=== PATIENT | male | born 1940 | race Caucasian/White ===

== ENCOUNTER 2023-01-23 08:15 | Outpatient (RCR) | payer MEDICARE, OTHER, SELFPAY | END 2023-02-26 10:13 | disposition home or self-care (01) | PROVIDERS: Visit Provider Physician Assistant Surgical | DX: Z96.611 Presence of right artificial shoulder joint (principal); R53.1 Weakness; R52 Pain, unspecified; Z74.09 Other reduced mobility; Z51.89 Encounter for other specified aftercare | CPT/HCPCS: 97110; 97161 ==

== ENCOUNTER 2024-05-05 09:43 | Outpatient (CLI) | payer MEDICARE, OTHER, SELFPAY ==
--- OUTSIDE RECORDS SUMMARY | 2024-05-21 00:29 | XMS_ITS | Continuity of Care Document ---
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 It does not include entries that were removed or entered in error. Problem Status Onset Date Problem Type Date of Resolution Comments Source Benign essential hypertension Active Condition [facility] Elevation, blood pressure (ICD-9-CM 796.2) Active Condition Apr 15, 2014 Entered By: KIRSTEN MEEK Comment: no recent elevated bp readings at non [facility] pcp or here 2013 [facility] Hyperlipidemia (SNOMED CT [id number]) Active Condition [facility] Other Specified Counseling Active Condition Apr 15, 2014 Entered By: KIRSTEN MEEK Comment: nl cscope 5 years ago at non ms provider, managed by non [facility] Personal History of Malignant Neoplasm of Prostate (ICD-9-CM V10.46) Active Condition [facility] Pigmented skin lesion Active Condition Apr 15, 2014 Entered By: KIRSTEN MEEK Comment: 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 [facility] Diagnosis: ICD-10-CM M25.512 Pain in left shoulder Active Diagnosis [facility] Diagnosis: ICD-10-CM Z47.1 Aftercare following joint replacement surgery Active Diagnosis [facility] Diagnosis: ICD-10-CM Z46.1 Encounter for fitting and adjustment of hearing aid Active Diagnosis [facility] Diagnosis: ICD-10-CM Z47.89 Encounter for other orthopedic aftercare Active Diagnosis [facility] Diagnosis: ICD-10-CM M25.519 Pain in unspecified shoulder Active Diagnosis [facility] Diagnosis: ICD-10-CM M62.81 Muscle weakness (generalized) Active Diagnosis [facility] Diagnosis: ICD-10-CM Z73.6 Limitation of activities due to disability Active Diagnosis [facility] Admit Reason: S/P TSA Active Diagnosis [facility] Diagnosis: ICD-10-CM E78.5 Hyperlipidemia, unspecified Active Diagnosis [facility] Diagnosis: ICD-10-CM Z01.818 Encounter for other preprocedural examination Active Diagnosis [facility] Diagnosis: ICD-10-CM J20.9 Acute bronchitis, unspecified Active Diagnosis [facility] Diagnosis: ICD-10-CM Z71.9 Counseling, unspecified Active Diagnosis [facility] Diagnosis: ICD-10-CM Z13.6 Encounter for screening for cardiovascular disorders Active Diagnosis [facility] Diagnosis: ICD-10-CM M19.012 Primary osteoarthritis, left shoulder Active Diagnosis [facility] Diagnosis: ICD-10-CM H93.13 Tinnitus, bilateral Active Diagnosis [facility] Medications Combined list of outpatient medications from [...] Sep 06, 2023 100 Oct 06, 2023 [id number] Sep 06, 2023 DIRK [facility]HO [facility] ORAL 10/06/2023 [id number] Skyla NASH 2022 100 [facility] AMOXICILLIN TRIHYDRATE 875MG/CLAVU LANATE K 125MG TAB AMOXICIL STEVIE TRIHYDRA TE 875MG/CL AVULANAT E K 125MG TAB TAKE 1 TABLET BY MOUTH TWICE A DAY BRONCHIT IS BRONCHIT IS Aug 14, 2023 10 Sep 13, 2023 [id number] Aug 14, 2023 CELINE MEADE [place] [facility] ORAL 09/13/2023 [id number] SHEA MEADE [place] [address] [facility] ASPIRIN 81MG TAB,EC ASPIRIN 81MG TAB,EC Active: Susp TAKE ONE TABLET BY MOUTH EVERY DAY FOR HEART DISEASE DO NOT CHEW FOR HEART DISEASE Mar 18, 2024 120 Mar 19, 2025 [id number] Jun 07, 2024 Ynes BRISENO [facility] ORAL SUSPEND ED 03/19/2025 [id number] AMANDEEP BRISENO Y [address] [facility] ASPIRIN 81MG TAB,EC ASPIRIN 81MG TAB,EC Disconti nued TAKE TWO TABLETS BY MOUTH EVERY DAY FOR 6 WEEKS TO PREVENT BLOOD CLOTS. TO PREVENT BLOOD CLOTS Sep 06, 2023 84 Oct 18, 2023 [id number] Sep 06, 2023 DIRK NASH [facility] ORAL DISCONT INUED BY PROVIDE R 10/18/2023 [id number] Skyla NASH [address] [facility] ATORVASTATI N CA 80MG TAB ATORVAST ATIN CA 80MG TAB Active TAKE ONE TABLET BY MOUTH EVERY DAY FOR CHOLESTE ROL FOR CHOLESTE ROL Mar 18, 2024 90 Mar 19, 2025 [id number] A Apr 17, 2024 [facility] 03/19/2025 [id number] AMANDEEP BRISENO Y [address] [facility] ATORVASTATI N CA 80MG TAB ATORVAST ATIN CA 80MG TAB Disconti nued TAKE ONE TABLET BY MOUTH EVERY DAY FOR CHOLESTE ROL FOR CHOLESTE ROL Mar 19, 2023 90 Mar 19, 2024 [id number] January 28, 2024 [facility] 03/19/2024 [id number] AMANDEEP BRISENO Y 2022 90 [facility] ATORVASTATI N CA 80MG TAB ATORVAST ATIN CA 80MG TAB Disconti nued TAKE ONE-HALF TABLET BY MOUTH EVERY DAY FOR CHOLESTE ROL May 08, 2022 45 May 09, 2023 [id number] B Mar 05, 2023 Ynes BRISENO [facility] ORAL DISCONT INUED 05/09/2023 [id number] AMANDEEP BRISENO NDE Y 2021 [address] [facility] BENZOYL PEROXIDE 10% (WATER BASED) GEL,TOP BENZOYL [...] Jul 05, 2023 60 Aug 07, 2023 [id number] Jul 09, 2023 JEFF ROCHE [facility] TOPICA L 08/07/2023 [id number] Claire ROCHE [address] [facility] CALCIUM CARBONATE 650MG TAB CALCIUM CARBONAT E 650MG TAB Active TAKE ONE TABLET BY MOUTH EVERY DAY FOR CALCIUM SUPPLEME NT FOR CALCIUM SUPPLEME NT Apr 02, 2024 90 Apr 03, 2025 [id number] Apr 03, 2024 Ynes BRISENO [facility] ORAL ACTIVE 04/03/2025 [id number] AMANDEEP BRISENO Y [address] [facility] CARBOXYMETH YLCELLULOSE NA 0.25% SOLN,OPH CARBOXYM ETHYLCEL LULOSE NA 0.25% SOLN,OPH Active INSTILL 1 DROP IN BOTH EYES FOUR TIMES A DAY FOR DRY EYES FOR DRY EYES Nov 20, 2023 45 Nov 20, 2024 [id number] Nov 20, 2023 [facility] ACTIVE 11/20/2024 [id number] Kaern PATEL 2023 45 [facility] CETIRIZINE HCL 10MG TAB CETIRIZI NE HCL 10MG TAB TAKE ONE TABLET BY MOUTH EVERY DAY FOR ALLERGIE S Aug 14, 2023 10 Sep 13, 2023 [id number] Aug 14, 2023 CELINE MEADE [place] [facility] ORAL 09/13/2023 [id number] MEADECELINE ALVAREZSkyla [place] 2022 10 [facility] CHOLECALCIF DARLENE 25MCG (1,000UNIT) TAB CHOLECAL CIFEROL 25MCG (1,000UN IT) TAB Active TAKE ONE TABLET BY MOUTH EVERY DAY FOR VITAMIN D FOR VITAMIN D Mar 18, 2024 100 Mar 19, 2025 [id number] A Apr 09, 2024 Ynes BRISENO Y [facility] ORAL ACTIVE 03/19/2025 [id number] AMANDEEP BRISENO Y 2023 100 [facility] CHOLECALCIF DARLENE 25MCG (1,000UNIT) TAB CHOLECAL CIFEROL 25MCG (1,000UN IT) TAB Disconti nued TAKE ONE TABLET BY MOUTH EVERY DAY FOR VITAMIN D FOR VITAMIN D Jun 29, 2023 100 Jun 27, 2024 [id number] January 20, 2024 PRIMO WALTERS [facility] ORAL DISCONT INUED 06/27/2024 [id number] PRIMO WALTERS 2022 100 [facility] CHOLECALCIF DARLENE 25MCG (1,000UNIT) TAB CHOLECAL CIFEROL 25MCG (1,000UN IT) TAB Disconti nued TAKE 1000UNIT BY MOUTH EVERY DAY FOR VITAMIN D FOR VITAMIN D Jun 27, 2023 90 Jun 27, 2024 [id number] Jun 29, 2023 PRIMO WALTERS [facility] ORAL DISCONT INUED (EDIT) 06/27/2024 [id number] PRIMO WALTERS 2022 90 [facility] CHOLECALCIF DARLENE 25MCG (1,000UNIT) TAB CHOLECAL CIFEROL 25MCG (1,000UN IT) TAB Non-VA TAKE ONE TABLET BY MOUTH EVERY DAY Mar 06, 2017 Non-VA Document ed by: Ynes BRISENO Document ed at: [facility] ORAL ACTIVE AMANDEEP BRISENO Y [address] [facility] CODEINE 10MG/GUAIFE NESIN 100MG/5ML (SF & AF) LIQUID CODEINE 10MG/GUA IFENESIN 100MG/5M L (SF and AF) LIQUID Disconti nued TAKE 10 ML BY MOUTH EVERY 6 HOURS NEEDED FOR COUGH FOR COUGH Aug 14, 2023 236 Sep 13, 2023 [id number] Aug 14, 2023 CELINE MEADE [facility] ORAL DISCONT INUED 09/13/2023 [id number] SHE[place] ME[place] [address] [facility] DOCUSATE NA 50MG/SENNOS IDES 8.6MG TAB DOCUSATE NA 50MG/SEN NOSIDES 8.6MG TAB TAKE 2 TABLETS BY MOUTH TWICE A DAY FOR CONSTIPA TION *HOLD FOR LOOSE STOOLS* FOR CONSTIPA TION Sep 06, 2023 100 Oct 06, 2023 [id number] Sep 06, 2023 DIRK NASH [facility] ORAL 10/06/2023 [id number] Skyla NASH [address] [facility] HYDROCHLORO THIAZIDE 12.5MG TAB HYDROCHL OROTHIAZ JONATHAN 12.5MG TAB Active TAKE ONE TABLET BY MOUTH EVERY DAY FOR BLOOD PRESSURE FOR BLOOD PRESSURE Mar 18, 2024 90 Mar 19, 2025 [id number] Mar 19, 2024 Ynes BRISENO Y [facility] ORAL ACTIVE 03/19/2025 [id number] AMANDEEP BRISENO Y [address] [facility] HYDROCHLORO THIAZIDE 25MG TAB HYDROCHL OROTHIAZ JONATHAN 25MG TAB Disconti nued TAKE ONE-HALF TABLET BY MOUTH EVERY DAY FOR BLOOD PRESSURE Mar 19, 2023 45 Mar 19, 2024 [id number] E Feb 18, 2024 Ynes BRISENO Y [facility] ORAL DISCONT INUED (EDIT) 03/19/2024 [id number] AMANDEEP BRISENO NDE Y [address] [facility] HYDROCHLORO THIAZIDE 25MG TAB HYDROCHL OROTHIAZ JONATHAN 25MG TAB Disconti nued TAKE ONE-HALF TABLET BY MOUTH EVERY DAY FOR BLOOD PRESSURE May 08, 2022 45 May 09, 2023 [id number] D Feb 22, 2023 Ynes BRISENO Y [facility] ORAL DISCONT INUED 05/09/2023 [id number] AMANDEEP BRISENO NDE Y [address] [facility] IBUPROFEN 200MG TAB IBUPROFE N 200MG TAB Non-VA TAKE ONE TABLET BY MOUTH EVERY DAY NEEDED Sep 01, 2022 Non-VA Document ed by: ALE MICHAELS Document ed at: [facility] ORAL ACTIVE LUPE MICHAELS [address] [facility] LIDOCAINE 5% PATCH LIDOCAIN E 5% PATCH APPLY 1 PATCH TOPICALL Y EVERY DAY DIRECTED TO BOTH SIDES ON INCISION . MAY CUT IN HALF. DO NOT APPLY DIRECTLY OVER INCISION . WEAR PATCH FOR 12 HOURS, THEN REMOVE FOR 12 HOURS BEFORE NEW PATCH IS APPLIED. DO NOT START WEARING PATCH UNTIL 09/09/23 FOR PAIN Sep 06, 2023 15 Oct 06, 2023 [id number] Sep 06, 2023 DIRK NASH [facility] TOPICA L 10/06/2023 [id number] Skyla NASH [address] [facility] METHOCARBAM OL 500MG TAB METHOCAR BAMOL 500MG TAB TAKE ONE TO TWO TABLETS BY MOUTH EVERY 6 HOURS NEEDED FOR PAIN RELATED TO MUSCLE SPASM AND/OR TIGHTNES S. TAKE LOWEST EFFECTIV E DOSE. FOR PAIN Sep 06, 2023 80 Oct 06, 2023 [id number] Sep 06, 2023 DIRK NASH [facility] ORAL 10/06/2023 [id number] Sykla NASH [address] [facility] MULTIVITAMI NS CAP/TAB MULTIVIT AMINS CAP/TAB Non-VA TAKE ONE TABLET BY MOUTH EVERY DAY February 01, 2011 Non-VA Document ed by: ANGELITA ZAMORA TTI Document ed at: [facility] ORAL ACTIVE ROSE ZAMORA [address] [facility] MUPIROCIN 2% OINT,TOP MUPIROCI N 2% OINT,TOP APPLY PEA SIZED AMOUNT INSIDE EACH NOSTRIL TOPICALL Y TWICE A DAY TO PREVENT INFECTIO N FOR FIVE DAYS PRIOR TO SURGERY -PROCEDU RE DATE: 09/05/20 23 FOR FIVE DAYS PRIOR TO SURGERY -PROCEDU RE DATE: 09/05/20 23 TO PREVENT INFECTIO N Jul 05, 2023Aug 07, 2023 [id number] Jul 09, 2023 JEFF ROCHE [facility] TOPICA L 08/07/2023 [id number] Claire ROCHE [address] [facility] NALOXONE HCL 4MG/SPRAY SOLN,SPRAY, NASAL NALOXONE HCL 4MG/SPRA Y SOLN,SPR AY,NASAL SPRAY 1 DOSE IN ONE NOSTRIL DIRECTED ONCE FOR UNRESPON SIVENESS THEN CALL 911 - IF NO CHANGE IN 2-3 MINUTES, GIVE SECOND DOSE IN OPPOSITE NOSTRIL. FOR UNRESPON SIVENESS THEN CALL 911 Sep 06, 2023 2 Oct 06, 2023 [id number] Sep 06, 2023 DIRK NASH [facility] NASAL 10/06/2023 [id number] Skyla NASH [address] [facility] OXYCODONE HCL 5MG TAB OXYCODON E HCL 5MG TAB TAKE 1/2 TABLET TO ONE TABLET BY MOUTH EVERY 4 HOURS NEEDED FOR PAIN NOT CONTROLL ED WITH NON-OPIO ID REGIMEN. ATTEMPT TO USE LOWEST EFFECTIV E DOSE. FOR PAIN NOT CONTROLL ED WITH NON-OPIO ID REGIMEN. ATTEMPT TO USE LOWEST EFFECTIV E DOSE. FOR PAIN Sep 06, 2023 20 Oct 06, 2023 [id number] Sep 06, 2023 DIRK NASH [facility] ORAL 10/06/2023 [id number] Skyla NASH [address] [facility] POLYETHYLEN E GLYCOL 3350 PWDR,ORAL POLYETHY GEMMA GLYCOL 3350 PWDR,ORA L TAKE 17 GRAMS BY MOUTH EVERY DAY FOR CONSTIPA TION. MIX WITH 8OZ OF JUICE OR WATER *HOLD FOR LOOSE STOOLS FOR CONSTIPA TION Sep 06, 2023 238 Oct 06, 2023 [id number] Sep 06, 2023 DIRK NASH [facility] ORAL 10/06/2023 [id number] Skyla NASH [address] [facility] Allergies, Adverse Reactions, Alerts Combined list of allergies from Department of Defense and Veterans Affairs facilities. It does not include entries that were removed or entered in error. Substance Category Reaction Severity Reaction type Status Date Reported Comments Source LISINOPRIL Propensity to adverse reactions to drug (finding) Cough active 8 [facility] Immunizations Combined list of available immunizations from the Department of Defense and Veterans Affairs facilities. Immunization Series Date Given Administered By Site Reaction Lot Number CVX Code Drug Director Of Alumni Relations Status Comments Source COVID-19 (Opsmatic), MRNA, LNP-S, PF, CLARI-SUCROSE, 30 MCG/0.3 ML (AGES 12+ YEARS) 2023 ANDRIY LE LEFT DELTO ID [id number] [address] [facility] TDAP 2023 ANDRIY LE RIGHT DELTO ID [id number] [address] [facility] INFLUENZA, HIGH-DOSE, QUADRIVALENT [address] [facility] PNEUMOCOCCAL CONJUGATE PCV20, POLYSACCHARID E [id number] CONJUGATE, ADJUVANT, PF [address] [facility] INFLUENZA VACCINE, QUADRIVALENT, ADJUVANTED [address] [facility] COVID-19 (Opsmatic), MRNA, LNP-S, PF, 30 MCG/0.3 ML DOSE, CLARI-SUCROSE (AGES 12+ YEARS) 4 2021 217 complet ed PFR; [id number]; 2 [facility] COVID-19 (PFIZER), MRNA, LNP-S, PF, 30 MCG/0.3 ML DOSE [address] [facility] INFLUENZA, HIGH-DOSE, QUADRIVALENT [address] [facility] INFLUENZA, UNSPECIFIED FORMULATION 2020 88 complet ed [place] ACQUISI TION INNOVAT ION COVID-19 (PFIZER), MRNA, LNP-S, PF, 30 MCG/0.3 ML DOSE 2 2020 208 complet ed PFR; [id number]; 1 [facility] COVID-19 (PFIZER), MRNA, LNP-S, PF, 30 MCG/0.3 ML DOSE 1 2020 208 complet ed PFR; [id number]; 1 [facility] ZOSTER RECOMBINANT [address] [facility] INFLUENZA, INJECTABLE, QUADRIVALENT, PRESERVATIVE FREE [address] [facility] ZOSTER RECOMBINANT 1 [address] [facility] INFLUENZA, INJECTABLE, MDCK, PRESERVATIVE FREE, QUADRIVALENT 2018 171 complet ed [facility] Administe red by: [facility] Clinician (NPI=Not Provided) . Partner 8 Lot#: [id number] Mfr: SEQIRUS [facility] INFLUENZA, SEASONAL, INJECTABLE, PRESERVATIVE FREE [address] [facility] INFLUENZA, HIGH DOSE SEASONAL [address] [facility] INFLUENZA, HIGH DOSE SEASONAL [address] [facility] PNEUMOCOCCAL CONJUGATE PCV 13 [address] [facility] PNEUMOCOCCAL CONJUGATE PCV 13 [address] [facility] INFLUENZA, UNSPECIFIED FORMULATION [address] [facility] PNEUMOCOCCAL POLYSACCHARID E PPV23 [address] [facility] PNEUMOCOCCAL, UNSPECIFIED FORMULATION [address] [facility] TDAP [address] [facility] INFLUENZA, UNSPECIFIED FORMULATION [address] [facility] INFLUENZA, UNSPECIFIED FORMULATION 2011 [address] [facility] ZOSTER LIVE 2011 121 complet ed [id number] [facility] INFLUENZA, UNSPECIFIED FORMULATION [address] [facility] TD(ADULT) UNSPECIFIED FORMULATION 2010 [address] per pt [facility] INFLUENZA, UNSPECIFIED FORMULATION [address] [facility] Results Combined list of recent chemistry, hematology [...] Mar 19, 2023 11:19 AM Reporting Lab: [facility] [phone] Performing Lab: [facility] [phone] [facility] A1C HEMOGLOBIN A1C/HEMOGLO BIN.TOTAL IN BLOOD 5.7 4.0 - 6.0 03/18 Specimen Type: BLOOD Comment: Values obtained from A1C measurement s can vary. For typical A1C assays, a reported value of 7.0 could actually be between 6.7 and 7.3 if measured by a reference method. A reported value of 9.0 could actually be between 8.7 and 9.3. Ref: http://www. ngsp.org/[place] Pdata.asp Ordering Provider: RICHA BRISENO Report Released Date/Time: Mar 19, 2023 11:19 AM Reporting Lab: [facility] [phone] Performing Lab: [facility] [phone] [facility] ALT/SGPT ALANINE AMINOTRANSF ERASE [ENZYMATIC ACTIVITY/VO LUME] IN SERUM OR PLASMA 18 U/L <55 - 55 03/18 Specimen Type: PLASMA No comment entered. Ordering Provider: RICHA BRISENO Report Released Date/Time: Mar 19, 2023 11:19 AM Reporting Lab: [facility] [phone] Performing Lab: [facility] [address] [facility] LIPID PANEL,NON -FASTING CHOLESTEROL [MASS/VOLUM E] IN SERUM OR PLASMA 180 mg/dL <199 - 199 03/18 Specimen Type: PLASMA No comment entered. Ordering Provider: RICHA BRISENO Report Released Date/Time: Mar 19, 2023 11:19 AM Reporting Lab: [facility] [address] Performing Lab: [facility] [address] [facility] LIPID PANEL,NON -FASTING CHOLESTEROL IN HDL [MASS/VOLUM E] IN SERUM OR PLASMA 49 mg/dL 40 03/18 Specimen Type: PLASMA No comment entered. Ordering Provider: RICHA BRISENO Report Released Date/Time: Mar 19, 2023 11:19 AM Reporting Lab: [facility] [phone] Performing Lab: [facility] [address] [facility] LIPID PANEL,NON -FASTING CHOLESTEROL IN LDL [MASS/VOLUM E] IN SERUM OR PLASMA BY CALCULATION 112 mg/dL <99 - 99 03/18 H Specimen Type: PLASMA No comment entered. Ordering Provider: RICHA BRISENO Report Released Date/Time: Mar 19, 2023 11:19 AM Reporting Lab: [facility] [address] Performing Lab: [facility] [address] [facility] LIPID PANEL,NON -FASTING CHOLESTEROL IN VLDL [MASS/VOLUM E] IN SERUM OR PLASMA BY CALCULATION 19 mg/dL <29 - 29 03/18 Specimen Type: PLASMA No comment entered. Ordering Provider: RICHA BRISENO Report Released Date/Time: Mar 19, 2023 11:19 AM Reporting Lab: [facility] [address] Performing Lab: [facility] [address] [facility] LIPID PANEL,NON -FASTING CHOLESTEROL NON HDL [MASS/VOLUM E] IN SERUM OR PLASMA 131 mg/dL <129 - 129 03/18 H Specimen Type: PLASMA No comment entered. Ordering Provider: RICHA BRISENO Report Released Date/Time: Mar 19, 2023 11:19 AM Reporting Lab: [facility] [address] Performing Lab: [facility] [address] [facility] LIPID PANEL,NON -FASTING TRIGLYCERID E [MASS/VOLUM E] IN SERUM OR PLASMA 97 mg/dL <149 - 149 03/18 Specimen Type: PLASMA No comment entered. Ordering Provider: RICHA BRISENO Report Released Date/Time: Mar 19, 2023 11:19 AM Reporting Lab: [facility] [address] Performing Lab: [facility] [address] [facility] BASIC METABOLIC PANEL+MG CREATININE [MASS/VOLUM E] IN SERUM OR PLASMA 0.9 mg/dL 0.7 - 1.2 03/18 Specimen Type: PLASMA No comment entered. Ordering Provider: RICHA BRISENO Report Released Date/Time: Mar 19, 2023 11:19 AM Reporting Lab: [facility] [address] Performing Lab: [facility] [address] [facility] BASIC METABOLIC PANEL+MG UREA NITROGEN [MASS/VOLUM E] IN SERUM OR PLASMA 23 mg/dL 8 - 26 03/18 Specimen Type: PLASMA No comment entered. Ordering Provider: RICHA BRIESNO Report Released Date/Time: Mar 19, 2023 11:19 AM Reporting Lab: [facility] [address] Performing Lab: [facility] [address] [facility] BASIC METABOLIC PANEL+MG GLUCOSE [MASS/VOLUM E] IN SERUM OR PLASMA 101 mg/dL 70 - 100 03/18 H Specimen Type: PLASMA No comment entered. Ordering Provider: RICHA BRISENO Report Released Date/Time: Mar 19, 2023 11:19 AM Reporting Lab: [facility] [address] Performing Lab: [facility] [address] [facility] BASIC METABOLIC PANEL+MG SODIUM [MOLES/VOLU ME] IN SERUM OR PLASMA 141 mmol/L 136 - 145 03/18 Specimen Type: PLASMA No comment entered. Ordering Provider: RICHA BRISENO Report Released Date/Time: Mar 19, 2023 11:19 AM Reporting Lab: [facility] [address] Performing Lab: [facility] [phone] [facility] BASIC METABOLIC PANEL+MG POTASSIUM [MOLES/VOLU ME] IN SERUM OR PLASMA 4.5 mmol/L 3.5 - 5.1 03/18 Specimen Type: PLASMA No comment entered. Ordering Provider: RICHA BRISENO Report Released Date/Time: Mar 19, 2023 11:19 AM Reporting Lab: [facility] [address] Performing Lab: [facility] [address] [facility] BASIC METABOLIC PANEL+MG CHLORIDE [MOLES/VOLU ME] IN SERUM OR PLASMA 107 mmol/L 98 - 107 03/18 Specimen Type: PLASMA No comment entered. Ordering Provider: RICHA BRISENO Report Released Date/Time: Mar 19, 2023 11:19 AM Reporting Lab: [facility] [address] Performing Lab: [facility] [address] [facility] BASIC METABOLIC PANEL+MG CARBON DIOXIDE, TOTAL [MOLES/VOLU ME] IN SERUM OR PLASMA 26 mmol/L 22 - 29 03/18 Specimen Type: PLASMA No comment entered. Ordering Provider: RICHA BRISENO Report Released Date/Time: Mar 19, 2023 11:19 AM Reporting Lab: [facility] [address] Performing Lab: [facility] [address] [facility] BASIC METABOLIC PANEL+MG CALCIUM [MASS/VOLUM E] IN SERUM OR PLASMA 9.9 mg/dL 8.4 - 10.2 03/18 Specimen Type: PLASMA No comment entered. Ordering Provider: RICHA BRISENO Report Released Date/Time: Mar 19, 2023 11:19 AM Reporting Lab: [facility] [address] Performing Lab: [facility] [address] [facility] BASIC METABOLIC PANEL+MG MAGNESIUM [MASS/VOLUM E] IN SERUM OR PLASMA 2.1 mg/dL 1.6 - 2.6 03/18 Specimen Type: PLASMA No comment entered. Ordering Provider: RICHA BRISENO Report Released Date/Time: Mar 19, 2023 11:19 AM Reporting Lab: [facility] [id number] Performing Lab: [facility] [id number] [place] [facility]ABOLIC PAN[facility]+MG ANION GAP IN SERUM OR PLASMA 8 mmol/L 5 - 15 03/18 Specimen Type: PLASMA No comment entered. Ordering Provider: RICHA BRISENO Report Released Date/Time: Mar 19, 2023 11:19 AM Reporting Lab: [facility] [phone] Performing Lab: [facility] [phone] [place] [facility] METABOLIC PAN[facility]+MG GLOMERULAR FILTRATION RATE/1.73 SQ M.PREDICTED [VOLUME RATE/AREA] IN SERUM, PLASMA OR BLOOD BY CREATININE- BASED FORMULA (CKD-EPI 2020) 86 60 03/18 Specimen Type: PLASMA No comment entered. Ordering Provider: RICHA BRISENO Report Released Date/Time: Mar 19, 2023 11:19 AM Reporting Lab: [facility] [phone] Performing Lab: [facility] [address] [facility] CBC LEUKOCYTES [#/VOLUME] IN BLOOD BY AUTOMATED COUNT 6.23 10*3/u L 4.0 - 11.0 03/18 Specimen Type: BLOOD No comment entered. Ordering Provider: RICHA BRISENO Report Released Date/Time: Mar 19, 2023 11:19 AM Reporting Lab: [facility] [address] Performing Lab: [facility] [address] [facility] CBC ERYTHROCYTE S [#/VOLUME] IN BLOOD BY AUTOMATED COUNT 3.95 10*6/u L 4.6 - 6.2 03/18 L Specimen Type: BLOOD No comment entered. Ordering Provider: RICHA BRISENO Report Released Date/Time: Mar 19, 2023 11:19 AM Reporting Lab: [facility] [address] Performing Lab: [facility] [address] [facility] CBC HEMOGLOBIN [MASS/VOLUM E] IN BLOOD 12.2 g/dL 13.5 - 17.9 03/18 L Specimen Type: BLOOD No comment entered. Ordering Provider: RICHA BRISENO Report Released Date/Time: Mar 19, 2023 11:19 AM Reporting Lab: [facility] [address] Performing Lab: [facility] [address] [facility] CBC HEMATOCRIT [VOLUME FRACTION] OF BLOOD BY AUTOMATED COUNT 35.6 41 - 54 03/18 L Specimen Type: BLOOD No comment entered. Ordering Provider: RICHA BRISENO Report Released Date/Time: Mar 19, 2023 11:19 AM Reporting Lab: [facility] [address] Performing Lab: [facility] [address] [facility] CBC MCV [ENTITIC VOLUME] BY AUTOMATED COUNT 90.1 fL 80 - 100 03/18 Specimen Type: BLOOD No comment entered. Ordering Provider: RICHA BRISENO Report Released Date/Time: Mar 19, 2023 11:19 AM Reporting Lab: [facility] [address] Performing Lab: [facility] [address] [facility] CBC MCH [ENTITIC MASS] BY AUTOMATED COUNT 30.9 pg 27 - 33 03/18 Specimen Type: BLOOD No comment entered. Ordering Provider: RICHA BRISENO Report Released Date/Time: Mar 19, 2023 11:19 AM Reporting Lab: [facility] [address] Performing Lab: [facility] [address] [facility] CBC MCHC [MASS/VOLUM E] BY AUTOMATED COUNT 34.3 g/dL 32.0 - 37.5 03/18 Specimen Type: BLOOD No comment entered. Ordering Provider: RICHA BRISENO Report Released Date/Time: Mar 19, 2023 11:19 AM Reporting Lab: [facility] [address] Performing Lab: [facility] [address] [facility] CBC PLATELETS [#/VOLUME] IN BLOOD BY AUTOMATED COUNT 245 10*3/u L 150 - 400 03/18 Specimen Type: BLOOD No comment entered. Ordering Provider: RICHA BRISENO Report Released Date/Time: Mar 19, 2023 11:19 AM Reporting Lab: [facility] [address] Performing Lab: [facility] [address] [facility] CBC PLATELET MEAN VOLUME [ENTITIC VOLUME] IN BLOOD BY AUTOMATED COUNT 9.8 fL 7.4 - 10.4 03/18 Specimen Type: BLOOD No comment entered. Ordering Provider: RICHA BRISENO Report Released Date/Time: Mar 19, 2023 11:19 AM Reporting Lab: [facility] [address] Performing Lab: [facility] [address] [facility] CBC ERYTHROCYTE DISTRIBUTIO N WIDTH [RATIO] BY AUTOMATED COUNT 14.6 11.5 - 14.5 03/18 H Specimen Type: BLOOD No comment entered. Ordering Provider: RICHA BRISENO Report Released Date/Time: Mar 19, 2023 11:19 AM Reporting Lab: [facility] [address] Performing Lab: [facility] [address] [facility] PSA PROSTATE SPECIFIC AG [MASS/VOLUM E] IN SERUM OR PLASMA 0.04 ng/mL <4.00 - 4.00 03/18 Specimen Type: SERUM Comment: Specimen received is PLASMA. Ordering Provider: RICHA BRISENO Report Released Date/Time: Mar 18, 2024 09:54 AM Reporting Lab: [facility] [address] Performing Lab: [facility] [address] [facility] IRON GROUP IRON [MASS/VOLUM E] IN SERUM OR PLASMA 71 ug/dL 65 - 175 03/18 Specimen Type: SERUM Comment: Specimen received is PLASMA. Ordering Provider: RICHA BRISENO Report Released Date/Time: Mar 18, 2024 09:53 AM Reporting Lab: [facility] [address] Performing Lab: [facility] [address] [facility] IRON GROUP IRON BINDING CAPACITY [MASS/VOLUM E] IN SERUM OR PLASMA 264 ug/dL 250 - 425 03/18 Specimen Type: SERUM Comment: Specimen received is PLASMA. Ordering Provider: RICHA BRISENO Report Released Date/Time: Mar 18, 2024 09:53 AM Reporting Lab: [facility] [address] Performing Lab: [facility] [address] [facility] IRON GROUP FERRITIN [MASS/VOLUM E] IN SERUM OR PLASMA 249.1 ng/mL 21.8 - 274.7 03/18 Specimen Type: SERUM Comment: Specimen received is PLASMA. Ordering Provider: RICHA BRISENO Report Released Date/Time: Mar 18, 2024 09:53 AM Reporting Lab: [facility] [address] Performing Lab: [facility] [address] [facility] IRON GROUP IRON SATURATION 27 20 - 50 03/18 Specimen Type: SERUM Comment: Specimen received is PLASMA. Ordering Provider: RICHA BRISENO Report Released Date/Time: Mar 18, 2024 09:53 AM Reporting Lab: [facility] [address] Performing Lab: [facility] [address] [facility] IRON GROUP TRANSFERRIN [MASS/VOLUM E] IN SERUM OR PLASMA 211 mg/dL 163 - 382 03/18 Specimen Type: SERUM Comment: Specimen received is PLASMA. Ordering Provider: RICHA BRISENO Report Released Date/Time: Mar 18, 2024 09:53 AM Reporting Lab: [facility] [address] Performing Lab: [facility] [address] [facility] CBC LEUKOCYTES [#/VOLUME] IN BLOOD BY AUTOMATED COUNT 8.69 10*3/u L 4.0 - 11.0 09/06 Specimen Type: BLOOD Comment: Specimen received in Lab at: 0910 Ordering Provider: RAHEEL DELGADILLO Report Released Date/Time: Sep 05, 2023 07:28 PM Reporting Lab: [facility] [address] Performing Lab: [facility] [address] [facility] CBC ERYTHROCYTE S [#/VOLUME] IN BLOOD BY AUTOMATED COUNT 3.76 10*6/u L 4.6 - 6.2 09/06 L Specimen Type: BLOOD Comment: Specimen received in Lab at: 0910 Ordering Provider: RAHEEL DELGADILLO Report Released Date/Time: Sep 05, 2023 07:28 PM Reporting Lab: [facility] [address] Performing Lab: [facility] [address] [facility] CBC HEMOGLOBIN [MASS/VOLUM E] IN BLOOD 11.5 g/dL 13.5 - 17.9 09/06 L Specimen Type: BLOOD Comment: Specimen received in Lab at: 0910 Ordering Provider: RAHEEL DELGADILLO Report Released Date/Time: Sep 05, 2023 07:28 PM Reporting Lab: [facility] [address] Performing Lab: [facility] [address] [facility] CBC HEMATOCRIT [VOLUME FRACTION] OF BLOOD BY AUTOMATED COUNT 34.7 41 - 54 09/06 L Specimen Type: BLOOD Comment: Specimen received in Lab at: 0910 Ordering Provider: RAHEEL DELGADILLO Report Released Date/Time: Sep 05, 2023 07:28 PM Reporting Lab: [facility] [address] Performing Lab: [facility] [address] [facility] CBC MCV [ENTITIC VOLUME] BY AUTOMATED COUNT 92.3 fL 80 - 100 09/06 Specimen Type: BLOOD Comment: Specimen received in Lab at: 0910 Ordering Provider: RAHEEL DELGADILLO Report Released Date/Time: Sep 05, 2023 07:28 PM Reporting Lab: [facility] [address] Performing Lab: [facility] [address] [facility] CBC MCH [ENTITIC MASS] BY AUTOMATED COUNT 30.6 pg 27 - 33 09/06 Specimen Type: BLOOD Comment: Specimen received in Lab at: 0910 Ordering Provider: RAHEEL DELGADILLO Report Released Date/Time: Sep 05, 2023 07:28 PM Reporting Lab: [facility] [address] Performing Lab: [facility] [address] [facility] CBC MCHC [MASS/VOLUM E] BY AUTOMATED COUNT 33.1 g/dL 32.0 - 37.5 09/06 Specimen Type: BLOOD Comment: Specimen received in Lab at: 0910 Ordering Provider: RAHEEL DELGADILLO Report Released Date/Time: Sep 05, 2023 07:28 PM Reporting Lab: [facility] [address] Performing Lab: [facility] [address] [facility] CBC PLATELETS [#/VOLUME] IN BLOOD BY AUTOMATED COUNT 261 10*3/u L 150 - 400 09/06 Specimen Type: BLOOD Comment: Specimen received in Lab at: 0910 Ordering Provider: RAHEEL DELGADILLO Report Released Date/Time: Sep 05, 2023 07:28 PM Reporting Lab: [facility] [address] Performing Lab: [facility] [address] [facility] CBC PLATELET MEAN VOLUME [ENTITIC VOLUME] IN BLOOD BY AUTOMATED COUNT 11.0 fL 7.4 - 10.4 09/06 H Specimen Type: BLOOD Comment: Specimen received in Lab at: 0910 Ordering Provider: RAHEEL DELGADILLO Report Released Date/Time: Sep 05, 2023 07:28 PM Reporting Lab: [facility] [address] Performing Lab: [facility] [address] [facility] CBC ERYTHROCYTE DISTRIBUTIO N WIDTH [RATIO] BY AUTOMATED COUNT 13.3 11.5 - 14.5 09/06 Specimen Type: BLOOD Comment: Specimen received in Lab at: 0910 Ordering Provider: RAHEEL DELGADILLO Report Released Date/Time: Sep 05, 2023 07:28 PM Reporting Lab: [facility] [address] Performing Lab: [facility] [address] [facility] BASIC METABOLIC PANEL+MG CREATININE [MASS/VOLUM E] IN SERUM OR PLASMA 0.9 mg/dL 0.7 - 1.2 09/06 Specimen Type: PLASMA Comment: Specimen received in Lab at: 0910 Ordering Provider: RAHEEL DELGADILLO Report Released Date/Time: Sep 05, 2023 07:28 PM Reporting Lab: [facility] [address] Performing Lab: [facility] [address] [facility] BASIC METABOLIC PANEL+MG UREA NITROGEN [MASS/VOLUM E] IN SERUM OR PLASMA 15 mg/dL 8 - 26 09/06 Specimen Type: PLASMA Comment: Specimen received in Lab at: 0910 Ordering Provider: RAHEEL DELGADILLO Report Released Date/Time: Sep 05, 2023 07:28 PM Reporting Lab: [facility] [address] Performing Lab: [facility] [address] [facility] BASIC METABOLIC PANEL+MG GLUCOSE [MASS/VOLUM E] IN SERUM OR PLASMA 141 mg/dL 70 - 100 09/06 H Specimen Type: PLASMA Comment: Specimen received in Lab at: 0910 Ordering Provider: RAHEEL DELGADILLO Report Released Date/Time: Sep 05, 2023 07:28 PM Reporting Lab: [facility] [address] Performing Lab: [facility] [address] [facility] BASIC METABOLIC PANEL+MG SODIUM [MOLES/VOLU ME] IN SERUM OR PLASMA 134 mmol/L 136 - 145 09/06 L Specimen Type: PLASMA Comment: Specimen received in Lab at: 0910 Ordering Provider: RAHEEL DELGADILLO Report Released Date/Time: Sep 05, 2023 07:28 PM Reporting Lab: [facility] [address] Performing Lab: [facility] [address] [facility] BASIC METABOLIC PANEL+MG POTASSIUM [MOLES/VOLU ME] IN SERUM OR PLASMA 4.1 mmol/L 3.5 - 5.1 09/06 Specimen Type: PLASMA Comment: Specimen received in Lab at: 0910 Ordering Provider: RAHEEL DELGADILLO Report Released Date/Time: Sep 05, 2023 07:28 PM Reporting Lab: [facility] [address] Performing Lab: [facility] [address] [facility] BASIC METABOLIC PANEL+MG CHLORIDE [MOLES/VOLU ME] IN SERUM OR PLASMA 101 mmol/L 98 - 107 09/06 Specimen Type: PLASMA Comment: Specimen received in Lab at: 0910 Ordering Provider: RAHEEL DELGADILLO Report Released Date/Time: Sep 05, 2023 07:28 PM Reporting Lab: [facility] [address] Performing Lab: [facility] [address] [facility] BASIC METABOLIC PANEL+MG CARBON DIOXIDE, TOTAL [MOLES/VOLU ME] IN SERUM OR PLASMA 24 mmol/L 22 - 29 09/06 Specimen Type: PLASMA Comment: Specimen received in Lab at: 0910 Ordering Provider: RAHEEL DELGADILLO Report Released Date/Time: Sep 05, 2023 07:28 PM Reporting Lab: [facility] [address] Performing Lab: [facility] [address] [facility] BASIC METABOLIC PANEL+MG CALCIUM [MASS/VOLUM E] IN SERUM OR PLASMA 8.6 mg/dL 8.4 - 10.2 09/06 Specimen Type: PLASMA Comment: Specimen received in Lab at: 0910 Ordering Provider: RAHEEL DELGADILLO Report Released Date/Time: Sep 05, 2023 07:28 PM Reporting Lab: [facility] [address] Performing Lab: [facility] [address] [facility] BASIC METABOLIC PANEL+MG MAGNESIUM [MASS/VOLUM E] IN SERUM OR PLASMA 1.7 mg/dL 1.6 - 2.6 09/06 Specimen Type: PLASMA Comment: Specimen received in Lab at: 0910 Ordering Provider: RAHEEL DELGADILLO Report Released Date/Time: Sep 05, 2023 07:28 PM Reporting Lab: [facility] [address] Performing Lab: [facility] [address] [facility] BASIC METABOLIC PANEL+MG ANION GAP IN SERUM OR PLASMA 9 mmol/L 5 - 15 09/06 Specimen Type: PLASMA Comment: Specimen received in Lab at: 0910 Ordering Provider: RAHEEL DELGADILLO Report Released Date/Time: Sep 05, 2023 07:28 PM Reporting Lab: [facility] [address] Performing Lab: [facility] [address] [facility] BASIC METABOLIC PANEL+MG GLOMERULAR FILTRATION RATE/1.73 SQ M.PREDICTED [VOLUME RATE/AREA] IN SERUM, PLASMA OR BLOOD BY CREATININE- BASED FORMULA (CKD-EPI 2020) 86 60 09/06 Specimen Type: PLASMA Comment: Specimen received in Lab at: 0910 Ordering Provider: RAHEEL DELGADILLO Report Released Date/Time: Sep 05, 2023 07:28 PM Reporting Lab: [facility] [address] Performing Lab: [facility] [address] [facility] Vital Signs Combined list of inpatient [...] ADM Date DC Date Status [facility] En[facility] [id number] 11/21 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
SUSAN SANCHEZ 12/02 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
LUDY ZEPEDA H 12/11 [facility] En[facility] [id number] 01/18 [facility] Encounter [id number] 03/15 [facility] OFF[facility] O/P EST MOD 30-39 MIN [id number] Diagnos is: ICD-10- CM E78.5 Hyperli pidemia , unspeci fied
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
MARCUS LOMAX 06/27 [facility] ELECTROCAR DIOGRAM COMPLETE [id number] Diagnos is: ICD-10- CM Z13.6 Encount er for screeni ng for cardiov ascular disorde rs
LUISBRADL EY A 07/03 [facility] OFF[facility] O/P EST MOD 30-39 MIN [id number] Diagnos is: ICD-10- CM Z01.818 Encount er for other preproc edural examina tion
ANGELITA TORRE 07/03 [facility] HC PRO PHONE CALL 11-20 MIN [id number] Diagnos is: ICD-10- CM Z71.9 Grinder ing, unspeci fied
JHON NAVARRO 07/05 [facility] EMERGENCY DEPT VISIT LOW MDM [id number] Diagnos is: ICD-10- CM J20.9 Acute bronchi tis, unspeci fied
MEADE,CELINEMARGARET Z 08/14 [facility] En[facility] [id number] 08/14 [facility] SELF CARE MNGMENT TRAINING [id number] Diagnos is: ICD-10- CM M25.512 Pain in left shoulde r
FRANCOIS GALLEGOS TLIN A 08/20 [facility] OFF[facility] O/P EST MOD 30-39 MIN [id number] Diagnos is: ICD-10- CM Z01.818 Encount er for other preproc edural examina tion
MARK HUBBARD M 08/20 [facility] En[facility] [id number] 08/31 [facility] Encounter [id number] SYSTEM,CIS -ARK 09[facility]05 [facility] Encounter [id number] 09/05 [facility] Encounter [id number] SYSTEM,CIS -ARK 09/05 [facility] Encounter [id number] 09/05 [facility] Out[facility] Encounter [id number] 09/05 [facility] Encounter [id number] MARCUS LOMAX F 09/05 [facility] Encounter [id number] 09/05 [facility] En[facility] [id number] CRISTOPHER COLEMAN NSTANCE L 09/05 [facility] QNHP OL DIG ASSMT&MGMT 5-10 [id number] Diagnos is: ICD-10- CM M25.519 Pain in unspeci fied shoulde r
IRISH CARROLL 09/05 [facility] En[facility] [id number] MARCUS LOMAX 09/05 [facility] RECONSTRUC T SHOULDER JOINT [id number] JEREMIAH LE 09/05 [facility] OFF[facility] O/P EST MOD 30-39 MIN [id number] Diagnos is: ICD-10- CM E78.5 Hyperli pidemia , unspeci fied
ERETIMMAYNOR H 09/05 [facility] O/P EST SF 10-19 MIN [id number] Diagnos is: ICD-10- CM M25.512 Pain in left shoulde r
CRISTOPHER COLEMAN NSTANCE L 09/05 [facility] En[facility] [id number] 09/05 [facility] In[facility] Encounter [id number] Admit Reason: S/P TSA<br/ > CARMENCITA- ELOY,CHR ISTOPHER J 09/05 Discharge from inpatient treatment to the [facility] (OPT-PR) rolls. [facility] Inpatient Encounter [id number] LIZETH FAUST A 09/05 [facility] Encounter [id number] LIZETH FAUST A 09/05 [facility] En[facility] [id number] SYSTEM,CIS -ARK 09/06 [facility] Inpatient Encounter [id number] CARLY HURLEY 09/06 [facility] OT EVAL LOW COMPLEX 30 MIN [id number] Diagnos is: ICD-10- CM Z73.6 Limitat ion of activit ies due to disabil ity<br/ > Keanu HALL 09/06 [facility] SELF CARE MNGMENT TRAINING [id number] Diagnos is: ICD-10- CM M62.81 Muscle weaknes s (genera lized)< br/> MAHIN DENT 09/06 [facility] Inpatient Encounter [id number] DORIS ASTORGA 09/06 [facility] Outpatient Encounter [id number] 09/06 [facility] OFF/OP EST MAY X REQ PHY/QHP [id number] Diagnos is: ICD-10- CM M25.519 Pain in unspeci fied shoulde r
Ynes MURPHY 09/06 [facility] In[facility] Encounter [id number] 09/06 [facility] Encounter [id number] 09/06 [facility] OFF/OP EST JANUARY X REQ PHY/QHP [id number] Diagnos is: ICD-10- CM Z47.89 Encount er for other orthope dic afterca re
DAIANA JIMÉNEZ R 09/18 [facility] SELF CARE MNGMENT TRAINING [id number] Diagnos is: ICD-10- CM M25.512 Pain in left shoulde r
RONAK CONRAD GARDUNO K 09/18 [facility] HEARING AID FITTING/CH ECKING [id number] Diagnos is: ICD-10- CM Z46.1 Encount er for fitting and adjustm ent of hearing aid<br/ > GLENN ZHENG RTHA R 09/27 [facility] SELF CARE MNGMENT TRAINING [id number] Diagnos is: ICD-10- CM M25.512 Pain in left shoulde r
SA SEAN RA B 10/16 [facility] SELF CARE MNGMENT TRAINING [id number] Diagnos is: ICD-10- CM M25.512 Pain in left shoulde r
RONAK CONRAD GARDUNO K 10/23 [facility] THERAPEUTI C EXERCISES [id number] Diagnos is: ICD-10- CM M25.512 Pain in left shoulde r
RONAK CONRAD [facility] K 10/30 [facility] POSTOP FOLLOW-UP VISIT [id number] Diagnos is: ICD-10- CM Z47.1 Afterca re followi ng joint replace ment surgery
MARCUS LOMAX 10/31 [facility] THERAPEUTI C EXERCISES [id number] Diagnos is: ICD-10- CM M25.512 Pain in left shoulde r
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
DEEPIKA GOODRICH M 12/16 [facility]PAIR/MOD IFYING [id number] Diagnos is: ICD-10- CM H90.3 Sensori neural hearing loss, bilater al
NAVEED EU[place]E [facility] EST MOD 30 MIN [id number] [phone] Diagnos is: ICD-10- CM I10 Essenti al (primar y) hyperte nsion<b r/> IKRA BRISENO Y 03/18 [facility] En[facility] [phone] HOOD RINCON E 03[facility] FITTING/CH ECKING [phone] Diagnos is: ICD-10- CM Z01.118 Encntr for exam of ears and hearing w oth abnorma l finding s
NAVEED EUGENE Keanu 04/25 [facility] Outpatient Encounter [phone] Justina DOSS Francisca 05/06 [facility] Procedures Combined list of: 1) Procedures from [facility] facilities going back up to thelast 18 months, not all [place] non-surgical procedures are included; 2) All procedures from the Department of [facility] facilities. Procedure Procedure Type Code Date Perfomer Comments Wilfredo an Left reverse TSA RECONSTRUCT SHOULDER JOINT [id number] 3 MARCUS LOMAX Other Procedure CPT Code(s): GR-SERVICE BY [place] RESIDENT, LT-LEFT SIDE [facility] Social History Combined list of available smoking, tobacco, and other social history from [facility] of Defense and Veterans [facility] facilities. Social History Type Response Date Comment Wilfredo an Tobacco smoking status [facility] FOR[facility] USER 03/18/2024 [facility] of [facility]/18/2024 [facility] History of tobacco use [place] NEVER USED 03/19/2023 [facility] History of tobacco use [place] NEVER USED 03/22/2022 [facility] Y[facility] OR MORE 05/12/2021 [facility] History of tobacco use [place]-TO[place]ACCO NEVER USED 02/24/2019 [facility] History of tobacco use FORMER TOBACCO US ER 7Y OR GREATER 02/18/2018 [facility] History of tobacco use FORMER TOBACCO US ER 7Y OR GREATER 03/06/2017 [facility] History of tobacco use FORMER TOBACCO US ER 7Y OR GREATER 03/06/2016 [facility] History of tobacco use INPT NO TOBACCO U SE IN LAST 30 DAYS 01/25/2016 [facility] 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 Additional future care activities may be listed in the Assessment and Plan section. Date/Time Care Activity Care Activity Detail Facili ty 05/26/2024 AMBULATORY - SURGERY AMBULATORY - SURGERY [facility] Advance Directives List of completed, amended, or rescinded Advance Directives on record at [facility] facilities. An actual copy of the Directive is not included. Date Advance Directive Provider Source 10/13/2017 [facility] 10/13/2017 ADVANCE DIRECTIVE DISCUSSION MARAL DORANTES [facility]
--- OUTSIDE RECORDS SUMMARY | 2024-05-21 00:31 | XMS_ITS | Encounter Summary ---
Author Organization [place] Address [address] [place] [address] Care Team Providers Care Blade Filer Name Role Phone [facility] Primary Care Prov ider Encounter Details Date [...] on filedocumented in this encounter Care Teams Blade Filer Relationship Specialty Start Date End Date [facility] [address], [place] [address] PCP - General 09/01/22 documented as of this encounter
--- OUTSIDE RECORDS SUMMARY | 2024-05-21 00:31 | XMS_ITS | Clinical Summary ---
Author Organization [place] Address [address] [place] [address] Care Team Providers Care Training And Development Head Name Role Phone [facility] Primary Care Prov ider Allergies Active [...] Comments Blood Pressure 135/79 09/27/2022 7:49 AM ADULT PROTECTIVE CASEWORKER Pulse 73 09/27/2022 7:49 AM ADULT PROTECTIVE CASEWORKER Temperature 36.6 ??C (97.8 ??F) 09/27/2022 7:49 AM CS T Respiratory Rate 18 09/27/2022 7:49 AM ADULT PROTECTIVE CASEWORKER Oxygen Saturation 94% 09/27/2022 7:49 AM ADULT PROTECTIVE CASEWORKER Inhaled Oxygen Concentration - - Weight 82.5 kg (181 lb 14.4 oz) 023 12:00 PM ADULT PROTECTIVE CASEWORKER Height 179.1 cm (5' 10.5) 09/26/2022 1 2:00 PM ADULT PROTECTIVE CASEWORKER Body Mass Index 25.73 09/26/2022 12:00 PM ADULT PROTECTIVE CASEWORKER Plan of Treatment Health Maintenance Due Date Last Done Comments ADVANCE CARE PLANNING 1942 ANNUAL REVIEW OF HM ORDERS 1942 LIPID 1942 RSV VACCINE (1 - 1-dose 60+ series) 2002 FALL RISK ASSESSMENT 2007 MEDICARE ANNUAL WELLNESS VISIT 2007 COVID-19 Vaccine ( - season) 2023 04/05/2022, 08/03/2021, 11/15/2020, Additional history [...] Laura Freire Medical Devices Implanted Type Area Application Development Intern Device Identifier Shelf Expiration Date Model / Serial / Lot Imp Scr Fixation 4.5x26mm Aqls [id number] - [id number] Implanted:Qt y: 1 on 09/26/2022 by Arley Jj MD at [facility] Metallic Hardware/An chor Right: Shoulder [employer] [id number] / / 4104 Imp Scr Fixation 4.5x18mm Aqls [id number] - [id number] Implanted:Qt y: 1 on 09/26/2022 by Arley Jj MD at [facility] Metallic Hardware/An chor Right: Shoulder [employer] [id number] / / 4104 Imp Scr Locking 4.5x35mm Aqls [id number] - [id number] Implanted:Qt y: 1 on 09/26/2022 by Arley Jj MD at [facility] Metallic Hardware/An chor Right: Shoulder [employer] [id number] / / 4104 Imp Scr Locking 4.5x32mm Aqls Dtv538 - [id number] Implanted:Qt y: 1 on 09/26/2022 by Arley Jj MD at [facility] Metallic Hardware/An chor Right: Shoulder [employer] [id number] / / 4104 Imp Baseplate Shldr 15mm Aqls [id number] - [id number] Implanted:Qt y: 1 on 09/26/2022 by Arley Jj MD at [facility] Total Joint Component/I nsert Right: Shoulder [employer] [id number] 07/06/2027 [id number] / [id number] / Glenoid Sphere For Baseplate 29mm - [id number] Implanted:Qt y: 1 on 09/26/2022 by Arley Jj MD at [facility] Total Joint Component/I nsert Right: Shoulder [employer] [id number] 02/21/2027 [id number] / [id number] / Stem Humeral Anatomic Std Ptc 7b - [id number] Implanted:Qt y: 1 on 09/26/2022 by Arley Jj MD at [facility] Total Joint Component/I nsert Right: Shoulder [employer] [id number] 06/26/2024 [id number] / [id number] / Insert Hum Revision Reverse +6 42mm 12.5d [id number] - [id number] Implanted:Qt y: 1 on 09/26/2022 by Arley Jj MD at [facility] Total Joint Component/I nsert Right: Shoulder MARIE [employer] [id number] 11/10/2026 [id number] / [id number] / Tray Reverse Centered +0 - [id number] Implanted:Qt y: 1 on 09/26/2022 by Arley Jj MD at [facility] Total Joint Component/I nsert Right: Shoulder [employer] [id number] 06/08/2027 AUX317 / [id number] / Additional Health Concerns Active Problems Noted Date Diagnosed Date 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
--- OUTSIDE RECORDS SUMMARY | 2024-05-21 00:31 | XMS_ITS | Encounter Summary ---
Author Name [facility] [place] Organization [facility] [place] Address [address] [place] [address] Care Team Providers Care Lath Tier Name Role Phone JAN BRISENO Primary Care [...] French's Name Patient's Relationship to Policy French [facility]) MEDICARE ADVANTAGE MEDIC ARE OTILIA RAMESH Claire Sep 17, 2018 [id number] [phone] BENJAMÍN ROSA PATIENT MEDICARE (WNR) MEDICARE (M) PART B Mar 17, 2007 PART B [id number] BENJAMÍN ROSA PATIENT MEDICARE (WNR) MEDICARE (M) PART A Mar 17, 2007 PART A [id number] BENJAMÍN ROSA PATIENT Selected Encounter This section includes the information on record at [place] for the Encounter. Date/Time Encounter Type Encounter Description Reason Provider Source May 06, 2024 05:56 PM Outpatient Encounter ADMIN PAT ACTIVTIES (MASNONCT) ANGELIQUE DOSS Urmila Encounter Template Text not used by [place] Plan of Treatment: Future Appointments (+ 6 months) and Future Tests (+/- 45 days) The Plan of Treatment section includes future care activities for the patient from all [place] [facility]. This section includes future appointments and future orders which are active, pending or scheduled. Future Appointments This section includes appointments that were scheduled to occur 6 months from the date of the Encounter, up to a maximum of 20 appointments. The data comes from all [place] treatment facilities. Appointment Date/Time Appointment Type Appointme nt Facility Name May 26, 2024 07:45 AM AMBULATORY - SURGERY [facility] Social History: Smoking Status (Most current) and Tobacco Use (All prior to encounter date) This section includes the most current, and the historical, smoking and tobacco- related health factors from the [place] facility where the Encounter took place. Current Smoking Status This section includes the most current smoking, or tobacco-related health factor, from the [place] facility where the Encounter took place. Date/Time Current Smoking Status Comment Facil ity Mar 18, 2024 09:00 AM VA-TOBACCO FORMER USER [facility] Tobacco Use History This section includes a history of the smoking, or tobacco-related health factors, that were collected on or before the date of the Encounter. The data comes from the [place] facility where the Encounter took place. Date/Time Smoking Status/Tobacco Use Comment F acility Mar 18, 2024 09:00 AM VA-TOBACCO QUIT [address] [facility] Mar 19, 2023 10:30 AM VA-TOBACCO NEVER USED [facility] Mar 22, 2022 08:45 AM VA-TOBACCO NEVER USED [facility] May 12, 2021 10:00 AM VA-TOBACCO FORMER USER [facility] May 12, 2021 10:00 AM VA-TOBACCO QUIT [address] [facility] Feb 24, 2019 09:35 AM VA-TOBACCO NEVER USED [facility] Feb 18, 2018 01:56 PM FORMER TOBACCO USER [address]Y [address] [facility] Mar 06, 2017 09:31 AM FORMER TOBACCO USER [address]Y [address] [facility] Mar 06, 2016 09:54 AM FORMER TOBACCO USER [address]Y [address] [facility] January 25, 2016 06:31 AM INPT NO TOBACCO USE IN LAST [address] [facility] January 22, 2015 10:06 AM LIFETIME NON-TOBACCO USER [facility] Apr 15, 2014 10:09 AM FORMER TOBACCO USER [address]Y [address] GRE[address] R [facility] February 01, 2011 08:51 AM FORMER TOBACCO USER 7Y OR GRE[address]Urmila R [facility] Advance Directives: All historical and current Section Date Range: From patient's date of to the date document was created. This section includes ALL of a patient's completed or amended [place] Advance and Rescinded Directives. The entries below indicate that a directive exists for the patient, but an actual copy is not included with this document. The data comes from all [place] facilities. Date Advance Directives Provider Source Oct 13, 2017 [facility] Oct 13, 2017 ADVANCE DIRECTIVE DISCUSSION MARAL DORANTES [facility] Encounter Notes: All associated encounter notes This section contains the clinical notes associated to the Encounter. Date/Time Encounter Note(s) Provider Source May 07, 2024 03:16 PM ADDENDUM: LOCAL TITLE: Addendum STANDARD TITLE: ADDENDUM DATE OF NOTE: MAY 07, 2024@15:16:31 ENTRY DATE: MAY 07, 2024@15:16:32 AUTHOR: DUANE HUITRON EXP COSIGNER: URGENCY: STATUS: COMPLETED [place] was seen in an outside ED on: 05/05/24 [place] Diagnosis: Laceration of arm Medical records uploaded to [facility] Please review for any additional follow up or consults needed, thank you. /laura/ Duane Huitron RN BRUNO MSN management trainee Solar Photovoltaic Systems Engineer Signed: 05/07/2024 15:17 Receipt Acknowledged By: 05/07/2024 15:23 /laura/ SHEMAR BARBER, RN REGISTERED NURSE 05/12/2024 13:02 /laura/ JAN BRISENO NURSE PRACTITIONER --- Original Document --- 05/05/24 [facility] PRESENTING CARE COORD PLAN NOTE: Emergency Notification Intake Date Presenting to the Facility: Apr Method of Contact: Notified from ECR worklist Notification ID: [id number] [facility] Name[facility]: [facility] Address: City: [place] State: [place] Zip Code: Phone : Community Facility Point of Contact: Name: Hollie Casillas RN Chief complaint: Laceration/Wound (D30.983V) Left forearm. Primary Diagnosis: Disposition Unknown at time of intake note entry /es/ TONY SIMS WHISKEY REGAUGER Signed: 05/06/2024 17:57 Receipt Acknowledged By: 05/07/2024 07:53 /es/ Daniel Montiel MA, PHN, RN-BC management trainee Solar Photovoltaic Systems Engineer for ANGELIQUE DOSS 05/07/2024 ADDENDUM STATUS: COMPLETED Forwarding per social split to the surrogate CCUM RN for continuity of care. /laura/ Daniel Montiel MA, PHN, RN-BC management trainee Solar Photovoltaic Systems Engineer Signed: 05/07/2024 07:52 Receipt Acknowledged By: 05/07/2024 07:59 /laura/ Duane Huitron RN BRUNO MSN management trainee Solar Photovoltaic Systems Engineer 05/07/2024 ADDENDUM STATUS: COMPLETED Records requested for this episode of care, will upload to [facility] when received. /laura/ Duane Huitron RN BRUNO MSN management trainee Solar Photovoltaic Systems Engineer Signed: 05/07/2024 08:01 05/05/2024 ADDENDUM STATUS: COMPLETED [facility] Scanned Document - Addendum. [facility] 05/05/24 SCANNED DOCUMENT SIGNATURE NOT REQUIRED Electronically Filed: 05/07/2024 by: Duane Huitron RN BRUNO MSN management trainee Solar Photovoltaic Systems Engineer 05/07/2024 ADDENDUM STATUS: COMPLETED Pt was seen for laceration of arm. He had sutures placed which are ordered to be removed in 10 days. Infant Babysitter spoke with pt and she stated her niece is a RN and will remove for him. Infant Babysitter encouraged them to contact [place] if this changes or if they need anything else. She v/u and agreed with plan. /laura/ SHEMAR BARBER, RN REGISTERED NURSE Signed: 05/07/2024 15:26 DUANE HUITRON [facility] May 07, 2024 07:52 AM ADDENDUM: LOCAL TITLE: Addendum STANDARD TITLE: ADDENDUM DATE OF NOTE: MAY 07, 2024@07:52:43 ENTRY DATE: MAY 07, 2024@07:52:44 AUTHOR: DANIEL MONTIEL EXP COSIGNER: URGENCY: STATUS: COMPLETED Forwarding per social split to the surrogate CCUM RN for continuity of care. /laura/ Daniel Montiel MA, PHN, RN-BC management trainee Solar Photovoltaic Systems Engineer Signed: 05/07/2024 07:52 Receipt Acknowledged By: 05/07/2024 07:59 /laura/ Duane Huitron RN BRUNO MSN management trainee Solar Photovoltaic Systems Engineer --- Original Document --- 05/05/24 [facility] PRESENTING CARE COORD PLAN NOTE: Emergency Notification Intake Date Presenting to the Facility: Apr Method of Contact: Notified from M[employer] worklist Notification ID: [id number] [facility] Referral #: [facility] Name: Hospital: [facility] Address: City: [place] State: [place] Zip Code: Phone : [facility] Facility Point of Contact: Name: Hollie Casillas RN Chief complaint: Laceration/Wound (H13.253W) Left forearm. Primary Diagnosis: Disposition Unknown at time of intake note entry /laura/ TONY SIMS WHISKEY REGAUGER Signed: 05/06/2024 17:57 Receipt Acknowledged By: 05/07/2024 07:53 /laura/ Daniel Montiel MA, PHN, RN-BC management trainee Solar Photovoltaic Systems Engineer for ANGELIQUE M DANIEL THACKER [facility] May 05, 2024 05:56 PM NONVA NOTE: LOCAL TITLE: [facility] SELF PRESENTING CARE COORD PLAN STANDARD TITLE: NONVA NOTE DATE OF NOTE: MAY 05, 2024@17:56 ENTRY DATE: MAY 06, 2024@17:56:51 AUTHOR: TONY SIMS COSIGNER: URGENCY: STATUS: COMPLETED [facility] S[facility]F PRESENTING CARE COORD PLAN NOTE Has ADDENDA Emergency Notification Intake Date Presenting to the Facility: Apr Method of Contact: Notified from ECR worklist Notification ID: [id number] [facility] Referral #: [facility] Hospital Name: Hospital: [facility] Address: City: [place] State: [place] Zip Code: Phone : Community Facility Point of Contact: Name: Hollie Casillas RN Chief complaint: Laceration/Wound (L02.783H) Left forearm. Primary Diagnosis: Disposition Unknown at time of intake note entry /laura/ TONY SIMS WHISKEY REGAUGER Signed: 05/06/2024 17:57 Receipt Acknowledged By: 05/07/2024 07:53 /laura/ Daniel Montiel MA, PHN, RN-BC management trainee Solar Photovoltaic Systems Engineer for ANGELIQUE DOSS 05/07/2024 ADDENDUM STATUS: COMPLETED Forwarding per social split to the surrogate CCUM RN for continuity of care. /laura/ Daniel Montiel MA PHN, RN-BC management trainee Solar Photovoltaic Systems Engineer Signed: 05/07/2024 07:52 Receipt Acknowledged By: 05/07/2024 07:59 /laura/ Duane Huitron RN BRUNO MSN management trainee Solar Photovoltaic Systems Engineer 05/07/2024 ADDENDUM STATUS: COMPLETED Records requested for this episode of care, will upload to [facility] when received. /[place] MSN management trainee Solar Photovoltaic Systems Engineer Signed: 05/07/2024 08:01 05/07/2024 ADDENDUM STATUS: COMPLETED [place] was seen in an outside ED on: 05/05/24 [place] Diagnosis: Laceration of arm Medical records uploaded to [facility] Please review for any additional follow up or consults needed, thank you. /laura/ Duane Huitron RN BRUNO MSN management trainee Solar Photovoltaic Systems Engineer Signed: 05/07/2024 15:17 Receipt Acknowledged By: 05/07/2024 15:23 /laura/ SOO BARBERN, RN REGISTERED NURSE * AWAITING SIGNATURE * CUBAUrmilaKIRAPEGUERO 05/05/2024 ADDENDUM STATUS: COMPLETED [facility] Scanned Document - Addendum. [place] ED 05/05/24 SCANNED DOCUMENT SIGNATURE NOT REQUIRED Electronically Filed: 05/07/2024 by: Duane Huitron RN BRUNO MSN management trainee Solar Photovoltaic Systems Engineer 05/07/2024 ADDENDUM STATUS: COMPLETED Pt was seen for laceration of arm. He had sutures placed which are ordered to be removed in 10 days. Infant Babysitter spoke with pt and she stated her niece is a RN and will remove for him. Infant Babysitter encouraged them to contact [place] if this changes or if they need anything else. She v/u and agreed with plan. /laura/ SOO BARBERN, RN REGISTERED NURSE Signed: 05/07/2024 15:26 TONY SIMS [facility]
--- OUTSIDE RECORDS SUMMARY | 2024-05-21 00:31 | XMS_ITS | Referral Summary ---
Author Organization [place] Address [address] [place] [address] Care Team Providers Care Telemarketing Fundraiser Name Role Phone [facility] Primary Care Prov ider Allergies Active Allergy [...] Comments Blood Pressure 135/79 09/27/2022 7:49 AM TOBACCO PREVENTION HEALTH EDUCATOR Pulse 73 09/27/2022 7:49 AM TOBACCO PREVENTION HEALTH EDUCATOR Temperature 36.6 ??C (97.8 ??F) 09/27/2022 7:49 AM CS T Respiratory Rate 18 09/27/2022 7:49 AM TOBACCO PREVENTION HEALTH EDUCATOR Oxygen Saturation 94% 09/27/2022 7:49 AM TOBACCO PREVENTION HEALTH EDUCATOR Inhaled Oxygen Concentration - - Weight 82.5 kg (181 lb 14.4 oz) 023 12:00 PM TOBACCO PREVENTION HEALTH EDUCATOR Height 179.1 cm (5' 10.5) 09/26/2022 1 2:00 PM TOBACCO PREVENTION HEALTH EDUCATOR Body Mass Index 25.73 09/26/2022 12:00 PM TOBACCO PREVENTION HEALTH EDUCATOR Plan of Treatment Not on file Goals Goal Patient Goal Type Associated Problems Recent Progress Patient-Stated? Author Total Joint Replacement Shoulder Pathway Care Plan Total Joint Replacement Shoulder Pathway Laura Harris Medical Devices Implanted Type Area Digital Analyst Device Identifier Shelf Expiration Date Model / Serial / Lot Imp Scr Fixation 4.5x26mm Aqls [id number] - [id number] Implanted:Qt y: 1 on 09/26/2022 by Arley Jj MD at [facility] Metallic Hardware/An chor Right: Shoulder [employer] [id number] / / 4104 Imp Scr Fixation 4.5x18mm Aqls [id number] - [id number] Implanted:Qt y: 1 on 09/26/2022 by Arley Jj MD at [facility] Metallic Hardware/An chor Right: Shoulder [employer] DHV339 / / 4104 Imp Scr Locking 4.5x35mm Aqls Ilx635 - [id number] Implanted:Qt y: 1 on 09/26/2022 by Arley Jj MD at [facility] Metallic Hardware/An chor Right: Shoulder [employer] [id number] / / 4104 Imp Scr Locking 4.5x32mm Aqls Kyb408 - [id number] Implanted:Qt y: 1 on 09/26/2022 by Arley Jj MD at [facility] Metallic Hardware/An chor Right: Shoulder [employer] YCT530 / / 4104 Imp Baseplate Shldr 15mm Aqls Jbf961 - [id number] Implanted:Qt y: 1 on 09/26/2022 by Arley Jj MD at [facility] Total Joint Component/I nsert Right: Shoulder [employer] [id number] 07/06/2027 [id number] / [id number] / Glenoid Sphere For Baseplate 29mm - [id number] Implanted:Qt y: 1 on 09/26/2022 by Arley Jj MD at [facility] Total Joint Component/I nsert Right: Shoulder [employer] [id number] 02/21/2027 KYH600 / [id number] / Stem Humeral Anatomic Std Ptc 7b - [id number] Implanted:Qt y: 1 on 09/26/2022 by Arley Jj MD at [facility] Total Joint Component/I nsert Right: Shoulder [employer] [id number] 06/26/2024 [id number] / [id number] / Insert Hum Revision Reverse +6 42mm 12.5d [id number] - [id number] Implanted:Qt y: 1 on 09/26/2022 by Arley Jj MD at [facility] Total Joint Component/I nsert Right: Shoulder MARIE [employer] TECHN [id number] 11/10/2026 [id number] / [id number] / Tray Reverse Centered +0 - [id number] Implanted:Qt y: 1 on 09/26/2022 by Arley Jj MD at [facility] Total Joint Component/I nsert Right: Shoulder [employer] [id number] 06/08/2027 RMD541 / [id number] / Additional Health Concerns Active Problems Noted Date Diagnosed Date Total Joint Replacement Shoulder Pathway 023 Advance Directives For more information, please contact: [phone] Documents on File Type Date Recorded Patient Stock Worker Expl anation Advance Directives and Living Will [...] or legal decision maker available Care Teams Telemarketing Fundraiser Relationship Specialty Start Date End Date [place], [place] [id number] PCP - General 09/01/22
--- OUTSIDE RECORDS SUMMARY | 2024-05-21 00:31 | XMS_ITS | Clinical Summary ---
Author Organization [facility] Address [place], [place] [address] Care Team Providers Care Clay Processing Labourer Name Role Phone Yoni Rogers MD Primary Care Provider [phone] Allergies No known active allergies Medications Medication [...] 0 03/01/2021 COVID-19 vaccine series (2022- season) 4 Influenza for age 65+ 05/18/2024 07/23/2019 Care Teams Clay Processing Labourer Relationship Specialty Start Date End Date Yoni Rogers MD PCP - General 11/17/09
== END 2024-05-05 09:44 | disposition home or self-care (01) ==
LOC: AMB 05-21 00:26
PROVIDERS: Visit Provider Student in an Organized Health Care Education/Training Program
DX: S51.812A Laceration without foreign body of left forearm, initial encounter (principal); W31.9XXA Contact with unspecified machinery, initial encounter; Y92.79 Other farm location as the place of occurrence of the external cause
CPT/HCPCS: A0425; A0427

== ENCOUNTER 2024-05-05 10:10 | Emergency (ER) | payer OTHER, SELFPAY ==
[2024-05-05 10:11] VITALS: BP 145/82; PULSE 78; RESP 18; TEMP 35.8; O2SAT 94; BMI 25.7
--- OUTSIDE RECORDS SUMMARY | 2024-05-05 10:57 | XMS_ITS | Encounter Summary ---
Author Name [facility] [facility] [place] Address [address] [place] [address] Care Team Providers Care Obstetrics Nurse Practitioner Name Role Phone JAN BRISENO Primary Care Provider Unavailabl e Insurance Providers: All historical and current Section Date Range: From patient's date of to the date document was created. This section includes the names of all active insurance providers for the patient. Insurance Provider Type of Coverage Plan Name Start of Policy Coverage End of Policy Coverage Group Number Member ID Insurance Provider's Telephone Number Policy French's Name Patient's Relationship to Policy French [facility] ([facility]) MEDICARE ADVANTAGE MEDIC ARE OTILIA RAMESH Claire Sep 17, 2018 [id number] [phone] BENJAMÍN ROSA PATIENT MEDICARE (WNR) MEDICARE (M) PART A Mar 17, 2007 PART A [id number] [phone] BENJAMÍN ROSA PATIENT MEDICARE (WNR) MEDICARE (M) PART B Mar 17, 2007 PART B [id number] [phone] BENJAMÍN ROSA PATIENT Selected Encounter This section includes the information on record at CT for the Encounter. Date/Time Encounter Type Encounter Description Reason Provider Source Sep 18, 2023 10:30 AM SELF CARE MNGMENT TRAINING PHYSICAL THERAPY ICD-10-CM M25.512 Pain in left shoulder DAYANA CONRAD Encounter Template Text not used by [facility] Assessments - Encounter Diagnoses This section includes the primary and secondary diagnoses documented for the Encounter. Date/Time Primary/Secondary Diagnosis Diagnosis Name Provider Source Sep 18, 2023 10:54 AM PRIMARY Pain in left shoulder DAYANA CONRDA [facility] Plan of Treatment: Future Appointments (+ 6 months) and Future Tests (+/- 45 days) The Plan of Treatment section includes future care activities for the [facility] This section includes future appointments and future orders which are active, pending or scheduled. Future Appointments This section includes appointments that were scheduled to occur 6 months from the date of the Encounter, up to a maximum of 20 appointments. The data comes from all [facility]. Appointment Date/Time Appointment Type Appointme nt Facility Name Sep 27, 2023 03:30 PM AMBULATORY - SURGERY [facility] Oct 16, 2023 08:30 AM [facility] Oct 16, 2023 10:00 AM AMBULATORY - NONE [facility] Oct 23, 2023 09:00 AM [facility]AB [facility] Oct 30, 2023 09:30 AM [facility]ORY - [facility]AB [facility] Oct 31, 2023 10:30 AM AMBULATORY - SURGERY [facility] Oct 31, 2023 05:10 PM AMBULATORY - REHAB [facility] Nov 13, 2023 09:00 AM [facility] Nov 20, 2023 10:00 AM AMBULATORY - SURGERY [facility] Nov 20, 2023 11:00 AM AMBULATORY - MEDICINE [facility] Dec 17, 2023 08:40 AM AMBULATORY - SURGERY [facility] January 24, 2024 09:45 AM AMBULATORY - SURGERY [facility] Mar 18, 2024 08:00 AM AMBULATORY - NONE [facility] Mar 18, 2024 09:00 AM [facility] Active, Pending, and Scheduled Orders This section includes a listing of several types of active, pending, and scheduled orders, including clinic medications orders, diagnostic test orders, procedure orders and consult orders; where the start date of the order is 45 days before the date of the Encounter or 45 days after the date of theEncounter. The data comes from all [facility]. Test Date/Time Test Type Test Details Facility Name Sep 05, 2023 07:28 PM Laboratory - Blood Bank Order TYPE & SCREEN - LAB BLOOD WC [facility] Lab Results: +/- 30 days of the encounter This section includes the Chemistry and Hematology Lab Results on record with CT for the patient. Radiology Reports and Pathology Reports are provided separately, in subsequent sections. Lab Results This section contains the Chemistry/Hematology Results that were resulted 30 days before or 30 daysafter the date of the Encounter. Date/Time Source Result Type Result - Unit Interpretation Reference Range Comment Sep 06, 2023 09:11 AM [facility] CBC Specimen Type: BLOOD Comment: Specimen received in Lab at: 0910 Ordering Provider: RAHEEL DELGADILLO Report Released Date/Time: Sep 05, 2023 07:28 PM Reporting Lab: [facility] [id number] Performing Lab: [facility] [phone] WBC 8.69 10*3/uL 4.0-11.0 RBC 3.76 10*6/uL L 4.6-6.2 HGB 11.5 g/dL L 13.5-17.9 HCT 34.7 L 41-54 MCV 92.3 fL 80-100 MCH 30.6 pg 27-33 MCHC 33.1 g/dL 32.0-37.5 PLT 261 10*3/uL 150-400 MPV 11.0 fL H 7.4-10.4 RDW 13.3 11.5-14.5 Sep 06, 2023 09:11 AM [facility] BASIC METABOLIC PANEL+MG Specimen Type: PLASMA Comment: Specimen received in Lab at: 0910 Ordering Provider: RAHEEL DELGADILLO Report Released Date/Time: Sep 05, 2023 07:28 PM Reporting Lab: [facility] [phone] Performing Lab: [facility] [phone] CREATININE 0.9 mg/dL 0.7-1.2 UREA NITROGEN 15 mg/dL 8-26 GLUCOSE 141 mg/dL H 70-100 SODIUM 134 mmol/L L 136-145 POTASSIUM 4.1 mmol/L 3.5-5.1 CHLORIDE 101 mmol/L 98-107 CO2 24 mmol/L 22-29 CALCIUM 8.6 mg/dL 8.4-10.2 MAGNESIUM 1.7 mg/dL 1.6-2.6 ANION GAP 9 mmol/L 5-15 .CREAT EGFR(CKD-EPI) 86 >60 Sep 06, 2023 05:44 AM [facility] FINGERSTICK GLUCOSE Specimen Type: BLOOD Comment: Save Result Ordering Provider: FALLON MUNGUIA Report Released Date/Time: Sep 06, 2023 06:02 AM Reporting Lab: [facility] [phone] Performing Lab: [facility] [phone] FINGERSTICK GLUCOSE 140 mg/dL 70-100 Sep 05, 2023 08:25 PM [facility] PROTHROMBIN TIME/INR Specimen Type: PLASMA No comment entered. Ordering Provider: EMILY REVELES Report Released Date/Time: Sep 05, 2023 07:28 PM Reporting Lab: [facility] [phone] Performing Lab: [facility] Sep 05, 2023 08:25 PM [facility] ACT PART THROMBO TIME Specimen Type: PLASMA Comment: ~Draw on admission. Call IV team to draw on admission. Ordering Provider: EMILY REVELES Report Released Date/Time: Sep 05, 2023 07:28 PM Reporting Lab: [facility] [phone] Performing Lab: [facility] [phone] APTT 30.8 s 25.1-36.5 Sep 05, 2023 08:25 PM [facility] CBC Specimen Type: BLOOD No comment entered. Ordering Provider: EMILY REVELES Report Released Date/Time: Sep 05, 2023 07:28 PM Reporting Lab: [facility] [phone] Performing Lab: [facility] [phone] WBC 8.60 10*3/uL 4.0-11.0 RBC 3.66 10*6/uL L 4.6-6.2 HGB 11.3 g/dL L 13.5-17.9 HCT 34.3 L 41-54 MCV 93.7 fL 80-100 MCH 30.9 pg 27-33 MCHC 32.9 g/dL 32.0-37.5 PLT 225 10*3/uL 150-400 MPV 10.9 fL H 7.4-10.4 RDW 13.4 11.5-14.5 Sep 05, 2023 08:25 PM [facility] BASIC METABOLIC PANEL+MG Specimen Type: PLASMA No comment entered. Ordering Provider: EMILY REVELES Report Released Date/Time: Sep 05, 2023 07:28 PM Reporting Lab: [facility] [phone] Performing Lab: [facility] [phone] CREATININE 0.9 mg/dL 0.7-1.2 UREA NITROGEN 17 mg/dL 8-26 GLUCOSE 148 mg/dL H 70-100 SODIUM 140 mmol/L 136-145 POTASSIUM 3.8 mmol/L 3.5-5.1 CHLORIDE 107 mmol/L 98-107 CO2 26 mmol/L 22-29 CALCIUM 8.7 mg/dL 8.4-10.2 MAGNESIUM 1.9 mg/dL 1.6-2.6 ANION GAP 7 mmol/L 5-15 .CREAT EGFR(CKD-EPI) 86 >60 Social History: Smoking Status (Most current) and Tobacco Use (All prior to encounter date) This section includes the most current, and the historical, smoking and tobacco- related health factors from the CT facility where the Encounter took place. Current Smoking Status This section includes the most current smoking, or tobacco-related health factor, from the CT facility where the Encounter took place. Date/Time Current Smoking Status Comment Santiago itsundar Mar 19, 2023 10:30 AM VA-TOBACCO NEVER USED [facility] Tobacco Use History This section includes a history of the smoking, or tobacco-related health factors, that were collected on or before the date of the Encounter. The data comes from the CT facility where the Encounter took place. Date/Time Smoking Status/Tobacco Use Comment F acility Mar 22, 2022 08:45 AM VA-TOBACCO NEVER USED [facility] May 12, 2021 10:00 AM VA-TOBACCO FORMER USER [facility] May 12, 2021 10:00 AM VA-TOBACCO QUIT 15 YRS OR MORE [facility] Feb 24, 2019 09:35 AM VA-TOBACCO NEVER USED [facility] Feb 18, 2018 01:56 PM FORMER TOBACCO USER 7Y OR GREATE R [facility] Mar 06, 2017 09:31 AM FORMER TOBACCO USER 7Y OR GREATE R [facility] Mar 06, 2016 09:54 AM FORMER TOBACCO USER 7Y OR GREATE R [facility] January 25, 2016 06:31 AM INPT NO TOBACCO USE IN LAST 30 D AYS [facility] January 22, 2015 10:06 AM LIFETIME NON-TOBACCO USER [facility] Apr 15, 2014 10:09 AM FORMER TOBACCO USER 7Y OR LACI [place] [facility] February 01, 2011 08:51 AM FORMER TOBACCO USER 7Y OR LACI R [facility] Advance Directives: All historical and current Section Date Range: From patient's date of to the date document was created. This section includes ALL of a patient's completed or amended CT Advance and Rescinded Directives. The entries below indicate that a directive exists for the patient, but an actual copy is not included with this document. The data comes from all CT facilities. Date Advance Directives Provider Source Oct 13, 2017 ADVANCE DIRECTIVE MARAL DORANTES [facility] Oct 13, 2017 ADVANCE DIRECTIVE DISCUSSION JOSE EMARAL [facility] Radiology Reports: +/- 30 days of the encounter Radiology Reports For cases when an order for radiology services may have been completed prior to the date of the Encounter, the report list includes the Radiology Reports that were completed up to 30 days before dateof the Encounter. For cases when an order for radiology services may have been completed after the date of the Encounter, the report list also includes the Radiology Reports that were completed up to30 days after date of the Encounter. The data comes from all CT treatment facilities. Date/Time Radiology Report Provider Source Oct 16, 2023 09:24 AM SHOULDER LEFT 4V(AP,Y VIEW, GRASHEY & AXILLARY): BENJAMÍN ROSA [id number] -1940 Ex Date: OCT 16, 2023@09:24 Req Phys: MARCUS LOMAX Pat Loc: [facility] ORTHO COORD PHONE (Req'g L Img Loc: MAIN X-RAY Service: Unknown (Case [id number] COMPLETE) SHOULDER LEFT 4V(AP,Y VIEW, GRASH(RAD Detailed) CPT:45051 Proc Modifiers : LEFT Reason for Study: post op Clinical History: IS NOT under investigation for COVID-19 or is COVID-19 negative post op Responsible provider name and phone number to notify for critical findings if other than user placing the order and pager listed below: User placing orders pager: LAST CREATININE 0.8 (07/03/23) Report Status: Verified Date Reported: OCT 17, 2023 Date Verified: OCT 17, 2023 Power Technician E-Sig: Report: SHOULDER LEFT 4V(AP,Y VIEW, GRASHEY & AXILLARY) HISTORY: post op COMPARISON: 09/05/2023 TECHNIQUE: 4 view(s) of the left shoulder, submitted to the CT National Teleradiology Program (NTP) for interpretation. FINDINGS: No displaced fracture. The patient is status post left reverse total shoulder arthroplasty placement. There is no perihardware lucency or stress fracture. Alignment across the arthroplasty is normal. Normal acromioclavicular alignment. Mild degenerative changes are seen at the acromioclavicular joint. Visualized portions of the lungs are clear. Atherosclerotic plaque is seen at the aortic arch. Impression: Status post left reverse total shoulder arthroplasty placement without evidence of hardware complication. READING PHYSICIAN: Navneet Hinson -[phone] 10/17/2023 5:19 [facility] National Teleradiology Program [phone] (For Medical Practitioner Use Only) Attention Patients / Veterans: If you have questions or concerns about these test results, please contact your ordering provider or primary care team. Primary Interpreting Staff: RADIOLOGY,OUTSIDE SERVICE, Staff Physician / RADIOLOGY,OUTSIDE SERVICE [facility] Sep 05, 2023 07:58 AM SHOULDER LEFT 2-3 VIEWS: BENJAMÍN ROSA LINSEY [id number] -1940 M Exm Date: SEP 05, 2023@07:58 Req Phys: MARCUS LMOAX Loc: [facility] ADMISSIONS SURGERY (Req'g Img Loc: MAIN X-RAY Service: Unknown (Case [id number] COMPLETE) SHOULDER LEFT 2-3 VIEWS (RAD Detailed) CPT:17112 Proc Modifiers : PORTABLE EXAM, OPERATING ROOM EXAM, LEFT Reason for Study: Left reverse TSA Clinical History: OR 6 Shoulder OA Responsible provider name and phone number to notify for critical findings if other than user placing the order and pager listed below: User placing orders pager: Rukhsana Lomax [phone] LAST CREATININE 0.8 (07/03/23) Report Status: Verified Date Reported: SEP 05, 2023 Date Verified: SEP 05, 2023 Power Technician E-Sig:/ES/LIDYA GUDINO MD Report: SHOULDER LEFT 2-3 VIEWS 09/05/2023 7:58 AM HISTORY: Left shoulder osteoarthritis; status post left reverse total shoulder arthroplasty. TECHNIQUE: Portable left shoulder radiographs, two views (AP and axillary). COMPARISON: 08/20/2023. Impression: FINDINGS/IMPRESSION: The patient is status post interval left reverse glenohumeral arthroplasty. The inferior screw of the left glenoid prosthetic component appears to be located near the inferior cortical margin of the glenoid on the AP view. The intramedullary humeral prosthetic component terminates in satisfactory position in the proximal humeral diaphysis. There is no dislocation or subluxation. New soft tissue gas in the left shoulder region is compatible with recent surgery. No acute fracture is identified. Mild to moderate left acromioclavicular osteoarthritis is again present. New ill-defined opacity overlying the partially imaged left lower hemithorax likely represents left basilar atelectasis, although a coexistent small component of left basilar pleural fluid is also possible. Primary Interpreting Staff: LIDYA GUDINO MD, RADIOLOGIST (Power Technician) /[facility] LIDYA GUDINO [facility] Aug 20, 2023 10:16 AM SHOULDER LEFT 4V(AP,Y VIEW, GRASHEY & AXILLARY): BENJAMÍN ROSA [id number] -1940 M Ex Date: AUG 20, 2023@10:16 Req Phys: MARCUS LOMAX Loc: [facility] ORTHO COORD PHONE (Req'g L Img Loc: MAIN X-RAY Service: Unknown (Case [id number] COMPLETE) SHOULDER LEFT 4V(AP,Y VIEW, GRASH(RAD Detailed) CPT:95485 Proc Modifiers : LEFT Reason for Study: pre-op Clinical History: [place] IS NOT under investigation for COVID-19 or is COVID-19 negative pre-op Responsible provider name and phone number to notify for critical findings if other than user placing the order and pager listed below: User placing orders pager: LAST CREATININE 0.8 (07/03/23) Report Status: Verified Date Reported: AUG 20, 2023 Date Verified: AUG 20, 2023 Power Technician E-Sig:/ES/PASHA MARIA DO Report: EXAMINATION: SHOULDER LEFT 4V(AP,Y VIEW, GRASHEY & AXILLARY) 08/20/2023 10:16 AM INDICATION: pre-op COMPARISON: 11/23/2022 Impression: No acute fracture, dislocation or AC separation. The humeral head is high riding with narrowing of the subacromial space, consistent with rotator cuff tear. 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 Stable well-corticated ossific density at the cephalad aspect of the AC joint line. There is inferior spurring of the distal clavicle. Prominent osteophyte formation at the inferomedial humeral head. Mild narrowing of the glenohumeral joint space. Atherosclerotic calcification of the aortic knob. Primary Interpreting Staff: PASHA MARIA DO, RADIOLOGIST (Power Technician) /[facility]DS PASHA MARIA [facility] Encounter Notes: All associated encounter notes This section contains the clinical notes associated to the Encounter. Date/Time Encounter Note(s) Provider Source Sep 18, 2023 08:18 AM PHYSICAL THERAPY C ONSULT: LOCAL TITLE: PHYSICAL THERAPY CONSULT STANDARD TITLE: PHYSICAL THERAPY CONSULT DATE OF NOTE: SEP 18, 2023@08:18 ENTRY DATE: SEP 18, 2023@08:18:54 AUTHOR: DAYANA CONRAD COSIGNER: URGENCY: STATUS: COMPLETED PT tx: PT eval 10', self care 10' PT dx: left shoulder pain # of VISITS: 1 # of CX/NS: 0 SUBJECTIVE: (See problem list for complete PMH) Relevant PMH: Active problems - Computerized Problem List is the source for the following: Personal History of Malignant Neoplasm of Prostate Benign essential hypertension Surgical Date: 09/05/23 SURGEON: RAHEEL DELGADILLO ATTENDING: MARCUS LOMAX Chief Concern: Pt is a 83yo MALE referred to PT 2 weeks s/p left rTSA. Daily activities/health habits: h/o R rTSA (completed in the community by Dr. Lomax; PT out in the community) Prior Level of Function: ambulatory without assistive device Pain: no report of pain Precautions: Pt to wear sling with abductor pad for 6 weeks. May eat, type, write, brush teeth with sling in place. May shower but not soak arm for 6 weeks. No AROM for 4 weeks. *No AROM into IR, ER, or abduction >45 deg for 6 weeks. Combined IR, horiz adduction, extension limited until at least 12 weeks post- op. Pt to avoid impact activities including free weights, contact sports, and hammering with surgical arm. Red Flags: (+) personal history of cancer. Denies any UE or LE progressive weakness, unexplained weight loss, loss of bowel/bladder control, pain with rest, fevers, chills, infections OBJECTIVE: OBSERVATION: Posture: wearing abduction arm sling; arm sliding forward in sling INTEGUMENT: Incision: unable to view; seen by nursing prior to PT Signs of infection: (-) SHOULDER PROM: (will assess at 6 week follow up) Flexion(100-138): 80 with pendulum hang Abduction(129): (-) Ext Rotation(30-38): (-) Int Rotation(L2):deferred to 12 weeks SHOULDER STRENGTH/MMT: defer 12 weeks d/t post-op precautions. PT INTERVENTIONS: The patient was instructed on the following HEP: - Codman's exercise in flexion/extension - Active finger flexion/extension - Active wrist flexion/extension - Active forearm supination/pronation - Passive elbow flexion *pt to perform each for 1-2 minutes, up to 5x/day may shower but do not soak surgical arm may eat, type, write, brush teeth with sling in place slinge with abductor pad for full 6 weeks no ER for 6 weeks no abduction > 45 degrees Pt instructed to ice the shoulder for 10-15 minutes following ther ex and throughout the day for pain management and to control swelling. Response to treatment: no adverse reactions Patient participation/motivation this date during treatment: motivated for PT GOALS: Patient's Goal: 1. Pt will sleep undisturbed by shoulder pain in 8-10 weeks to improve restorative sleep pattern. 2. Pt will demonstrate at least 138 deg flex AAROM in 8-10 weeks to improve functional mobility for overhead ADLs (reaching into high cupboard). 3. Pt will demonstrate at least 38 deg ER AAROM in 8-10 weeks to improve functional mobility for ADLs (reaching behind head/washing hair). 4. Pt will demonstrate IR AAROM to at least L5 by 12-14 weeks post-op to improve functional mobility for ADLs (reaching into back pocket, tucking in shirt). 5. Pt will be I in HEP for self-management of shoulder pain in 14-16 weeks. 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 REHAB POTENTIAL: good for above goals CLINICAL PRESENTATION: Evolving PLAN: Pt will follow the post-op HEP and return in 4 weeks for advancement to phase II of the rTSA protocol. patient will then be seen 1x/week x4-6 visits; tapering as ROM improves for an additional 4-6 visits to focus on active strengthening. Progress per rTSA protocol: The patient agrees with the plan. Reverse TSA PROMIS b Phase II: 6-8 weeks - d/c sling at 4-6 weeks per ortho recommendations *ER ROM limited to 0 degrees until week 4, 20 degrees until week 5-6, 45 degrees for weeks 7-8 and then 60 degrees until week 12 Ther ex: - Cane AAROM: Supine shoulder flexion and ER, and standing abduction, holding each 10-15 seconds, 10 reps each direction, 3+ x/day. caution to avoid extension past neutral into hyperextension - Scap sets, to be performed frequently throughout the day. - Submax isometrics: flex/ext/abd/ER, hold each 3 seconds, 2 sets of 15 reps, 1- 2x/day. special care with posterior deltoid to avoid shoulder hyperextension caution with extension to not go past neutral into hyperextension and pain free Phase III 8-12 weeks PROMIS b ther ex: progress to AROM, SL ER, closed chain (wall press, quadruped) - standing shoulder flexion at wall - standing shoulder ER in doorway - standing shoulder abduction with wand hold each 30 seconds, 5-6 reps, 2x/day Phase IV: 10 weeks to discharge maximize functional AROM, strength, power and endurance PREs to tolerance - dinner knife > soup can > 1-3# weights all planes * Cane exercises: shoulder extension and IR, holding each 10-15 seconds, 10 reps each direction, 3+ x/day. educate that max improvement can take up to year 1 after surgery Patient Education on Treatment Plan: PT role, POC, rehab expectations. Patient indicated readiness to learn, verbalizes understanding, agreement and satisfaction with the treatment plan. Denies further questions. /laura/ DAYANA CONRAD DPT [facility] PHYSICAL THERAPIST Signed: 09/18/2023 11:49 DAYANA CONRAD [facility]
--- OUTSIDE RECORDS SUMMARY | 2024-05-05 10:57 | XMS_ITS | Encounter Summary ---
Author Name [facility] [place] [facility] [place] [facility] [facility] [place] Address [address] [place] [address] Care Team Providers Care Press Department Manager Name Role Phone JAN BRISENO Primary Care [...] French's Name Patient's Relationship to Policy French [facility]) MEDICARE ADVANTAGE MEDIC ARE OTILIA RAMESH Claire Sep 17, 2018 [id number] [phone] BENJAMÍN ROSA PATIENT MEDICARE (WNR) MEDICARE (M) PART A Mar 17, 2007 PART A [id number] [phone] BENJAMÍN ROSA PATIENT MEDICARE (WNR) MEDICARE (M) PART B Mar 17, 2007 PART B [id number] [phone] BENJAMÍN ROSA PATIENT Selected Encounter This section includes the information on record at [place] for the Encounter. Date/Time Encounter Type Encounter Description Reason Provider Source Sep 06, 2023 10:30 AM SELF CARE MNGMENT TRAINING PHYSICAL THERAPY ICD-10-CM M62.81 Muscle weakness (generalized) ABBIE DENT [place] Encounter Template Text not used by [facility] Assessments - Encounter Diagnoses This section includes the primary and secondary diagnoses documented for the Encounter. Date/Time Primary/Secondary Diagnosis Diagnosis Name Provider Source Sep 06, 2023 12:47 PM PRIMARY Muscle weakness (generalized) ABBIE DENT [facility] Sep 06, 2023 12:47 PM SECONDARY Other reduced mobility [facility] Plan of Treatment: Future Appointments (+ 6 months) and Future Tests (+/- 45 days) The Plan of Treatment section includes future care activities for the [facility] [place] [facility] This section includes future appointments and future orders which are active, pending or scheduled. Future Appointments This section includes appointments that were scheduled to occur 6 months from the date of the Encounter, up to a maximum of 20 appointments. The data comes from all [facility]. Appointment Date/Time Appointment Type Appointme nt Facility Name Sep 18, 2023 09:30 AM AMBULATORY - SURGERY [facility] Sep 18, 2023 10:30 AM AMBULATORY - RE[facility]AB [facility] Sep 27, 2023 03:30 PM AMBULATORY - SURGERY [facility] Oct 16, 2023 08:30 AM AMBULATORY - [facility]AB [facility] Oct 16, 2023 10:00 AM AMBULATORY - NONE [facility] Oct 23, 2023 09:00 AM AMBULATORY - REHAB MEDICIN [facility] Oct 30, 2023 09:30 AM AMBULATORY - REHAB MEDICIN [facility] Oct 31, 2023 10:30 AM AMBULATORY - SURGERY [facility] Oct 31, 2023 05:10 PM AMBULATORY - REHAB MEDICIN [facility] Nov 13, 2023 09:00 AM AMBULATORY - RE[facility]AB MEDICIN [facility] Nov 20, 2023 10:00 AM AMBULATORY - SURGERY [facility] Nov 20, 2023 11:00 AM AMBULATORY - MEDICINE [facility] Dec 17, 2023 08:40 AM AMBULATORY - SURGERY [facility] January 24, 2024 09:45 AM AMBULATORY - SURGERY [facility] Active, Pending, and Scheduled Orders This section includes a listing of several types of active, pending, and scheduled orders, including clinic medications orders, diagnostic test orders, procedure orders and consult orders; where the start date of the order is 45 days before the date of the Encounter or 45 days after the date of theEncounter. The data comes from all [place] treatment facilities. Test Date/Time Test Type Test Details Facility Name Sep 05, 2023 07:28 PM Laboratory - Blood Bank Order TYPE & SCREEN - LAB BLOOD WC [facility] Lab Results: +/- 30 days of the encounter This section includes the Chemistry and Hematology Lab Results on record with [place] for the patient. Radiology Reports and Pathology Reports are provided separately, in subsequent sections. Lab Results This section contains the Chemistry/Hematology Results that were resulted 30 days before or 30 daysafter the date of the Encounter. Date/Time Source Result Type Result - Unit Interpretation Reference Range Comment Sep 06, 2023 09:11 AM [facility] CBC Specimen Type: BLOOD Comment: Specimen received in Lab at: 0910 Ordering Provider: FARRUKH MANUEL Report Released Date/Time: Sep 05, 2023 07:28 PM Reporting Lab: [facility] [id number] Performing Lab: [facility] [phone] WBC 8.69 10*3/uL 4.0-11.0 RBC 3.76 10*6/uL L 4.6-6.2 HGB 11.5 g/dL L 13.5-17.9 HCT 34.7 L 41-54 MCV 92.3 fL 80-100 MCH 30.6 pg 27-33 MCHC 33.1 g/dL 32.0-37.5 PLT 261 10*3/uL 150-400 MPV 11.0 fL H 7.4-10.4 RDW 13.3 11.5-14.5 Sep 06, 2023 09:11 AM [facility] BASIC METABOLIC PANEL+MG Specimen Type: PLASMA Comment: Specimen received in Lab at: 0910 Ordering Provider: FARRUKH MANUEL Report Released Date/Time: Sep 05, 2023 07:28 PM Reporting Lab: [facility] [phone] Performing Lab: [facility] [address] CREATININE 0.9 mg/dL 0.7-1.2 UREA NITROGEN 15 mg/dL 8-26 GLUCOSE 141 mg/dL H 70-100 SODIUM 134 mmol/L L 136-145 POTASSIUM 4.1 mmol/L 3.5-5.1 CHLORIDE 101 mmol/L 98-107 CO2 24 mmol/L 22-29 CALCIUM 8.6 mg/dL 8.4-10.2 MAGNESIUM 1.7 mg/dL 1.6-2.6 ANION GAP 9 mmol/L 5-15 .CREAT EGFR(CKD-EPI) 86 >60 Sep 06, 2023 05:44 AM [facility] FINGERSTICK GLUCOSE Specimen Type: BLOOD Comment: Save Result Ordering Provider: FALLON MUNGUIA Report Released Date/Time: Sep 06, 2023 06:02 AM Reporting Lab: [facility] [phone] Performing Lab: [facility] [phone] FINGERSTICK GLUCOSE 140 mg/dL 70-100 Sep 05, 2023 08:25 PM [facility] PROTHROMBIN TIME/INR Specimen Type: PLASMA No comment entered. Ordering Provider: EMILY REVELES Report Released Date/Time: Sep 05, 2023 07:28 PM Reporting Lab: [facility] [phone] Performing Lab: [facility] Sep 05, 2023 08:25 PM [facility] CBC Specimen Type: BLOOD No comment entered. Ordering Provider: EMILY REVELES Report Released Date/Time: Sep 05, 2023 07:28 PM Reporting Lab: [facility] [phone] Performing Lab: [facility] [address] WBC 8.60 10*3/uL 4.0-11.0 RBC 3.66 10*6/uL L 4.6-6.2 HGB 11.3 g/dL L 13.5-17.9 HCT 34.3 L 41-54 MCV 93.7 fL 80-100 MCH 30.9 pg 27-33 MCHC 32.9 g/dL 32.0-37.5 PLT 225 10*3/uL 150-400 MPV 10.9 fL H 7.4-10.4 RDW 13.4 11.5-14.5 Sep 05, 2023 08:25 PM [facility] BASIC METABOLIC PANEL+MG Specimen Type: PLASMA No comment entered. Ordering Provider: EMILY REVELES Report Released Date/Time: Sep 05, 2023 07:28 PM Reporting Lab: [facility] [phone] Performing Lab: [facility] [phone] CREATININE 0.9 mg/dL 0.7-1.2 UREA NITROGEN 17 mg/dL 8-26 GLUCOSE 148 mg/dL H 70-100 SODIUM 140 mmol/L 136-145 POTASSIUM 3.8 mmol/L 3.5-5.1 CHLORIDE 107 mmol/L 98-107 CO2 26 mmol/L 22-29 CALCIUM 8.7 mg/dL 8.4-10.2 MAGNESIUM 1.9 mg/dL 1.6-2.6 ANION GAP 7 mmol/L 5-15 .CREAT EGFR(CKD-EPI) 86 >60 Sep 05, 2023 08:25 PM [facility] ACT PART THROMBO TIME Specimen Type: PLASMA Comment: ~Draw on admission. Call IV team to draw on admission. Ordering Provider: EMILY REVELES Report Released Date/Time: Sep 05, 2023 07:28 PM Reporting Lab: [facility] [phone] Performing Lab: [facility] [phone] APTT 30.8 s 25.1-36.5 Vital Signs: All taken on the encounter date This section contains inpatient and outpatient Vital Signs collected on the date of the Encounter. Date/Time Temperature Pulse Blood Pressure Respiratory Rate SP02 Pain Height Weight Body Mass Index Source Sep 06, 2023 03:35 AM 4 [facility] Sep 06, 2023 01:04 AM 6 [facility] Sep 06, 2023 01:04 AM 5 [facility] Social History: Smoking Status (Most current) and Tobacco Use (All prior to encounter date) This section includes the most current, and the historical, smoking and tobacco- related health factors from the [place] facility where the Encounter took place. Current Smoking Status This section includes the most current smoking, or tobacco-related health factor, from the [place] facility where the Encounter took place. Date/Time Current Smoking Status Comment Santiago kwong Mar 19, 2023 10:30 AM VA-TOBACCO NEVER USED [facility] Tobacco Use History This section includes a history of the smoking, or tobacco-related health factors, that were collected on or before the date of the Encounter. The data comes from the [place] facility where the Encounter took place. Date/Time Smoking Status/Tobacco Use Comment F acility Mar 22, 2022 08:45 AM VA-TOBACCO NEVER USED [facility] May 12, 2021 10:00 AM VA-TOBACCO FORMER USER [facility] May 12, 2021 10:00 AM [place]-TOBACCO QUIT 15 YRS OR MORE [facility] Feb 24, 2019 09:35 AM VA-TOBACCO NEVER USED [facility] Feb 18, 2018 01:56 PM FORMER TOBACCO USER 7Y OR GREATE R [facility] Mar 06, 2017 09:31 AM FORMER TOBACCO USER 7Y OR GREATE R [facility] Mar 06, 2016 09:54 AM FORMER TOBACCO USER 7Y OR GREATE R [facility] January 25, 2016 06:31 AM INPT NO TOBACCO USE IN LAST 30 D AYS [facility] January 22, 2015 10:06 AM LIFETIME NON-TOBACCO USER [facility] Apr 15, 2014 10:09 AM FORMER TOBACCO USER 7Y OR GREATE R [facility] February 01, 2011 08:51 AM FORMER TOBACCO USER 7Y OR GREATE R [facility] Advance Directives: All historical and current Section Date Range: From patient's date of to the date document was created. This section includes ALL of a patient's completed or amended [place] Advance and Rescinded Directives. The entries below indicate that a directive exists for the patient, but an actual copy is not included with this document. The data comes from all [facility]. Date Advance Directives Provider Source Oct 13, 2017 ADVANCE DIRECTIVE MARAL DORANTES [facility] Oct 13, 2017 ADVANCE DIRECTIVE DISCUSSION ABNERTenaBALWINDERN [facility] Radiology Reports: +/- 30 days of the [...] the Encounter. The data comes from all [place] treatment facilities. Date/Time Radiology Report Provider Source Sep 05, 2023 07:58 AM SHOULDER LEFT 2-3 VIEWS: MOEBENJAMÍNENCE [id number] M Exm Date: SEP 05, 2023@07:58 Req Phys: MARCUS LOMAX Pat Loc: [facility] ADMISSIONS SURGERY (Req'g Img Loc: MAIN X-RAY Service: Unknown (Case [id number] COMPLETE) SHOULDER LEFT 2-3 VIEWS (RAD Detailed) CPT:49414 Proc Modifiers : PORTABLE EXAM, OPERATING ROOM EXAM, LEFT Reason for Study: Left reverse TSA Clinical History: OR 6 Shoulder OA Responsible provider name and phone number to notify for critical findings if other than user placing the order and pager listed below: User placing orders pager: Rukhsana Lomax [phone] LAST CREATININE 0.8 (07/03/23) Report Status: Verified Date Reported: SEP 05, 2023 Date Verified: SEP 05, 2023 Horse Farm Manager E-Sig:/ES/LIDYA GUDINO MD Report: SHOULDER LEFT 2-3 [...] Primary Interpreting Staff: LIDYA GUDINO MD, RADIOLOGIST (Horse Farm Manager) /[facility] LIDYA GUDINO [facility] Aug 20, 2023 10:16 AM SHOULDER LEFT 4V(A P,Y VIEW, GRASHEY & AXILLARY): BENJAMÍN ROSA [id number] -[id number] M Ex Date: AUG 20, 2023@10:16 Req Phys: MARCUS LOMAX Pat Loc: [facility] ORTHO COORD PHONE (Req'g L Img Loc: MAIN X-RAY Service: Unknown (Case [id number] COMPLETE) SHOULDER LEFT 4V(AP,Y VIEW, GRASH(RAD Detailed) CPT:33913 Proc Modifiers : LEFT Reason for Study: pre-op Clinical History: IS NOT under investigation for COVID-19 or is COVID-19 negative pre-op Responsible provider name and phone number to notify for critical findings if other than user placing the order and pager listed below: User placing orders pager: LAST CREATININE 0.8 (07/03/23) Report Status: Verified Date Reported: AUG 20, 2023 Date Verified: AUG 20, 2023 Horse Farm Manager E-Sig:/ES/PASHA MARIA DO Report: EXAMINATION: SHOULDER LEFT [...] Primary Interpreting Staff: PASHA MARIA DO, RADIOLOGIST (Horse Farm Manager) /[facility] PASHA MARIA [facility] Encounter Notes: All associated encounter notes This section contains the clinical notes associated to the Encounter. 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 Lomax & Quirino - Sling with abductor pad for full 6 weeks. ---- Home environment: Style: ranch style home c/ his Stairs: 2 IZABEL to enter c/ no HR. 12 IZABEL to basement with ALEXANDRE HR PLOF: Prior to surgery pt was Indep c/ BADLs, shares IADLs and ambulated up to 1/2 mi daily c/ no AD & no falls hx AD: not sure where or if he has a cane at home Falls Hx: No: Has not fallen in past 6 months Pertinent PMH: HTN, HLD, prostate CA s/p radiation seed implant ~'15; hx R rTSA in the community 10/09 S: Pt brought to PT clinic in via hospital escort. He is agreeable to PT session & is seen for >45min to complete his inpt PT instruction. He mentions frustration regarding the RR last night, not getting up c/ nsg staff to walk, and not getting a breakfast tray this morning. Active listening provided. As for his shoulder surgery & immobilizer, he is confident. He does state that he is still a bit unsteady and agrees to use of a cane. O: Observation: NAD c/ L UE supported fairly well in shoulder immobilizer(SI) - pt verbalizes good awareness of proper fit & function. Orientation: A&O and able to follow simple conversation & 2 commands. Agrees to PT evaluation & interventions this date. PAIN: maybe a 2 - pt prefers to only use Tylenol for now & ice See Ortho inpt Prog Note - they are aware Vitals: WNL's on room air MMT: mild weakness L grasp as anticipated Sensation: mentions mild numbness/tingling mainly in L thumb LT intact on L thumb & UE, ant chest wall & L scap area Integumentary: Incision/wound: not observed as shirt in place Edema: mild in L hand/fingers FUNCTIONAL MOBILITY: Bed mobility: Supine to sit: nt - though mentions he will sleep in his recliner again as needed Sit to supine: Mod I c/ assist to prop L UE appropriately c/ pillows to elevate hand and decr pressure/pull from shoulder strap of the SI Transfers: Sit to stand/Stand to sit: SBA initially - takes 1-2 attempts from low chair to stand - approp caution taken when turning & sitting on bed or chair SELF-CARE/Education: * reviewed & provided post-op hand out that displays & explains proper fit & function of his shoulder immobilizer. Reviewed c/ pt how to don/doff it managing the 2 pepito & 3 straps. Min A needed c/ very little instruction. * educated to ice shoulder for only 20-30 min maximum. Let arm warm up for 1- hour duration, then repeat ice as needed for pain control & edema management. * pt declined instruction in how to don/doff the polar pack including the 3 straps. States he is familiar from prior R shoulder surg in 10/09. * reviewed or re-educated that polar pack is not to be placed directly on skin. * reviewed post-op precautions as above, including avoidance of additional shoulder movements or weight bearing thru his elbow when seated. * instructed to perform hand/wrist/elbow ROM as instructed, 3x/day [id number] each as instructed & noted on his HEP. Ther Ex: Instruct/demo in the following ther ex in sitting: * A-AAROM L hand & wrist c/ mild decr in wrist extn vs R side * AAROM into supination c/ R UE assist after initial assist fr therapist & pt instruction. * PROM L elbow F/E using contralateral extremity * scapular squeezes per routine protocol c/ min tactile cues to enhance activation LOCOMOTION: Gait: Pt ambulates >340ft c/ SEC; initial SBA->supervision only. Initial slower pace c/ short, but even step length and mild path deviation. Improved confidence & speed after 100ft or so. Gait Speed: nt, but estimated ~ .42 m/s Stairs: ascends/descends 5 IZABEL using 1 HR on the R using alternating step pattern c/ supervision. Pt then ascended 2, 6 steps c/ SEC only & alternating pattern up & 3 down c/ CG-SBA. Pt using appropriate caution and verbalizes that he can always use a step to pattern if needed for safety to enter his home 5 IZABEL c/ 1 HR R/L using crossover hand parachute manufacturing supervisor & step to pattern c/ SBA. Falls Risk: - Increased risk in post-op pt Injury Risk: 2/4 per ABCS + recent surgery + anti coagulation - Vet resting comfortably in bed c/ all immediate needs met, including call light & water. Warm hand off ortho DNP at BS. A: 83yo vet is s/p L rTSA on 09/05/2023. He is referred to PT for instruction in post-op HEP per rTSA protocol and any post-op mobility impairments. At baseline, pt is INDEP in BADL's, shares IADL's, & ambulates community distances (1/2 every day outside) without any AD. Today, he presents to PT c/ good overall awareness of his post-op restrictions & familiarity c/ the shoulder immobilizer from his R shoulder surgery in September c/ Dr. Lomax in the community. Pt demonstrates good initial pain mgmt c/ mild impairments in strength, sensation, balance, & post-op restrictions, including immobilization of his L UE. He has very minimal instability & demonstrates appropriate use of a cane for limited community distances. Pt's therapy session included ther ex instruction, fit & review of proper fit and how to don/doff his shoulder immobilizer. He did not require any reminders for adherence to his post-op restrictions as listed above & reviewed by magnetic tape typewriter operator this date. Pt has met his inpt goals & is cleared by PT staff to discharge home c/ his when medically ready. Pt has OP PT appt scheduled & has no further inpt PT needs. Pt will benefit skilled OP PT services for f/u instruction in post-op R/L UE ROM exercises & progress per rTSA protocol. DC acute PT. Personal/medical factors that may impact his PT include, but are not limited to the following: hx cancer(prostate CA s/p radiation seed implant ~) & hx R rTSA in the community 10/09 Pt tolerance to PT session: pt engaged in session & responded positively to all interventions c/ no adverse events. Evaluation complexity: Low Clinical presentation: Evolving as far as pain & nerve block Barriers to DC home: none noted Discharge recommendations: Home c/ & Outpatient PT per rTSA protocol. Vet's goals: be able to reach & use this arm. Sleep without waking because I rolled over onto this shoulder PT goals: all MET 1. Vet will demonstrate understanding of HEP as instructed above per TSA protocol to protect involved extremity & promote healing. 2. Vet will demonstrate functional transfers c/ supervision-mod(I) to return home as prior to surgery. 3. Vet will ambulate up to 300ft using SEC c/ supervision for HH & limited community distances. 4. Vet will go up/down 2 IZABEL c/ 1 UE support & CGA to access his home. 5. Vet will demonstrate understanding of how to don/doff shoulder immobilizer for compliance with surgical precautions and to maximize post-op outcomes. P: DC acute PT. Equipment/DME: - issued HEP per rTSA post-op protocol - issued SEC c/ ice tip attachment Patient Education of Treatment Plan: Patient indicates readiness to learn, verbalizes understanding, agreement and satisfaction with the treatment plan. Denies further questions. /laura/ ABBIE DENT PHYSICAL THERAPIST Signed: 09/06/2023 12:47 ABBIE DENT [facility]
--- OUTSIDE RECORDS SUMMARY | 2024-05-05 10:57 | XMS_ITS | Encounter Summary ---
Author Name [facility] [facility] [place] Address [address] [place] [address] Care Team Providers Care Jig Borer Name Role Phone JAN BRISENO Primary Care [...] French's Name Patient's Relationship to Policy French [facility] (WNR) MEDICARE ADVANTAGE MEDIC ARE OTILIA RAMESH Claire Sep 17, 2018 [id number] [phone] BENJAMÍN ROSA PATIENT MEDICARE (WNR) MEDICARE (M) PART B Mar 17, 2007 PART B [id number] [phone] BENJAMÍN ROSA PATIENT MEDICARE (WNR) MEDICARE (M) PART A Mar 17, 2007 PART A [id number] [phone] BENJAMÍN ROSA PATIENT Selected Encounter This section includes the information on record at [place] for the Encounter. Date/Time Encounter Type Encounter Description Reason Provider Source Sep 18, 2023 09:30 AM OFF/OP EST JANUARY X REQ PHY/QHP ORTHO/JOINT SURG ICD-10-CM Z47.89 Encounter for other orthopedic aftercare JONATHON JIMÉNEZ [facility] Encounter Template Text not used by [place] Assessments - Encounter Diagnoses This section includes the primary and secondary diagnoses documented for the Encounter. Date/Time Primary/Secondary Diagnosis Diagnosis Name Provider Source Sep 18, 2023 12:13 PM PRIMARY Encounter for other orthopedic aftercare JONATHON JIMÉNEZ [facility] Plan of Treatment: Future Appointments (+ 6 months) and Future Tests (+/- 45 days) The Plan of Treatment section includes future care activities for the patient from all [place] treatmentfacilities. This section includes future appointments and future orders which are active, pending or scheduled. Future Appointments This section includes appointments that were scheduled to occur 6 months from the date of the Encounter, up to a maximum of 20 appointments. The data comes from all [place] treatment facilities. Appointment Date/Time Appointment Type Appointme nt Facility Name Sep 27, 2023 03:30 PM AMBULATORY - SURGERY [facility] Oct 16, 2023 08:30 AM AMBULATORY - REHAB MEDICIN [facility] Oct 16, 2023 10:00 AM AMBULATORY - NONE [facility] Oct 23, 2023 09:00 AM AMBULATORY - REHAB MEDICIN [facility] Oct 30, 2023 09:30 AM AMBULATORY - REHAB MEDICIN [facility] Oct 31, 2023 10:30 AM AMBULATORY - SURGERY [facility] Oct 31, 2023 05:10 PM AMBULATORY - REHAB MEDICIN [facility] Nov 13, 2023 09:00 AM AMBULATORY - REHAB MEDICIN [facility] Nov 20, 2023 10:00 AM AMBULATORY - SURGERY [facility] Nov 20, 2023 11:00 AM AM[facility]ORY - MEDIC[facility] Dec 17, 2023 08:40 AM AMBULATORY - SURGERY [facility] January 24, 2024 09:45 AM AMBULATORY - SURGERY [facility] Mar 18, 2024 08:00 AM AMBULATORY - NONE [facility] Mar 18, 2024 09:00 [facility] Active, Pending, and Scheduled Orders This section includes a listing of several types of active, pending, and scheduled orders, including clinic medications orders, diagnostic test orders, procedure orders and consult orders; where the start date of the order is 45 days before the date of the Encounter or 45 days after the date of theEncounter. The data comes from all [place] treatment facilities. Test Date/Time Test Type Test Details Facility Name Sep 05, 2023 07:28 PM Laboratory - Blood Bank Order TYPE & SCREEN - LAB BLOOD WC [facility] Lab Results: +/- 30 days of the encounter This section includes the Chemistry and Hematology Lab Results on record with [place] for the patient. Radiology Reports and Pathology Reports are provided separately, in subsequent sections. Lab Results This section contains the Chemistry/Hematology Results that were resulted 30 days before or 30 daysafter the date of the Encounter. Date/Time Source Result Type Result - Unit Interpretation Reference Range Comment Sep 06, 2023 09:11 AM [facility] CBC Specimen Type: BLOOD Comment: Specimen received in Lab at: 0910 Ordering Provider: RAHEEL DELGADILLO Report Released Date/Time: Sep 05, 2023 07:28 PM Reporting Lab: [facility] [id number] Performing Lab: [facility] [address] WBC 8.69 10*3/uL 4.0-11.0 RBC 3.76 10*6/uL L 4.6-6.2 HGB 11.5 g/dL L 13.5-17.9 HCT 34.7 L 41-54 MCV 92.3 fL 80-100 MCH 30.6 pg 27-33 MCHC 33.1 g/dL 32.0-37.5 PLT 261 10*3/uL 150-400 MPV 11.0 fL H 7.4-10.4 RDW 13.3 11.5-14.5 Sep 06, 2023 09:11 AM [facility] BASIC METABOLIC PANEL+MG Specimen Type: PLASMA Comment: Specimen received in Lab at: 0910 Ordering Provider: RAHEEL DELGADILLO Report Released Date/Time: Sep 05, 2023 07:28 PM Reporting Lab: [facility] [id number] Performing Lab: [facility] [address] CREATININE 0.9 mg/dL 0.7-1.2 UREA NITROGEN 15 mg/dL 8-26 GLUCOSE 141 mg/dL H 70-100 SODIUM 134 mmol/L L 136-145 POTASSIUM 4.1 mmol/L 3.5-5.1 CHLORIDE 101 mmol/L 98-107 CO2 24 mmol/L 22-29 CALCIUM 8.6 mg/dL 8.4-10.2 MAGNESIUM 1.7 mg/dL 1.6-2.6 ANION GAP 9 mmol/L 5-15 .CREAT EGFR(CKD-EPI) 86 >60 Sep 06, 2023 05:44 AM [facility] FINGERSTICK GLUCOSE Specimen Type: BLOOD Comment: Save Result Ordering Provider: FALLON MUNGUIA Report Released Date/Time: Sep 06, 2023 06:02 AM Reporting Lab: [facility] [address] Performing Lab: [facility] [address] FINGERSTICK GLUCOSE 140 mg/dL 70-100 Sep 05, 2023 08:25 PM [facility] PROTHROMBIN TIME/INR Specimen Type: PLASMA No comment entered. Ordering Provider: EMILY REVELES Report Released Date/Time: Sep 05, 2023 07:28 PM Reporting Lab: [facility] [address] Performing Lab: [facility] Sep 05, 2023 08:25 PM [facility] ACT PART THROMBO TIME Specimen Type: PLASMA Comment: ~Draw on admission. Call IV team to draw on admission. Ordering Provider: EMILY REVELES Report Released Date/Time: Sep 05, 2023 07:28 PM Reporting Lab: [facility] [address] Performing Lab: [facility] [address] APTT 30.8 s 25.1-36.5 Sep 05, 2023 08:25 PM [facility] CBC Specimen Type: BLOOD No comment entered. Ordering Provider: EMILY REVELES Report Released Date/Time: Sep 05, 2023 07:28 PM Reporting Lab: [facility] [address] Performing Lab: [facility] [address] WBC 8.60 10*3/uL 4.0-11.0 RBC 3.66 10*6/uL L 4.6-6.2 HGB 11.3 g/dL L 13.5-17.9 HCT 34.3 L 41-54 MCV 93.7 fL 80-100 MCH 30.9 pg 27-33 MCHC 32.9 g/dL 32.0-37.5 PLT 225 10*3/uL 150-400 MPV 10.9 fL H 7.4-10.4 RDW 13.4 11.5-14.5 Sep 05, 2023 08:25 PM [facility] BASIC METABOLIC PANEL+MG Specimen Type: PLASMA No comment entered. Ordering Provider: EMILY REVELES Report Released Date/Time: Sep 05, 2023 07:28 PM Reporting Lab: [facility] [address] Performing Lab: [facility] [address] CREATININE 0.9 mg/dL 0.7-1.2 UREA NITROGEN 17 [...] and tobacco- related health factors from the [place] facility where the Encounter took place. Current Smoking Status This section includes the most current smoking, or tobacco-related health factor, from the [place] facility where the Encounter took place. Date/Time Current Smoking Status Comment Santiago itsundar Mar 19, 2023 10:30 AM VA-TOBACCO NEVER USED [facility] Tobacco Use History This section includes a history of the smoking, or tobacco-related health factors, that were collected on or before the date of the Encounter. The data comes from the [place] facility where the Encounter took place. Date/Time Smoking Status/Tobacco Use Comment F acility Mar 22, 2022 08:45 AM VA-TOBACCO NEVER USED [facility] May 12, 2021 10:00 AM VA-TOBACCO FORMER USER [facility] May 12, 2021 10:00 AM VA-TOBACCO QUIT 15 YRS OR MORE [facility] Feb 24, 2019 09:35 AM VA-TOBACCO NEVER USED [facility] Feb 18, 2018 01:56 PM FORMER TOBACCO USER 7Y OR GREATE R [facility] Mar 06, 2017 09:31 AM FORMER TOBACCO USER 7Y OR GREATE R [facility] Mar 06, 2016 09:54 AM FORMER TOBACCO USER 7Y OR YOLANDAE R [facility] January 25, 2016 06:31 AM INPT NO TOBACCO USE IN LAST 30 D AYS [facility] January 22, 2015 10:06 AM LIFETIME NON-TOBACCO USER [facility] Apr 15, 2014 10:09 AM FORMER TOBACCO USER 7Y OR YOLANDAE R [facility] February 01, 2011 08:51 AM FORMER TOBACCO USER 7Y OR YOLANDAE R [facility] Advance Directives: All historical and current Section Date Range: From patient's date of to the date document was created. This section includes ALL of a patient's completed or amended [place] Advance and Rescinded Directives. The entries below indicate that a directive exists for the patient, but an actual copy is not included with this document. The data comes from all [place] facilities. Date Advance Directives Provider Source Oct 13, 2017 ADVANCE DIRECTIVE MARAL DORANTES [facility] Oct 13, 2017 ADVANCE DIRECTIVE DISCUSSION JOSE EMARAL [facility] Radiology Reports: +/- 30 days of the [...] the Encounter. The data comes from all [place] treatment facilities. Date/Time Radiology Report Provider Source Oct 16, 2023 09:24 AM SHOULDER LEFT 4V(AP,Y VIEW, GRASHEY & AXILLARY): BENJAMÍN ROSA [id number] -1940 Ex Date: OCT 16, 2023@09:24 Req Phys: MARCUS LOMAX Pat Loc: [facility] ORTHO COORD PHONE (Req'g L Img Loc: MAIN X-RAY Service: Unknown (Case [id number] COMPLETE) SHOULDER LEFT 4V(AP,Y VIEW, GRASH(RAD Detailed) CPT:95169 Proc Modifiers : LEFT Reason for Study: [...] 17, 2023 Date Verified: OCT 17, 2023 Senior Engineering Manager E-Sig: Report: SHOULDER LEFT 4V(AP,Y VIEW, GRASHEY & AXILLARY) HISTORY: post op COMPARISON: 09/05/2023 TECHNIQUE: 4 view(s) of the left shoulder, submitted to the [place] National Teleradiology Program (NTP) for interpretation. FINDINGS: [...] of hardware complication. READING PHYSICIAN: Navneet Hinson -[id number] 10/17/2023 5:19 [facility] National Teleradiology Program [phone] (For Medical Practitioner Use Only) Attention Patients / Veterans: If you have questions or concerns about these test results, please contact your ordering provider or primary care team. 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 Responsible provider name and phone number to notify for critical findings if other than user placing the order and pager listed below: User placing orders pager: Rukhsana Lomax [phone] LAST CREATININE 0.8 (07/03/23) Report Status: Verified Date Reported: SEP 05, 2023 Date Verified: SEP 05, 2023 Senior Engineering Manager E-Sig:/ES/LIDYA D TERESE, MD Report: SHOULDER LEFT 2-3 VIEWS 09/05/2023 [...] Primary Interpreting Staff: LIDYA GUDINO MD, RADIOLOGIST (Senior Engineering Manager) /[facility] LIDYA GUDINO [facility] Aug 20, 2023 10:16 AM SHOULDER LEFT 4V(AP,Y VIEW, GRASHEY & AXILLARY): BENJAMÍN ROSA [id number] -1940 M Ex Date: AUG 20, 2023@10:16 Req Phys: MARCUS LOMAX Loc: [facility] ORTHO COORD PHONE (Req'g L Img Loc: MAIN X-RAY Service: Unknown (Case [id number] COMPLETE) SHOULDER LEFT 4V(AP,Y VIEW, GRASH(RAD Detailed) CPT:43142 Proc Modifiers : LEFT Reason for Study: [...] 20, 2023 Date Verified: AUG 20, 2023 Senior Engineering Manager E-Sig:/ES/PASHA MARIA DO Report: EXAMINATION: SHOULDER [...] Primary Interpreting Staff: PASHA MARIA DO, RADIOLOGIST (Senior Engineering Manager) /DDS PASHA MARIA [facility] Encounter Notes: All associated encounter notes This section contains the clinical notes associated to the Encounter. 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 Lomax on 09/05/23. Vet presents to clinic for wound check. Patient denies any CP, SOB and f/c/n/v/d/c. Vet reports normal BM and bladder movements after surgery. 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 Vet reports to clinic with LUE in sling. Patient to report to PT today. Vet reports taking 162 mg ASA daily. Patient has no abnormal swelling, redness, tenderness or warmth to LUE. Tile Sprayer educated patient on red flag symptoms of DVT/PE. No concerns of DVT/PE at this time. Tile Sprayer assessed patient properly remove sling with proper form. Patient presents with Left shoulder incision with no dressing in place. Left shoulder incision is clean, dry and intact per dermabond prineo. Left shoulder incision has no abnormal redness, tenderness, swelling, drainage or warmth. Tile Sprayer educated patient that prineo dressing will fall off on its own over time; he is aware that he may clip the edges back as this occurs. He was instructed on proper care and assessment. Patient placed LUE in sling. All questions answered. Patient reports being compliant with NWB LUE, no shoulder ROM and sling in place all times (okay for hygiene). Patient Satisfaction: Neutral Pain Scale: 4 Recent pain medication use: Oral narcotics: Yes, Patient reports taking Oxycodone the first day and nothing since then. Over the counter medications: Yes, Patient reports taking Tylenol prn and 162 mg ASA daily x 6 weeks post-op. Wound: Clean/healing Neurological Exam: Upper Extremity Normal sensation/motion Function: Walking: Unlimited. Support: NWB LUE with abductor sling in place all times (okay for hygiene) Significant findings not otherwise noted. Diagnosis: 2 weeks S/P above procedure with normal progression. Plan: Return to clinic as scheduled. 09/18/2023 10:30 [facility] PT DAYANA VASQUEZ 09/27/2023 15:30 [facility] AUD TECH 2S 10/16/2023 08:30 [facility] PT DAYANA 10/31/2023 10:00 [facility] XRAY GENERAL AM 10/31/2023 10:30 [facility] ORTHO LOMAX - Do not soak incision in bath, hot tub, mendez water or swimming pool. - Do not drive - Non-weightbearing right upper extremity. Abduction sling to right shoulder. - Continue 162 mg ASA daily for 6 weeks post-op - Seek emergent care if signs/symptoms of DVT/PE arise. - Call ortho clinic if any signs and symptoms of infection arise such as progressive swelling, drainage, redness, warmth or tenderness. - Call ortho clinic if any questions arise. Patient acknowledges and agrees to plan. Patient left in good condition. /laura/ JONATHON JIMÉNEZ RN REGISTERED NURSE Signed: 09/18/2023 12:13 JONATHON JIMÉNEZ [facility]
--- OUTSIDE RECORDS SUMMARY | 2024-05-05 10:57 | XMS_ITS | Continuity of Care Document ---
Author Name [facility] Organization [facility] Care Team Providers Care Air Deodorizer Servicer Name Role Phone [facility] Unavailable Unavailable Problems Combined list of problems from Department of Defense and Veterans Affairs facilities. It does not include entries that were removed or entered in error. Problem Status Onset Date Problem Type Date of Resolution Comments Source Benign essential hypertension Active Condition [facility] Elevation, blood pressure (ICD-9-CM 796.2) Active Condition Apr 15, 2014 Entered By: KIRSTEN MEEK Comment: no recent elevated bp [place] or here 2013 [facility] Hyperlipidemia (SNOMED CT [id number]) Active Condition [facility] Other Specified Counseling Active Condition Apr 15, 2014 Entered By: KIRSTEN MEEK Comment: nl cscope 5 years ago at non [place] provider, managed by non [facility] Personal History of Malignant Neoplasm of Prostate (ICD-9-CM V10.46) Active Condition [facility] Pigmented skin lesion Active Condition Apr 15, 2014 Entered By: KIRSTEN MEEK Comment: 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 [facility] Diagnosis: ICD-10-CM M25.512 Pain in left shoulder Active Diagnosis [facility] Diagnosis: ICD-10-CM Z47.1 Aftercare following joint replacement surgery Active Diagnosis [facility] Diagnosis: ICD-10-CM Z46.1 Encounter for fitting and adjustment of hearing aid Active Diagnosis [facility] Diagnosis: ICD-10-CM Z47.89 Encounter for other orthopedic aftercare Active Diagnosis [facility] Diagnosis: ICD-10-CM M25.519 Pain in unspecified shoulder Active Diagnosis [facility] Diagnosis: ICD-10-CM M62.81 Muscle weakness (generalized) Active Diagnosis [facility] Diagnosis: ICD-10-CM Z73.6 Limitation of activities due to disability Active Diagnosis [facility] Admit Reason: S/P TSA Active Diagnosis [facility] Diagnosis: ICD-10-CM E78.5 Hyperlipidemia, unspecified Active Diagnosis [facility] Diagnosis: ICD-10-CM Z01.818 Encounter for other preprocedural examination Active Diagnosis [facility] Diagnosis: ICD-10-CM J20.9 Acute bronchitis, unspecified Active Diagnosis [facility] Diagnosis: ICD-10-CM Z71.9 Counseling, unspecified Active Diagnosis [facility] Diagnosis: ICD-10-CM Z13.6 Encounter for screening for cardiovascular disorders Active Diagnosis [facility] Diagnosis: ICD-10-CM M19.012 Primary osteoarthritis, left shoulder Active Diagnosis [facility] Diagnosis: ICD-10-CM H93.13 Tinnitus, bilateral Active Diagnosis [facility] Diagnosis: ICD-10-CM M19.011 Primary osteoarthritis, right shoulder Active Diagnosis [facility] Medications Combined list of outpatient medications from Department of Defense and Veterans Affairs facilities.Medications provided include 1) outpatient medications from the last 15 months, and 2) patient-reported medications. Medication Details Route Status Patient Instructions Prescription Expires Prescription Number Last Dispense Date Ordering Provider Order Date Order Qty Source ACETAMINOPH EN 500MG TAB ACETAMIN OPHEN 500MG TAB TAKE TWO TABLETS BY MOUTH THREE TIMES A DAY FOR PAIN. NO MORE THAN 3000MG PER DAY. FOR PAIN Sep 06, 2023 100 Oct 06, 2023 [id number] Sep 06, 2023 DIRK NASH [facility] ORAL 10/06/2023 [id number] 3 Skyla NASH 2022 [address] [place] [facility] AMOXICILLIN TRIHYDRATE 875MG/CLAVU LANATE K 125MG TAB AMOXICIL STEVIE TRIHYDRA TE 875MG/CL AVULANAT E K 125MG TAB TAKE 1 TABLET BY MOUTH TWICE A DAY BRONCHIT IS BRONCHIT IS Aug 14, 2023 10 Sep 13, 2023 [id number] Aug 14, 2023 CELINE MEADE [facility] ORAL 09/13/2023 [id number] SHEA MEADE [place] [address] [facility] ASPIRIN 81MG TAB,EC ASPIRIN 81MG TAB,EC Active: Susp TAKE ONE TABLET BY MOUTH EVERY DAY FOR HEART DISEASE DO NOT CHEW FOR HEART DISEASE Mar 18, 2024 120 Mar 19, 2025 [id number] Jun 07, 2024 [facility] 03/19/2025 [id number] AMANDEEP BRISENO Y [address] [facility] ASPIRIN 81MG TAB,EC ASPIRIN 81MG TAB,EC Disconti nued TAKE TWO TABLETS BY MOUTH EVERY DAY FOR 6 WEEKS TO PREVENT BLOOD CLOTS. TO PREVENT BLOOD CLOTS Sep 06, 2023 84 Oct 18, 2023 [id number] Sep 06, 2023 DIRK NASH [facility] ORAL DISCONT INUED BY PROVIDE R 10/18/2023 [id number] 3 Skyla NASH [address] [facility] ATORVASTATI N CA 80MG TAB ATORVAST ATIN CA 80MG TAB Active TAKE ONE TABLET BY MOUTH EVERY DAY FOR CHOLESTE ROL FOR CHOLESTE ROL Mar 18, 2024 90 Mar 19, 2025 [id number] A Apr 17, 2024 [facility] 03/19/2025 [id number] AMANDEEP BRISENO Y [address] [facility] ATORVASTATI N CA 80MG TAB ATORVAST ATIN CA 80MG TAB Disconti nued TAKE ONE TABLET BY MOUTH EVERY DAY FOR CHOLESTE ROL FOR CHOLESTE ROL Mar 19, 2023 90 Mar 19, 2024 [id number] January 28, 2024 Ynes BRISENO [facility] ORAL DISCONT INUED 03/19/2024 [id number] AMANDEEP BRISENO Y [address] [facility] ATORVASTATI N CA 80MG TAB ATORVAST ATIN CA 80MG TAB Disconti nued TAKE ONE-HALF TABLET BY MOUTH EVERY DAY FOR CHOLESTE ROL May 08, 2022 45 May 09, 2023 [id number] B Mar 05, 2023 Ynes BRISENO Y [facility] ORAL DISCONT INUED 05/09/2023 [id number] AMANDEEP BRISENO NDE Y [address] [facility] BENZOYL PEROXIDE 10% (WATER BASED) GEL,TOP BENZOYL PEROXIDE 10% (WATER BASED) GEL,TOP APPLY THIN LAYER TOPICALL Y TWICE A DAY PREVENTI ON OF INFECTIO N APPLY TO SURGICAL SHOULDER STARTING TWO DAYS PRIOR TO SURGERY AND MORNING OF SURGERY. PROCEDUR E DATE: 09/05/20 APPLY TO SURGICAL SHOULDER STARTING TWO DAYS PRIOR TO SURGERY AND MORNING OF SURGERY. PROCEDUR E DATE: 09/05/20 PREVENTI ON OF INFECTIO N Jul 05, 2023 60 Aug 07, 2023 [id number] Jul 09, 2023 JEFF ROCHE [facility] TOPICA L 08/07/2023 [id number] Claire ROCHE [address] [facility] CALCIUM CARBONATE 650MG TAB CALCIUM CARBONAT E 650MG TAB Active TAKE ONE TABLET BY MOUTH EVERY DAY FOR CALCIUM SUPPLEME NT FOR CALCIUM SUPPLEME NT Apr 02, 2024 90 Apr 03, 2025 [id number] Apr 03, 2024 Ynes BRISENO [facility] ORAL ACTIVE 04/03/2025 [id number] AMANDEEP BRISENO Y [address] [facility] CARBOXYMETH YLCELLULOSE NA 0.25% SOLN,OPH CARBOXYM ETHYLCEL LULOSE NA 0.25% SOLN,OPH Active INSTILL 1 DROP IN BOTH EYES FOUR TIMES A DAY FOR DRY EYES FOR DRY EYES Nov 20, 2023 45 Nov 20, 2024 [id number] Nov 20, 2023 [facility] ACTIVE 11/20/2024 [id number] PATEL,P ATRICIA M 2023 45 [facility] CETIRIZINE HCL 10MG TAB CETIRIZI NE HCL 10MG TAB TAKE ONE TABLET BY MOUTH EVERY DAY FOR ALLERGIE S Aug 14, 2023 10 Sep 13, 2023 [id number] Aug 14, 2023 CELINE MEADE [facility] ORAL 09/13/2023 [id number] [place] ME[place] 2022 10 [facility] CHOLECALCIF DARLENE 25MCG (1,000UNIT) TAB CHOLECAL CIFEROL 25MCG (1,000UN IT) TAB Active TAKE ONE TABLET BY MOUTH EVERY DAY FOR VITAMIN D FOR VITAMIN D Mar 18, 2024 100 Mar 19, 2025 [id number] A Apr 09, 2024 Ynes BRISENO Y [facility] ORAL ACTIVE 03/19/2025 [id number] AMANDEEP BRISENO NDE Y 2023 100 [facility] CHOLECALCIF DARLENE 25MCG (1,000UNIT) TAB CHOLECAL CIFEROL 25MCG (1,000UN IT) TAB Disconti nued TAKE ONE TABLET BY MOUTH EVERY DAY FOR VITAMIN D FOR VITAMIN D Jun 29, 2023 100 Jun 27, 2024 [id number] January 20, 2024 PRIMO WALTERS [facility] ORAL DISCONT INUED 06/27/2024 [id number] PRIMO WALTERS 2022 100 [facility] CHOLECALCIF DARLENE 25MCG (1,000UNIT) TAB CHOLECAL CIFEROL 25MCG (1,000UN IT) TAB Disconti nued TAKE 1000UNIT BY MOUTH EVERY DAY FOR VITAMIN D FOR VITAMIN D Jun 27, 2023 90 Jun 27, 2024 [id number] Jun 29, 2023 PRIMO WALTERS [facility] ORAL DISCONT INUED (EDIT) 06/27/2024 [id number] PRIMO WALTERS 2022 90 [facility] CHOLECALCIF DARLENE 25MCG (1,000UNIT) TAB CHOLECAL CIFEROL 25MCG (1,000UN IT) TAB Non-VA TAKE ONE TABLET BY MOUTH EVERY DAY Mar 06, 2017 Non-VA Document ed by: Ynes BRISENO Document ed at: [facility] ORAL ACTIVE AMANDEEP BRISENO NDE Y 2016 [facility] CODEINE 10MG/GUAIFE NESIN 100MG/5ML (SF & AF) LIQUID CODEINE 10MG/GUA IFENESIN 100MG/5M L (SF and AF) LIQUID Disconti nued TAKE 10 ML BY MOUTH EVERY 6 HOURS NEEDED FOR COUGH FOR COUGH Aug 14, 2023 236 Sep 13, 2023 [id number] Aug 14, 2023 CELINE MEADE [facility] ORAL DISCONT INUED 09/13/2023 [id number] [place] [address] [facility] DOCUSATE NA 50MG/SENNOS IDES 8.6MG TAB DOCUSATE NA 50MG/SEN NOSIDES 8.6MG TAB TAKE 2 TABLETS BY MOUTH TWICE A DAY FOR CONSTIPA TION *HOLD FOR LOOSE STOOLS* FOR CONSTIPA TION Sep 06, 2023 100 Oct 06, 2023 [id number] Sep 06, 2023 DIRK NASH [facility] ORAL 10/06/2023 [id number] Skyla NASH [address] [facility] HYDROCHLORO THIAZIDE 12.5MG TAB HYDROCHL OROTHIAZ JONATHAN 12.5MG TAB Active TAKE ONE TABLET BY MOUTH EVERY DAY FOR BLOOD PRESSURE FOR BLOOD PRESSURE Mar 18, 2024 90 Mar 19, 2025 [id number] Mar 19, 2024 Ynes BRISENO [facility] ORAL ACTIVE 03/19/2025 [id number] AMANDEEP BRISENO Y [address] [facility] HYDROCHLORO THIAZIDE 25MG TAB HYDROCHL OROTHIAZ JONATHAN 25MG TAB Disconti nued TAKE ONE-HALF TABLET BY MOUTH EVERY DAY FOR BLOOD PRESSURE Mar 19, 2023 45 Mar 19, 2024 [id number] E Feb 18, 2024 Ynes BRISENO Y [facility] ORAL DISCONT INUED (EDIT) 03/19/2024 [id number] AMANDEEP BRISENO NDE Y [address] [facility] HYDROCHLORO THIAZIDE 25MG TAB HYDROCHL OROTHIAZ JONATHAN 25MG TAB Disconti nued TAKE ONE-HALF TABLET BY MOUTH EVERY DAY FOR BLOOD PRESSURE May 08, 2022 45 May 09, 2023 [id number] D Feb 22, 2023 Ynes BRISENO Y [facility] ORAL DISCONT INUED 05/09/2023 [id number] AMANDEEP BRISENO NDE Y [address] [facility] IBUPROFEN 200MG TAB IBUPROFE N 200MG TAB Non-VA TAKE ONE TABLET BY MOUTH EVERY DAY NEEDED Sep 01, 2022 Non-VA Document ed by: ALE MICHAELS Document ed at: [facility] ORAL ACTIVE LUPE MICHAELS [address] [facility] LIDOCAINE 5% PATCH LIDOCAIN E 5% PATCH APPLY 1 PATCH TOPICALL Y EVERY DAY DIRECTED TO BOTH SIDES ON INCISION . MAY CUT IN HALF. DO NOT APPLY DIRECTLY OVER INCISION . WEAR PATCH FOR 12 HOURS, THEN REMOVE FOR 12 HOURS BEFORE NEW PATCH IS APPLIED. DO NOT START WEARING PATCH UNTIL 09/09/23 FOR PAIN Sep 06, 2023 15 Oct 06, 2023 [id number] Sep 06, 2023 DIRK NASH [facility] L 10/06/2023 [id number] Skyla NASH [address] [facility] METHOCARBAM OL 500MG TAB METHOCAR BAMOL 500MG TAB TAKE ONE TO TWO TABLETS BY MOUTH EVERY 6 HOURS NEEDED FOR PAIN RELATED TO MUSCLE SPASM AND/OR TIGHTNES S. TAKE LOWEST EFFECTIV E DOSE. FOR PAIN Sep 06, 2023 80 Oct 06, 2023 [id number] Sep 06, 2023 DIRK NASH [facility] ORAL 10/06/2023 [id number] Skyla NASH [address] [facility] MULTIVITAMI NS CAP/TAB MULTIVIT AMINS CAP/TAB Non-VA TAKE ONE TABLET BY MOUTH EVERY DAY February 01, 2011 Non-VA Document ed by: ANGELITA ZAMORA TTI Document ed at: [facility] ORAL ACTIVE ROSE ZAMORA [address] [facility] MUPIROCIN 2% OINT,TOP MUPIROCI N 2% OINT,TOP APPLY PEA SIZED AMOUNT INSIDE EACH NOSTRIL TOPICALL Y TWICE A DAY TO PREVENT INFECTIO N FOR FIVE DAYS PRIOR TO SURGERY -PROCEDU RE DATE: 09/05/20 23 FOR FIVE DAYS PRIOR TO SURGERY -PROCEDU RE DATE: 09/05/20 23 TO PREVENT INFECTIO N Jul 05, 2023Aug 07, 2023 [id number] Jul 09, 2023 JEFF ROCHE [facility] 08/07/2023 [id number] Claire ROCHE [address] [facility] NALOXONE HCL 4MG/SPRAY SOLN,SPRAY, NASAL NALOXONE HCL 4MG/SPRA Y SOLN,SPR AY,NASAL SPRAY 1 DOSE IN ONE NOSTRIL DIRECTED ONCE FOR UNRESPON SIVENESS THEN CALL 911 - IF NO CHANGE IN 2-3 MINUTES, GIVE SECOND DOSE IN OPPOSITE NOSTRIL. FOR UNRESPON SIVENESS THEN CALL 911 Sep 06, 2023 2 Oct 06, 2023 [id number] Sep 06, 2023 DIRK NASH [facility] NASAL 10/06/2023 [id number] Skyla NASH [address] [facility] OXYCODONE HCL 5MG TAB OXYCODON E HCL 5MG TAB TAKE 1/2 TABLET TO ONE TABLET BY MOUTH EVERY 4 HOURS NEEDED FOR PAIN NOT CONTROLL ED WITH NON-OPIO ID REGIMEN. ATTEMPT TO USE LOWEST EFFECTIV E DOSE. FOR PAIN NOT CONTROLL ED WITH NON-OPIO ID REGIMEN. ATTEMPT TO USE LOWEST EFFECTIV E DOSE. FOR PAIN Sep 06, 2023 20 Oct 06, 2023 [id number] Sep 06, [facility] 10/06/2023 [id number] Skyla NASH [address] [facility] POLYETHYLEN E GLYCOL 3350 PWDR,ORAL POLYETHY GEMMA GLYCOL 3350 PWDR,ORA L TAKE 17 GRAMS BY MOUTH EVERY DAY FOR CONSTIPA TION. MIX WITH 8OZ OF JUICE OR WATER *HOLD FOR LOOSE STOOLS FOR CONSTIPA TION Sep 06, 2023 238 Oct 06, 2023 [id number] Sep 06, 2023 CHARITY DIRK A[place]INA [facility] ORAL 10/06/2023 [id number] 3 Skyla NASH [address] [facility] Allergies, Adverse Reactions, Alerts Combined list of allergies from Department of Defense and Veterans Affairs facilities. It does not include entries that were removed or entered in error. Substance Category Reaction Severity Reaction type Status Date Reported Comments Source LISINOPRIL Propensity to adverse reactions to drug (finding) Cough active 8 [facility] Immunizations Combined list of available immunizations from the Department of Defense and Veterans Affairs facilities. Immunization Series Date Given Administered By Site Reaction Lot Number CVX Code Drug Cullet Trucker Status Comments Source COVID-19 (Vakast), MRNA, LNP-S, PF, CLARI-SUCROSE, 30 MCG/0.3 ML (AGES 12+ YEARS) 2023 ANDRIY LE LEFT DELTO ID [id number] [address] [facility] TDAP 2023 ANDRIY LE RIGHT DELTO ID [id number] [address] [facility] INFLUENZA, HIGH-DOSE, QUADRIVALENT [address] [facility] PNEUMOCOCCAL CONJUGATE PCV20, POLYSACCHARID E [id number] CONJUGATE, ADJUVANT, PF [address] [facility] INFLUENZA VACCINE, QUADRIVALENT, ADJUVANTED [address] [facility] COVID-19 (Vakast), MRNA, LNP-S, PF, 30 MCG/0.3 ML DOSE, CLARI-SUCROSE (AGES 12+ YEARS) 4 2021 217 complet ed PFR; [id number]; 2 [facility] COVID-19 (PFIZER), MRNA, LNP-S, PF, 30 MCG/0.3 ML DOSE [address] [facility] INFLUENZA, HIGH-DOSE, QUADRIVALENT [address] [facility] INFLUENZA, UNSPECIFIED FORMULATION 2020 88 complet ed [facility] INNOVAT [facility]ON COVID-19 (PFIZER), MRNA, LNP-S, PF, 30 MCG/0.3 ML DOSE 2 2020 208 complet ed PFR; [id number]; 1 [facility] COVID-19 (PFIZER), MRNA, LNP-S, PF, 30 MCG/0.3 ML DOSE 1 2020 208 complet ed PFR; [id number]; 1 [facility] ZOSTER RECOMBINANT [address] [facility] INFLUENZA, INJECTABLE, QUADRIVALENT, PRESERVATIVE FREE [address] [facility] ZOSTER RECOMBINANT 1 [address] [facility] INFLUENZA, INJECTABLE, MDCK, PRESERVATIVE FREE, QUADRIVALENT 2018 171 complet ed Partner: [facility]. Administe red by: [facility] Clinician (NPI=Not Provided) . Partner 8 Lot#: [id number] Mfr: SEQIRUS [facility] INFLUENZA, SEASONAL, INJECTABLE, PRESERVATIVE FREE [address] [facility] INFLUENZA, HIGH DOSE SEASONAL [address] [facility] INFLUENZA, HIGH DOSE SEASONAL [address] [facility] PNEUMOCOCCAL CONJUGATE PCV 13 [address] [facility] PNEUMOCOCCAL CONJUGATE PCV 13 [address] [facility] INFLUENZA, UNSPECIFIED FORMULATION [address] [facility] PNEUMOCOCCAL POLYSACCHARID E PPV23 [address] [facility] PNEUMOCOCCAL, UNSPECIFIED FORMULATION [address] [facility] TDAP [address] [facility] INFLUENZA, UNSPECIFIED FORMULATION [address] [facility] INFLUENZA, UNSPECIFIED FORMULATION 2011 [address] [facility] ZOSTER LIVE 2011 121 complet ed [id number] [facility] INFLUENZA, UNSPECIFIED FORMULATION [address] [facility] TD(ADULT) UNSPECIFIED FORMULATION 2010 139 complet ed per pt [facility] INFLUENZA, UNSPECIFIED FORMULATION [address] [facility] Results Combined list of recent chemistry, hematology and other laboratory results from Department of Defense and Veterans Affairs, ranging from 15 months to all on record, depending upon the facility. Order Name Results Value Reference Range Date Interpretation Specimen Comments Source AST/SGOT ASPARTATE AMINOTRANSF ERASE [ENZYMATIC ACTIVITY/VO LUME] IN SERUM OR PLASMA 14 U/L <34 - 34 03/18 Specimen Type: PLASMA No comment entered. Ordering Provider: RICHA BRISENO Report Released Date/Time: Mar 19, 2023 11:19 AM Reporting Lab: [facility] [phone] Performing Lab: [facility] [phone] [facility] ALT/SGPT ALANINE AMINOTRANSF ERASE [ENZYMATIC ACTIVITY/VO LUME] IN SERUM OR PLASMA 18 U/L <55 - 55 03/18 Specimen Type: PLASMA No comment entered. Ordering Provider: RICHA BRISENO Report Released Date/Time: Mar 19, 2023 11:19 AM Reporting Lab: [facility] [phone] Performing Lab: [facility] [address] [facility] HEMOGLOBI N A1C HEMOGLOBIN A1C/HEMOGLO BIN.TOTAL IN BLOOD 5.7 4.0 - 6.0 03/18 Specimen Type: BLOOD Comment: Values obtained from A1C measurement s can vary. For typical A1C assays, a reported value of 7.0 could actually be between 6.7 and 7.3 if measured by a reference method. A reported value of 9.0 could actually be between 8.7 and 9.3. Ref: [email or web address] Ordering Provider: RICHA BRISENO Report Released Date/Time: Mar 19, 2023 11:19 AM Reporting Lab: [facility] [phone] Performing Lab: [facility] [phone] [place] [facility] LIPID PANEL,NON -FASTING CHOLESTEROL [MASS/VOLUM E] IN SERUM OR PLASMA 180 mg/dL <199 - 199 03/18 Specimen Type: PLASMA No comment entered. Ordering Provider: RICHA BRISENO Report Released Date/Time: Mar 19, 2023 11:19 AM Reporting Lab: [facility] [phone] Performing Lab: [facility] [address] [place] [facility] LIPID PANEL,NON -FASTING CHOLESTEROL IN HDL [MASS/VOLUM E] IN SERUM OR PLASMA 49 mg/dL 40 03/18 Specimen Type: PLASMA No comment entered. Ordering Provider: RICHA BRISENO Report Released Date/Time: Mar 19, 2023 11:19 AM Reporting Lab: [facility] [phone] Performing Lab: [facility] [address] [place] [facility] LIPID PANEL,NON -FASTING CHOLESTEROL IN LDL [MASS/VOLUM E] IN SERUM OR PLASMA BY CALCULATION 112 mg/dL <99 - 99 03/18 H Specimen Type: PLASMA No comment entered. Ordering Provider: RICHA BRISENO Report Released Date/Time: Mar 19, 2023 11:19 AM Reporting Lab: [facility] [address] Performing Lab: [facility] [address] [place] [facility] LIPID PANEL,NON -FASTING CHOLESTEROL IN VLDL [MASS/VOLUM E] IN SERUM OR PLASMA BY CALCULATION 19 mg/dL <29 - 29 03/18 Specimen Type: PLASMA No comment entered. Ordering Provider: RICHA BRISENO Report Released Date/Time: Mar 19, 2023 11:19 AM Reporting Lab: [facility] [phone] Performing Lab: [facility] [address] [place] [facility] LIPID PANEL,NON -FASTING CHOLESTEROL NON HDL [MASS/VOLUM E] IN SERUM OR PLASMA 131 mg/dL <129 - 129 03/18 H Specimen Type: PLASMA No comment entered. Ordering Provider: RICHA BRISENO Report Released Date/Time: Mar 19, 2023 11:19 AM Reporting Lab: [facility] [phone] Performing Lab: [facility] [address] [place] [facility] LIPID PANEL,NON -FASTING TRIGLYCERID E [MASS/VOLUM E] IN SERUM OR PLASMA 97 mg/dL <149 - 149 03/18 Specimen Type: PLASMA No comment entered. Ordering Provider: RICHA BRISENO Report Released Date/Time: Mar 19, 2023 11:19 AM Reporting Lab: [facility] [phone] Performing Lab: [facility] [address] [place] [facility] BASIC METABOLIC PANEL+MG CREATININE [MASS/VOLUM E] IN SERUM OR PLASMA 0.9 mg/dL 0.7 - 1.2 03/18 Specimen Type: PLASMA No comment entered. Ordering Provider: RICHA BRISENO Report Released Date/Time: Mar 19, 2023 11:19 AM Reporting Lab: [facility] [phone] Performing Lab: [facility] [address] [place] [facility] BASIC METABOLIC PANEL+MG UREA NITROGEN [MASS/VOLUM E] IN SERUM OR PLASMA 23 mg/dL 8 - 26 03/18 Specimen Type: PLASMA No comment entered. Ordering Provider: RICHA BRISENO Report Released Date/Time: Mar 19, 2023 11:19 AM Reporting Lab: [facility] [phone] Performing Lab: [facility] [phone] [place] [facility] BASIC METABOLIC PANEL+MG GLUCOSE [MASS/VOLUM E] IN SERUM OR PLASMA 101 mg/dL 70 - 100 03/18 H Specimen Type: PLASMA No comment entered. Ordering Provider: RICHA BRISENO Report Released Date/Time: Mar 19, 2023 11:19 AM Reporting Lab: [facility] [phone] Performing Lab: [facility] [address] [place] [facility] BASIC METABOLIC PANEL+MG SODIUM [MOLES/VOLU ME] IN SERUM OR PLASMA 141 mmol/L 136 - 145 03/18 Specimen Type: PLASMA No comment entered. Ordering Provider: RICHA BRISENO Report Released Date/Time: Mar 19, 2023 11:19 AM Reporting Lab: [facility] [phone] Performing Lab: [facility] [address] [place] [facility] BASIC METABOLIC PANEL+MG POTASSIUM [MOLES/VOLU ME] IN SERUM OR PLASMA 4.5 mmol/L 3.5 - 5.1 03/18 Specimen Type: PLASMA No comment entered. Ordering Provider: RICHA BRISENO Report Released Date/Time: Mar 19, 2023 11:19 AM Reporting Lab: [facility] [address] Performing Lab: [facility] [phone] [place] [facility] BASIC METABOLIC PANEL+MG CHLORIDE [MOLES/VOLU ME] IN SERUM OR PLASMA 107 mmol/L 98 - 107 03/18 Specimen Type: PLASMA No comment entered. Ordering Provider: RICHA BRISENO Report Released Date/Time: Mar 19, 2023 11:19 AM Reporting Lab: [facility] [phone] Performing Lab: [facility] [phone] [place] [facility] BASIC METABOLIC PANEL+MG CARBON DIOXIDE, TOTAL [MOLES/VOLU ME] IN SERUM OR PLASMA 26 mmol/L 22 - 29 03/18 Specimen Type: PLASMA No comment entered. Ordering Provider: RICHA BRISENO Report Released Date/Time: Mar 19, 2023 11:19 AM Reporting Lab: [facility] [phone] Performing Lab: [facility] [phone] [place] [facility] BASIC METABOLIC PANEL+MG CALCIUM [MASS/VOLUM E] IN SERUM OR PLASMA 9.9 mg/dL 8.4 - 10.2 03/18 Specimen Type: PLASMA No comment entered. Ordering Provider: RICHA BRISENO Report Released Date/Time: Mar 19, 2023 11:19 AM Reporting Lab: [facility] [phone] Performing Lab: [facility] [phone] [place] [facility] METABOLIC PANEL+MG MAGNESIUM [MASS/VOLUM E] IN SERUM OR PLASMA 2.1 mg/dL 1.6 - 2.6 03/18 Specimen Type: PLASMA No comment entered. Ordering Provider: RICHA BRISENO Report Released Date/Time: Mar 19, 2023 11:19 AM Reporting Lab: [facility] [address] Performing Lab: [facility] [address] [place] [facility] BASIC METABOLIC PANEL+MG ANION GAP IN SERUM OR PLASMA 8 mmol/L 5 - 15 03/18 Specimen Type: PLASMA No comment entered. Ordering Provider: RICHA BRISENO Report Released Date/Time: Mar 19, 2023 11:19 AM Reporting Lab: [facility] [address] Performing Lab: [facility] [address] [place] [facility] BASIC METABOLIC PANEL+MG GLOMERULAR FILTRATION RATE/1.73 SQ M.PREDICTED [VOLUME RATE/AREA] IN SERUM, PLASMA OR BLOOD BY CREATININE- BASED FORMULA (CKD-EPI 2020) 86 60 03/18 Specimen Type: PLASMA No comment entered. Ordering Provider: RICHA BRISENO Report Released Date/Time: Mar 19, 2023 11:19 AM Reporting Lab: [facility] [address] Performing Lab: [facility] [address] [place] [facility] CBC LEUKOCYTES [#/VOLUME] IN BLOOD BY AUTOMATED COUNT 6.23 10*3/u L 4.0 - 11.0 03/18 Specimen Type: BLOOD No comment entered. Ordering Provider: RICHA BRISENO Report Released Date/Time: Mar 19, 2023 11:19 AM Reporting Lab: [facility] [address] Performing Lab: [facility] [address] [place] [facility] CBC ERYTHROCYTE S [#/VOLUME] IN BLOOD BY AUTOMATED COUNT 3.95 10*6/u L 4.6 - 6.2 03/18 L Specimen Type: BLOOD No comment entered. Ordering Provider: RICHA BRISENO Report Released Date/Time: Mar 19, 2023 11:19 AM Reporting Lab: [facility] [address] Performing Lab: [facility] [address] [place] [facility] CBC HEMOGLOBIN [MASS/VOLUM E] IN BLOOD 12.2 g/dL 13.5 - 17.9 03/18 L Specimen Type: BLOOD No comment entered. Ordering Provider: RICHA BRISENO Report Released Date/Time: Mar 19, 2023 11:19 AM Reporting Lab: [facility] [address] Performing Lab: [facility] [address] [place] [facility] CBC HEMATOCRIT [VOLUME FRACTION] OF BLOOD BY AUTOMATED COUNT 35.6 41 - 54 03/18 L Specimen Type: BLOOD No comment entered. Ordering Provider: RICHA BRISENO Report Released Date/Time: Mar 19, 2023 11:19 AM Reporting Lab: [facility] [address] Performing Lab: [facility] [address] [place] [facility] CBC MCV [ENTITIC VOLUME] BY AUTOMATED COUNT 90.1 fL 80 - 100 03/18 Specimen Type: BLOOD No comment entered. Ordering Provider: RICHA BRISENO Report Released Date/Time: Mar 19, 2023 11:19 AM Reporting Lab: [facility] [address] Performing Lab: [facility] [address] [place] [facility] CBC MCH [ENTITIC MASS] BY AUTOMATED COUNT 30.9 pg 27 - 33 03/18 Specimen Type: BLOOD No comment entered. Ordering Provider: RICHA BRISENO Report Released Date/Time: Mar 19, 2023 11:19 AM Reporting Lab: [facility] [address] Performing Lab: [facility] [address] [place] [facility] CBC MCHC [MASS/VOLUM E] BY AUTOMATED COUNT 34.3 g/dL 32.0 - 37.5 03/18 Specimen Type: BLOOD No comment entered. Ordering Provider: RICHA BRISENO Report Released Date/Time: Mar 19, 2023 11:19 AM Reporting Lab: [facility] [address] Performing Lab: [facility] [address] [place] [facility] CBC PLATELETS [#/VOLUME] IN BLOOD BY AUTOMATED COUNT 245 10*3/u L 150 - 400 03/18 Specimen Type: BLOOD No comment entered. Ordering Provider: RICHA BRISENO Report Released Date/Time: Mar 19, 2023 11:19 AM Reporting Lab: [facility] [address] Performing Lab: [facility] [address] [place] [facility] CBC PLATELET MEAN VOLUME [ENTITIC VOLUME] IN BLOOD BY AUTOMATED COUNT 9.8 fL 7.4 - 10.4 03/18 Specimen Type: BLOOD No comment entered. Ordering Provider: RICHA BRISENO Report Released Date/Time: Mar 19, 2023 11:19 AM Reporting Lab: [facility] [address] Performing Lab: [facility] [address] [place] [facility] CBC ERYTHROCYTE DISTRIBUTIO N WIDTH [RATIO] BY AUTOMATED COUNT 14.6 11.5 - 14.5 03/18 H Specimen Type: BLOOD No comment entered. Ordering Provider: RICHA BRISENO Report Released Date/Time: Mar 19, 2023 11:19 AM Reporting Lab: [facility] [address] Performing Lab: [facility] [address] [place] [facility] PSA PROSTATE SPECIFIC AG [MASS/VOLUM E] IN SERUM OR PLASMA 0.04 ng/mL <4.00 - 4.00 03/18 Specimen Type: SERUM Comment: Specimen received is PLASMA. Ordering Provider: RICHA BRISENO Report Released Date/Time: Mar 18, 2024 09:54 AM Reporting Lab: [facility] [address] Performing Lab: [facility] [address] [place] [facility] IRON GROUP IRON [MASS/VOLUM E] IN SERUM OR PLASMA 71 ug/dL 65 - 175 03/18 Specimen Type: SERUM Comment: Specimen received is PLASMA. Ordering Provider: RICHA BRISENO Report Released Date/Time: Mar 18, 2024 09:53 AM Reporting Lab: [facility] [address] Performing Lab: [facility] [address] [place] [facility] IRON GROUP IRON BINDING CAPACITY [MASS/VOLUM E] IN SERUM OR PLASMA 264 ug/dL 250 - 425 03/18 Specimen Type: SERUM Comment: Specimen received is PLASMA. Ordering Provider: RICHA BRISENO Report Released Date/Time: Mar 18, 2024 09:53 AM Reporting Lab: [facility] [address] Performing Lab: [facility] [address] [place] [facility] IRON GROUP FERRITIN [MASS/VOLUM E] IN SERUM OR PLASMA 249.1 ng/mL 21.8 - 274.7 03/18 Specimen Type: SERUM Comment: Specimen received is PLASMA. Ordering Provider: RICHA BRISENO Report Released Date/Time: Mar 18, 2024 09:53 AM Reporting Lab: [facility] [address] Performing Lab: [facility] [address] [place] [facility] IRON GROUP IRON SATURATION 27 20 - 50 03/18 Specimen Type: SERUM Comment: Specimen received is PLASMA. Ordering Provider: RICHA BRISENO Report Released Date/Time: Mar 18, 2024 09:53 AM Reporting Lab: [facility] [address] Performing Lab: [facility] [address] [place] [facility] IRON GROUP TRANSFERRIN [MASS/VOLUM E] IN SERUM OR PLASMA 211 mg/dL 163 - 382 03/18 Specimen Type: SERUM Comment: Specimen received is PLASMA. Ordering Provider: RICHA BRISENO Report Released Date/Time: Mar 18, 2024 09:53 AM Reporting Lab: [facility] [address] Performing Lab: [facility] [address] [place] [facility] CBC LEUKOCYTES [#/VOLUME] IN BLOOD BY AUTOMATED COUNT 8.69 10*3/u L 4.0 - 11.0 09/06 Specimen Type: BLOOD Comment: Specimen received in Lab at: 0910 Ordering Provider: RAHEEL DELGADILLO Report Released Date/Time: Sep 05, 2023 07:28 PM Reporting Lab: [facility] [address] Performing Lab: [facility] [address] [place] [facility] CBC ERYTHROCYTE S [#/VOLUME] IN BLOOD BY AUTOMATED COUNT 3.76 10*6/u L 4.6 - 6.2 09/06 L Specimen Type: BLOOD Comment: Specimen received in Lab at: 0910 Ordering Provider: RAHEEL DELGADILLO Report Released Date/Time: Sep 05, 2023 07:28 PM Reporting Lab: [facility] [address] Performing Lab: [facility] [address] [place] [facility] CBC HEMOGLOBIN [MASS/VOLUM E] IN BLOOD 11.5 g/dL 13.5 - 17.9 09/06 L Specimen Type: BLOOD Comment: Specimen received in Lab at: 0910 Ordering Provider: RAHEEL DELGADILLO Report Released Date/Time: Sep 05, 2023 07:28 PM Reporting Lab: [facility] [address] Performing Lab: [facility] [address] [place] [facility] CBC HEMATOCRIT [VOLUME FRACTION] OF BLOOD BY AUTOMATED COUNT 34.7 41 - 54 09/06 L Specimen Type: BLOOD Comment: Specimen received in Lab at: 0910 Ordering Provider: RAHEEL DELGADILLO Report Released Date/Time: Sep 05, 2023 07:28 PM Reporting Lab: [facility] [address] Performing Lab: [facility] [address] [place] [facility] CBC MCV [ENTITIC VOLUME] BY AUTOMATED COUNT 92.3 fL 80 - 100 09/06 Specimen Type: BLOOD Comment: Specimen received in Lab at: 0910 Ordering Provider: RAHEEL DELGADILLO Report Released Date/Time: Sep 05, 2023 07:28 PM Reporting Lab: [facility] [address] Performing Lab: [facility] [address] [place] [facility] CBC MCH [ENTITIC MASS] BY AUTOMATED COUNT 30.6 pg 27 - 33 09/06 Specimen Type: BLOOD Comment: Specimen received in Lab at: 0910 Ordering Provider: RAHEEL DELGADILLO Report Released Date/Time: Sep 05, 2023 07:28 PM Reporting Lab: [facility] [address] Performing Lab: [facility] [address] [place] [facility] CBC MCHC [MASS/VOLUM E] BY AUTOMATED COUNT 33.1 g/dL 32.0 - 37.5 09/06 Specimen Type: BLOOD Comment: Specimen received in Lab at: 0910 Ordering Provider: RAHEEL DELGADILLO Report Released Date/Time: Sep 05, 2023 07:28 PM Reporting Lab: [facility] [address] Performing Lab: [facility] [address] [place] [facility] CBC PLATELETS [#/VOLUME] IN BLOOD BY AUTOMATED COUNT 261 10*3/u L 150 - 400 09/06 Specimen Type: BLOOD Comment: Specimen received in Lab at: 0910 Ordering Provider: RAHEEL DELGADILLO Report Released Date/Time: Sep 05, 2023 07:28 PM Reporting Lab: [facility] [address] Performing Lab: [facility] [address] [place] [facility] CBC PLATELET MEAN VOLUME [ENTITIC VOLUME] IN BLOOD BY AUTOMATED COUNT 11.0 fL 7.4 - 10.4 09/06 H Specimen Type: BLOOD Comment: Specimen received in Lab at: 0910 Ordering Provider: RAHEEL DELGADILLO Report Released Date/Time: Sep 05, 2023 07:28 PM Reporting Lab: [facility] [address] Performing Lab: [facility] [address] [place] [facility] CBC ERYTHROCYTE DISTRIBUTIO N WIDTH [RATIO] BY AUTOMATED COUNT 13.3 11.5 - 14.5 12/21 /2023 Specimen Type: BLOOD Comment: Specimen received in Lab at: 0910 Ordering Provider: RAHEEL DELGADILLO Report Released Date/Time: Sep 05, 2023 07:28 PM Reporting Lab: [facility] [address] Performing Lab: [facility] [address] [place] [facility] BASIC METABOLIC PANEL+MG CREATININE [MASS/VOLUM E] IN SERUM OR PLASMA 0.9 mg/dL 0.7 - 1.2 09/06 Specimen Type: PLASMA Comment: Specimen received in Lab at: 0910 Ordering Provider: RAHEEL DELGADILLO Report Released Date/Time: Sep 05, 2023 07:28 PM Reporting Lab: [facility] [address] Performing Lab: [facility] [address] [place] [facility] BASIC METABOLIC PANEL+MG UREA NITROGEN [MASS/VOLUM E] IN SERUM OR PLASMA 15 mg/dL 8 - 26 09/06 Specimen Type: PLASMA Comment: Specimen received in Lab at: 0910 Ordering Provider: RAHEEL DELGADILLO Report Released Date/Time: Sep 05, 2023 07:28 PM Reporting Lab: [facility] [address] Performing Lab: [facility] [address] [place] [facility] BASIC METABOLIC PANEL+MG GLUCOSE [MASS/VOLUM E] IN SERUM OR PLASMA 141 mg/dL 70 - 100 09/06 H Specimen Type: PLASMA Comment: Specimen received in Lab at: 0910 Ordering Provider: RAHEEL DELGADILLO Report Released Date/Time: Sep 05, 2023 07:28 PM Reporting Lab: [facility] [address] Performing Lab: [facility] [address] [place] [facility] BASIC METABOLIC PANEL+MG SODIUM [MOLES/VOLU ME] IN SERUM OR PLASMA 134 mmol/L 136 - 145 09/06 L Specimen Type: PLASMA Comment: Specimen received in Lab at: 0910 Ordering Provider: RAHEEL DELGADILLO Report Released Date/Time: Sep 05, 2023 07:28 PM Reporting Lab: [facility] [address] Performing Lab: [facility] [address] [place] [facility] BASIC METABOLIC PANEL+MG POTASSIUM [MOLES/VOLU ME] IN SERUM OR PLASMA 4.1 mmol/L 3.5 - 5.1 09/06 Specimen Type: PLASMA Comment: Specimen received in Lab at: 0910 Ordering Provider: RAHEEL DELGADILLO Report Released Date/Time: Sep 05, 2023 07:28 PM Reporting Lab: [facility] [address] Performing Lab: [facility] [address] [place] [facility] BASIC METABOLIC PANEL+MG CHLORIDE [MOLES/VOLU ME] IN SERUM OR PLASMA 101 mmol/L 98 - 107 09/06 Specimen Type: PLASMA Comment: Specimen received in Lab at: 0910 Ordering Provider: RAHEEL DELGADILLO Report Released Date/Time: Sep 05, 2023 07:28 PM Reporting Lab: [facility] [address] Performing Lab: [facility] [address] [place] [facility] BASIC METABOLIC PANEL+MG CARBON DIOXIDE, TOTAL [MOLES/VOLU ME] IN SERUM OR PLASMA 24 mmol/L 22 - 29 09/06 Specimen Type: PLASMA Comment: Specimen received in Lab at: 0910 Ordering Provider: RAHEEL DELGADILLO Report Released Date/Time: Sep 05, 2023 07:28 PM Reporting Lab: [facility] [address] Performing Lab: [facility] [address] [place] [facility] BASIC METABOLIC PANEL+MG CALCIUM [MASS/VOLUM E] IN SERUM OR PLASMA 8.6 mg/dL 8.4 - 10.2 09/06 Specimen Type: PLASMA Comment: Specimen received in Lab at: 0910 Ordering Provider: RAHEEL DELGADILLO Report Released Date/Time: Sep 05, 2023 07:28 PM Reporting Lab: [facility] [address] Performing Lab: [facility] [address] [place] [facility] BASIC METABOLIC PANEL+MG MAGNESIUM [MASS/VOLUM E] IN SERUM OR PLASMA 1.7 mg/dL 1.6 - 2.6 09/06 Specimen Type: PLASMA Comment: Specimen received in Lab at: 0910 Ordering Provider: RAHEEL DELGADILLO Report Released Date/Time: Sep 05, 2023 07:28 PM Reporting Lab: [facility] [address] Performing Lab: [facility] [address] [place] [facility] BASIC METABOLIC PANEL+MG ANION GAP IN SERUM OR PLASMA 9 mmol/L 5 - 15 09/06 Specimen Type: PLASMA Comment: Specimen received in Lab at: 0910 Ordering Provider: RAHEEL DELGADILLO Report Released Date/Time: Sep 05, 2023 07:28 PM Reporting Lab: [facility] [address] Performing Lab: [facility] [address] [place] [facility] BASIC METABOLIC PANEL+MG GLOMERULAR FILTRATION RATE/1.73 SQ M.PREDICTED [VOLUME RATE/AREA] IN SERUM, PLASMA OR BLOOD BY CREATININE- BASED FORMULA (CKD-EPI 2020) 86 60 09/06 Specimen Type: PLASMA Comment: Specimen received in Lab at: 0910 Ordering Provider: RAHEEL DELGADILLO Report Released Date/Time: Sep 05, 2023 07:28 PM Reporting Lab: [facility] [address] Performing Lab: [facility] [address] [place] [facility] Vital Signs Combined list of inpatient and outpatient Vital Signs from Department of Defense and Veterans Affairs, ranging from 12 months to all on record, depending upon the facility. Vital Sign Value Date Comments Source Encounters Combined list of: 1) Encounters from Department of Veterans Affairs facilities going back up to thelast 18 months. 2) Encounters from the Department of Defense facilities going back up to 280 months. 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
SEAN,SA RA B 11/17 [facility] [place] [facility] Outpatient Encounter [id number] 11[facility] [place] [facility] Outpatient Encounter [id number] 11/24 [facility] HEARING AID FITTING/CH ECKING [id number] Diagnos is: ICD-10- CM H93.13 Tinnitu s, bilater al
LAURASUSAN N D 12/02 [facility] OFF/OP CNSLTJ NEW/EST LOW 30 [id number] Diagnos is: ICD-10- CM M19.012 Primary osteoar thritis , left shoulde r
LUDY ZEPEDA H 12/11 [facility] [place] [facility] Outpatient Encounter [id number] 01/18 [facility] [place] [facility] Outpatient Encounter [id number] 03/15 [facility] OFFICE O/P EST MOD 30-39 MIN [id number] Diagnos is: ICD-10- CM E78.5 Hyperli pidemia , unspeci fied
KIRA BRISENO 03/19 [facility] [place] [facility] Outpatient Encounter [id number] 03/21 [facility] [place] [facility] Outpatient Encounter [id number] 05/18 [facility] [place] [facility] Outpatient Encounter [id number] 06/12 [facility] [place] [facility] OFFICE O/P EST LOW 20-29 MIN [id number] Diagnos is: ICD-10- CM M19.012 Primary osteoar thritis , left shoulde r
MARCUS LOMAX F 06/27 [facility] ELECTROCAR DIOGRAM COMPLETE [id number] Diagnos is: ICD-10- CM Z13.6 Encount er for screeni ng for cardiov ascular disorde rs
LUIS,BRADL EY A 07/03 [facility] OFFICE O/P EST MOD 30-39 MIN [id number] Diagnos is: ICD-10- CM Z01.818 Encount er for other preproc edural examina tion
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
JHON NAVARRO 07/05 [facility] EMERGENCY DEPT VISIT LOW MDM [id number] Diagnos is: ICD-10- CM J20.9 Acute bronchi tis, unspeci fied
ALBERT MEADE Z 08/14 [facility] Outpatient Encounter [id number] 08/14 [facility] SELF CARE MNGMENT TRAINING [id number] Diagnos is: ICD-10- CM M25.512 Pain in left shoulde r
BENGRY,FRANCOIS TLIN A 08/20 [facility] OFFICE O/P EST MOD 30-39 MIN [id number] Diagnos is: ICD-10- CM Z01.818 Encount er for other preproc edural examina tion
MARK HUBBARD M 08/20 [facility] Outpatient Encounter [id number] 08/31 [facility] [place] En[facility] [id number] [facility] 09/05 [facility] Encounter [id number] 09/05 [facility] Encounter [id number] [facility] 09/05 [facility] Encounter [id number] 09/05 [facility] En[facility] [id number] 09/05 [facility] [place] In[facility] Encounter [id number] MARCUS LOMAX 09/05 [facility] Encounter [id number] 09/05 [facility] En[facility] [id number] CRISTOPHER COLEMAN 09/05 [place] [facility] [place] [facility] QNHP OL DIG ASSMT&MGMT 5-10 [id number] Diagnos is: ICD-10- CM M25.519 Pain in unspeci fied shoulde r
IRISH CARROLL 09/05 [place] [facility] [place] [facility] Outpatient Encounter [id number] MARCUS LOMAX 09/05 [place] [facility] [place] [facility] RECONSTRUC T SHOULDER JOINT [id number] JEREMIAH LE 09/05 [place] [facility] [facility] [place] [facility] OFFICE O/P EST MOD 30-39 MIN [id number] Diagnos is: ICD-10- CM E78.5 Hyperli pidemia , unspeci fied
MAYNOR LINDSEY 09/05 [facility] OFFICE O/P EST SF 10-19 MIN [id number] Diagnos is: ICD-10- CM M25.512 Pain in left shoulde r
[place],CO NSTANCE L 09/05 [facility] Outpatient Encounter [id number] 09/05 [facility] Inpatient Encounter [id number] Admit Reason: S/P TSA<br/ > CHERTWAANDA- ELOY,MICHEAL ISTOPHER J 09/05 Discharge from inpatient treatment to the [facility] [employer] (OPT-ND) rolls. [facility] Inpatient Encounter [id number] LIZETH FAUST A 09/05 [facility] Inpatient Encounter [id number] LIZETH FAUST A 09/05 [facility] Inpatient Encounter [id number] SYSTEM,CIS -ARK 09/06 [facility] Inpatient Encounter [id number] CARLY HURLEY 09/06 [facility] OT EVAL LOW COMPLEX 30 MIN [id number] Diagnos is: ICD-10- CM Z73.6 Limitat ion of activit ies due to disabil ity<br/ > Keanu HALL 09/06 [facility] SELF CARE MNGMENT TRAINING [id number] Diagnos is: ICD-10- CM M62.81 Muscle weaknes s (genera lized)< br/> MAHIN DENT NEL ELVIRA 09/06 [facility] Inpatient Encounter [id number] DORSI ASTORGA 09/06 [facility] Outpatient Encounter [id number] 09/06 [facility] OFF/OP EST MAY X REQ PHY/QHP [id number] Diagnos is: ICD-10- CM M25.519 Pain in unspeci fied shoulde r
Ynes MURPHY 09/06 [facility] Inpatient Encounter [id number] 09/06 [facility] Outpatient Encounter [id number] 09/06 [facility] OFF/OP EST MAY X REQ PHY/QHP [id number] Diagnos is: ICD-10- CM Z47.89 Encount er for other orthope dic afterca re
DAIANA JIMÉNEZ R 09/18 [facility] SELF CARE MNGMENT TRAINING [id number] Diagnos is: ICD-10- CM M25.512 Pain in left shoulde r
RONAK CONRAD 09/18 [facility] HEARING AID FITTING/CH ECKING [id number] Diagnos is: ICD-10- CM Z46.1 Encount er for fitting and adjustm ent of hearing aid<br/ > GLENN ZHENG RTHA R 09/27 [facility] SELF CARE MNGMENT TRAINING [id number] Diagnos is: ICD-10- CM M25.512 Pain in left shoulde r
SA NOVA ESTRADA B 10/16 [facility] SELF CARE MNGMENT TRAINING [id number] Diagnos is: ICD-10- CM M25.512 Pain in left shoulde r
[place] K 10/23 [facility] THERAPEUTI C EXERCISES 08100-3.61 [id number] Diagnos is: ICD-10- CM M25.512 Pain in left shoulde r
[place] K 10/30 [facility] POSTOP FOLLOW-UP VISIT [id number] Diagnos is: ICD-10- CM Z47.1 Afterca re followi ng joint replace ment surgery
MARCUS LOMAX F 10/31 [facility] THERAPEUTI C EXERCISES 92935-9.61 [id number] Diagnos is: ICD-10- CM M25.512 Pain in left shoulde r
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
DEEPIKA GOODRICH AIRE M 12/16 [facility] HEARING AID REPAIR/MOD IFYING 68800-5.61 [phone] Diagnos is: ICD-10- CM H90.3 Sensori neural hearing loss, bilater al
NAVEED EUGENE 01/23 [facility] OFFICE O/P EST MOD 30 MIN 22531-4.61 [id number] Diagnos is: ICD-10- CM I10 Essenti al (primar y) hyperte nsion<b r/> KIRA BRISENO Y 03/18 [facility] Outpatient Encounter 97364-5.61 [id number] KAYLAHOOD ALFARO ICA E 03/27 [facility] HEARING AID FITTING/CH ECKING 14569-9.61 [id number] Diagnos is: ICD-10- CM Z01.118 Encntr for exam of ears and hearing w oth abnorma l finding s
NAVEED EUGENE 04/25 [facility] Procedures Combined list of: 1) Procedures from [facility] Affairs facilities going back up to thelast 18 months, not all [place] non-surgical procedures are included; 2) All procedures from the Department of Defense facilities. Procedure Procedure Type Code Date Perfomer Comments Wilfredo an Left reverse TSA RECONSTRUCT SHOULDER JOINT 34136 3 MARCUS LOMAX Other Procedure CPT Code(s): GR-SERVICE BY [place] RESIDENT, LT-LEFT SIDE [facility] Social History Combined list of available smoking, tobacco, and other social history from Department of Defense and Veterans Affairs facilities. Social History Type Response Date Comment Wilfredo an Tobacco smoking status [facility] VA-TOBACCO QUIT 15 YRS OR MORE 03/18/2024 [facility] History of tobacco use [place]-TO[place]ACCO FORMER USER 03/18/2024 [facility] History of tobacco use [place]-TOBACCO NEVER USED 03/19/2023 [facility] History of tobacco use [place]-TOBACCO NEVER USED 03/22/2022 [facility] History of tobacco use VA-TOBACCO FORMER USER 05/12/2021 [facility] History of tobacco use VA-TOBACCO NEVER USED 02/24/2019 [facility] History of tobacco use FORMER TOBACCO US ER 7Y OR GREATER 02/18/2018 [facility] History of tobacco use FORMER TOBACCO US ER 7Y OR GREATER 03/06/2017 [facility] History of tobacco use FORMER TOBACCO US ER 7Y OR GREATER 03/06/2016 [facility] History of tobacco use INPT NO TOBACCO U SE IN LAST 30 DAYS 01/25/2016 [facility] History 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 Additional future care activities may be listed in the Assessment and Plan section. Date/Time Care Activity Care Activity Detail Facili ty 05/26/2024 AMBULATORY - SURGERY AMBULATORY - SURGERY [facility] Advance Directives List of completed, amended, or rescinded Advance Directives on record at [facility] facilities. An actual copy of the Directive is not included. Date Advance Directive Provider Source 10/13/2017 ADVANCE DIRECTIVE MARAL DORANTES [facility] 10/13/2017 ADVANCE DIRECTIVE DISCUSSION MARAL DORANTES [facility]
--- OUTSIDE RECORDS SUMMARY | 2024-05-05 10:57 | XMS_ITS | Encounter Summary ---
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 Date/Time Encounter Type Encounter Description Reason Provider Source Sep 06, 2023 09:40 AM OT EVAL LOW COMPLEX 30 MIN OCCUPATIONAL THERAPY ICD-10-CM Z73.6 Limitation of activities due to disability RAFAEL,JEROD Quick Urmila Encounter Template Text not used by VA Assessments - Encounter Diagnoses This section includes the primary and secondary diagnoses documented for the Encounter. Date/Time Primary/Secondary Diagnosis Diagnosis Name Provider Source Sep 06, 2023 07:33 PM PRIMARY Limitation of activities due to disability JEROD HALL [facility] Plan of Treatment: Future Appointments (+ 6 months) and Future Tests (+/- 45 days) The Plan of Treatment section includes future care activities for the patient from all [place] [facility] This section includes future appointments and future orders which are active, pending or scheduled. Future Appointments This section includes appointments that were scheduled to occur 6 months from the date of the Encounter, up to a maximum of 20 appointments. The data comes from all [facility]. Appointment Date/Time Appointment Type Appointme nt Facility Name Sep 18, 2023 09:30 AM AMBULATORY - SURGERY [facility] Sep 18, 2023 10:30 AM AMBULATORY - [facility] Sep 27, 2023 03:30 PM AMBULATORY - SURGERY [facility] Oct 16, 2023 08:30 AM AMBULATORY - [facility] Oct 16, 2023 10:00 AM AMBULATORY - NONE [facility] Oct 23, 2023 09:00 AM AMBULATORY - [facility] Oct 30, 2023 09:30 AM AMBULATORY - [facility] Oct 31, 2023 10:30 AM AMBULATORY - SURGERY [facility] Oct 31, 2023 05:10 PM AMBULATORY - [facility] Nov 13, 2023 09:00 AM AMBULATORY - [facility] Nov 20, 2023 10:00 AM AMBULATORY - SURGERY [facility] Nov 20, 2023 11:00 AM AMBULATORY - [facility]ICINE [facility] Dec 17, 2023 08:40 AM AMBULATORY - SURGERY [facility] January 24, 2024 09:45 AM AMBULATORY - SURGERY [facility] Active, Pending, and Scheduled Orders This section includes a listing of several types of active, pending, and scheduled orders, including clinic medications orders, diagnostic test orders, procedure orders and consult orders; where the start date of the order is 45 days before the date of the Encounter or 45 days after the date of theEncounter. The data comes from all [facility] treatment facilities. Test Date/Time Test Type Test Details Facility Name Sep 05, 2023 07:28 PM Laboratory - Blood Bank Order TYPE & SCREEN - LAB BLOOD WC [facility] Lab Results: +/- 30 days of the encounter This section includes the Chemistry and Hematology Lab Results on record with [place] for the patient. Radiology Reports and Pathology Reports are provided separately, in subsequent sections. Lab Results This section contains the Chemistry/Hematology Results that were resulted 30 days before or 30 daysafter the date of the Encounter. Date/Time Source Result Type Result - Unit Interpretation Reference Range Comment Sep 06, 2023 09:11 AM [facility] CBC Specimen Type: BLOOD Comment: Specimen received in Lab at: 0910 Ordering Provider: RAHEEL DELGADILLO Report Released Date/Time: Sep 05, 2023 07:28 PM Reporting Lab: [facility] [id number] Performing Lab: [facility] [id number] WBC 8.69 10*3/uL 4.0-11.0 RBC 3.76 10*6/uL L 4.6-6.2 HGB 11.5 g/dL L 13.5-17.9 HCT 34.7 L 41-54 MCV 92.3 fL 80-100 MCH 30.6 pg 27-33 MCHC 33.1 g/dL 32.0-37.5 PLT 261 10*3/uL 150-400 MPV 11.0 fL H 7.4-10.4 RDW 13.3 11.5-14.5 Sep 06, 2023 09:11 AM [facility] BASIC METABOLIC PANEL+MG Specimen Type: PLASMA Comment: Specimen received in Lab at: 0910 Ordering Provider: RAHEEL DELGADILLO Report Released Date/Time: Sep 05, 2023 07:28 PM Reporting Lab: [facility] [id number] Performing Lab: [facility] [phone] CREATININE 0.9 mg/dL 0.7-1.2 UREA NITROGEN 15 mg/dL 8-26 GLUCOSE 141 mg/dL H 70-100 SODIUM 134 mmol/L L 136-145 POTASSIUM 4.1 mmol/L 3.5-5.1 CHLORIDE 101 mmol/L 98-107 CO2 24 mmol/L 22-29 CALCIUM 8.6 mg/dL 8.4-10.2 MAGNESIUM 1.7 mg/dL 1.6-2.6 ANION GAP 9 mmol/L 5-15 .CREAT EGFR(CKD-EPI) 86 >60 Sep 06, 2023 05:44 AM [facility] FINGERSTICK GLUCOSE Specimen Type: BLOOD Comment: Save Result Ordering Provider: FALLON MUNGUIA Report Released Date/Time: Sep 06, 2023 06:02 AM Reporting Lab: [facility] [phone] Performing Lab: [facility] [address] FINGERSTICK GLUCOSE 140 mg/dL 70-100 Sep 05, 2023 08:25 PM [facility] PROTHROMBIN TIME/INR Specimen Type: PLASMA No comment entered. Ordering Provider: EMILY REVELES Report Released Date/Time: Sep 05, 2023 07:28 PM Reporting Lab: [facility] [phone] Performing Lab: [facility] Sep 05, 2023 08:25 PM [facility] ACT PART THROMBO TIME Specimen Type: PLASMA Comment: ~Draw on admission. Call IV team to draw on admission. Ordering Provider: EMILY REVELES Report Released Date/Time: Sep 05, 2023 07:28 PM Reporting Lab: [facility] [phone] Performing Lab: [facility] [address] APTT 30.8 s 25.1-36.5 Sep 05, 2023 08:25 PM [facility] CBC Specimen Type: BLOOD No comment entered. Ordering Provider: EMILY REVELES Report Released Date/Time: Sep 05, 2023 07:28 PM Reporting Lab: [facility] [phone] Performing Lab: [facility] [phone] WBC 8.60 10*3/uL 4.0-11.0 RBC 3.66 10*6/uL L 4.6-6.2 HGB 11.3 g/dL L 13.5-17.9 HCT 34.3 L 41-54 MCV 93.7 fL 80-100 MCH 30.9 pg 27-33 MCHC 32.9 g/dL 32.0-37.5 PLT 225 10*3/uL 150-400 MPV 10.9 fL H 7.4-10.4 RDW 13.4 11.5-14.5 Sep 05, 2023 08:25 PM [facility] BASIC METABOLIC PANEL+MG Specimen Type: PLASMA No comment entered. Ordering Provider: EMILY REVELES Report Released Date/Time: Sep 05, 2023 07:28 PM Reporting Lab: [facility] [address] Performing Lab: [facility] [phone] CREATININE 0.9 mg/dL 0.7-1.2 UREA NITROGEN 17 mg/dL 8-26 GLUCOSE 148 mg/dL H 70-100 SODIUM 140 mmol/L 136-145 POTASSIUM 3.8 mmol/L 3.5-5.1 CHLORIDE 107 mmol/L 98-107 CO2 26 mmol/L 22-29 CALCIUM 8.7 mg/dL 8.4-10.2 MAGNESIUM 1.9 mg/dL 1.6-2.6 ANION GAP 7 mmol/L 5-15 .CREAT EGFR(CKD-EPI) 86 >60 Vital Signs: All taken on the encounter date This section contains inpatient and outpatient Vital Signs collected on the date of the Encounter. Date/Time Temperature Pulse Blood Pressure Respiratory Rate SP02 Pain Height Weight Body Mass Index Source Sep 06, 2023 03:35 AM 4 [facility] Sep 06, 2023 01:04 AM 6 [facility] Sep 06, 2023 01:04 AM 5 [facility] Social History: Smoking Status (Most current) and Tobacco Use (All prior to encounter date) This section includes the most current, and the historical, smoking and tobacco- related health factors from the [place] facility where the Encounter took place. Current Smoking Status This section includes the most current smoking, or tobacco-related health factor, from the [place] facility where the Encounter took place. Date/Time Current Smoking Status Comment Santiago kwong Mar 19, 2023 10:30 AM [place]-TOBACCO NEVER USED [facility] Tobacco Use History This section includes a history of the smoking, or tobacco-related health factors, that were collected on or before the date of the Encounter. The data comes from the [place] facility where the Encounter took place. Date/Time Smoking Status/Tobacco Use Comment F acfrank Mar 22, 2022 08:45 AM VA-TOBACCO NEVER USED [facility] May 12, 2021 10:00 AM VA-TOBACCO FORMER USER [facility] May 12, 2021 10:00 AM VA-TOBACCO QUIT 15 YRS OR MORE [facility] Feb 24, 2019 09:35 AM VA-TOBACCO NEVER USED [facility] Feb 18, 2018 01:56 PM FORMER TOBACCO USER 7Y OR GREATE R [facility] Mar 06, 2017 09:31 AM FORMER TOBACCO USER 7Y OR GREATE R [facility] Mar 06, 2016 09:54 AM FORMER TOBACCO USER 7Y OR GREATE R [facility] January 25, 2016 06:31 AM INPT NO TOBACCO USE IN LAST 30 D AYS [facility] January 22, 2015 10:06 AM LIFETIME NON-TOBACCO USER [facility] Apr 15, 2014 10:09 AM FORMER TOBACCO USER 7Y OR GREATE R [facility] February 01, 2011 08:51 AM FORMER TOBACCO USER 7Y OR GREATE R [facility] Advance Directives: All historical and current Section Date Range: From patient's date of to the date document was created. This section includes ALL of a patient's completed or amended [place] Advance and Rescinded Directives. The entries below indicate that a directive exists for the patient, but an actual copy is not included with this document. The data comes from all [facility]. Date Advance Directives Provider Source Oct 13, 2017 ADVANCE DIRECTIVE [facility]I [facility] Oct 13, 2017 ADVANCE DIRECTIVE DISCUSSION ABNERTenaBALWINDERN [facility] Radiology Reports: +/- 30 days of the [...] the Encounter. The data comes from all [place] treatment facilities. 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 Responsible provider name and phone number to notify for critical findings if other than user placing the order and pager listed below: User placing orders pager: Rukhsana Lomax [phone] LAST CREATININE 0.8 (07/03/23) Report Status: Verified Date Reported: SEP 05, 2023 Date Verified: SEP 05, 2023 Parking Lot Manager E-Sig:/ES/LIDYA GUDINO MD Report: SHOULDER LEFT [...] Primary Interpreting Staff: LIDYA GUDINO MD, RADIOLOGIST (Parking Lot Manager) /[facility] LIDYA GUDINO [facility] Aug 20, 2023 10:16 AM SHOULDER LEFT 4V(A P,Y VIEW, GRASHEY & AXILLARY): BENJAMÍN ROSA [id number] -[id number] M Ex Date: AUG 20, 2023@10:16 Req Phys: MARCUS LOMAX Loc: [facility] ORTHO COORD PHONE (Req'g L Img Loc: MAIN X-RAY Service: Unknown (Case [id number] COMPLETE) SHOULDER LEFT 4V(AP,Y VIEW, GRASH(RAD Detailed) CPT:44889 Proc Modifiers : LEFT Reason for Study: pre-op Clinical History: [place] IS NOT under investigation for COVID-19 or is COVID-19 negative pre-op Responsible provider name and phone number to notify for critical findings if other than user placing the order and pager listed below: User placing orders pager: LAST CREATININE 0.8 (07/03/23) Report Status: Verified Date Reported: AUG 20, 2023 Date Verified: AUG 20, 2023 Parking Lot Manager E-Sig:/ES/PASHA MARIA DO Report: EXAMINATION: SHOULDER [...] Primary Interpreting Staff: PASHA MARIA DO, RADIOLOGIST (Parking Lot Manager) /[facility] PASHA MARIA [facility] Encounter Notes: All associated encounter notes This section contains the clinical notes associated to the Encounter. Date/Time Encounter Note(s) Provider Source Sep 06, 2023 07:21 PM OCCUPATIONAL THERA PY CONSULT: LOCAL TITLE: OCCUPATIONAL THERAPY CONSULT STANDARD TITLE: OCCUPATIONAL THERAPY CONSULT DATE OF NOTE: SEP 06, 2023@19:21 ENTRY DATE: SEP 06, 2023@19:21:58 AUTHOR: MARIANELA HALL COSIGNER: URGENCY: STATUS: COMPLETED OCCUPATIONAL THERAPY EVALUATION NOTE Referring provider: RAHEEL DELGADILLO Diagnosis for which patient is referred to OT: s/p left total shoulder arthroplasty Consult request: Assess and treat Precautions: NWB LUE; no shoulder ROM LUE Dates of service: 09/06/23 (eval) Patient seen for 25 minutes OT Evaluation 25 minutes Low Complexity ASSESSMENT: Nya is an 83 year old male being seen at the [place] s/p [facility] on 09/05/23. Per chart, ed has a PMH of HTN and HLD. OT consulted for evaluation and treatment. At baseline, ed reports living with his in a house where he is independent with ADLs and shares IADLs with his . Following evaluation, is functioning near baseline given new post-op precautions. He required min to mod A for UB dressing including sling management; able to assist as needed. Able to perform lower body dressing, transfers, and functional mobility with modified independence to independently. No further AE/DME needs identified. At this time, is functioning near baseline and no further inpatient OT services are required; is discharged from inpatient OT. Anticipate will be safe to discharge home once medically stable with assistance from as needed for ADLs and IADLs. PLAN: Goal to evaluate for occupational performance was met. No further OT needs are identified at this time, nya is discharged from inpt OT services. DISCHARGE: Patient appears appropriate to return to previous living environment with assistance from as needed for ADLs and IADLs. PATIENT EDUCATION ON TREATMENT PLAN: Patient indicates readiness to learn, verbalizes understanding, agreement and satisfaction with the treatment plan. Denies further questions. 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 Mild dizziness reported upon standing. Upset that he did not receive breakfast. [place] identified goal(s): Return home The following information was taken from OT evaluation note dated 08/20/23 and verified with on this date: CONTEXT SOCIAL HISTORY/HOME ENVIRONMENT: Lives: Spouse Primary Support System: None Lives in: Single story home Home accessibility comments: - 0 steps to enter - bedroom/bathroom on main level - Walk-in shower - Bathtub shower with shower doors/shower curtain - Currently has handheld shower head, no grab bars - Tall Planned supports in place after procedure: Return to prior living environment with assist as needed from spouse Plans for driving/transportation: Nery or Son PRE-SURGERY LEVEL OF INDEPENDENCE: ADLs: Independent ADL transfers: Independent Functional mobility: Ind Falls in the last 6 months: No falls IADLs: Cooking: Cleaning: Laundry: I Driving: I Medication management: sets up pillbox change management consultant: I Updates/Modifications to the above information: - Walk-in shower; now has hand held shower head. Still needs to get specialty shower chair from prosthetics OBJECTIVE: FUNCTION IN AREAS OF OCCUPATION: Activities of Daily Living (ADLs) -Hygiene and grooming: Not tested -Feeding: Not tested -Toileting: Toilet transfer independently without use of grab bars for UE support. -UE Dressing: Donned shirt and doffed/donned sling with mod A to min A. Educated on proper sequencing of UB dressing. Educated to prop LUE on pillow when completing task to support arm and to lean to R instead of shrugging L shoulder. is able to assist as needed at home. -Lower Extremity Dressing: Doffed/donned sock with modified independence while sitting in chair and using one handed dressing technique. Required increased time to don sock. -Functional mobility (Transfers): Sit <> stand transfers independently without use of AD for UE support. -Bed mobility: Not tested -Falls/Mobility: Ambulated to and from bathroom with supervision to independently without use of AD for UE support. Required assistance for management of IV pole. Education: - Educated on post-op precautions. - Provided with envelope to be used for showering only; verbalized understanding. Vitals, on RA: Prior to activity: BP: 110s systolic: End of session: BP: 100s systolic sitting in wheelchair, call light in reach at end of session. IDENTIFIED ADAPTIVE EQUIPMENT NEEDS: none COGNITION: - Orientation: Oriented x4. - Attention span: Alert and attentive throughout session. - Commands: Able to follow multi-step commands; hard of hearing. - Communication: Able to make needs known. - Safety Awareness: Intact. EMOTIONAL/BEHAVIORAL: Appropriate affect, Eye contact, Acknowledges others, Initiates/engages conversation, Calm/pleasant, Cooperative NEUROMUSCULAR FUNCTION RUE ROM and strength WFL based on performance during functional tasks. Unable to assess LUE due to post-op restrictions. Hand dominance: Right OCCUPATIONAL THERAPY EVALUATION COMPLEXITY Identifying and reporting the complexity level of an evaluation focuses on the first three of these factors--profile and history, assessment and determination of deficits, and clinical decision making. These three factors must be scored and defensible documentation written to support the choice of a level. (Information taken from: https://www.aota.org) PROFILE AND HISTORY (including chart view) Brief history of medical and/or therapy records relating to the presenting problem (low complexity) ASSESSMENT & PERFORMANCE DEFICITS (select all that apply): Physical & Cognition 1-3 performance deficits (Low complexity) LEVEL OF CLINICAL DECISION MAKING Problem-focused assessment(s), consideration of a limited number of treatment options, presents with no comorbidities and modification of tasks or assistance is not necessary.(Low complexity) LOW COMPLEXITY Brief history of medical/or therapy records relating to the presenting problem. An assessment(s) that identifies 1-3 performance deficits that result in activity limitation and/or participating restrictions. Includes analysis of the occupational profile, analysis of date from problem- focused assessment(s), and consideration of a limited number of treatment options. Patient presents with no comorbidities that affect occupational performance. Modification of tasks or assistance with assessment(s) is not necessary to enable completion of evaluation component. /laura/ MARIANELA HALL OTR/L OCCUPATIONAL THERAPIST Signed: 09/06/2023 19:34 MARIANELA HALL [facility]
--- OUTSIDE RECORDS SUMMARY | 2024-05-05 10:57 | XMS_ITS | Encounter Summary ---
Author Name [facility] [place] [facility] [place] Address [address] [place] [address] Care Team Providers Care Claims Clerk Name Role Phone JAN BRISENO Primary Care [...] French's Name Patient's Relationship to Policy [facility]) [facility]IC[facility] ADVANTAGE MEDIC ARE OTILIA RAMESH Claire Sep 17, 2018 [id number] [phone] BENJAMÍN ROSA PATIENT MEDICARE (WNR) MEDICARE (M) PART A Mar 17, 2007 PART A [id number] [phone] BENJAMÍN ROSA PATIENT MEDICARE (WNR) MEDICARE (M) PART B Mar 17, 2007 PART B [id number] [phone] BENJAMÍN ROSA PATIENT Selected Encounter This section includes the information on record at [place] for the Encounter. Date/Time Encounter Type Encounter Description Reason Pro vider Source Sep 06, 2023 01:47 PM Outpatient Encounter CLINICAL PHARMACY IHE Encounter Template Text not used by [place] Plan of Treatment: Future Appointments (+ 6 months) and Future Tests (+/- 45 days) The Plan of Treatment section includes future care activities for the patient [facility] [place] [facility] This section includes future appointments and future orders which are active, pending or scheduled. Future Appointments This section includes appointments that were scheduled to occur 6 months from the date of the Encounter, up to a maximum of 20 appointments. The data comes from all [facility]. Appointment Date/Time Appointment Type Appointme nt Facility Name Sep 18, 2023 09:30 AM AMBULATORY - SURGERY [facility] Sep 18, 2023 10:30 AM AMBULATORY - REHAB MEDICIN [facility] Sep 27, 2023 03:30 PM AMBULATORY - SURGERY [facility] Oct 16, 2023 08:30 AM AMBULATORY - REHAB MEDICIN [facility] Oct 16, 2023 10:00 AM AMBULATORY - NONE [facility] Oct 23, 2023 09:00 AM AMBULATORY - REHAB MEDICIN [facility] Oct 30, 2023 09:30 AM AMBULATORY - REHAB MEDICIN [facility] Oct 31, 2023 10:30 AM AMBULATORY - SURGERY [facility] Oct 31, 2023 05:10 PM AMBULATORY - REHAB MEDICIN [facility] Nov 13, 2023 09:00 AM AMBULATORY - REHAB MEDICIN [facility] Nov 20, 2023 10:00 AM AMBULATORY - SURGERY [facility] Nov 20, 2023 11:00 AM AMBULATORY - MEDICINE [facility] Dec 17, 2023 08:40 AM AMBULATORY - SURGERY [facility] January 24, 2024 09:45 AM AMBULATORY - SURGERY [facility] Active, Pending, and Scheduled Orders This section includes a listing of several types of active, pending, and scheduled orders, including clinic medications orders, diagnostic test orders, procedure orders and consult orders; where the start date of the order is 45 days before the date of the Encounter or 45 days after the date of theEncounter. The data comes from all [facility]. Test Date/Time Test Type Test Details Facility Name Sep 05, 2023 07:28 PM Laboratory - Blood Bank Order TYPE & SCREEN - LAB BLOOD WC [facility] Lab Results: +/- 30 days of the encounter This section includes the Chemistry and Hematology Lab Results on record with [place] for the patient. Radiology Reports and Pathology Reports are provided separately, in subsequent sections. Lab Results This section contains the Chemistry/Hematology Results that were resulted 30 days before or 30 daysafter the date of the Encounter. Date/Time Source Result Type Result - Unit Interpretation Reference Range Comment Sep 06, 2023 09:11 AM [facility] CBC Specimen Type: BLOOD Comment: Specimen received in Lab at: 0910 Ordering Provider: RAHEEL DELGADILLO Report Released Date/Time: Sep 05, 2023 07:28 PM Reporting Lab: [facility] [phone] Performing Lab: [facility] [phone] WBC 8.69 10*3/uL 4.0-11.0 RBC 3.76 10*6/uL L 4.6-6.2 HGB 11.5 g/dL L 13.5-17.9 HCT 34.7 L 41-54 MCV 92.3 fL 80-100 MCH 30.6 pg 27-33 MCHC 33.1 g/dL 32.0-37.5 PLT 261 10*3/uL 150-400 MPV 11.0 fL H 7.4-10.4 RDW 13.3 11.5-14.5 Sep 06, 2023 09:11 AM [facility] BASIC METABOLIC PANEL+MG Specimen Type: PLASMA Comment: Specimen received in Lab at: 0910 Ordering Provider: RAHEEL DELGADILLO Report Released Date/Time: Sep 05, 2023 07:28 PM Reporting Lab: [facility] [phone] Performing Lab: [facility] [phone] CREATININE 0.9 mg/dL 0.7-1.2 UREA NITROGEN 15 mg/dL 8-26 GLUCOSE 141 mg/dL H 70-100 SODIUM 134 mmol/L L 136-145 POTASSIUM 4.1 mmol/L 3.5-5.1 CHLORIDE 101 mmol/L 98-107 CO2 24 mmol/L 22-29 CALCIUM 8.6 mg/dL 8.4-10.2 MAGNESIUM 1.7 mg/dL 1.6-2.6 ANION GAP 9 mmol/L 5-15 .CREAT EGFR(CKD-EPI) 86 >60 Sep 06, 2023 05:44 AM [facility] FINGERSTICK GLUCOSE Specimen Type: BLOOD Comment: Save Result Ordering Provider: FALLON MUNGUIA Report Released Date/Time: Sep 06, 2023 06:02 AM Reporting Lab: [facility] [phone] Performing Lab: [facility] [phone] FINGERSTICK GLUCOSE 140 mg/dL 70-100 Sep 05, 2023 08:25 PM [facility] CBC Specimen Type: BLOOD No comment entered. Ordering Provider: EMILY REVELES Report Released Date/Time: Sep 05, 2023 07:28 PM Reporting Lab: [facility] [phone] Performing Lab: [facility] [phone] WBC 8.60 10*3/uL 4.0-11.0 RBC 3.66 10*6/uL L 4.6-6.2 HGB 11.3 g/dL L 13.5-17.9 HCT 34.3 L 41-54 MCV 93.7 fL 80-100 MCH 30.9 pg 27-33 MCHC 32.9 g/dL 32.0-37.5 PLT 225 10*3/uL 150-400 MPV 10.9 fL H 7.4-10.4 RDW 13.4 11.5-14.5 Sep 05, 2023 08:25 PM [facility] BASIC METABOLIC PANEL+MG Specimen Type: PLASMA No comment entered. Ordering Provider: EMILY REVELES Report Released Date/Time: Sep 05, 2023 07:28 PM Reporting Lab: [facility] [phone] Performing Lab: [facility] [phone] CREATININE 0.9 mg/dL 0.7-1.2 UREA NITROGEN 17 mg/dL 8-26 GLUCOSE 148 mg/dL H 70-100 SODIUM 140 mmol/L 136-145 POTASSIUM 3.8 mmol/L 3.5-5.1 CHLORIDE 107 mmol/L 98-107 CO2 26 mmol/L 22-29 CALCIUM 8.7 mg/dL 8.4-10.2 MAGNESIUM 1.9 mg/dL 1.6-2.6 ANION GAP 7 mmol/L 5-15 .CREAT EGFR(CKD-EPI) 86 >60 Sep 05, 2023 08:25 PM [facility] PROTHROMBIN TIME/INR Specimen Type: PLASMA No comment entered. Ordering Provider: EMILY REVELES Report Released Date/Time: Sep 05, 2023 07:28 PM Reporting Lab: [facility] [id number] Performing Lab: [facility] Sep 05, 2023 08:25 PM [facility] ACT PART THROMBO TIME Specimen Type: PLASMA Comment: ~Draw on admission. Call IV team to draw on admission. Ordering Provider: EMILY REVELES Report Released Date/Time: Sep 05, 2023 07:28 PM Reporting Lab: [facility] [phone] Performing Lab: [facility] [phone] APTT 30.8 s 25.1-36.5 Vital Signs: All taken on the encounter date This section contains inpatient and outpatient Vital Signs collected on the date of the Encounter. Date/Time Temperature Pulse Blood Pressure Respiratory Rate SP02 Pain Height Weight Body Mass Index Source Sep 06, 2023 03:35 AM 4 [facility] Sep 06, 2023 01:04 AM 6 [facility] Sep 06, 2023 01:04 AM 5 [facility] Social History: Smoking Status (Most current) and Tobacco Use (All prior to encounter date) This section includes the most current, and the historical, smoking and tobacco- related health factors from the [place] facility where the Encounter took place. Current Smoking Status This section includes the most current smoking, or tobacco-related health factor, from the [place] facility where the Encounter took place. Date/Time Current Smoking Status Comment Santiago ity Mar 19, 2023 10:30 AM VA-TOBACCO NEVER USED [facility] Tobacco Use History This section includes a history of the smoking, or tobacco-related health factors, that were collected on or before the date of the Encounter. The data comes from the [place] facility where the Encounter took place. Date/Time Smoking Status/Tobacco Use Comment F acility Mar 22, 2022 08:45 AM VA-TOBACCO NEVER USED [facility] May 12, 2021 10:00 AM VA-TOBACCO FORMER USER [facility] May 12, 2021 10:00 AM VA-TOBACCO QUIT 15 YRS OR MORE [facility] Feb 24, 2019 09:35 AM VA-TOBACCO NEVER USED [facility] Feb 18, 2018 01:56 PM FORMER TOBACCO USER 7Y OR GREATE R [facility] Mar 06, 2017 09:31 AM FORMER TOBACCO USER 7Y OR GREATE R [facility] Mar 06, 2016 09:54 AM FORMER TOBACCO USER 7Y OR GREATE R [facility] January 25, 2016 06:31 AM INPT NO TOBACCO USE IN LAST 30 D AYS [facility] January 22, 2015 10:06 AM LIFETIME NON-TOBACCO USER [facility] Apr 15, 2014 10:09 AM FORMER TOBACCO USER 7Y OR GREATE R [facility] February 01, 2011 08:51 AM FORMER TOBACCO USER 7Y OR YOLANDAE R [facility] Advance Directives: All historical and current Section Date Range: From patient's date of to the date document was created. This section includes ALL of a patient's completed or amended [place] Advance and Rescinded Directives. The entries below indicate that a directive exists for the patient, but an actual copy is not included with this document. The data comes from all [place] facilities. Date Advance Directives Provider Source Oct 13, 2017 ADVANCE DIRECTIVE MARAL DORANTES [facility] Oct 13, 2017 ADVANCE DIRECTIVE DISCUSSION ABNERTenaMARAL [facility] Radiology Reports: +/- 30 days of the [...] the Encounter. The data comes from all [place] treatment facilities. 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 LIDYA GUDINO [facility] Aug 20, 2023 10:16 AM SHOULDER LEFT 4V(A P,Y VIEW, GRASHEY & AXILLARY): BENJAMÍN ROSA [id number] -[id number] M Exm Date: AUG 20, 2023@10:16 Req Phys: MARCUS LOMAX Pat Loc: [facility] ORTHO COORD PHONE (Req'g L Img Loc: MAIN X-RAY Service: Unknown (Case [id number] COMPLETE) SHOULDER LEFT 4V(AP,Y VIEW, GRASH(RAD Detailed) CPT:84038 Proc Modifiers : LEFT Reason for Study: [...] 20, 2023 Date Verified: AUG 20, 2023 Cost And Sales Record Supervisor E-Sig:/ES/PASHA MARIA DO Report: EXAMINATION: SHOULDER LEFT [...] Primary Interpreting Staff: PASHA MARIA DO, RADIOLOGIST (Cost And Sales Record Supervisor) /DDS PASHA MARIA [facility] Encounter Notes: All associated encounter notes This section contains the clinical notes associated to the Encounter. Date/Time Encounter Note(s) Provider Source Sep 06, 2023 01:47 PM PHARMACY EDUCATION NOTE: LOCAL TITLE: EDUCATION PHARMACY MED INSTRUCTION/RECONCILIATION STANDARD TITLE: PHARMACY EDUCATION NOTE DATE OF NOTE: SEP 06, 2023@13:47 ENTRY DATE: SEP 06, 2023@13:47:38 AUTHOR: FRANKLIN VEGAS: URGENCY: STATUS: COMPLETED EDUCATION PHARMACY MED INSTRUCTION/RECONCILIATION Has ADDENDA MEDICATION DISCHARGE EDUCATION LEARNING NEEDS/OBJECTIVES Participant(s) indicates readiness to learn and has been instructed on indications, side effects, directions for use and given a list of medications. Participant(s) will receive medication information sheets for medications filled. Education included discussion of the following: New medication(s): Acetaminophen (wants to take from home OTC supply), docusate/sennosides (wants to take from home OTC supply), methocarbamol, naloxone, miralax, lidocaine patch, oxycodone. Mingo agrees to not use lidocaine patch until 09/09/23 since he received liposomal bupivacaine on 09/05/23. Changes in medication(s): Pharmacy refill process. Tobacco Cessation Discharge Plan Not Applicable Active Outpatient Medications (including Supplies): Outpatient Medications Status 1) ACETAMINOPHEN 500MG TAB TAKE TWO TABLETS BY MOUTH HOLD THREE TIMES A DAY FOR PAIN. NO MORE THAN 3000MG PER DAY. 2) AMOXICILLIN 875/CLAV K 125MG TAB TAKE 1 TABLET BY ACTIVE MOUTH TWICE A DAY BRONCHITIS Completed 3) ASPIRIN 81MG EC TAB TAKE TWO TABLETS BY MOUTH EVERY ACTIVE DAY FOR 6 WEEKS TO PREVENT BLOOD CLOTS. 4) ATORVASTATIN CALCIUM 80MG TAB TAKE ONE TABLET BY ACTIVE MOUTH EVERY DAY FOR CHOLESTEROL 5) CETIRIZINE HCL 10MG TAB TAKE ONE TABLET BY MOUTH ACTIVE EVERY DAY 6) CHOLECALCIF 25MCG (D3-1,000UNIT) TAB TAKE ONE TABLET ACTIVE BY MOUTH EVERY DAY FOR VITAMIN D 7) DOCUSATE NA 50MG/SENNOSIDES 8.6MG TAB TAKE 2 TABLETS HOLD BY MOUTH TWICE A DAY FOR CONSTIPATION *HOLD FOR LOOSE STOOLS* 8) HYDROCHLOROTHIAZIDE 25MG TAB TAKE ONE-HALF TABLET BY ACTIVE MOUTH EVERY DAY FOR BLOOD PRESSURE 9) LIDOCAINE 5% PATCH APPLY 1 PATCH TOPICALLY EVERY DAY ACTIVE DIRECTED TO BOTH SIDES ON INCISION. MAY CUT IN HALF. DO NOT APPLY DIRECTLY OVER INCISION. WEAR PATCH FOR 12 HOURS, THEN REMOVE FOR 12 HOURS BEFORE NEW PATCH IS APPLIED. DO NOT START WEARING PATCH UNTIL 09/09/23 10) METHOCARBAMOL 500MG TAB TAKE ONE TO TWO TABLETS BY ACTIVE MOUTH EVERY 6 HOURS NEEDED FOR PAIN RELATED TO MUSCLE SPASM AND/OR TIGHTNESS. TAKE LOWEST EFFECTIVE DOSE. 11) NALOXONE HCL 4MG/SPRAY SOLN NASAL SPRAY SPRAY 1 DOSE ACTIVE IN ONE NOSTRIL DIRECTED ONCE FOR UNRESPONSIVENESS THEN CALL 911 - IF NO CHANGE IN 2-3 MINUTES, GIVE SECOND DOSE IN OPPOSITE NOSTRIL. 12) OXYCODONE 5MG TAB TAKE 1/2 TABLET TO ONE TABLET BY ACTIVE MOUTH EVERY 4 HOURS NEEDED FOR PAIN NOT CONTROLLED WITH NON-OPIOID REGIMEN. ATTEMPT TO USE LOWEST EFFECTIVE DOSE. 13) POLYETHYLENE GLYCOL 3350 ORAL PWDR TAKE 17 GRAMS BY ACTIVE MOUTH EVERY DAY FOR CONSTIPATION. MIX WITH 8OZ OF JUICE OR WATER *HOLD FOR LOOSE STOOLS Non-VA Medications Status 1) Non-VA ASPIRIN 81MG EC TAB 81 MG MOUTH 1 X DAY ACTIVE 2) Non-VA CALCIUM CARBONATE 650MG (CA 260MG) TAB 650MG ACTIVE MOUTH EVERY DAY 3) Non-VA CHOLECALCIF 25MCG (D3-1,000UNIT) TAB 1000UNIT ACTIVE MOUTH EVERY DAY 4) Non-VA IBUPROFEN 200MG TAB 200MG MOUTH EVERY DAY ACTIVE NEEDED 5) Non-VA MULTIVITAMIN CAP/TAB 1 TABLET MOUTH EVERY DAY ACTIVE 18 Total Medications PARTICIPANTS: Patient TEACHING STRATEGY: Face to Face, Medication information sheets and list of medications READINESS TO LEARN No barriers identified PATIENT/FAMILY RESPONSE (OUTCOME): Verbalizes critical information about the topic FOLLOW-UP RECOMMENDED: None needed /laura/ FRANKLIN VEGAS Pharmacist Signed: 09/06/2023 13:50 Receipt Acknowledged By: 09/13/2023 13:15 /es/ Kenrick Huitron DNP, JIGGER ARTISAN, ACNP-BC DNP, Ortho 09/06/2023 ADDENDUM STATUS: COMPLETED Changes to medications: Aspirin - to prevent blood clots * Increased dose for 6 weeks, then resume old regimen. /laura/ FRANKLIN VEGAS Pharmacist Signed: 09/06/2023 13:51 FRANKLIN VEGAS [facility]
--- OUTSIDE RECORDS SUMMARY | 2024-05-05 10:57 | XMS_ITS | Encounter Summary ---
Author Name [facility] [facility] [place] [facility] [place] [facility] [place] Address [address] [place] [address] Care Team Providers Care Bass Fisher Name Role Phone JAN BRISENO Primary Care [...] Name Patient's Relationship to Policy French [facility] (WNR) MEDICARE ADVANTAGE MEDIC ARE OTILIA RAMESH Claire Sep 17, 2018 [id number] [phone] BENJAMÍN ROSA PATIENT MEDICARE (WNR) MEDICARE (M) PART B Mar 17, 2007 PART B [id number] [phone] BENJAMÍN ROSA PATIENT MEDICARE (WNR) MEDICARE (M) PART A Mar 17, 2007 PART A [id number] [phone] BENJAMÍN ROSA PATIENT Selected Encounter This section includes the information on record at [place] for the Encounter. Date/Time Encounter Type Encounter Description Reason Provider Source Sep 27, 2023 03:30 PM HEARING AID FITTING/CHECKIN G AUDIOLOGY ICD-10-CM Z46.1 Encounter for fitting and adjustment of hearing aid MANE ZHENG Encounter Template Text not used by [facility] Assessments - Encounter Diagnoses This section includes the primary and secondary diagnoses documented for the Encounter. Date/Time Primary/Secondary Diagnosis Diagnosis Name Provider Source Sep 27, 2023 05:41 PM PRIMARY Encounter for fitting and adjustment of hearing aid DANETTE MERRITT [facility] Sep 27, 2023 05:41 PM SECONDARY Sensorineural hearing loss, bilateral DANETTE MERRITT [facility] Sep 27, 2023 05:41 PM SECONDARY Tinnitus, bilateral DANETTE MERRITT [facility] Plan of Treatment: Future Appointments (+ 6 months) and Future Tests (+/- 45 days) The Plan of Treatment section includes future care activities for the [facility] [place] [facility] This section includes future appointments and future orders which are active, pending or scheduled. Future Appointments This section includes appointments that were scheduled to occur 6 months from the date of the Encounter, up to a maximum of 20 appointments. The data comes from all [facility]. Appointment Date/Time Appointment Type Appointme nt Facility Name Oct 16, 2023 08:30 AM AMBULATORY - [facility]AB [facility] Oct 16, 2023 10:00 AM [facility] Oct 23, 2023 09:00 AM AMBULATORY - [facility] Oct 30, 2023 09:30 AM AMBULATORY - REHAB [facility] Oct 31, 2023 10:30 AM AMBULATORY - SURGERY [facility] Oct 31, 2023 05:10 PM AMBULATORY - REHAB [facility]IC[facility] Nov 13, 2023 09:00 AM AMBULATORY - [facility]AB [facility] Nov 20, 2023 10:00 AM AMBULATORY - SURGERY [facility] Nov 20, 2023 11:00 AM AMBULATORY - MEDICINE [facility] Dec 17, 2023 08:40 AM AMBULATORY - SURGERY [place] [facility] January 24, 2024 09:45 AM AMBULATORY - SURGERY [place] [facility] Mar 18, 2024 08:00 AM [facility] Mar 18, 2024 09:00 AM AMBULATORY - MEDICINE [facility] Active, Pending, and Scheduled Orders This section includes a listing of several types of active, pending, and scheduled orders, including clinic medications orders, diagnostic test orders, procedure orders and consult orders; where the start date of the order is 45 days before the date of the Encounter or 45 days after the date of theEncounter. The data comes from all [place] treatment facilities. Test Date/Time Test Type Test Details Facility Name Sep 05, 2023 07:28 PM Laboratory - Blood Bank Order TYPE & SCREEN - LAB BLOOD WC [facility] Lab Results: +/- 30 days of the encounter This section includes the Chemistry and Hematology Lab Results on record with [place] for the patient. Radiology Reports and Pathology Reports are provided separately, in subsequent sections. Lab Results This section contains the Chemistry/Hematology Results that were resulted 30 days before or 30 daysafter the date of the Encounter. Date/Time Source Result Type Result - Unit Interpretation Reference Range Comment Sep 06, 2023 09:11 AM [facility] CBC Specimen Type: BLOOD Comment: Specimen received in Lab at: 0910 Ordering Provider: RAHEEL DELGADILLO Report Released Date/Time: Sep 05, 2023 07:28 PM Reporting Lab: [facility] [id number] Performing Lab: [facility] [phone] WBC 8.69 10*3/uL 4.0-11.0 RBC 3.76 10*6/uL L 4.6-6.2 HGB 11.5 g/dL L 13.5-17.9 HCT 34.7 L 41-54 MCV 92.3 fL 80-100 MCH 30.6 pg 27-33 MCHC 33.1 g/dL 32.0-37.5 PLT 261 10*3/uL 150-400 MPV 11.0 fL H 7.4-10.4 RDW 13.3 11.5-14.5 Sep 06, 2023 09:11 AM [facility] BASIC METABOLIC PANEL+MG Specimen Type: PLASMA Comment: Specimen received in Lab at: 0910 Ordering Provider: RAHEEL DELGADILLO Report Released Date/Time: Sep 05, 2023 07:28 PM Reporting Lab: [facility] [id number] Performing Lab: [facility] [address] CREATININE 0.9 mg/dL 0.7-1.2 UREA NITROGEN 15 mg/dL 8-26 GLUCOSE 141 mg/dL H 70-100 SODIUM 134 mmol/L L 136-145 POTASSIUM 4.1 mmol/L 3.5-5.1 CHLORIDE 101 mmol/L 98-107 CO2 24 mmol/L 22-29 CALCIUM 8.6 mg/dL 8.4-10.2 MAGNESIUM 1.7 mg/dL 1.6-2.6 ANION GAP 9 mmol/L 5-15 .CREAT EGFR(CKD-EPI) 86 >60 Sep 06, 2023 05:44 AM [facility] FINGERSTICK GLUCOSE Specimen Type: BLOOD Comment: Save Result Ordering Provider: FALLON MUNGUIA Report Released Date/Time: Sep 06, 2023 06:02 AM Reporting Lab: [facility] [id number] Performing Lab: [facility] [address] FINGERSTICK GLUCOSE 140 mg/dL 70-100 Sep 05, 2023 08:25 PM [facility] PROTHROMBIN TIME/INR Specimen Type: PLASMA No comment entered. Ordering Provider: EMILY REVELES Report Released Date/Time: Sep 05, 2023 07:28 PM Reporting Lab: [facility] [address] Performing Lab: [facility] Sep 05, 2023 08:25 PM [facility] ACT PART THROMBO TIME Specimen Type: PLASMA Comment: ~Draw on admission. Call IV team to draw on admission. Ordering Provider: EMILY REVELES Report Released Date/Time: Sep 05, 2023 07:28 PM Reporting Lab: [facility] [address] Performing Lab: [facility] [address] APTT 30.8 s 25.1-36.5 Sep 05, 2023 08:25 PM [facility] CBC Specimen Type: BLOOD No comment entered. Ordering Provider: EMILY REVELES Report Released Date/Time: Sep 05, 2023 07:28 PM Reporting Lab: [facility] [address] Performing Lab: [facility] [address] WBC 8.60 10*3/uL 4.0-11.0 RBC 3.66 10*6/uL L 4.6-6.2 HGB 11.3 g/dL L 13.5-17.9 HCT 34.3 L 41-54 MCV 93.7 fL 80-100 MCH 30.9 pg 27-33 MCHC 32.9 g/dL 32.0-37.5 PLT 225 10*3/uL 150-400 MPV 10.9 fL H 7.4-10.4 RDW 13.4 11.5-14.5 Sep 05, 2023 08:25 PM [facility] BASIC METABOLIC PANEL+MG Specimen Type: PLASMA No comment entered. Ordering Provider: EMILY REVELES Report Released Date/Time: Sep 05, 2023 07:28 PM Reporting Lab: [facility] [address] Performing Lab: [facility] [address] CREATININE 0.9 mg/dL 0.7-1.2 UREA NITROGEN 17 [...] and tobacco- related health factors from the [place] facility where the Encounter took place. Current Smoking Status This section includes the most current smoking, or tobacco-related health factor, from the [place] facility where the Encounter took place. Date/Time Current Smoking Status Comment Santiago kwong Mar 19, 2023 10:30 AM VA-TOBACCO NEVER USED [facility] Tobacco Use History This section includes a history of the smoking, or tobacco-related health factors, that were collected on or before the date of the Encounter. The data comes from the [place] facility where the Encounter took place. Date/Time Smoking Status/Tobacco Use Comment F acility Mar 22, 2022 08:45 AM VA-TOBACCO NEVER USED [facility] May 12, 2021 10:00 AM VA-TOBACCO FORMER USER [facility] May 12, 2021 10:00 AM [place]-TO[place]ACCO QUIT 15 YRS OR MORE [facility] Feb 24, 2019 09:35 AM VA-TOBACCO NEVER USED [facility] Feb 18, 2018 01:56 PM FORMER TOBACCO USER 7Y OR GREATE R [facility] Mar 06, 2017 09:31 AM FORMER TOBACCO USER 7Y OR GREATE R [facility] Mar 06, 2016 09:54 AM FORMER TOBACCO USER 7Y OR GREATE R [facility] January 25, 2016 06:31 AM INPT NO TOBACCO USE IN LAST 30 D AYS [facility] January 22, 2015 10:06 AM LIFETIME NON-TOBACCO USER [facility] Apr 15, 2014 10:09 AM FORMER TOBACCO USER 7Y OR YOLANDAE R [facility] February 01, 2011 08:51 AM FORMER TOBACCO USER 7Y OR YOLANDAE R [facility] Advance Directives: All historical and current Section Date Range: From patient's date of to the date document was created. This section includes ALL of a patient's completed or amended [place] Advance and Rescinded Directives. The entries below indicate that a directive exists for the patient, but an actual copy is not included with this document. The data comes from all [facility]. Date Advance Directives Provider Source Oct 13, 2017 ADVANCE DIRECTIVE MARAL DORANTES [facility] Oct 13, 2017 ADVANCE DIRECTIVE DISCUSSION ABNERMARAL Madsen [facility] Radiology Reports: +/- 30 days [...] the Encounter. The data comes from all [place] treatment facilities. Date/Time Radiology Report Provider Source Oct 16, 2023 09:24 AM SHOULDER LEFT 4V(AP,Y VIEW, GRASHEY & AXILLARY): BENJAMÍN ROSA LINSEY [id number] -[id number] M Exm Date: OCT 16, 2023@09:24 Req Phys: MARCUS LOMAX Loc: [facility] ORTHO COORD PHONE (Req'g L Img Loc: MAIN X-RAY Service: Unknown (Case [id number] COMPLETE) SHOULDER LEFT 4V(AP,Y VIEW, GRASH(RAD Detailed) CPT:75332 Proc Modifiers : LEFT Reason for Study: post op Clinical History: [place] IS NOT under investigation for COVID-19 or is COVID-19 negative post op Responsible provider name and phone number to notify for critical findings if other than user placing the order and pager listed below: User placing orders pager: LAST CREATININE 0.8 (07/03/23) Report Status: Verified Date Reported: OCT 17, 2023 Date Verified: OCT 17, 2023 Supplier Development Manager E-Sig: Report: SHOULDER LEFT 4V(AP,Y VIEW, GRASHEY & AXILLARY) HISTORY: post op COMPARISON: 09/05/2023 TECHNIQUE: 4 view(s) of the left shoulder, submitted to the [place] National Teleradiology Program (NTP) for interpretation. FINDINGS: [...] of hardware complication. READING PHYSICIAN: Navneet Hinson -[id number] 10/17/2023 5:19 [facility] National Teleradiology Program [phone] (For Medical Practitioner Use Only) Attention Patients / Veterans: If you have questions or concerns about these test results, please contact your ordering provider or primary care team. Primary Interpreting Staff: RADIOLOGY,OUTSIDE SERVICE, Staff Physician / RADIOLOGY,OUTSIDE SERVICE [facility] Sep 05, 2023 07:58 AM SHOULDER LEFT 2-3 VIEWS: BENJAMÍN ROSA [id number] -[id number] M Ex Date: SEP 05, 2023@07:58 Req Phys: MARCUS LOMAX Loc: [facility] ADMISSIONS SURGERY (Req'g Img Loc: MAIN X-RAY Service: Unknown (Case [id number] COMPLETE) SHOULDER LEFT 2-3 VIEWS (RAD Detailed) CPT:05602 Proc Modifiers : PORTABLE EXAM, OPERATING ROOM EXAM, LEFT Reason for Study: Left reverse TSA Clinical History: OR 6 Shoulder OA Responsible provider name and phone number to notify for critical findings if other than user placing the order and pager listed below: User placing orders pager: Rukhsana Lomax [phone] LAST CREATININE 0.8 (07/03/23) Report Status: Verified Date Reported: SEP 05, 2023 Date Verified: SEP 05, 2023 Supplier Development Manager E-Sig:/ES/LIDYA GUDINO MD Report: SHOULDER LEFT [...] Primary Interpreting Staff: LIDYA GUDINO MD, RADIOLOGIST (Supplier Development Manager) /[facility] LIDYA GUDINO [facility] Encounter Notes: All associated encounter notes This section contains the clinical notes associated to the Encounter. Date/Time Encounter Note(s) Provider Source Sep 27, 2023 05:35 PM AUDIOLOGY NOTE: LOCAL TITLE: AUDIOLOGY CLINIC NOTE STANDARD TITLE: AUDIOLOGY NOTE DATE OF NOTE: SEP 27, 2023@17:35 ENTRY DATE: SEP 27, 2023@17:35:58 AUTHOR: MIRANDA MERRITT COSIGNER: URGENCY: STATUS: COMPLETED AUDIOLOGY CLINIC NOTE Has ADDENDA DIAGNOSIS: Sensorineural Hearing Loss, Tinnitus Reason for visit: Encounter for fitting adjustment Otoscopy: Free of excessive cerumen, normal anatomy bilaterally. History: Patient seen for a hearing aid service/hearing aid check. Hearing Aids (right/left): SONOVA PHONAK AUDEO M90-R ALFA R [id number] SONOVA PHONAK AUDEO M90-R ALFA L [id number] The following hearing aid problem/s were presented: RIGHT HEARING AID - clean & check LEFT HEARING AID - clean & check Action: Hearing aids were cleaned and checked. Listening check revealed good sound quality post clean & check The following parts were replaced: wax guards The patient was seen today for a clean & check of his hearing aids. I cleaned both aids; changed the wax guards, cleared the vent canals, and brushed the nini ports. Both aids functioning properly Ordered #13 batteries and wax filters for the patient. Supplies will mail to the address on file [place] was counseled on the cleaning, care and use of hearing aids. Plan: Patient will schedule an appointment to return to the clinic as needed Patient is in agreement with this plan. /laura/ MIRANDA MERRITT HEALTH CLERICAL ADJUSTER Signed: 09/27/2023 17:41 09/27/2023 ADDENDUM STATUS: COMPLETED As the supervising medical record retrieval specialist, I have reviewed this audiology note and concur with the findings, procedures, and recommendations for the . The Audiology Health Transcription Coordinator provided services to the during the appointment. Provider was indirectly supervised for this encounter. /laura/ Marisel Vergara, CCC-A Scrap Piler Signed: 09/27/2023 18:17 MIRANDA MERRITT [facility]
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
--- OUTSIDE RECORDS SUMMARY | 2024-05-05 10:58 | XMS_ITS | Encounter Summary ---
Author Name [facility] [place] Address [address] [place] [address] Care Team Providers Care Informatica Developer Name Role Phone JAN BRISENO Primary Care [...] French's Name Patient's Relationship to Policy [facility] ([facility]) MEDICARE ADVANTAGE MEDIC ARE OTILIA RAMESH Claire Sep 17, 2018 [id number] [phone] BENJAMÍN ROSA PATIENT MEDICARE (WNR) MEDICARE (M) PART A Mar 17, 2007 PART A [id number] [phone] BENJAMÍN ROSA PATIENT MEDICARE (WNR) MEDICARE (M) PART B Mar 17, 2007 PART B [id number] [phone] BENJAMÍN ROSA PATIENT Selected Encounter This section includes the information on record at [place] for the Encounter. Date/Time Encounter Type Encounter Description Reason Provider Source Oct 16, 2023 08:30 AM SELF CARE MNGMENT TRAINING PHYSICAL THERAPY ICD-10-CM M25.512 Pain in left shoulder IRAM ESTRADA Encounter Template Text not used by VA Assessments - Encounter Diagnoses This section includes the primary and secondary diagnoses documented for the Encounter. Date/Time Primary/Secondary Diagnosis Diagnosis Name Provider Source Oct 16, 2023 12:39 PM PRIMARY Pain in left shoulder IRAM ESTRADA [facility] Plan of Treatment: Future Appointments (+ 6 months) and Future Tests (+/- 45 days) The Plan of Treatment section includes future care activities for the patient from all [place] [facility]. This section includes future appointments and future orders which are active, pending or scheduled. Future Appointments This section includes appointments that were scheduled to occur 6 months from the date of the Encounter, up to a maximum of 20 appointments. The data comes from all [facility]. Appointment Date/Time Appointment Type Appointme nt Facility Name Oct 23, 2023 09:00 AM AMBULATORY - REHAB MEDICIN E [facility] Oct 30, 2023 09:30 AM AMBULATORY - REHAB [facility] Oct 31, 2023 10:30 AM AMBULATORY - SURGERY [facility] Oct 31, 2023 05:10 PM AMBULATORY - REHAB [facility] Nov 13, 2023 09:00 AM AMBULATORY - REHAB [facility] Nov 20, 2023 10:00 AM AMBULATORY - SURGERY [facility] Nov 20, 2023 11:00 AM AMBULATORY - MEDICINE [facility] Dec 17, 2023 08:40 AM AMBULATORY - SURGERY [facility] January 24, 2024 09:45 AM AMBULATORY - SURGERY [place] [facility] Mar 18, 2024 08:00 AM [facility] Mar 18, 2024 09:00 AM [facility] Active, Pending, and Scheduled Orders This section includes a listing of several types of active, pending, and scheduled orders, including clinic medications orders, diagnostic test orders, procedure orders and consult orders; where the start date of the order is 45 days before the date of the Encounter or 45 days after the date of theEncounter. The data comes from all [facility]. Test Date/Time Test Type Test Details Facility Name Sep 05, 2023 07:28 PM Laboratory - Blood Bank Order TYPE & SCREEN - LAB BLOOD WC [facility] Social History: Smoking Status (Most current) and Tobacco Use (All prior to encounter date) This section includes the most current, and the historical, smoking and tobacco- related health factors from the [place] facility where the Encounter took place. Current Smoking Status This section includes the most current smoking, or tobacco-related health factor, from the [place] facility where the Encounter took place. Date/Time Current Smoking Status Comment Facil ity Mar 19, 2023 10:30 AM VA-TOBACCO NEVER USED [facility] Tobacco Use History This section includes a history of the smoking, or tobacco-related health factors, that were collected on or before the date of the Encounter. The data comes from the [place] facility where the Encounter took place. Date/Time Smoking Status/Tobacco Use Comment F acility Mar 22, 2022 08:45 AM VA-TOBACCO NEVER USED [facility] May 12, 2021 10:00 AM VA-TOBACCO FORMER USER [facility] May 12, 2021 10:00 AM [place]-TOBACCO QUIT 15 YRS OR MORE [facility] Feb 24, 2019 09:35 AM VA-TOBACCO NEVER USED [facility] Feb 18, 2018 01:56 PM FORMER TOBACCO USER 7Y OR GREATE R [facility] Mar 06, 2017 09:31 AM FORMER TOBACCO USER 7Y OR GREATE R [facility] Mar 06, 2016 09:54 AM FORMER TOBACCO USER 7Y OR GREATE R [facility] January 25, 2016 06:31 AM INPT NO TOBACCO USE IN LAST 30 D AYS [facility] January 22, 2015 10:06 AM LIFETIME NON-TOBACCO USER [facility] Apr 15, 2014 10:09 AM FORMER TOBACCO USER 7Y OR GREATE R [facility] February 01, 2011 08:51 AM FORMER TOBACCO USER 7Y OR GREATE R [facility] Advance Directives: All historical and current Section Date Range: From patient's date of to the date document was created. This section includes ALL of a patient's completed or amended [place] Advance and Rescinded Directives. The entries below indicate that a directive exists for the patient, but an actual copy is not included with this document. The data comes from all [facility]. Date Advance Directives Provider Source Oct 13, 2017 ADVANCE DIRECTIVE MARAL DORANTES [facility] Oct 13, 2017 ADVANCE DIRECTIVE DISCUSSION MARAL DORANTES [facility] Radiology Reports: +/- 30 days of [...] the Encounter. The data comes from all [place] treatment facilities. Date/Time Radiology Report Provider Source Oct 16, 2023 09:24 AM SHOULDER LEFT 4V(AP,Y VIEW, GRASHEY & AXILLARY): BENJAMÍN ROSA [id number] -[id number] M Exm Date: OCT 16, 2023@09:24 Req Phys: MARCUS LOMAX Loc: [facility] ORTHO COORD PHONE (Req'g L Img Loc: MAIN X-RAY Service: Unknown (Case [id number] COMPLETE) SHOULDER LEFT 4V(AP,Y VIEW, GRASH(RAD Detailed) CPT:22788 Proc Modifiers : LEFT Reason for Study: [...] 2023 Date Verified: OCT 17, 2023 Senior Inspector E-Sig: Report: SHOULDER LEFT 4V(AP,Y VIEW, GRASHEY & AXILLARY) HISTORY: post op COMPARISON: 09/05/2023 TECHNIQUE: 4 view(s) of the left shoulder, submitted to the [place] National Teleradiology Program (NTP) for interpretation. FINDINGS: [...] of hardware complication. READING PHYSICIAN: Navneet Hinson -[id number] 10/17/2023 5:19 [facility] [place] National Teleradiology Program [phone] (For Medical Practitioner Use Only) Attention Patients / Veterans: If you have questions or concerns about these test results, please contact your ordering provider or primary care team. Primary Interpreting Staff: RADIOLOGY,OUTSIDE SERVICE, Staff Physician / RADIOLOGY,OUTSIDE SERVICE [facility] Encounter Notes: All associated encounter notes This section contains the clinical notes associated to the Encounter. Date/Time Encounter Note(s) Provider Source Oct 17, 2023 10:37 AM REPORT OF CONTACT: LOCAL TITLE: APPOINTMENT SCHEDULING NOTE STANDARD TITLE: REPORT OF CONTACT DATE OF NOTE: OCT 17, 2023@10:37 ENTRY DATE: OCT 17, 2023@10:37:22 AUTHOR: BLANCA CORDERO EXP COSIGNER: URGENCY: STATUS: COMPLETED Attempted to schedule Return to clinic (RTC) Contact attempt made to 1st attempt Telephone 2nd attempt Text message 3rd attempt Letter - Sent letter by regular [place] mail to address on file: [place]ENJAM[place] ROSA [id number] [place], [place] [id number] Other: Spoke with spouse she will call back to [facility] If calls back, schedule appt for: Activity: 10/16/2023 08:39 New Order entered by IRAM ESTRADA (PHYSICAL THERAP) Order Text: Return to [facility] PT [place] on or around ( Oct 22, 2023 ) for a total of 1 appointment(s) 30 min Activity: 10/16/2023 08:39 New Order entered by IRAM ESTRADA (PHYSICAL THERAP) Order Text: Return to [facility] PT [place] on or around ( Oct 29, 2023 ) for a total of 1 appointment(s) Activity: 10/16/2023 08:40 New Order entered by IRAM ESTRADA (PHYSICAL THERAP) Order Text: Return to [facility] PT [place] on or around ( Nov 13, 2023 ) for a total of 1 appointment(s) 30 min 30 min /laura/ BLANCA CORDERO Sba Business Development Officer Signed: 10/17/2023 10:39 BLANCA CORDERO [facility] Oct 16, 2023 07:42 AM PHYSICAL THERAPY N OTE: LOCAL TITLE: PT-PROGRESS NOTE STANDARD TITLE: PHYSICAL THERAPY NOTE DATE OF NOTE: OCT 16, 2023@07:42 ENTRY DATE: OCT 16, 2023@07:42:12 AUTHOR: IRAM ESTRADA EXP COSIGNER: URGENCY: STATUS: COMPLETED PT tx: SCM x10 min, MT x10 min, TA x8 min PT dx: left shoulder pain # of VISITS: 2 # of CX/NS: 0 SUBJECTIVE: (See problem list for complete PMH) Relevant PMH: Active problems - Computerized Problem List is the source for the following: Personal History of Malignant Neoplasm of Prostate Benign essential hypertension Surgical Date: 09/05/23 SURGEON: RAHEEL DELGADILLO ATTENDING: MARCUS LOMAX Chief Concern: Pt is a 83yo MALE referred to PT 5 wks, 6 days s/p left rTSA. 10/16: I haven't done my PT exercises but I have no pain. Pt notes non compliance with his HEP because he hasn't had any pain. He also notes he has been actively using his arm to some extent, specifically with ER. Daily activities/health habits: h/o R rTSA (completed in the community by Dr. Lomax; PT out in the community) Pain: no report of pain Precautions: Pt [...] Red Flags: (+) personal history of cancer. OBJECTIVE: OBSERVATION: Posture: wearing abduction arm sling; arm sliding forward in sling. 10/16: Pt wearing sling. SHOULDER PROM: (assessed at 6 week follow up) Flexion(100-138): 154 Abduction(129): 96 Ext Rotation(30-38): 20 Int Rotation(L2):deferred to 12 weeks SHOULDER STRENGTH/MMT: defer 12 weeks d/t post-op precautions. PT INTERVENTIONS: Ther act: HEP - Shoulder Flexion Overhead with Dowel - 1 x daily - 10 reps - 10 sec hold - Standing Shoulder Abduction AAROM with Dowel - 1 x daily - 10 reps - 10 sec hold - Supine Shoulder Flexion Extension AAROM with Dowel - 1 x daily - 10 reps - 10 sec hold - Seated Scapular Retraction - 1 x daily - 15 reps Man ther: - PROM in flexion, ABD, and ER to 20 degrees to pt comfort. 10 reps, 10 sec hold. SCM: - Reviewed the post-op protocol and the importance of compliance to the protocol, specifially limiting his ER ROM. Response to treatment: pt verbalized understanding of the protocol and the importance of following it. Patient participation/motivation this date during treatment: motivated for PT Access Code: [email or web address] URL: [email or web address] Date: 10/16/2023 GOALS: All are ONGOING unless marked otherwise. Patient's Goal: 1. Pt will sleep undisturbed [...] shoulder pain in 14-16 weeks. ASSESSMENT: Pt returns for f/u. REHAB POTENTIAL: good for above goals CLINICAL PRESENTATION: Evolving PLAN: Patient will be seen 1x/week x4-6 visits; tapering as ROM improves for an additional 4-6 visits to focus on active strengthening. Progress per rTSA protocol: The patient agrees with the plan. Next visit: review protocol and ensure compliance. Begin submax isometrics. Phase II: 6-8 weeks - d/c sling [...] 3 seconds, 2 sets of 15 reps, 1-2x/day. special care with posterior deltoid to avoid [...] the treatment plan. Denies further questions. /laura/ IRAM ESTRADA DPT PHYSICAL THERAPIST Signed: 10/16/2023 12:39 IRAM ESTRADA [facility]
--- OUTSIDE RECORDS SUMMARY | 2024-05-05 10:58 | XMS_ITS | Encounter Summary ---
Author Name [facility] [place] Organization [facility] [place] Address [address] [place] [address] Care Team Providers Care Dining Car Conductor Name Role Phone JAN BRISENO Primary Care [...] French's Name Patient's Relationship to Policy French [facility] (WNR) MEDICARE ADVANTAGE MEDIC ARE OTILIA RAMESH Claire Sep 17, 2018 [id number] [phone] BENJAMÍN ROSA PATIENT MEDICARE (WNR) MEDICARE (M) PART A Mar 17, 2007 PART A [id number] [phone] BENJAMÍN ROSA PATIENT MEDICARE (WNR) MEDICARE (M) PART B Mar 17, 2007 PART B [id number] [phone] BENJAMÍN ROSA PATIENT Selected Encounter This section includes the information on record at [place] for the Encounter. Date/Time Encounter Type Encounter Description Reason Provider Source Oct 30, 2023 09:30 AM THERAPEUTIC EXERCISES PHYSICAL THERAPY ICD-10-CM M25.512 Pain in left shoulder DAYANA CONRAD Encounter Template Text not used by [place] Assessments - Encounter Diagnoses This section includes the primary and secondary diagnoses documented for the Encounter. Date/Time Primary/Secondary Diagnosis Diagnosis Name Provider Source Oct 30, 2023 09:54 AM PRIMARY Pain in left shoulder CONRAD,DAYANA Keanu [facility] Plan of Treatment: Future Appointments (+ 6 months) and Future Tests (+/- 45 days) The Plan of Treatment section includes future care activities for the patient from all [facility]. This section includes future appointments and future orders which are active, pending or scheduled. Future Appointments This section includes appointments that were scheduled to occur 6 months from the date of the Encounter, up to a maximum of 20 appointments. The data comes from all [place] treatment [facility]. Appointment Date/Time Appointment Type Appointme nt Facility Name Oct 31, 2023 10:30 AM AMBULATORY - SURGERY [facility] Oct 31, 2023 05:10 PM AMBULATORY - RE[facility]AB [facility] Nov 13, 2023 09:00 AM AMBULATORY - [facility]AB [facility] Nov 20, 2023 10:00 AM AMBUL[facility]ORY - SURG[facility] Nov 20, 2023 11:00 AM AMBULATORY - MEDICINE [facility] Dec 17, 2023 08:40 AM AMBULATORY - SURGERY [facility] January 24, 2024 09:45 AM AMBULATORY - SURGERY [facility] Mar 18, 2024 08:00 AM AMBULATORY - NONE [facility] S[facility] Mar 18, 2024 09:00 AM AMBULATORY - MEDICINE [facility] Apr 25, 2024 10:45 AM AMBULATORY - SURGERY [facility] Social History: Smoking Status (Most current) and Tobacco Use (All prior to encounter date) This section includes the most current, and the historical, smoking and tobacco- related health factors from the [place] facility where the Encounter took place. Current Smoking Status This section includes the most current smoking, or tobacco-related health factor, from the [place] facility where the Encounter took place. Date/Time Current Smoking Status Comment Santiago ity Mar 19, 2023 10:30 AM VA-TOBACCO NEVER USED [facility] Tobacco Use History This section includes a history of the smoking, or tobacco-related health factors, that were collected on or before the date of the Encounter. The data comes from the [place] facility where the Encounter took place. Date/Time Smoking Status/Tobacco Use Comment F acfrank Mar 22, 2022 08:45 AM VA-TOBACCO NEVER USED [facility] May 12, 2021 10:00 AM VA-TOBACCO FORMER USER [facility] May 12, 2021 10:00 AM VA-TOBACCO QUIT 15 YRS OR MORE [facility] Feb 24, 2019 09:35 AM VA-TOBACCO NEVER USED [facility] Feb 18, 2018 01:56 PM FORMER TOBACCO USER 7Y OR GREATE R [facility] Mar 06, 2017 09:31 AM FORMER TOBACCO USER 7Y OR GREATE R [facility] Mar 06, 2016 09:54 AM FORMER TOBACCO USER 7Y OR GREATE R [facility] January 25, 2016 06:31 AM INPT NO TOBACCO USE IN LAST 30 D AYS [facility] January 22, 2015 10:06 AM LIFETIME NON-TOBACCO USER [facility] Apr 15, 2014 10:09 AM FORMER TOBACCO USER 7Y OR GREATE R [facility] February 01, 2011 08:51 AM FORMER TOBACCO USER 7Y OR GREATE R [facility] Advance Directives: All historical and current Section Date Range: From patient's date of to the date document was created. This section includes ALL of a patient's completed or amended [place] Advance and Rescinded Directives. The entries below indicate that a directive exists for the patient, but an actual copy is not included with this document. The data comes from all [facility]. Date Advance Directives Provider Source Oct 13, 2017 ADVANCE DIRECTIVE MARAL DORANTES [facility] Oct 13, 2017 ADVANCE DIRECTIVE DISCUSSION ABNERTenaBALWINDERN [facility] Radiology Reports: +/- 30 days [...] the Encounter. The data comes from all [place] treatment facilities. Date/Time Radiology Report Provider Source Oct 16, 2023 09:24 AM SHOULDER LEFT 4V(AP,Y VIEW, GRASHEY & AXILLARY): BENJAMÍN ROSA [id number] -1940 M Exm Date: OCT 16, 2023@09:24 Req Phys: MARCUS LOMAX Pat Loc: [facility] ORTHO COORD PHONE (Req'g L Img Loc: MAIN X-RAY Service: Unknown (Case [id number] COMPLETE) SHOULDER LEFT 4V(AP,Y VIEW, GRASH(RAD Detailed) CPT:86254 Proc Modifiers : LEFT Reason for Study: post op Clinical History: [place] IS NOT under investigation for COVID-19 or is COVID-19 negative post op Responsible provider name and phone number to notify for critical findings if other than user placing the order and pager listed below: User placing orders pager: LAST CREATININE [phone] (07/03/23) Report Status: Verified Date Reported: OCT 17, 2023 Date Verified: OCT 17, 2023 Slip Mixer E-Sig: Report: SHOULDER LEFT 4V(AP,Y VIEW, GRASHEY & AXILLARY) HISTORY: post op COMPARISON: 09/05/2023 TECHNIQUE: 4 view(s) of the left shoulder, submitted to the [place] National Teleradiology Program (NTP) for interpretation. FINDINGS: [...] of hardware complication. READING PHYSICIAN: Navneet Hinson -[id number] 10/17/2023 5:19 [facility] National Teleradiology Program [phone] (For Medical Practitioner Use Only) Attention Patients / Veterans: If you have questions or concerns about these test results, please contact your ordering provider or primary care team. Primary Interpreting Staff: RADIOLOGY,OUTSIDE SERVICE, Staff Physician / RADIOLOGY,OUTSIDE SERVICE [facility] Encounter Notes: All associated encounter notes This section contains the clinical notes associated to the Encounter. Date/Time Encounter Note(s) Provider Source Oct 30, 2023 08:18 AM PHYSICAL THERAPY N OTE: LOCAL TITLE: PT-PROGRESS NOTE STANDARD TITLE: PHYSICAL THERAPY NOTE DATE OF NOTE: OCT 30, 2023@08:18 ENTRY DATE: OCT 30, 2023@08:18:43 AUTHOR: DAYANA CONRAD COSIGNER: URGENCY: STATUS: COMPLETED PT tx: ther ex 23' PT dx: left shoulder pain # of VISITS: 4 # of CX/NS: 0 SUBJECTIVE: (See problem list for complete PMH) Relevant PMH: Surgical Date: 09/05/23 SURGEON: RAHEEL DELGADILLO ATTENDING: MARCUS LOMAX Patient is 7 weeks 6 days s/p L rTSA. Feeling great overall having soreness at times when tries to reach behind his back (patient was re-educated this motion is not yet allowed; will initiate at 10 weeks post op) *No AROM into IR, ER, or abduction >45 deg for 6 weeks. Combined IR, horiz adduction, extension limited until at least 12 weeks post- op. Pt to avoid impact activities including free weights, contact sports, and hammering with surgical arm. Red Flags: (+) personal history of cancer. OBJECTIVE: OBSERVATION: [place] Posture: relaxed mannerisms with natural arm swing SHOULDER PROM: Flexion(100-138): 150 Abduction(129): 110 Ext Rotation(30-38): 30 Int Rotation(L2):deferred to 12 weeks SHOULDER STRENGTH/MMT: defer 12 weeks d/t post-op precautions. PT INTERVENTIONS: ther ex: - Shoulder Flexion Wall Slide with Towel (Mirrored) - 2 x daily - 10 reps - 5 second hold - Standing Shoulder Abduction AAROM with Dowel - 2 x daily - 10 reps - 5 second hold - Standing Shoulder External Rotation Stretch in Doorway - 2 x daily - 5 reps - 10 second hold - Wall Push Up with Plus - 2 x daily - 10 reps - Sidelying Shoulder External Rotation AROM - 1 x daily - 20 reps - Supine Shoulder Flexion Extension Full Range AROM (Mirrored) - 2 x daily - 10 reps Response to treatment: pt verbalized understanding of the protocol and the importance of following it; advanced his HEP Patient participation/motivation this date during treatment: motivated for PT GOALS: All are ONGOING unless marked otherwise. Patient's Goal: 1. Pt will sleep undisturbed by shoulder pain in 8-10 weeks to improve restorative sleep pattern. Goal Met 2. Pt will demonstrate at least 138 deg flex AAROM in 8-10 weeks to improve functional mobility for overhead ADLs (reaching into high cupboard). Goal Met 3. Pt will demonstrate at least 38 [...] of shoulder pain in 14-16 weeks. ASSESSMENT: Patient returned to PT this date with minimal pain. Soreness at times reported. Patient re-educated to avoid reaching behind his back as this is a motion that has not been cleared to start at this time. Patient demonstrated excellent AAROM and supine AROM. Cues needed to avoid over doing activities. No longer needing to follow up next week. Will have return to PT in 2 weeks to initiate AAROM shoulder extension and IR. REHAB POTENTIAL: good for above goals CLINICAL PRESENTATION: Evolving PLAN: Patient to return to PT in 2 weeks Next visit: review protocol and ensure compliance. [...] Denies further questions. /laura/ DAYANA CONRAD DPT [facility] PHYSICAL THERAPIST Signed: 10/30/2023 09:54 DAYANA CONRAD [facility]
--- OUTSIDE RECORDS SUMMARY | 2024-05-05 10:58 | XMS_ITS | Encounter Summary ---
Author Name [facility] [place] Organization [place] Address [address] [place] [address] Care Team Providers Care Visual Display Associate Name Role Phone JAN BRISENO Primary Care [...] French's Name Patient's Relationship to Policy [facility] (WNR) MEDICARE ADVANTAGE MEDIC ARE OTILIA RAMESH Claire Sep 17, 2018 [id number] [phone] BENJAMÍN ROSA PATIENT MEDICARE (WNR) MEDICARE (M) PART B Mar 17, 2007 PART B [id number] [phone] BENJAMÍN ROSA PATIENT MEDICARE (WNR) MEDICARE (M) PART A Mar 17, 2007 PART A [id number] [phone] BENJAMÍN ROSA PATIENT Selected Encounter This section includes the information on record at [place] for the Encounter. Date/Time Encounter Type Encounter Description Reason Provider Source Nov 13, 2023 09:00 AM THERAPEUTIC EXERCISES PHYSICAL THERAPY ICD-10-CM M25.512 Pain in left shoulder DAYANA CONRAD Encounter Template Text not used by [place] Assessments - Encounter Diagnoses This section includes the primary and secondary diagnoses documented for the Encounter. Date/Time Primary/Secondary Diagnosis Diagnosis Name Provider Source Nov 13, 2023 12:41 PM PRIMARY Pain in left shoulder DAYANA CONRAD [facility] Plan of Treatment: Future Appointments (+ 6 months) and Future Tests (+/- 45 days) The Plan of Treatment section includes future care activities for the patient from all [place] [facility]. This section includes future appointments and future orders which are active, pending or scheduled. Future Appointments This section includes appointments that were scheduled to occur 6 months from the date of the Encounter, up to a maximum of 20 appointments. The data comes from all [place] treatment facilities. Appointment Date/Time Appointment Type Appointme nt Facility Name Nov 20, 2023 10:00 AM AMBULATORY - SURGERY GUI[facility]ERMO VACA [facility] Nov 20, 2023 11:00 AM AMBULATORY - MEDICINE [facility] MENDOZA [facility] Dec 17, 2023 08:40 AM AMBUL[place]ORY [place] [facility] January 24, 2024 09:45 AM AMBULATORY - SURGERY [place] [facility] Mar 18, 2024 08:00 AM AMBULATORY - NONE [place] [facility] Mar 18, 2024 09:00 AM [place] [facility] Apr 25, 2024 10:45 AM AMBULATORY - SURGERY [facility] Social History: Smoking Status (Most current) and Tobacco Use (All prior to encounter date) This section includes the most current, and the historical, smoking and tobacco- related health factors from the [place] facility where the Encounter took place. Current Smoking Status This section includes the most current smoking, or tobacco-related health factor, from the [place] facility where the Encounter took place. Date/Time Current Smoking Status Comment Santiago kwong Mar 19, 2023 10:30 AM VA-TOBACCO NEVER USED [facility] Tobacco Use History This section includes a history of the smoking, or tobacco-related health factors, that were collected on or before the date of the Encounter. The data comes from the [place] facility where the Encounter took place. Date/Time Smoking Status/Tobacco Use Comment Elvis [email or web address] Mar 22, 2022 08:45 AM VA-TOBACCO NEVER USED [facility] May 12, 2021 10:00 AM VA-TOBACCO FORMER USER [facility] May 12, 2021 10:00 AM VA-TOBACCO QUIT 15 YRS OR MORE [facility] Feb 24, 2019 09:35 AM VA-TOBACCO NEVER USED [facility] Feb 18, 2018 01:56 PM FORMER TOBACCO USER 7Y OR GREATE R [facility] Mar 06, 2017 09:31 AM FORMER TOBACCO USER 7Y OR GREATE R [facility] Mar 06, 2016 09:54 AM FORMER TOBACCO USER 7Y OR GREATE R [facility] January 25, 2016 06:31 AM INPT NO TOBACCO USE IN LAST 30 D AYS [facility] January 22, 2015 10:06 AM LIFETIME NON-TOBACCO USER [facility] Apr 15, 2014 10:09 AM FORMER TOBACCO USER 7Y OR GREATE R [facility] February 01, 2011 08:51 AM FORMER TOBACCO USER 7Y OR GREATE R [facility] Advance Directives: All historical and current Section Date Range: From patient's date of to the date document was created. This section includes ALL of a patient's completed or amended [place] Advance and Rescinded Directives. The entries below indicate that a directive exists for the patient, but an actual copy is not included with this document. The data comes from all [place] facilities. Date Advance Directives Provider Source Oct 13, 2017 ADVANCE DIRECTIVE MARAL DORANTES [facility] Oct 13, 2017 ADVANCE DIRECTIVE DISCUSSION MARAL DORANTES [facility] Radiology Reports: +/- 30 days of [...] the Encounter. The data comes from all [place] treatment facilities. 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 FINDINGS: [...] of hardware complication. READING PHYSICIAN: Navneet Hinson -[id number] 10/17/2023 5:19 [facility] National Teleradiology Program [phone] (For Medical Practitioner Use Only) Attention Patients / Veterans: If you have questions or concerns about these test results, please contact your ordering provider or primary care team. Primary Interpreting Staff: RADIOLOGY,OUTSIDE SERVICE, Staff Physician / RADIOLOGY,OUTSIDE SERVICE [facility] Encounter Notes: All associated encounter notes This section contains the clinical notes associated to the Encounter. Date/Time Encounter Note(s) Provider Source Nov 13, 2023 08:20 AM PHYSICAL THERAPY N OTE: LOCAL TITLE: PT-PROGRESS NOTE STANDARD TITLE: PHYSICAL THERAPY NOTE DATE OF NOTE: NOV 13, 2023@08:20 ENTRY DATE: NOV 13, 2023@08:20:32 AUTHOR: DAYANA CONRAD EXP COSIGNER: URGENCY: STATUS: COMPLETED PT tx: ther ex 30' PT dx: left shoulder pain # of VISITS: 5 # of CX/NS: 0 SUBJECTIVE: (See problem list for complete PMH) Relevant PMH: Surgical Date: 09/05/23 SURGEON: ARHEEL DELGADILLO ATTENDING: MARCUS LOMAX Patient is 9 weeks 6 days s/p L rTSA. Was given clearance by orthopedics to begin further strengthening and stretching without specific restrictions. Patient stated he feels great. No complaints. *No AROM into IR, ER, or abduction >45 deg for 6 weeks. Combined IR, horiz adduction, extension limited until at least 12 weeks post- op. Pt to avoid impact activities including free weights, contact sports, and hammering with surgical arm. Red Flags: (+) personal history of cancer. OBJECTIVE: OBSERVATION: [place] Posture: relaxed mannerisms with natural arm swing SHOULDER PROM: Flexion(100-138): 150 Abduction(129): 110 Ext Rotation(30-38): 30 Int Rotation(L2):thumb to buttocks SHOULDER STRENGTH/MMT: defer 12 weeks d/t post-op precautions. PT INTERVENTIONS: ther ex: current HEP: - Shoulder Flexion Wall Slide with Towel [...] - 2 x daily - 10 reps New this date: Exercises - Standing Bent Over Single Arm Scapular Row with Table Support (Mirrored) - 1 x daily - 1-3 sets - 10 reps - Standing Shoulder Flexion to 90 Degrees with Dumbbells - 1 x daily - 1-3 sets - 10 reps - Scaption with Dumbbells - 1 x daily - 1-3 sets - 10 reps - Standing Bicep Curls Supinated with Dumbbells - 1 x daily - 1-3 sets - 10 reps - Sidelying Shoulder External Rotation Dumbbell (Mirrored) - 1 x daily - 10 reps - Standing Shoulder Internal Rotation Stretch with Towel (Mirrored) - 2 x daily - 10 reps - 10 second hold - Standing Bilateral Low Shoulder Row with Anchored Resistance - 1 x daily - 1- 3 sets - 10 reps Response to treatment: very pleased with progressive HEP Patient participation/motivation this date during treatment: [...] mobility for ADLs (reaching behind head/washing hair). Goal Partially met 4. Pt will demonstrate IR AAROM to at least L5 by 12-14 weeks post-op to improve functional mobility for ADLs (reaching into back pocket, tucking in shirt). Goal Partially Met 5. Pt will be I in HEP for self-management of shoulder pain in 14-16 weeks. Goal Met ASSESSMENT: Patient returned to PT this date pleased with his progress. No report of pain. Able to be advanced this date for strengthening. Patient instructed to slowly grade increase in resistance. He was instructed in lifetime restrictions including the lifting restrictions below shoulder height (no more than 50#), above shoulder height (no more than 25#), no pounding with axe, maul or chain saw. Surgeon to further adapt restrictions as needed. Patient verbalized understanding. He was trialed and issued progressive HEP. REHAB POTENTIAL: good for above goals CLINICAL PRESENTATION: Evolving PLAN: No RTC needed at this time. Patient is pleased with his progress and his progressed HEP Phase II: 6-8 weeks - d/c sling [...] Denies further questions. /laura/ DAYANA CONRAD DPT [facility] PHYSICAL THERAPIST Signed: 11/13/2023 13:05 DAYANA CONRAD [facility]
--- OUTSIDE RECORDS SUMMARY | 2024-05-05 10:58 | XMS_ITS | Encounter Summary ---
Author Name [facility] [facility] [place] [facility] [place] Address [address] [place] [address] Care Team Providers Care Superintendent Greens Name Role Phone JAN BRISENO Primary Care [...] French's Name Patient's Relationship to Policy [facility]) MEDIC[facility] ADVANTAGE MEDIC ARE ABBIKIM DOMITILA Rangel Sep 17, 2018 [id number] [phone] BENJAMÍN ROSA PATIENT MEDICARE (WNR) MEDICARE (M) PART A Mar 17, 2007 PART A [id number] BENJAMÍN ROSA PATIENT MEDICARE (WNR) MEDICARE (M) PART B Mar 17, 2007 PART B [id number] [phone] BENJAMÍN ROSA PATIENT Selected Encounter This section includes the information on record at [place] for the Encounter. Date/Time Encounter Type Encounter Description Reason Provider Source Mar 18, 2024 09:00 AM OFFICE O/P EST MOD 30 MIN PRIMARY CARE/MEDICINE ICD-10-CM I10 Essential (primary) hypertension JAN BRISENO Y [facility] Encounter Template Text not used by [place] Assessments - Encounter Diagnoses This section includes the primary and secondary diagnoses documented for the Encounter. Date/Time Primary/Secondary Diagnosis Diagnosis Name Provider Source Mar 18, 2024 09:52 AM PRIMARY Essential (primary) hypertension JAN BRISENO [facility] Mar 18, 2024 09:52 AM SECONDARY Encounter for immunization RENATA LE [facility] Mar 18, 2024 09:52 AM SECONDARY Hyperlipidemia, unspecified FINNKIRAASHLEY Tena [facility] Plan of Treatment: Future Appointments (+ 6 months) and Future Tests (+/- 45 days) The Plan of Treatment section includes future care activities for the patient from all [place] [facility] This section includes future appointments and future orders which are active, pending or scheduled. Future Appointments This section includes appointments that were scheduled to occur 6 months from the date of the Encounter, up to a maximum of 20 appointments. The data comes from all [place] treatment facilities. Appointment Date/Time Appointment Type Appointme nt Facility Name Apr 25, 2024 10:45 AM AMBULATORY - SURGERY [facility] May 26, 2024 07:45 AM AMBULATORY - SURGERY [facility] Lab Results: +/- 30 days of the encounter This section includes the Chemistry and Hematology Lab Results on record with [place] for the patient. Radiology Reports and Pathology Reports are provided separately, in subsequent sections. Lab Results This section contains the Chemistry/Hematology Results that were resulted 30 days before or 30 daysafter the date of the Encounter. Date/Time Source Result Type Result - Unit Interpretation Reference Range Comment Mar 18, 2024 07:33 AM [facility] AST/SGOT Specimen Type: PLASMA No comment entered. Ordering Provider: JAN BRISENO Report Released Date/Time: Mar 19, 2023 11:19 AM Reporting Lab: [facility] [id number] Performing Lab: [facility] [phone] AST/SGOT 14 U/L <34 Mar 18, 2024 07:33 AM [facility] ALT/SGPT Specimen Type: PLASMA No comment entered. Ordering Provider: JAN BRISENO Report Released Date/Time: Mar 19, 2023 11:19 AM Reporting Lab: [facility] [id number] Performing Lab: [facility] [phone] ALT/SGPT 18 U/L <55 Mar 18, 2024 07:33 AM [facility] HEMOGLOBIN A1C Specimen Type: BLOOD Comment: Values obtained from A1C measurements can vary. For typical A1C assays, a reported value of 7.0 could actually be between 6.7 and 7.3 if measured by a reference method. A reported value of 9.0 could actually be between 8.7 and 9.3. Ref: http://www.ngs p.org/CAPdata. asp Ordering Provider: JAN BRISENO Report Released Date/Time: Mar 19, 2023 11:19 AM Reporting Lab: [facility] [id number] Performing Lab: [facility] [phone] HEMOGLOBIN A1C 5.7 4.0-6.0 Mar 18, 2024 07:33 AM [facility] LIPID PANEL,NON-FASTING Specimen Type: PLASMA No comment entered. Ordering Provider: JAN BRISENO Report Released Date/Time: Mar 19, 2023 11:19 AM Reporting Lab: [facility] [phone] Performing Lab: [facility] [phone] CHOLESTEROL 180 mg/dL <199 .HDL 49 mg/dL >40 LDL CALCULATION 112 mg/dL H <99 VLDL CALCULATION 19 mg/dL <29 NON HDL CHOLESTEROL 131 mg/dL H <129 TRIG(NON FASTING) 97 mg/dL <149 Mar 18, 2024 07:33 AM [facility] CBC Specimen Type: BLOOD No comment entered. Ordering Provider: JAN BRISENO Report Released Date/Time: Mar 19, 2023 11:19 AM Reporting Lab: [facility] [phone] Performing Lab: [facility] [phone] WBC 6.23 10*3/uL 4.0-11.0 RBC 3.95 10*6/uL L 4.6-6.2 HGB 12.2 g/dL L 13.5-17.9 HCT 35.6 L 41-54 MCV 90.1 fL 80-100 MCH 30.9 pg 27-33 MCHC 34.3 g/dL 32.0-37.5 PLT 245 10*3/uL 150-400 MPV 9.8 fL 7.4-10.4 RDW 14.6 H 11.5-14.5 Mar 18, 2024 07:33 AM [facility] BASIC METABOLIC PANEL+MG Specimen Type: PLASMA No comment entered. Ordering Provider: JAN BRISENO Report Released Date/Time: Mar 19, 2023 11:19 AM Reporting Lab: [facility] [phone] Performing Lab: [facility] [phone] CREATININE 0.9 mg/dL 0.7-1.2 UREA NITROGEN 23 mg/dL 8-26 GLUCOSE 101 mg/dL H 70-100 SODIUM 141 mmol/L 136-145 POTASSIUM 4.5 mmol/L 3.5-5.1 CHLORIDE 107 mmol/L 98-107 CO2 26 mmol/L 22-29 CALCIUM 9.9 mg/dL 8.4-10.2 MAGNESIUM 2.1 mg/dL 1.6-2.6 ANION GAP 8 mmol/L 5-15 .CREAT EGFR(CKD-EPI) 86 >60 Mar 18, 2024 07:33 AM [facility] PSA Specimen Type: SERUM Comment: Specimen received is PLASMA. Ordering Provider: JAN BRISENO Report Released Date/Time: Mar 18, 2024 09:54 AM Reporting Lab: [facility] [phone] Performing Lab: [facility] [phone] PSA 0.04 ng/mL <4.00 Mar 18, 2024 07:33 AM [facility] IRON GROUP Specimen Type: SERUM Comment: Specimen received is PLASMA. Ordering Provider: JAN BRISENO Report Released Date/Time: Mar 18, 2024 09:53 AM Reporting Lab: [facility] [phone] Performing Lab: [facility] [phone] IRON 71 ug/dL 65-175 TIBC,CALCULAT ED 264 ug/dL 250-425 FERRITIN 249.1 ng/mL 21.8-274.7 IRON SATURATION 27 20-50 TRANSFERRIN 211 mg/dL 163-382 Vital Signs: All taken on the encounter date This section contains inpatient and outpatient Vital Signs collected on the date of the Encounter. Date/Time Temperature Pulse Blood Pressure Respiratory Rate SP02 Pain Height Weight Body Mass Index Source Mar 18, 2024 08:44 AM 98.2 66 136/84 16 96 0 186 30 [place] [facility] Immunizations: All administered on the encounter date This section contains immunizations associated to the Encounter. Immunization Series Date Issued Reaction Comments COVID-19 (PFIZER), MRNA, LNP -S, PF, CLARI-SUCROSE, 30 MCG/0.3 ML (AGES 12+ YEARS) Mar 18, 2024 TDAP Mar 18, 2024 Social History: Smoking Status (Most current) and Tobacco Use (All prior to encounter date) This section includes the most current, and the historical, smoking and tobacco- related health factors from the [place] facility where the Encounter took place. Current Smoking Status This section includes the most current smoking, or tobacco-related health factor, from the [place] facility where the Encounter took place. Date/Time Current Smoking Status Comment Facil ity Mar 18, 2024 09:00 AM VA-TOBACCO FORMER USER [facility] Tobacco Use History This section includes a history of the smoking, or tobacco-related health factors, that were collected on or before the date of the Encounter. The data comes from the [place] facility where the Encounter took place. Date/Time Smoking Status/Tobacco Use Comment F acility Mar 18, 2024 09:00 AM VA-TOBACCO QUIT 15 YRS OR MORE [facility] Mar 19, 2023 10:30 AM VA-TOBACCO NEVER USED [facility] Mar 22, 2022 08:45 AM VA-TOBACCO NEVER USED [facility] May 12, 2021 10:00 AM VA-TOBACCO FORMER USER [facility] May 12, 2021 10:00 AM VA-TOBACCO QUIT 15 YRS OR MORE [facility] Feb 24, 2019 09:35 AM VA-TOBACCO NEVER USED [facility] Feb 18, 2018 01:56 PM FORMER TOBACCO USER 7Y OR GREATE R [facility] Mar 06, 2017 09:31 AM FORMER TOBACCO USER 7Y OR GREATE R [facility] Mar 06, 2016 09:54 AM FORMER TOBACCO USER 7Y OR GREATE R [facility] January 25, 2016 06:31 AM INPT NO TOBACCO USE IN LAST 30 D AYS [facility] January 22, 2015 10:06 AM LIFETIME NON-TOBACCO USER [facility] Apr 15, 2014 10:09 AM FORMER TOBACCO USER 7Y OR GREATE R [facility] February 01, 2011 08:51 AM FORMER TOBACCO USER 7Y OR GREATE R [facility] Advance Directives: All historical and current Section Date Range: From patient's date of to the date document was created. This section includes ALL of a patient's completed or amended [place] Advance and Rescinded Directives. The entries below indicate that a directive exists for the patient, but an actual copy is not included with this document. The data comes from all [place] facilities. Date Advance Directives Provider Source Oct 13, 2017 ADVANCE DIRECTIVE MARAL DORANTES [facility] Oct 13, 2017 ADVANCE DIRECTIVE DISCUSSION MARAL DORANTES [facility] Encounter Notes: All associated encounter notes This section contains the clinical notes associated to the Encounter. Date/Time Encounter Note(s) Provider Source Mar 18, 2024 09:36 AM INTERNAL MEDICINE NOTE: LOCAL TITLE: MEDICINE CLINIC NOTE STANDARD TITLE: INTERNAL MEDICINE NOTE DATE OF NOTE: MAR 18, 2024@09:36 ENTRY DATE: MAR 18, 2024@09:36:11 AUTHOR: JAN BRISENO EXP COSIGNER: URGENCY: STATUS: COMPLETED Nurse's Notes Reviewed. Chief Complaint: annual HPI: doing well no cocnerns. feels well over all Past medical history/Active Problems: Active Problems: Active problems - Computerized Problem List is the source for the followin. Hyperlipidemia (SNOMED CT 95210034) 2. Sensorineural Hearing Loss, Bilateral 3. Subjective tinnitus 4. Elevation, blood pressure - no recent elevated bp readings at non [place] or here 2013 5. Personal History of Malignant Neoplasm of Prostate 6. Other Specified Counseling - nl cscope 5 years ago at non [facility] [place], managed by non [facility] 7. 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 Tinnitus 9. Benign essential hypertension Tobacco/ETOH Use: No tobacco use Alcohol Use: Does drink though not concerning for abuse. Review of Systems: Feels well, no weight loss, good appetite. No Chest Pain. No Shortness of breath. No orthopnea, PND, or peripheral edema. No abdominal pain, N/V, or change in bowel habits. No diarrhea or constipation. No Bleeding. No urinary hesitancy or frequency. Other/Comments: no cocnerning skin lesions Physical Exam: VS: Temp: 98.2 F [36.8 C] (03/18/2024 08:44) BP: 136/84 (03/18/2024 08:44) Pulse:66 (03/18/2024 08:44) Resp: 16 (03/18/2024 08:44) Weight: 186 lb [84.37 kg] (03/18/2024 08:44) Pain: 0 (03/18/2024 08:44) O2 Sat: 96% (03/18/2024 08:44) BMI: 30.1 General NAD WDWN HEENT: Oropharynx (OP): Clear, Tympanic Membranes (TM) and external auditory , canals clear bilaterally, thyroid normal Cardiac: RRR with normal S1 and S2; without murmur, gallop, rub. Chest/Lungs: Bilaterally clear, Clear to auscultation Abdominal: Soft, Non-Tender, Bowel Sounds Present Extremities: No edema. Lab Data: Last 48 hours: HGB A1C: 5.7 WBC: 6.23 RBC: 3.95 L HGB: 12.2 L HCT: 35.6 L MCV: 90.1 MCH: 30.9 MCHC: 34.3 RDW: 14.6 H PLT: 245 MPV: 9.8 GLUCOSE: 101 H UREA NITROGEN: 23 CREATININE: 0.9 SODIUM: 141 POTASSIUM: 4.5 CHLORIDE: 107 CO2: 26 CALCIUM: 9.9 CHOLESTEROL: 180 MAGNESIUM: 2.1 HDL: 49 ANION GAP: 8 LDL CHOL: 112 H VLDL CHOL: 19 SGOT(37C): 14 SGPT(37C): 18 NON HDL CHOLESTEROL: 131 H TRIG(NON FASTING): 97 CREATININE EGFR (CKD-EPI): 86 Assessment/Plan: hyperlipidemia -continue atorvastatin 80mg, encourage health diet and exercise. HTN- stable, continue hctz Personal History of Malignant Neoplasm of Prostate- hx of seed implant,recent psa 0.06. pt denies hematuria, bone pain, weight loss -psa added chronic anemia- iron panel added, pt denies bleedind hx Osteopenia- not interested in bisphosphonates, encourage weight bearing exercise. continue calcium and viitamin d RTC IN 1 YR W/ LABS Patient Education of Treatment Plan: Patient indicates readiness to learn, verbalizes understanding, agreement and satisfaction with the treatment plan. Denies further questions. More than 50% of this 30 min appt was spent counseling/coordinating care for the medical problems outlined above. Medication Reconciliation: Education Evaluations *Was medication education provided for NEW medications or CHANGES to medications? (including medication name, dose, route, reason for use, and potential side effects). Yes. Verbal education was provided to patient/caregiver and patient/caregiver verbalized understanding. TERATOGENIC MED & CONTRACEPTION REVIEW (Optional)... MEDICATION RECONCILIATION Review Done: The medication list shown below was verified for accuracy and it includes all pending medications/active medications/all medications or discontinued within the last 90 days/all remote medications and non-VA medications. If a given category (i.e. remote meds) is not shown, that means that a patient doesn't have a medication(s) in that category. Allergies listed below were also reviewed/updated for accuracy. Allergies/ADR from [employer] may not display in CPRS. Use JLV MRT5 - Allergies/ADRs FACILITY ALLERGY/ADR -------- No Remote Allergy/ADR Data available for this patient [facility] LISINOPRIL Active and Recently Outpatient Medications (including Supplies): Issue Date Status Last Fill Active Outpatient Medications Refills Expiration 1) ATORVASTATIN CALCIUM 80MG TAB Qty: 90 ACTIVE Issu:03-19-23 for 90 days Sig: TAKE ONE TABLET BY Refills: 0 Last:01-28-24 MOUTH EVERY DAY FOR CHOLESTEROL Expr:03-19-24 2) CARBOXYMETHYLCELLULOSE NA 0.25% OPH SOLN ACTIVE Issu:11-20-23 Qty: 45 for 90 days Sig: INSTILL 1 Refills: 3 Last:11-20-23 DROP IN BOTH EYES FOUR TIMES A DAY FOR Expr:11-20-24 DRY EYES 3) CHOLECALCIF 25MCG (D3-1,000UNIT) TAB ACTIVE Issu:06-27-23 Qty: 100 for 90 days Sig: TAKE ONE Refills: 1 Last:01-20-24 TABLET BY MOUTH EVERY DAY FOR VITAMIN Expr:06-27-24 D 4) HYDROCHLOROTHIAZIDE 25MG TAB Qty: 45 ACTIVE Issu:03-19-23 for 90 days Sig: TAKE ONE-HALF TABLET Refills: 0 Last:02-18-24 BY MOUTH EVERY DAY FOR BLOOD PRESSURE Expr:03-19-24 Issue Date Status Last Fill Pending Outpatient Medications Refills Expiration 1) ASPIRIN 81MG EC TAB Qty: 120 Sig: TAKE PENDING ONE TABLET BY MOUTH EVERY DAY Refills: 0 Issue Date Status Last Fill Inactive Outpatient Medications Refills Expiration 1) CHOLECALCIF 25MCG (D3-1,000UNIT) TAB DISCONTINUED Issu:06-27-23 Qty: 90 for 90 days Sig: TAKE (EDIT) Last:06-29-23 1000UNIT BY MOUTH EVERY DAY FOR Refills: 3 Expr:06-27-24 VITAMIN D Start Date Active Non-VA Medications Refills Expiration 1) Non-VA CALCIUM CARBONATE 650MG (CA ACTIVE 260MG) TAB SiMG MOUTH EVERY DAY 2) Non-VA CHOLECALCIF 25MCG (D3-1,000UNIT) ACTIVE TAB SiUNIT MOUTH EVERY DAY 3) Non-VA IBUPROFEN 200MG TAB SiMG ACTIVE MOUTH EVERY DAY NEEDED 4) Non-VA MULTIVITAMIN CAP/TAB Si ACTIVE TABLET MOUTH EVERY DAY 10 Total Medications Prostate Cancer F/U PSA: PSA ordered at this visit. /laura/ JAN BRISENO NURSE PRACTITIONER Signed: 03/18/2024 09:54 JAN BRISENO [facility] Mar 18, 2024 08:48 AM INTERNAL MEDICINE OUTPATIENT NOTE: LOCAL TITLE: MEDICINE CLINIC NURSING NOTE STANDARD TITLE: INTERNAL MEDICINE OUTPATIENT NOTE DATE OF NOTE: MAR 18, 2024@08:48 ENTRY DATE: MAR 18, 2024@08:48:14 AUTHOR: RENATA LE EXP COSIGNER: URGENCY: STATUS: COMPLETED TYPE OF VISIT: Appointment Check In Type of appointment: In-person appointment REASON FOR VISIT: Annual ALLERGIES: LISINOPRIL (Mar 08, 2018) VITAL SIGNS: Blood Pressure: 136/84 (03/18/2024 08:44) Pulse: 66 (03/18/2024 08:44) Respiration: 16 (03/18/2024 08:44) Temperature: 98.2 F [36.8 C] (03/18/2024 08:44) Weight: 186 lb [84.37 kg] (03/18/2024 08:44) Height: 66 in [167.6 cm] (03/19/2023 10:48) BMI: 30.1 O2 Sat: 96% (03/18/2024 08:44) Pain: 0 (03/18/2024 08:44) PAIN SCREEN: Patient is not having significant pain that they wish to discuss with their provider today. Toxic Exposure Screening: The /caregiver was asked if they believe the experienced any toxic exposure(s), such as Airborne Hazards and Open Burn Pit, [place] War related exposures, [place], Radiation, contaminated water at [facility] or other such exposures, while serving in the Armed [employer]. 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 The /caregiver was informed that we will continue to ask this screening question every 5 years. They can contact their provider/healthcare team if they have concerns about exposures and would like to be screened sooner. Printed information was offered and provided if desired. Depression Screening: Perform PHQ-2 A PHQ-2 screen was performed. The score was 0 which is a negative screen for depression. Over the past two weeks, how often have you been bothered by the following problems? 1. Little interest or pleasure in doing things Not at all 2. Feeling down, depressed, or hopeless Not at all Tobacco Use Screening: The patient is a former tobacco user. The patient quit fifteen or more years ago. Homelessness/Food Insecurity Screen: In the past 2 months, have you been living in stable housing that you own, rent, or stay in as part of a household? Yes - Living in stable housing. Are you worried or concerned that in the next 2 months you may NOT have stable housing that you own, rent, or stay in as part of a household? No - Not worried about housing near future [facility] [place] reports the following: Within the past 12 months, you worried whether your food would run out before you got money to buy more. Never true Within the past 12 months, the food you bought just didn't last and you didn't have money to get more. Never true Food Assistance Programs [facility] Food Assistance Programs [facility] Annual Screening: Fall History Screen During the past 12 months, have you had any falls? Patient does not report any falls in the past 12 months. MEDICATIONS: Patient is on one of the following medication classes: Antihypertensives, Antidepressants, Antipsychotics, Diuretics, or Controlled substance medication used for pain. Script Talk Screen Are you able to read your prescription bottles with your glasses, magnifiers or other aids? Yes or patient not taking any prescriptions. Skin Screen Patient reports any current pressure ulcers, a history of pressure ulcers, or a wound from a medical parasitologist or Patient is bed-confined or a wheelchair-user or Patient requires assistance to transfer/change position No, Skin Screen is Negative Home Abuse/Violence Screen Is your home free of abuse and violence? Yes MOVE! Program Screen Body Mass Index (BMI)= 30.1 [place]: Collection DT Specimen Test Name Result Units Ref Range 03/18/2024 07:33 BLOOD !! HEMOGLOBIN A1C 5.7 % 4.0 - 6.0 !! Indicates COMMENTS AVAILABLE...Refer to Interim Lab Report. [place] Hgb A1C: No data available [place] Hgb A1C: No data available Point of Care Hgb A1C: POC HGB A1C____ Outpatient Nutrition Screen Body Mass Index (BMI)= 30.1 [place]: Collection DT Specimen Test Name Result Units Ref Range 03/18/2024 07:33 BLOOD !! HEMOGLOBIN A1C 5.7 % 4.0 - 6.0 !! Indicates COMMENTS AVAILABLE...Refer to Interim Lab Report. [place] Hgb A1C: No data available [place] Hgb A1C: No data available Point of Care Hgb A1C: POC HGB A1C____ Is patient's BMI less than 18.5? No Does patient have swallowing, coughing, or chewing problems affecting oral intake? No Has patient experienced unplanned weight loss or gain greater than 10 pounds over the last 2 months? No Is patient's Hgb A1C (Glycosylated Hemoglobin) greater than 9.5? Information not available Is patient receiving Total Parenteral Nutrition (TPN) or Tube Feedings? No Patient Health Education Screen BARRIERS/SPECIAL NEEDS: Physical limitations Hearing limitations Visual limitations PREFERRED STYLE OF LEARNING: No preference stated Client Assistive Service (ERNESTINA) Screen Does the patient require assistance with outpatient visit? No COVID-19 Immunization: Pfizer Monovalent (Comirnaty) Administered: COVID-19 (PFIZER), MRNA, LNP-S, PF, CLARI-SUCROSE, 30 MCG/0.3 ML (AGES 12+ YEARS) Date Administered: Mar 18, 2024 08:56 Nut Packer: [employer] Lot: [id number] Exp Date: May 17, 2024 [facility]: [id number] Admin Route/Site: INTRAMUSCULAR/LEFT DELTOID Dosage: 0.3mL Vaccine Information Statement(s): COVID-19 MRNA VACCINE (12+ YRS) VACCINE VIS Jul 05, 2023 ([place]OL[place]IAN) Order By: Policy Administered By: Renata Le Vaccine administered without complications. Td / Tdap Immunization: Administered: TDAP Date Administered: Mar 18, 2024 08:56 Nut Packer: [employer] Lot: [id number] Exp Date: Mar 19, 2026 [facility]: [id number] Admin Route/Site: INTRAMUSCULAR/RIGHT DELTOID Dosage: 0.5mL Vaccine Information Statement(s): TDAP (TETANUS, DIPHTHERIA, PERTUSSIS) VACCINE VIS Apr 22, 2021 ([place]) Order By: Policy Administered By: Renata Le Vaccine Information Sheet (VIS) was given to the patient/caregiver, education regarding adverse reactions was discussed, as well as barriers to learning, if any, were acknowledged. /laura/ RENATA LE LPN Signed: 03/18/2024 08:56 RENATA LE [facility]
--- OUTSIDE RECORDS SUMMARY | 2024-05-05 10:58 | XMS_ITS | Encounter Summary ---
Author Name [facility] [place] Address [address] [place] [address] Care Team Providers Care Horticulture Professor Name Role Phone JAN BRISENO Primary Care [...] French's Name Patient's Relationship to Policy French [facility] (WNR) MEDICARE ADVANTAGE MEDIC ARE OTILIA RAMESH Claire Sep 17, 2018 [id number] [phone] BENJAMÍN ROSA PATIENT MEDICARE (WNR) MEDICARE (M) PART A Mar 17, 2007 PART A [id number] BENJAMÍN ROSA PATIENT MEDICARE (WNR) MEDICARE (M) PART B Mar 17, 2007 PART B [id number] [phone] BENJAMÍN ROSA PATIENT Selected Encounter This section includes the information on record at [place] for the Encounter. Date/Time Encounter Type Encounter Description Reason Provider Source January 24, 2024 09:45 AM HEARING AID REPAIR/MODIFYIN G AUDIOLOGY ICD-10-CM H90.3 Sensorineural hearing loss, bilateral [place],BR ITTA K IHE Encounter Template Text not used by [facility] Assessments - Encounter Diagnoses This section includes the primary and secondary diagnoses documented for the Encounter. Date/Time Primary/Secondary Diagnosis Diagnosis Name Provider Source January 24, 2024 11:51 AM PRIMARY Sensorineural hearing loss, bilateral JHON EUGENE [facility] January 24, 2024 11:51 AM SECONDARY Encounter for fitting and adjustment of hearing aid JHON EUGENE [facility] January 24, 2024 11:51 AM SECONDARY Tinnitus, bilateral JHON EUGENE [facility] Plan of Treatment: Future Appointments (+ 6 months) and Future Tests (+/- 45 days) The Plan of Treatment section includes future care activities for the patient from all [place] [facility] This section includes future appointments and future orders which are active, pending or scheduled. Future Appointments This section includes appointments that were scheduled to occur 6 months from the date of the Encounter, up to a maximum of 20 appointments. The data comes from all [place] treatment facilities. Appointment Date/Time Appointment Type Appointme nt Facility Name Mar 18, 2024 08:00 AM AMBULATORY - NONE [facility] Mar 18, 2024 09:00 AM [facility] Apr 25, 2024 10:45 AM AMBULATORY - SURGERY [facility] May 26, 2024 07:45 AM AMBULATORY - SURGERY [facility] Social History: Smoking Status (Most current) and Tobacco Use (All prior to encounter date) This section includes the most current, and the historical, smoking and tobacco- related health factors from the [place] facility where the Encounter took place. Current Smoking Status This section includes the most current smoking, or tobacco-related health factor, from the [place] facility where the Encounter took place. Date/Time Current Smoking Status Comment Santiago kwong Mar 19, 2023 10:30 AM [place]-TOBACCO NEVER USED [facility] Tobacco Use History This section includes a history of the smoking, or tobacco-related health factors, that were collected on or before the date of the Encounter. The data comes from the [place] facility where the Encounter took place. Date/Time Smoking Status/Tobacco Use Comment Elvis ordoñez Mar 22, 2022 08:45 AM [place]-TOBACCO NEVER USED [facility] May 12, 2021 10:00 AM VA-TOBACCO FORMER USER [facility] May 12, 2021 10:00 AM [place]-TOBACCO QUIT 15 YRS OR MORE [facility] Feb 24, 2019 09:35 AM VA-TOBACCO NEVER USED [facility] Feb 18, 2018 01:56 PM FORMER TOBACCO USER 7Y OR GREATE R [facility] Mar 06, 2017 09:31 AM FORMER TOBACCO USER 7Y OR GREATE R [facility] Mar 06, 2016 09:54 AM FORMER TOBACCO USER 7Y OR GREATE R [facility] January 25, 2016 06:31 AM INPT NO TOBACCO USE IN LAST 30 D AYS [facility] January 22, 2015 10:06 AM LIFETIME NON-TOBACCO USER [facility] Apr 15, 2014 10:09 AM FORMER TOBACCO USER 7Y OR GREATE R [facility] February 01, 2011 08:51 AM FORMER TOBACCO USER 7Y OR GREATE R [facility] Advance Directives: All historical and current Section Date Range: From patient's date of to the date document was created. This section includes ALL of a patient's completed or amended [place] Advance and Rescinded Directives. The entries below indicate that a directive exists for the patient, but an actual copy is not included with this document. The data comes from all [place] facilities. Date Advance Directives Provider Source Oct 13, 2017 ADVANCE DIRECTIVE JOSE ETADEOMARALEMILI JUSTICE [facility] Oct 13, 2017 ADVANCE DIRECTIVE DISCUSSION MARAL DORANTES [facility] Encounter Notes: All associated encounter notes This section contains the clinical notes associated to the Encounter. Date/Time Encounter Note(s) Provider Source January 24, 2024 09:43 AM AUDIOLOGY NOTE: LOCAL TITLE: AUDIOLOGY CLINIC NOTE STANDARD TITLE: AUDIOLOGY NOTE DATE OF NOTE: JANUARY 24, 2024@09:43 ENTRY DATE: JANUARY 24, 2024@09:43:14 AUTHOR: NAVEED EUGENE COSIGNER: URGENCY: STATUS: COMPLETED AUDIOLOGY CLINIC NOTE Has ADDENDA DIAGNOSIS: Encounter for Fitting and Adjustment of Hearing Aid Sensorineural Hearing Loss, bilateral Tinnitus, bilateral Reason for visit: Hearing aid service Location of visit (Room Number): 2S-112 HISTORY: Patient seen for a hearing aid service reporting for his current hearing aids, he has been getting some feedback. For his 2014 hearing aids, the left acoustical carpenter wire broke. And he is not sure if his Noy hearing aids are working. Hearing aids right/left; Fit: May Make: Phonak Model: Audeo M90-R RICs Serial #: [id number] 2P. cShells. Back-Ups Right/Left: Fit 04/28/15 Make: Phonak Model: Benjamineo V90-13 ALFA Ser#: [id number] 1xp. cShells. Hearing aid-right/left: Make: Phonak Model: Noy Micro M UZ BTE w/1HE tube and medium closed dome Serial #: [id number] Otoscopy: Free of excessive cerumen, normal anatomy bilaterally ACTION: Hearing aids were cleaned and checked. Changed wax traps. A listening check revealed good sound quality following cleaning. Troubleshooting of aid indicated the aid is ok, but he needs a replacement cShell, which will be ordered today. Current hearing aids programmed to re-run feedback sr. manager. No significant feedback was noted following adjustments. Ordered replacement cShell for the left 2014 hearing aid. Will keep the hearing aid to attach and then will mail out together. Discussed that will be eligible for new hearing aids in May. He will return for an HAE. PLAN: Follow up as medically indicated or if a change in hearing is noted. RTC for HAE. Patient is in agreement with this plan. TECH NOTE: Hearing aid placed on ABC shelf. Please give cShell to subcontract administrator to attach prior to mailing to . /laura/ NAVEED EUGENE REFRIGERATOR REPAIRMAN Signed: 01/24/2024 11:58 01/31/2024 ADDENDUM STATUS: COMPLETED GIVING NEW EARMOLD TO TO DRAPERY SUPERVISOR TO HEARING AID PER CPRS NOTE. /es/ MIRANDA Gorman [facility] POLICYHOLDER INFORMATION CLERK Signed: 01/31/2024 10:14 02/01/2024 ADDENDUM STATUS: COMPLETED Earmold attached to hearing aid and will be mailed to . /laura/ NAVEED EUGENE REFRIGERATOR REPAIRMAN Signed: 02/01/2024 13:18 NAVEED EUGENE [facility]
--- OUTSIDE RECORDS SUMMARY | 2024-05-05 10:58 | XMS_ITS | Encounter Summary ---
Author Name [facility] [place] Address [address] [place] [address] Care Team Providers Care Senior Net Software Developer Name Role Phone JAN BRISENO Primary [...] French's Name Patient's Relationship to Policy [facility] MEDIC ARE ABBIKIM RAMESH Claire Sep 17, 2018 [id number] [phone] BENJAMÍN ROSA PATIENT MEDICARE (WNR) MEDICARE (M) PART A Mar 17, 2007 PART A [id number] BENJAMÍN ROSA PATIENT MEDICARE (WNR) MEDICARE (M) PART B Mar 17, 2007 PART B [id number] [phone] BENJAMÍN ROSA PATIENT Selected Encounter This section includes the information on record at [place] for the Encounter. 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 Date/Time Primary/Secondary Diagnosis Diagnosis Name Provider Source Dec 17, 2023 09:52 AM PRIMARY Benign neoplasm of right choroid ROSE LATHAM [facility] Dec 17, 2023 09:52 AM SECONDARY Dry eye syndrome of bilateral lacrimal glands ROSE LATHAM [facility] Dec 17, 2023 09:52 AM SECONDARY Presence of intraocular lens ROSE LATHAM [facility] Plan of Treatment: Future Appointments (+ 6 months) and Future Tests (+/- 45 days) The Plan of Treatment section includes future care activities for the patient from all [place] [facility] [place]. This section includes future appointments and future orders which are active, pending or scheduled. Future Appointments This section includes appointments that were scheduled to occur 6 months from the date of the Encounter, up to a maximum of 20 appointments. The data comes from all [place] treatment facilities. Appointment Date/Time Appointment Type Appointme nt Facility Name January 24, 2024 09:45 AM AMBULATORY - SURGERY [facility] Mar 18, 2024 08:00 AM AMBULATORY - NONE [facility] Mar 18, 2024 09:00 AM AMBULATORY - MEDICINE [facility] Apr 25, 2024 10:45 AM AMBULATORY - SURGERY [facility] May 26, 2024 07:45 AM AMBULATORY - SURGERY [facility] Social History: Smoking Status (Most current) and Tobacco Use (All prior to encounter date) This section includes the most current, and the historical, smoking and tobacco- related health factors from the [place] facility where the Encounter took place. Current Smoking Status This section includes the most current smoking, or tobacco-related health factor, from the [place] facility where the Encounter took place. Date/Time Current Smoking Status Comment aSntiago kwong Mar 19, 2023 10:30 AM VA-TOBACCO NEVER USED [facility] Tobacco Use History This section includes a history of the smoking, or tobacco-related health factors, that were collected on or before the date of the Encounter. The data comes from the [place] facility where the Encounter took place. Date/Time Smoking Status/Tobacco Use Comment F acility Mar 22, 2022 08:45 AM VA-TOBACCO NEVER USED [facility] May 12, 2021 10:00 AM VA-TOBACCO FORMER USER [facility] May 12, 2021 10:00 AM VA-TOBACCO QUIT 15 YRS OR MORE [facility] Feb 24, 2019 09:35 AM VA-TOBACCO NEVER USED [facility] Feb 18, 2018 01:56 PM FORMER TOBACCO USER 7Y OR GREATE R [facility] Mar 06, 2017 09:31 AM FORMER TOBACCO USER 7Y OR GREATE R [facility] Mar 06, 2016 09:54 AM FORMER TOBACCO USER 7Y OR GREATE R [facility] January 25, 2016 06:31 AM INPT NO TOBACCO USE IN LAST 30 D AYS [facility] January 22, 2015 10:06 AM LIFETIME NON-TOBACCO USER [facility] Apr 15, 2014 10:09 AM FORMER TOBACCO USER 7Y OR GREATE R [facility] February 01, 2011 08:51 AM FORMER TOBACCO USER 7Y OR GREATE R [facility] Advance Directives: All historical and current Section Date Range: From patient's date of to the date document was created. This section includes ALL of a patient's completed or amended [place] Advance and Rescinded Directives. The entries below indicate that a directive exists for the patient, but an actual copy is not included with this document. The data comes from all [place] facilities. Date Advance Directives Provider Source Oct 13, 2017 ADVANCE DIRECTIVE [facility] Oct 13, 2017 ADVANCE DIRECTIVE DISCUSSION MARAL DORANTES [facility] Encounter Notes: All associated encounter notes This section contains the clinical notes associated to the Encounter. Date/Time Encounter Note(s) Provider Source Dec 17, 2023 09:52 AM OPHTHALMOLOGY CONS ULT: LOCAL TITLE: OPHTHALMOLOGY IMAGING [facility]SP OUTPT CONSULT STANDARD TITLE: OPHTHALMOLOGY CONSULT DATE OF NOTE: DEC 17, 2023@09:52 ENTRY DATE: DEC 17, 2023@09:52:37 AUTHOR: ROSE LATHAM EXP COSIGNER: URGENCY: STATUS: COMPLETED Requested test(s) done, OCT of nevus OD R/G and A/F imaging done w/Optos OD; R/G OS results uploaded to tower observer for review. /laura/ LUIS FARAH CRA Scrap Charger Signed: 12/17/2023 09:54 ROSE LATHAM [facility] Dec 17, 2023 09:03 AM OPHTHALMOLOGY TECH NICIAN NOTE: LOCAL TITLE: VIDEO PLAYER MECHANIC NOTE STANDARD TITLE: VIDEO PLAYER MECHANIC NOTE DATE OF NOTE: DEC 17, 2023@09:03 ENTRY DATE: DEC 17, 2023@09:03:35 AUTHOR: CONNOR COLLINS COSIGNER: URGENCY: STATUS: COMPLETED Eye Start Exam Patient: BENJAMÍN ROSA Sex: MALE SSN: [id number] Birthdate: [birth year] Chief complaint: Denies any new concerns patient has a consult for choroidal nevus right eye per Dr Gutiérrez FOLLOW UP CONSULT #[id number] V/T/D/MAC VARGHESE OPTOS Active problems - Computerized Problem List is the source for the followin. Hyperlipidemia (SNOMED CT [id number]) 2. Sensorineural Hearing Loss, Bilateral 3. Subjective tinnitus 4. Elevation, blood pressure - no recent elevated bp readings at non va pcp or here 2013 5. Personal History of Malignant Neoplasm of Prostate 6. Other Specified Counseling - nl cscope 5 years ago at non va provider, managed by non va 7. 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 Tinnitus 9. Benign essential hypertension Surgeries: SEP 05, 2023 Proc: Left reverse TSA NOV 15, 2018 Proc: BULB OCT 04, 2018 Proc: CE IOL RIGHT EYE SEP 02, 2018 Proc: CE IOL LEFT JANUARY 25, 2016 Proc: Left TKA Follow Up Exam Eye Medications Art tears prn both eyes needs refill Allergies: LISINOPRIL (Mar 08, 2018) No new Allergies. Vision: OD:CC(with glasses) OD: 20/20-1 Vision: OS:CC(with glasses) 0S: 20/20-1 Confrontational Ocasio: Full to finger counting: Right: Yes Left: Yes Extra Ocular Movement: Normal Pupils: Right: Round Left: Round Size: Right: 3 Left: 3 React to light: Right: Yes Left: Yes Afferent pupil defect: Right:No Grade: Left: No Grade: Intra-ocular pressure (IOP): OD: 11 OS: 10 iCare Dilation: mydriacyl 1% and neosynephrine OU Dec@09:11 /laura/ CONNOR COLLINS HEALTH MEDICAL SOCIOLOGIST Signed: 12/17/2023 09:12 CONNOR COLLINS [facility] Dec 17, 2023 08:52 AM OPHTHALMOLOGY CONS ULT: LOCAL TITLE: OPHTHALMOLOGY CONSULT STANDARD TITLE: OPHTHALMOLOGY CONSULT DATE OF NOTE: DEC 17, 2023@08:52 ENTRY DATE: DEC 17, 2023@08:52:13 AUTHOR: YOVANNY GOODRICH EXP COSIGNER: URGENCY: STATUS: COMPLETED Tech notes reviewed and agreed from today. Vision: OD:CC(with glasses) OD: 2020-1 Vision: OS:CC(with glasses) 0S: 20/20-1 Confrontational Ocasio: Full to finger counting: Right: Yes Left: Yes Extra Ocular Movement: Normal Pupils: Right: Round Left: Round Size: Right: 3 Left: 3 React to light: Right: Yes Left: Yes Afferent pupil defect: Right:No Grade: Left: No Grade: Intra-ocular pressure (IOP): OD: 11 OS: 10 iCare Dilation: mydriacyl 1% and neosynephrine OU Dec@09:11 SLE Right eye: lids/lashes: MGD conjunctiva/sclera: white and quiet cornea: Clear anterior chamber: deep and quiet iris: normal lens: PCIOL well-centered with trace PCO SLE Left eye: lids/lashes: MGD conjunctiva/sclera: white and quiet cornea: Clear anterior chamber: deep and quiet iris: normal lens: PCIOL well-centered with trace PCO DFE Right eye: vitreous: clear optic nerve: pink, 0.3 C/D macula: flat, no edema; 3DD amelanotic nevus IT macula along IT arcade, flat, variable pigmentation, no SRF or lipofuscin vessels: WNL periphery: attached DFE Left eye: vitreous: clear optic nerve: pink, 0.25 C/D macula: flat, no edema vessels: WNL periphery: attached IMPRESSION: # Amelnoatic choroidal nevus IT, right eye - Baseline OPTOS photos: 2019, appears stable - Asymptomatic - No concerning characteristics - Monitor # Pseudophakia OU - IOL well centered, no visually significant opacifications - Monitor # Mild dry eye syndrome OU - Recommended AT's qid OU - Recommended warm compresses and lid scrubs QHS OU # Refractive error, presbyopia - MRx dispensed by optom RTC: 12m for V/T/D/MRx + optos + FAF, sooner PRN /es/ YOVANNY GOODRICH MD Staff Agricultural Commodities Grader Signed: 12/17/2023 09:53 YOVANNY GOODRICH [facility]
--- OUTSIDE RECORDS SUMMARY | 2024-05-05 10:58 | XMS_ITS | Encounter Summary ---
Author Name [facility] [place] [facility] [place] Address [address] [place] [address] Care Team Providers Care Unstacker Name Role Phone JAN BRISENO Primary Care [...] French's Name Patient's Relationship to Policy French [facility] (WNR) MEDICARE ADVANTAGE MEDIC ARE OTILIA RAMESH Claire Sep 17, 2018 [id number] [phone] BENJAMÍN ROSA PATIENT MEDICARE (WNR) MEDICARE (M) PART A Mar 17, 2007 PART A [id number] [phone] BENJAMÍN ROSA PATIENT MEDICARE (WNR) MEDICARE (M) PART B Mar 17, 2007 PART B [id number] [phone] BENJAMÍN ROSA PATIENT Selected Encounter This section includes the information on record at [place] for the Encounter. Date/Time Encounter Type Encounter Description Reason Provider Source Oct 23, 2023 09:00 AM SELF CARE MNGMENT TRAINING PHYSICAL THERAPY ICD-10-CM M25.512 Pain in left shoulder DAYANA CONRAD Encounter Template Text not used by [facility] Assessments - Encounter Diagnoses This section includes the primary and secondary diagnoses documented for the Encounter. Date/Time Primary/Secondary Diagnosis Diagnosis Name Provider Source Oct 23, 2023 09:33 AM PRIMARY Pain in left shoulder CONRAD,DAYANA Keanu [facility] Plan of Treatment: Future Appointments (+ 6 months) and Future Tests (+/- 45 days) The Plan of Treatment section includes future care activities for the patient from all [place] [facility] [facility]. This section includes future appointments and future orders which are active, pending or scheduled. Future Appointments This section includes appointments that were scheduled to occur 6 months from the date of the Encounter, up to a maximum of 20 appointments. The data comes from all [place] treatment facilities. Appointment Date/Time Appointment Type Appointme nt Facility Name Oct 30, 2023 09:30 AM AMBULATORY - REHAB MEDICIN E [facility] Oct 31, 2023 10:30 AM AMBULATORY - SURGERY [facility] Oct 31, 2023 05:10 PM AMBULATORY - REHAB MEDICIN E [facility] Nov 13, 2023 09:00 AM AMBULATORY - REHAB MEDICIN E [facility] Nov 20, 2023 10:00 AM [facility]ATORY - SURGERY [facility] Nov 20, 2023 11:00 AM [facility]IC[facility] Dec 17, 2023 08:40 AM AMBULATORY - SURGERY [facility] January 24, 2024 09:45 AM AMBUL[facility]ORY - [place] [facility] Mar 18, 2024 08:00 AM AMBULATORY - NONE [facility] Mar 18, 2024 09:00 AM AMBULATORY - MEDICINE [facility] Social History: Smoking Status (Most current) and Tobacco Use (All prior to encounter date) This section includes the most current, and the historical, smoking and tobacco- related health factors from the [place] facility where the Encounter took place. Current Smoking Status This section includes the most current smoking, or tobacco-related health factor, from the [place] facility where the Encounter took place. Date/Time Current Smoking Status Comment Santiago kwong Mar 19, 2023 10:30 AM VA-TOBACCO NEVER USED [facility] Tobacco Use History This section includes a history of the smoking, or tobacco-related health factors, that were collected on or before the date of the Encounter. The data comes from the [place] facility where the Encounter took place. Date/Time Smoking Status/Tobacco Use Comment F acility Mar 22, 2022 08:45 AM VA-TOBACCO NEVER USED [facility] May 12, 2021 10:00 AM VA-TOBACCO FORMER USER [facility] May 12, 2021 10:00 AM VA-TOBACCO QUIT 15 YRS OR MORE [facility] Feb 24, 2019 09:35 AM VA-TOBACCO NEVER USED [facility] Feb 18, 2018 01:56 PM FORMER TOBACCO USER 7Y OR GREATE R [facility] Mar 06, 2017 09:31 AM FORMER TOBACCO USER 7Y OR GREATE R [facility] Mar 06, 2016 09:54 AM FORMER TOBACCO USER 7Y OR GREATE R [facility] January 25, 2016 06:31 AM INPT NO TOBACCO USE IN LAST 30 D AYS [facility] January 22, 2015 10:06 AM LIFETIME NON-TOBACCO USER [facility] Apr 15, 2014 10:09 AM FORMER TOBACCO USER 7Y OR GREATE R [facility] February 01, 2011 08:51 AM FORMER TOBACCO USER 7Y OR GREATE R [facility] Advance Directives: All historical and current Section Date Range: From patient's date of to the date document was created. This section includes ALL of a patient's completed or amended [place] Advance and Rescinded Directives. The entries below indicate that a directive exists for the patient, but an actual copy is not included with this document. The data comes from all [facility]. Date Advance Directives Provider Source Oct 13, 2017 ADVANCE DIRECTIVE BALWINDER DORANTESN [facility] Oct 13, 2017 ADVANCE DIRECTIVE DISCUSSION BALWINDER DORANTESN [facility] Radiology Reports: +/- 30 days of the [...] the Encounter. The data comes from all [place] treatment facilities. Date/Time Radiology Report Provider Source Oct 16, 2023 09:24 AM SHOULDER LEFT 4V(AP,Y VIEW, GRASHEY & AXILLARY): MOEBENJAMÍN LINSEY [id number] -[id number] M Exm Date: OCT 16, 2023@09:24 Req Phys: MARCUS LOMAX Pat Loc: [facility] ORTHO COORD PHONE (Req'g L Img Loc: MAIN X-RAY Service: Unknown (Case [id number] COMPLETE) SHOULDER LEFT 4V(AP,Y VIEW, GRASH(RAD Detailed) CPT:79978 Proc Modifiers : LEFT Reason for Study: post op Clinical History: [place] IS NOT under investigation for COVID-19 or is COVID-19 negative post op Responsible provider name and phone number to notify for critical findings if other than user placing the order and pager listed below: User placing orders pager: LAST CREATININE 0.8 (07/03/23) Report Status: Verified Date Reported: OCT 17, 2023 Date Verified: OCT 17, 2023 Wind Instrument Repairer E-Sig: Report: SHOULDER LEFT 4V(AP,Y VIEW, GRASHEY & AXILLARY) HISTORY: post op COMPARISON: 09/05/2023 TECHNIQUE: 4 view(s) of the left shoulder, submitted to the [place] National Teleradiology Program (NTP) for interpretation. FINDINGS: [...] of hardware complication. READING PHYSICIAN: Navneet Hinson -[phone] 10/17/2023 5:19 [facility] National Teleradiology Program [phone] (For Medical Practitioner Use Only) Attention Patients / Veterans: If you have questions or concerns about these test results, please contact your ordering provider or primary care team. Primary Interpreting Staff: RADIOLOGY,OUTSIDE SERVICE, Staff Physician / RADIOLOGY,OUTSIDE SERVICE [facility] Encounter Notes: All associated encounter notes This section contains the clinical notes associated to the Encounter. Date/Time Encounter Note(s) Provider Source Oct 23, 2023 08:27 AM PHYSICAL THERAPY N OTE: LOCAL TITLE: PT-PROGRESS NOTE STANDARD TITLE: PHYSICAL THERAPY NOTE DATE OF NOTE: OCT 23, 2023@08:27 ENTRY DATE: OCT 23, 2023@08:27:13 AUTHOR: CONRAD,DAYANA K EXP COSIGNER: URGENCY: STATUS: COMPLETED PT tx: ther ex 15', self care 15' PT dx: left shoulder pain # of VISITS: 3 # of CX/NS: 0 SUBJECTIVE: (See problem list for complete PMH) Relevant PMH: Surgical Date: 09/05/23 SURGEON: RAHEEL DELGADILLO ATTENDING: MARCUS LOMAX Patient is 6 weeks 6 days s/p L rTSA. He stated the is feeling very well over all. Only occasional discomfort. *No AROM into IR, ER, or abduction >45 deg for 6 weeks. Combined IR, horiz adduction, extension limited until at least 12 weeks post- op. Pt to avoid impact activities including free weights, contact sports, and hammering with surgical arm. Red Flags: (+) personal history of cancer. OBJECTIVE: OBSERVATION: [place] Posture: relaxed mannerisms with natural arm swing SHOULDER PROM: Flexion(100-138): 150 Abduction(129): 110 Ext Rotation(30-38): 25 Int Rotation(L2):deferred to 12 weeks SHOULDER STRENGTH/MMT: defer 12 weeks d/t post-op precautions. PT INTERVENTIONS: ther ex: - Scap sets, to be performed frequently throughout the day. - Submax isometrics: flex/ext/abd/ER, hold each 3 seconds, 2 sets of 15 reps, 1-2x/day. special care with posterior deltoid to avoid shoulder hyperextension caution with extension to not go past neutral into hyperextension and pain free incline at 45 degree angle for AAROM flexion 5 hold x 10 2-3x/day self care management: discussed expected life time restrictions including limited lifting below and above shoulder height; surgeon to set # restriction discussed expected limited shoulder flexion and overhead reaching due to nature of rTSA; current ROM is more than expected and PT will not stretch for more discussed avoid pushing through arm or picking up/pushing with post op arm; common to feel as though he could do more than instructed but reminded of restrictions Response to treatment: pt verbalized understanding of [...] to PT this date with minimal pain. H/o R rTSA has prepared him for expectations for left rTSA. As right shoulder surgery was performed out in the community reviewed with this date activity restrictions and expectations to ensure full understanding. Patient verbalized understanding. Progressed this date without difficulty. REHAB POTENTIAL: good for above goals CLINICAL [...] DAYANA CONRAD DPT COMT PHYSICAL THERAPIST Signed: 10/23/2023 09:38 DAYANA CONRAD [facility]
--- OUTSIDE RECORDS SUMMARY | 2024-05-05 10:58 | XMS_ITS | Encounter Summary ---
Author Name [facility] [place] [facility] [place] Address [address] [place] [address] Care Team Providers Care 3Rd Pressman Name Role Phone JAN BRISENO Primary Care Provider Keli e Insurance Providers: All historical and current [...] French's Name Patient's Relationship to Policy French [facility] (WNR) MEDICARE ADVANTAGE MEDIC ARE OTILIA RAMESH Claire Sep 17, 2018 [id number] [phone] BENJAMÍN ROSA PATIENT MEDICARE (WNR) MEDICARE (M) PART B Mar 17, 2007 PART B [id number] BENJAMÍN ROSA PATIENT MEDICARE (WNR) MEDICARE (M) PART A Mar 17, 2007 PART A [id number] [phone] BENJAMÍN ROSA PATIENT Selected Encounter This section includes the information on record at [place] for the Encounter. Date/Time Encounter Type Encounter Description Reason Provider Source Mar 27, 2024 10:04 AM Outpatient Encounter PRIMARY CARE/MEDICINE MINE RINCON Encounter Template Text not used by [facility] Plan of Treatment: Future Appointments (+ 6 months) and Future Tests (+/- 45 days) The Plan of Treatment section includes future care activities for the [facility] This section includes future appointments and future orders which are active, pending or scheduled. Future Appointments This section includes appointments that were scheduled to occur 6 months from the date of the Encounter, up to a maximum of 20 appointments. The data comes from all [facility]. Appointment Date/Time Appointment Type Appointme nt Facility Name Apr 25, 2024 10:45 AM AMBULATORY - SURGERY [facility] May 26, 2024 07:45 AM AMBULATORY - SURGERY [facility] Lab Results: +/- 30 days of [...] Range Comment Mar 18, 2024 07:33 AM [facility] AST/SGOT Specimen Type: PLASMA No comment entered. Ordering Provider: JAN BRISENO Report Released Date/Time: Mar 19, 2023 11:19 AM Reporting Lab: [facility] [id number] Performing Lab: [facility] [id number] AST/SGOT 14 U/L <34 Mar 18, 2024 07:33 AM [facility] ALT/SGPT Specimen Type: PLASMA No comment entered. Ordering Provider: JAN BRISENO Report Released Date/Time: Mar 19, 2023 11:19 AM Reporting Lab: [facility] [id number] Performing Lab: [facility] [phone] ALT/SGPT 18 U/L <55 Mar 18, 2024 07:33 AM [facility] HEMOGLOBIN A1C Specimen Type: BLOOD Comment: Values [...] Mar 19, 2023 11:19 AM Reporting Lab: [facility] [phone] Performing Lab: [facility] [phone] HEMOGLOBIN A1C 5.7 4.0-6.0 Mar 18, 2024 07:33 AM [facility] CBC Specimen Type: BLOOD No comment entered. Ordering Provider: JAN BRISENO Report Released Date/Time: Mar 19, 2023 11:19 AM Reporting Lab: [facility] [phone] Performing Lab: [facility] [phone] WBC 6.23 10*3/uL 4.0-11.0 RBC 3.95 10*6/uL L 4.6-6.2 HGB 12.2 g/dL L 13.5-17.9 HCT 35.6 L 41-54 MCV 90.1 fL 80-100 MCH 30.9 pg 27-33 MCHC 34.3 g/dL 32.0-37.5 PLT 245 10*3/uL 150-400 MPV 9.8 fL 7.4-10.4 RDW 14.6 H 11.5-14.5 Mar 18, 2024 07:33 AM [facility] BASIC METABOLIC PANEL+MG Specimen Type: PLASMA No comment entered. Ordering Provider: JAN BRISENO Report Released Date/Time: Mar 19, 2023 11:19 AM Reporting Lab: [facility] [phone] Performing Lab: [facility] [phone] CREATININE 0.9 mg/dL 0.7-1.2 UREA NITROGEN 23 mg/dL 8-26 GLUCOSE 101 mg/dL H 70-100 SODIUM 141 mmol/L 136-145 POTASSIUM 4.5 mmol/L 3.5-5.1 CHLORIDE 107 mmol/L 98-107 CO2 26 mmol/L 22-29 CALCIUM 9.9 mg/dL 8.4-10.2 MAGNESIUM 2.1 mg/dL 1.6-2.6 ANION GAP 8 mmol/L 5-15 .CREAT EGFR(CKD-EPI) 86 >60 Mar 18, 2024 07:33 AM [facility] LIPID PANEL,NON-FASTING Specimen Type: PLASMA No comment entered. Ordering Provider: JAN BRISENO Report Released Date/Time: Mar 19, 2023 11:19 AM Reporting Lab: [facility] [phone] Performing Lab: [facility] [address] CHOLESTEROL 180 mg/dL <199 .HDL 49 mg/dL >40 LDL CALCULATION 112 mg/dL H <99 VLDL CALCULATION 19 mg/dL <29 NON HDL CHOLESTEROL 131 mg/dL H <129 TRIG(NON FASTING) 97 mg/dL <149 Mar 18, 2024 07:33 AM [facility] PSA Specimen Type: SERUM Comment: Specimen received is PLASMA. Ordering Provider: JAN BRISENO Report Released Date/Time: Mar 18, 2024 09:54 AM Reporting Lab: [facility] [phone] Performing Lab: [facility] [address] PSA 0.04 ng/mL <4.00 Mar 18, 2024 07:33 AM [facility] IRON GROUP Specimen Type: SERUM Comment: Specimen received is PLASMA. Ordering Provider: JAN BRISENO Report Released Date/Time: Mar 18, 2024 09:53 AM Reporting Lab: [facility] [phone] Performing Lab: [facility] [phone] IRON 71 ug/dL 65-175 TIBC,CALCULAT ED 264 ug/dL 250-425 FERRITIN 249.1 ng/mL 21.8-274.7 IRON SATURATION 27 20-50 TRANSFERRIN 211 mg/dL 163-382 Social History: Smoking Status (Most current) and [...] Current Smoking Status Comment Santiago ity Mar 18, 2024 09:[address]-TOBACCO QUIT 15 YRS OR MORE [facility] Tobacco Use History This section includes a history of the smoking, or tobacco-related health factors, that were collected on or before the date of the Encounter. The data comes from the [place] facility where the Encounter took place. Date/Time Smoking Status/Tobacco Use Comment F acility Mar 18, 2024 09:00 AM VA-TOBACCO QUIT 15 YRS OR MORE [facility] Mar 19, 2023 10:30 AM VA-TOBACCO NEVER USED [facility] Mar 22, 2022 08:45 AM VA-TOBACCO NEVER USED [facility] May 12, 2021 10:00 AM VA-TOBACCO FORMER USER [facility] May 12, 2021 10:00 AM VA-TOBACCO QUIT 15 YRS OR MORE [facility] Feb 24, 2019 09:35 AM VA-TOBACCO NEVER USED [facility] Feb 18, 2018 01:56 PM FORMER TOBACCO USER 7Y OR GREATE R [facility] Mar 06, 2017 09:31 AM FORMER TOBACCO USER 7Y OR GREATE R [facility] Mar 06, 2016 09:54 AM FORMER TOBACCO USER 7Y OR GREATE R [facility] January 25, 2016 06:31 AM INPT NO TOBACCO USE IN LAST 30 D AYS [facility] January 22, 2015 10:06 AM LIFETIME NON-TOBACCO USER [facility] Apr 15, 2014 10:09 AM FORMER TOBACCO USER 7Y OR GREATE R [facility] February 01, 2011 08:51 AM FORMER TOBACCO USER 7Y OR GREATE R [facility] Advance Directives: All historical and current Section [...] Source Oct 13, 2017 ADVANCE DIRECTIVE JOSE EMARAL [facility] Oct 13, 2017 ADVANCE DIRECTIVE DISCUSSION JOSE EMARAL [facility] Encounter Notes: All associated encounter notes This section contains the clinical notes associated to the Encounter. Date/Time Encounter Note(s) Provider Source Mar 27, 2024 10:04 AM PRIMARY CARE SECUR E MESSAGING: LOCAL TITLE: PRIMARY CARE SECURE MESSAGING STANDARD TITLE: PRIMARY CARE SECURE MESSAGING DATE OF NOTE: MAR 27, 2024@10:04 ENTRY DATE: MAR 27, 2024@10:04:28 AUTHOR: MINE RINCON COSIGNER: URGENCY: STATUS: COMPLETED ------Original Message --- Sent: 03/27/2024 10:01 AM ET From: BENJAMÍN ROSA To: [facility] Primary CareSerg (Rhiannon) Subject: Medication:calcium We had talked about Benjamín taking calcium. I am wondering if he could get a prescription sent to him. Thank you. Brian Rosa [id number] ------Original Message --- Sent: 03/27/2024 11:04 AM ET From: MINE RINCON To: BENJAMÍN ROSA Subject: Medication:calcium Hi Benjamín, I will send this to Serg for review. Let us know if you need anything else. Mine Issa, power plant operator apprentice Manager- Wolf/Serg Hahn /laura/ SOO BARBERN, RN REGISTERED NURSE Signed: 03/27/2024 10:04 Receipt Acknowledged By: 04/02/2024 12:00 /laura/ JAN BRISENO NURSE PRACTITIONER MINE RINCON [facility]
--- OUTSIDE RECORDS SUMMARY | 2024-05-05 10:58 | XMS_ITS | Encounter Summary ---
Author Name [facility] [facility] [place] [facility] [place] Address [address] [place] [address] Care Team Providers Care Patient Safety Tech Name Role Phone JAN BRISENO Primary Care [...] French's Name Patient's Relationship to Policy French [facility] ([facility]) MEDICARE ADVANTAGE MEDIC ARE ABBIKIM RAMESH Claire Sep 17, 2018 [id number] [phone] BENJAMÍN ROSA PATIENT MEDICARE (WNR) MEDICARE (M) PART A Mar 17, 2007 PART A [id number] [phone] BENJAMÍN ROSA PATIENT MEDICARE (WNR) MEDICARE (M) PART B Mar 17, 2007 PART B [id number] [phone] BENJAMÍN ROSA PATIENT Selected Encounter This section includes the information on record at [place] for the Encounter. Date/Time Encounter Type Encounter Description Reason Provider Source Apr 25, 2024 10:45 AM HEARING AID FITTING/CHECKING AUDIOLOGY ICD-10-CM Z01.118 Encntr for exam of ears and hearing w oth abnormal findings RODRIGUEZ EUGENE K IHE Encounter Template Text not used by [place] Assessments - Encounter Diagnoses This section includes the primary and secondary diagnoses documented for the Encounter. Date/Time Primary/Secondary Diagnosis Diagnosis Name Provider Source Apr 25, 2024 11:28 AM PRIMARY Encntr for exam of ears and hearing w oth abnormal findings JHON EUGENE [facility] Apr 25, 2024 11:28 AM SECONDARY Encounter for fitting and adjustment of hearing aid VALORIEJHON YOLIE [place] [facility] Apr 25, 2024 11:28 AM SECONDARY Sensorineural hearing loss, bilateral JHON EUGENE [facility] Apr 25, 2024 11:28 AM SECONDARY Tinnitus, bilateral JHON EUGENE [facility] Plan of Treatment: Future Appointments (+ 6 months) and Future Tests (+/- 45 days) The Plan of Treatment section includes future care activities for the patient from all [place] [facility]. This section includes future appointments and future orders which are active, pending or scheduled. Future Appointments This section includes appointments that were scheduled to occur 6 months from the date of the Encounter, up to a maximum of 20 appointments. The data comes from all [place] treatment facilities. Appointment Date/Time Appointment Type Appointme nt Facility Name May 26, 2024 07:45 AM AMBULATORY - SURGERY [facility] Social History: Smoking Status (Most current) and Tobacco Use (All prior to encounter date) This section includes the most current, and the historical, smoking and tobacco- related health factors from the [place] facility where the Encounter took place. Current Smoking Status This section includes the most current smoking, or tobacco-related health factor, from the [place] facility where the Encounter took place. Date/Time Current Smoking Status Comment Santiago ity Mar 18, 2024 09:00 AM VA-TOBACCO QUIT 15 YRS OR MORE [facility] Tobacco Use History This section includes a history of the smoking, or tobacco-related health factors, that were collected on or before the date of the Encounter. The data comes from the [place] facility where the Encounter took place. Date/Time Smoking Status/Tobacco Use Comment F acility Mar 18, 2024 09:00 AM [place]-TOBACCO QUIT 15 YRS OR MORE [facility] Mar 19, 2023 10:30 AM VA-TOBACCO NEVER USED [facility] Mar 22, 2022 08:45 AM VA-TOBACCO NEVER USED [facility] May 12, 2021 10:00 AM VA-TOBACCO FORMER USER [facility] May 12, 2021 10:00 AM VA-TOBACCO QUIT 15 YRS OR MORE [facility] Feb 24, 2019 09:35 AM VA-TOBACCO NEVER USED [facility] Feb 18, 2018 01:56 PM FORMER TOBACCO USER 7Y OR GREATE R [facility] Mar 06, 2017 09:31 AM FORMER TOBACCO USER 7Y OR GREATE R [facility] Mar 06, 2016 09:54 AM FORMER TOBACCO USER 7Y OR GREATE R [facility] January 25, 2016 06:31 AM INPT NO TOBACCO USE IN LAST 30 D AYS [facility] January 22, 2015 10:06 AM LIFETIME NON-TOBACCO USER [facility] Apr 15, 2014 10:09 AM FORMER TOBACCO USER 7Y OR GREATE R [facility] February 01, 2011 08:51 AM FORMER TOBACCO USER 7Y OR GREATE R [facility] Advance Directives: All historical and current Section Date Range: From patient's date of to the date document was created. This section includes ALL of a patient's completed or amended [place] Advance and Rescinded Directives. The entries below indicate that a directive exists for the patient, but an actual copy is not included with this document. The data comes from all [place] facilities. Date Advance Directives Provider Source Oct 13, 2017 ADVANCE DIRECTIVE JOSE EMARALEMILI CURRIEST. [facility] Oct 13, 2017 ADVANCE DIRECTIVE DISCUSSION BALWINDER DORANTESN [facility] Encounter Notes: All associated encounter notes This section contains the clinical notes associated to the Encounter. Date/Time Encounter Note(s) Provider Source Apr 25, 2024 07:27 AM AUDIOLOGY NOTE: LOCAL TITLE: AUDIOLOGY CLINIC NOTE STANDARD TITLE: AUDIOLOGY NOTE DATE OF NOTE: APR 25, 2024@07:27 ENTRY DATE: APR 25, 2024@07:27:11 AUTHOR: NAVEED EUGENE COSIGNER: URGENCY: STATUS: COMPLETED DIAGNOSIS: Encounter for examination of ears and hearing Sensorineural loss, bilateral Tinnitus, bilateral REASON FOR VISIT: HEARING EVALUATION AND HEARING AID SELECTION, 60 MINUTES: was seen in the clinic today for a comprehensive audiologic evaluation, hearing aid selection, hearing aid service, and counseling. LOCATION OF VISIT (ROOM NUMBER): [id number] The was last seen in this clinic on 01/24/2024. The is Service Connected for Hearing Loss / Tinnitus. [place] was accompanied by his , Nery. The currently wears the following hearing aids: Hearing aids right/left; Fit: May Make: Phonak Model: Audeo M90-R RICs Serial #: [id number] 2P. cShells. Back-Ups Right/Left: Fit 04/28/15 Make: Phonak Model: Audeo V90-13 ALFA Ser#: [id number] 1xp. cShells. HISTORY: seen with a history of sensorineural hearing loss and tinnitus. His reported a decrease in his hearing for the past 6 months. He denied any change in tinnitus. He denied other otologic symptoms. Patient is eligible for new hearing aids. 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 PROCEDURES: OTOSCOPY: Bilaterally: Free of excessive cerumen. Normal appearing TM's and canals. TYMPANOMETRY: RIGHT EAR: Type A Pressure: Normal Compliance: Normal Volume: Normal LEFT EAR: Type A Pressure: Normal Compliance: Normal Volume: Normal AUDIOMETRICS: Air conduction, bone conduction and speech testing were completed bilaterally. Transducer: Insert phones, Circumaural headphones Reliability: Good RIGHT EAR (Hz) 250 390 405 7243 1500 2000 3000 4000 6000 8000 Air: See Audiogram Display under Tools / AUDIOLOGY / ROES or see JASON Database Bone: See Audiogram Display under Tools / AUDIOLOGY / ROES or see JASON Database LEFT EAR (Hz) 250 011 515 7067 1500 2000 3000 4000 6000 8000 Air: See Audiogram Display under Tools / AUDIOLOGY / ROES or see JASON Database Bone: See Audiogram Display under Tools / AUDIOLOGY / ROES or see JASON Database - All thresholds are in dB HL * = Masked Threshold SRT: Spondees Right: 60 dB HL Left: 55 dB HL Pure tone results were consistent with speech jtac thresholds. WORD RECOGNITION: Recorded / -22 word list RIGHT EAR: 36% Level: 85* dB LEFT EAR: 40% Level: 90* dB SUMMARY: Hearing is stable compared to the last examination. RIGHT EAR: Moderate sloping to profound sensorineural hearing loss with poor word recognition. LEFT EAR: Moderate sloping to profound sensorineural hearing loss with poor word recognition. DISCUSSION: - Results were reviewed with the patient. - [place] continues to be a good candidate for hearing aid use. However benefit may be limited due to poor word recognition. Discussed cochlear implants, which he is not interested in at this time, but will consider. - [place] has hearing loss that interferes with or restricts communication to the extent that it affects their active participation in the provision of health care services as determined by the mechanical engineering professor. AMPLIFICATION: - The 's current hearing aids were cleaned and checked (newer and older pair). Changed wax traps. Reprogrammed hearing aids to match today's Audiogram for both sets. [place] reported improvement in audibility following adjustments. Recommended he try wearing his newer hearing aids more. - Different styles/technologies were reviewed with consideration given to veterans listening situations and lifestyle needs. [place] is interested in pursuing similar hearing aids to current devices. He had a Keenan Select that he stated he didn't use much. Recommended we try again with a remote microphone (such as using at least in the car, etc.), which he agreed to. - [place] counseled using a standard curriculum on expectations for new hearing aids, VA procedures and trial period. - Earmold impressions taken bilaterally without complication. Otoscopy normal post earmold impression procedure, AU. - Hearing aids ordered: Phonak Audeo L90-RL ALFA hearing aids (silver edwards, Size 2xP receivers, canal cShells, AOVs, Wax traps, removal strings) were selected and ordered today. - Accessories ordered: Keenan On V2 PLAN: - will be scheduled for a 60-minute hearing aid fitting appointment. - Regular follow-up recommended to monitor for changes in hearing, or as medically indicated. - PATIENT IS IN AGREEMENT WITH THIS PLAN. /laura/ NAVEED EUGENE INORGANIC CHEMISTRY PROFESSOR Signed: 04/25/2024 11:44 NAVEED EUGENE [facility]
--- OUTSIDE RECORDS SUMMARY | 2024-05-05 10:59 | XMS_ITS | Encounter Summary ---
Author Name [facility] [place] Address [address] [place] [address] Care Team Providers Care Decontamination Technician Name Role Phone JAN BRISENO Primary Care [...] French's Name Patient's Relationship to Policy French [facility] MEDIC[facility] ADVANTAGE MEDIC ARE OTILIA Rangel Sep 17, 2018 [id number] [phone] BENJAMÍN ROSA PATIENT MEDICARE (WNR) MEDICARE (M) PART A Mar 17, 2007 PART A [id number] [phone] BENJAMÍN ROSA PATIENT MEDICARE (WNR) MEDICARE (M) PART B Mar 17, 2007 PART B [id number] [phone] BENJAMÍN ROSA PATIENT Selected Encounter This section includes the information on record at [place] for the Encounter. Date/Time Encounter Type Encounter Description Reason Provider Source Jun 27, 2023 10:00 AM OFFICE O/P EST LOW 20-29 MIN ORTHO/JOINT SURG ICD-10-CM M19.012 Primary osteoarthritis, left shoulder MARCUS LOMAX Encounter Template Text not used by [place] Assessments - Encounter Diagnoses This section includes the primary and secondary diagnoses documented for the Encounter. Date/Time Primary/Secondary Diagnosis Diagnosis Name Provider Source Jun 27, 2023 01:52 PM PRIMARY Primary osteoarthritis, left shoulder MARCUS LOMAX [facility] Plan of Treatment: Future Appointments (+ 6 months) and Future Tests (+/- 45 days) The Plan of Treatment section includes future care activities for the patient from all [place] [facility]. This section includes future appointments and future orders which are active, pending or scheduled. Future Appointments This section includes appointments that were scheduled to occur 6 months from the date of the Encounter, up to a maximum of 20 appointments. The data comes from all [place] treatment [facility]. Appointment Date/Time Appointment Type Appointme nt Facility Name Jul 03, 2023 09:15 AM AMBULATORY - NONE [facility] Jul 03, 2023 09:30 AM AMBULATORY - MEDICINE [facility] Jul 03, 2023 10:15 AM AMBULATORY - SURGERY [facility] Jul 05, 2023 09:00 AM AMBULATORY - SURGERY [facility] Aug 14, 2023 10:01 AM AMBULATORY - MEDICINE [facility] Aug 20, 2023 09:00 AM AMBULATORY - REHAB MEDICIN E [facility] Aug 20, 2023 09:45 AM AMBUL[facility]ORY - SURGERY [facility] Aug 20, 2023 10:30 AM [facility] Aug 20, 2023 11:00 AM [facility] Sep 05, 2023 12:00 PM AMBULATORY - SURGERY [place] [facility] Sep 05, 2023 12:15 PM AMBULATORY - NONE [place] [facility] Sep 18, 2023 09:30 AM AM[facility]UL[facility]ORY - [facility]ERY [facility] Sep 18, 2023 10:30 AM AMBULATORY - REHAB MEDICIN E [facility] Sep 27, 2023 03:30 PM AMBULATORY - SURGERY [facility] Oct 16, 2023 08:30 AM AMBULATORY - REHAB MEDICIN E [facility] Oct 16, 2023 10:00 AM [facility] - [facility]ONE [facility] Oct 23, 2023 09:00 AM AMBULATORY - REHAB MEDICIN E [facility] Oct 30, 2023 09:30 AM AMBULATORY - REHAB MEDICIN E [facility] Oct 31, 2023 10:30 AM AMBULATORY - SURGERY [facility] Oct 31, 2023 05:10 PM AMBULATORY - REHAB MEDICIN E [facility] Active, Pending, and Scheduled Orders [...] Date/Time Test Type Test Details Facility Name Jun 27, 2023 12:00 AM Laboratory - Blood Bank Order TYPE & SCREEN - LAB BLOOD SP [facility] Lab Results: +/- 30 days [...] Result - Unit Interpretation Reference Range Comment Jul 03, 2023 09:08 AM [facility] PROTHROMBIN TIME/INR Specimen Type: PLASMA No comment entered. Ordering Provider: ALVARO WALTERS ON W Report Released Date/Time: Jun 27, 2023 10:57 AM Reporting Lab: [facility] [id number] Performing Lab: [facility] [id number] .INR 1.0 0.8-1.1 .PT 11.3 s 9.4-12.5 Jul 03, 2023 09:08 AM [facility] ALBUMIN Specimen Type: PLASMA No comment entered. Ordering Provider: ALVARO WALTERS ON W Report Released Date/Time: Jun 27, 2023 10:57 AM Reporting Lab: [facility] [id number] Performing Lab: [facility] [phone] ALBUMIN 4.4 g/dL 3.5-5.2 Jul 03, 2023 09:08 AM [facility] HEMOGLOBIN A1C Specimen Type: BLOOD Comment: Values obtained from A1C measurements can vary. For typical A1C assays, a reported value of 7.0 could actually be between 6.7 and 7.3 if measured by a reference method. A reported value of 9.0 could actually be between 8.7 and 9.3. Ref: http://www.ngs p.org/CAPdata. asp Ordering Provider: ALVARO WALTERS ON W Report Released Date/Time: Jun 27, 2023 10:57 AM Reporting Lab: [facility] [phone] Performing Lab: [facility] [phone] HEMOGLOBIN A1C 5.6 4.0-6.0 Jul 03, 2023 09:08 AM [facility] BASIC METABOLIC PANEL+MG Specimen Type: PLASMA No comment entered. Ordering Provider: ALVARO WALTERS ON W Report Released Date/Time: Jun 27, 2023 10:57 AM Reporting Lab: [facility] [phone] Performing Lab: [facility] [phone] CREATININE 0.8 mg/dL 0.7-1.2 UREA NITROGEN 22 mg/dL 8-26 GLUCOSE 108 mg/dL H 70-100 SODIUM 140 mmol/L 136-145 POTASSIUM 3.9 mmol/L 3.5-5.1 CHLORIDE 107 mmol/L 98-107 CO2 25 mmol/L 22-29 CALCIUM 9.5 mg/dL 8.4-10.2 MAGNESIUM 2.0 mg/dL 1.6-2.6 ANION GAP 8 mmol/L 5-15 .CREAT EGFR(CKD-EPI) 89 >60 Jul 03, 2023 09:08 AM [facility] CBC & DIFF Specimen Type: BLOOD Comment: Automated Differential Performed Ordering Provider: ALVARO WALTERS ON W Report Released Date/Time: Jun 27, 2023 10:57 AM Reporting Lab: [facility] [phone] Performing Lab: [facility] [phone] WBC 6.22 10*3/uL 4.0-11.0 RBC 4.11 10*6/uL L 4.6-6.2 HGB 12.7 g/dL L 13.5-17.9 HCT 37.6 L 41-54 MCV 91.5 fL 80-100 MCH 30.9 pg 27-33 MCHC 33.8 g/dL 32.0-37.5 PLT 291 10*3/uL 150-400 MPV 10.7 fL H 7.4-10.4 NEUT 56.3 40.0-80.0 LYMPHS 33.0 15.0-45.0 MONO 5.5 2.0-12.0 EOSINO 3.9 0.0-6.0 BASO 1.1 0.0-2.0 RDW 13.4 11.5-14.5 ABS LYMPH 2.05 10*3/uL 1.0-4.0 ABS MONO 0.34 10*3/uL 0.1-1.0 ABS NEUT 3.51 10*3/uL 2.0-7.7 ABS EOS 0.24 10*3/uL 0-0.5 ABS BASO 0.07 10*3/uL 0-0.2 IG(META,MYELO ,PRO) 0.2 ABS IMMATURE GRAN 0.01 10*3/uL 0-0.1 Social History: Smoking Status (Most current) and [...] Facil ity Mar 19, 2023 10:30 AM [place]-TOBACCO NEVER USED [facility] Tobacco Use History This section includes a history of the smoking, or tobacco-related health factors, that were collected on or before the date of the Encounter. The data comes from the [place] facility where the Encounter took place. Date/Time Smoking Status/Tobacco Use Comment F acility Mar 22, 2022 08:45 AM VA-TOBACCO NEVER USED [facility] May 12, 2021 10:00 AM VA-TOBACCO FORMER USER [facility] May 12, 2021 10:00 AM VA-TOBACCO QUIT 15 YRS OR MORE [facility] Feb 24, 2019 09:35 AM VA-TOBACCO NEVER USED [facility] Feb 18, 2018 01:56 PM FORMER TOBACCO USER 7Y OR GREATE R [facility] Mar 06, 2017 09:31 AM FORMER TOBACCO USER 7Y OR GREATE R [facility] Mar 06, 2016 09:54 AM FORMER TOBACCO USER 7Y OR GREATE R [facility] January 25, 2016 06:31 AM INPT NO TOBACCO USE IN LAST 30 D AYS [facility] January 22, 2015 10:06 AM LIFETIME NON-TOBACCO USER [facility] Apr 15, 2014 10:09 AM FORMER TOBACCO USER 7Y OR GREATE R [facility] February 01, 2011 08:51 AM FORMER TOBACCO USER 7Y OR LACI R [facility] Advance Directives: All historical and current Section Date Range: From patient's date of to the date document was created. This section includes ALL of a patient's completed or amended [place] Advance and Rescinded Directives. The entries below indicate that a directive exists for the patient, but an actual copy is not included with this document. The data comes from all [place] facilities. Date Advance Directives Provider Source Oct 13, 2017 [facility] Oct 13, 2017 ADVANCE DIRECTIVE DISCUSSION MARAL DORANTES [facility] Encounter Notes: All associated encounter notes This section contains the clinical notes associated to the Encounter. Date/Time Encounter Note(s) Provider Source Jun 27, 2023 10:12 AM ORTHOPEDIC SURGERY ATTENDING NOTE: LOCAL TITLE: ORTHOPEDIC CLINIC NOTE STANDARD TITLE: ORTHOPEDIC SURGERY ATTENDING NOTE DATE OF NOTE: JUN 27, 2023@10:12 ENTRY DATE: JUN 27, 2023@10:12:33 AUTHOR: ALFRED MENDEZ EXP COSIGNER: MARCUS LOMAX URGENCY: STATUS: COMPLETED ORTHOPEDIC CLINIC NOTE Has ADDENDA ORTHOPEDIC CLINIC NOTE CC: Left shoulder pain HPI: Benjamín Rosa is a 83-year-old male presenting to clinic with chronic left shoulder pain. Patient shoulder pain has been progressively worsening for a long period of time, and he reports it is most prominent over the superior aspect of the shoulder. His pain is a 4-5/10 and physical activity exacerbates the pain to a 6-7/10 in severity. Patient takes ~400 mg ibuprofen daily which provides some, but minimal, relief. No previous steroid injections to the left side, but patient previously had them done on the right side where they only provided 4-6 weeks of benefit. Patient had a successful right rTSA at [facility] in September [address] Lomax. Patient would like to forego any left shoulder injections and proceed to replacing the left shoulder. PMHx: HTN, HLD, h/o prostate cancer PSurgHx: R rTSA September 2022 at [facility], L TKA 2015 FHx: No FHx of bleeding, clotting, or adverse reactions to anesthesia. Allergies: LISINOPRIL (Mar 08, 2018) SH: Lives in a home [place] of [place], [place] with his . 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 Physical Exam: CONSTITUTIONAL: NAD. A&Ox3. CARDIOVASCULAR: Extremities warm and well perfused. RESPIRATORY: No increased WOB on RA. MSK: Focused Examination of Right Shoulder: Appearance: Skin intact. Palpation: Non-TTP over coracoid, anterior GH joint, posterior GH joint, AC joint, acromion, and deltoid. AROM: Abduction to 85, forward flexion to 75, external rotation to 45, internal rotation to L2/3. Sensation: SILT over axillary, median, ulnar, and radial distributions. Strength: 4/5 shoulder abduction/adduction, 4/5 with bear hug and belly press Pulses: 2+ radial and ulnar pulses. Special Tests: +Empty can Imaging: Left Shoulder XRs 4 Views (11/23/22): Impression (per Dr. Rivera, radiologist): No acute fracture. No dislocation. No AC separation. Humeral head is high riding consistent with rotator cuff tear. This results in narrowing of the subacromial space. 7 mm well-corticated chronic appearing ossific density at the cephalad aspect of the AC joint line is likely degenerative or possibly posttraumatic. Spur formation at the inferior aspect of the distal clavicle. Osteophyte formation at the inferomedial humeral head. Subcortical cystic change and sclerosis in the region of the greater tuberosity likely secondary to insertional rotator cuff pathology. Assessment: Benjamín Rosa is a 83-year-old male with advanced rotator cuff arthropathy of his left shoulder. Imaging from November demonstrates superior migration of the humeral head and acetabularization of the acromion. Patient has failed previous conservative treatment measures, and he would not like to proceed with any sort of left shoulder injection due to limited benefit seen previously with his right shoulder. Due to the severe nature of his left rotator cuff arthropathy, reverse total shoulder arthroplasty is indicated. Patient interested in getting scheduled for the L rTSA. Patient was counseled on the risks of the procedure including but not limited to infection, bleeding, intraoperative fracture, neurovascular injuries, and joint dislocation. Patient will begin the scheduling process and obtain all standard preoperative labs and medical clearance. Patient understanding of the plan and all questions were answered. Plan: - Plan for left reverse total shoulder arthroplasty with Dr. Lomax - Standard preoperative labs and medical clearance Patient seen and discussed with staff surgeon Dr. Lomax. Alfred Mendez, MS3 /es/ ALFRED MENDEZ MEDICAL STUDENT Signed: 06/27/2023 11:03 /es/ MARCUS LOMAX MD STAFF ORTHOPAEDIC SURGEON Cosigned: 06/27/2023 13:52 06/27/2023 ADDENDUM STATUS: COMPLETED Agree with Dr. Mendez. Signijnficant pain in non-operative shoulder. Function is decreasing. + TELEVISION RECEIVER ANALYZER PE: FF 90 AB 90 X-rays- humeral head highriding A: L rotator cuff tear arthropathy P: Schedule for L rTSA /es/ MARCUS LOMAX MD STAFF ORTHOPAEDIC SURGEON Signed: 06/27/2023 13:55 06/27/2023 ADDENDUM STATUS: COMPLETED Hotel Custodian was alerted that ed is indicated for Left reverse TSA and requested to meet with real estate underwriter to discuss next steps in surgical process Hotel Custodian met with and his . Reviewed next surgical date if medically cleared is mid dec with Dr. Lomax. [place] agreeable to this and denies wanting [facility]. Scheduled pre-screening eval for 07/03- appt with anes, ekg, and blood work If medically cleared we can finalize a surgical date, and place post op orders at that time. Per Dr. Lomax consent can be signed DOS if needed. [place] confirmed he is followed by a dentist and denies any concerns- last visit within the year. Denies any falls in the last 6 months Vitamin D ordered [place] provided real estate underwriter's direct call back number, pre-screening education, appt letters for pre-screening evaluation. scheduled phone call with on 07/05 to check on clearence. If in the chart we are able to finalize surgery and real estate underwriter will mail out all of his education. and his verbalized agreement to above plan. They were both walked out of clinic after interaction /laura/ MARIXA NAVARRO, RN REGISTERED STAFF NURSE Signed: 06/27/2023 16:08 ALFRED MENDEZ [facility]
--- OUTSIDE RECORDS SUMMARY | 2024-05-05 10:59 | XMS_ITS | Encounter Summary ---
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 Date/Time Encounter Type Encounter Description Reason Provider Source Aug 14, 2023 10:01 AM EMERGENCY DEPT VISIT LOW MDM EMERGENCY DEPT ICD-10-CM J20.9 Acute bronchitis, unspecified DINO MEADE Encounter Template Text not used by [place] Assessments - Encounter Diagnoses This section includes the primary and secondary diagnoses documented for the Encounter. Date/Time Primary/Secondary Diagnosis Diagnosis Name Provider Source Aug 14, 2023 11:02 AM PRIMARY Acute bronchitis, unspecified DINO MEADE [facility] Plan of Treatment: Future Appointments (+ 6 months) and Future Tests (+/- 45 days) The Plan of Treatment section includes [facility] care activities for the [facility] [place] [facility] This section includes future appointments and future orders which are active, pending or scheduled. Future Appointments This section includes appointments that were scheduled to occur 6 months from the date of the Encounter, up to a maximum of 20 appointments. The data comes from all [facility]. Appointment Date/Time Appointment Type Appointme nt Facility Name Aug 20, 2023 09:00 AM AMBULATORY - REHAB MEDICIN E [facility] Aug 20, 2023 09:45 AM AMBULATORY - SURGERY [facility] Aug 20, 2023 10:30 AM AMBULATORY - NONE [facility] Aug 20, 2023 11:00 AM AMBULATORY - NONE [facility] Sep 05, 2023 12:00 PM AMBULATORY - SURGERY [facility] Sep 05, 2023 12:15 PM AMBULATORY - NONE [facility] Sep 18, 2023 09:30 AM AMBULATORY - SURGERY [facility] Sep 18, 2023 10:30 AM AMBULATORY - REHAB MEDICIN E [facility] Sep 27, 2023 03:30 PM AMBULATORY - SURGERY [facility] Oct 16, 2023 08:30 AM AMBULATORY - RE[facility]AB [facility] Oct 16, 2023 10:00 AM AMBULATORY - NONE [facility] Oct 23, 2023 09:00 AM AMBULATORY - REHAB MEDICIN E [facility] Oct 30, 2023 09:30 AM AMBULATORY - REHAB MEDICIN E [facility] Oct 31, 2023 10:30 AM AMBULATORY - SURGERY [facility] Oct 31, 2023 05:10 PM AMBULATORY - REHAB MED[facility] Nov 13, 2023 09:00 AM AMBULATORY - REHAB MED[facility] Nov 20, 2023 10:00 AM AMBULATORY - SURGERY [facility] Nov 20, 2023 11:00 AM AMBULATORY - MEDICINE [facility] Dec 17, 2023 08:40 AM [facility]ULATORY [facility] SUR[facility]ERY [facility] January 24, 2024 09:45 AM AMBULATORY - SURGERY [facility] Active, Pending, and Scheduled Orders This section includes a listing of several types of active, pending, and scheduled orders, including clinic medications orders, diagnostic test orders, procedure orders and consult orders; where the start date of the order is 45 days before the date of the Encounter or 45 days after the date of theEncounter. The data comes from all [place] treatment facilities. Test Date/Time Test Type Test Details Facility Name Sep 05, 2023 07:28 PM Laboratory - Blood Bank Order TYPE & SCREEN - LAB BLOOD WC [facility] Lab Results: +/- 30 days of the encounter This section includes the Chemistry and Hematology Lab Results on record with [place] for the patient. Radiology Reports and Pathology Reports are provided separately, in subsequent sections. Lab Results This section contains the Chemistry/Hematology Results that were resulted 30 days before or 30 daysafter the date of the Encounter. Date/Time Source Result Type Result - Unit Interpretation Reference Range Comment Sep 06, 2023 09:11 AM [facility] CBC Specimen Type: BLOOD Comment: Specimen received in Lab at: 0910 Ordering Provider: RAHEEL DELGADILLO Report Released Date/Time: Sep 05, 2023 07:28 PM Reporting Lab: [facility] [id number] Performing Lab: [facility] [id number] WBC 8.69 10*3/uL 4.0-11.0 RBC 3.76 10*6/uL L 4.6-6.2 HGB 11.5 g/dL L 13.5-17.9 HCT 34.7 L 41-54 MCV 92.3 fL 80-100 MCH 30.6 pg 27-33 MCHC 33.1 g/dL 32.0-37.5 PLT 261 10*3/uL 150-400 MPV 11.0 fL H 7.4-10.4 RDW 13.3 11.5-14.5 Sep 06, 2023 09:11 AM [facility] BASIC METABOLIC PANEL+MG Specimen Type: PLASMA Comment: Specimen received in Lab at: 0910 Ordering Provider: RAHEEL DELGADILLO Report Released Date/Time: Sep 05, 2023 07:28 PM Reporting Lab: [facility] [phone] Performing Lab: [facility] [phone] CREATININE 0.9 mg/dL 0.7-1.2 UREA NITROGEN 15 mg/dL 8-26 GLUCOSE 141 mg/dL H 70-100 SODIUM 134 mmol/L L 136-145 POTASSIUM 4.1 mmol/L 3.5-5.1 CHLORIDE 101 mmol/L 98-107 CO2 24 mmol/L 22-29 CALCIUM 8.6 mg/dL 8.4-10.2 MAGNESIUM 1.7 mg/dL 1.6-2.6 ANION GAP 9 mmol/L 5-15 .CREAT EGFR(CKD-EPI) 86 >60 Sep 06, 2023 05:44 AM [facility] FINGERSTICK GLUCOSE Specimen Type: BLOOD Comment: Save Result Ordering Provider: FALLON MUNGUIA Report Released Date/Time: Sep 06, 2023 06:02 AM Reporting Lab: [facility] [phone] Performing Lab: [facility] [phone] FINGERSTICK GLUCOSE 140 mg/dL 70-100 Sep 05, 2023 08:25 PM [facility] PROTHROMBIN TIME/INR Specimen Type: PLASMA No comment entered. Ordering Provider: EMILY REVELES Report Released Date/Time: Sep 05, 2023 07:28 PM Reporting Lab: [facility] [phone] Performing Lab: [facility] Sep 05, 2023 08:25 PM [facility] ACT PART THROMBO TIME Specimen Type: PLASMA Comment: ~Draw on admission. Call IV team to draw on admission. Ordering Provider: EMILY REVELES Report Released Date/Time: Sep 05, 2023 07:28 PM Reporting Lab: [facility] [phone] Performing Lab: [facility] [phone] APTT 30.8 s 25.1-36.5 Sep 05, 2023 08:25 PM [facility] CBC Specimen Type: BLOOD No comment entered. Ordering Provider: EMILY REVELES Report Released Date/Time: Sep 05, 2023 07:28 PM Reporting Lab: [facility] [phone] Performing Lab: [facility] [phone] WBC 8.60 10*3/uL 4.0-11.0 RBC 3.66 10*6/uL L 4.6-6.2 HGB 11.3 g/dL L 13.5-17.9 HCT 34.3 L 41-54 MCV 93.7 fL 80-100 MCH 30.9 pg 27-33 MCHC 32.9 g/dL 32.0-37.5 PLT 225 10*3/uL 150-400 MPV 10.9 fL H 7.4-10.4 RDW 13.4 11.5-14.5 Sep 05, 2023 08:25 PM [facility] BASIC METABOLIC PANEL+MG Specimen Type: PLASMA No comment entered. Ordering Provider: EMILY REVELES Report Released Date/Time: Sep 05, 2023 07:28 PM Reporting Lab: [facility] [phone] Performing Lab: [facility] [phone] CREATININE 0.9 mg/dL 0.7-1.2 UREA NITROGEN 17 [...] Pain Height Weight Body Mass Index Source Aug 14, 2023 10:29 AM 98 F 89 /min 155/98 mm[Hg] 16 /min 1 [place] [facility] Social History: Smoking Status (Most current) and Tobacco Use (All prior to encounter date) This section includes the most current, and the historical, smoking and tobacco- related health factors from the [place] facility where the Encounter took place. Current Smoking Status This section includes the most current smoking, or tobacco-related health factor, from the [place] facility where the Encounter took place. Date/Time Current Smoking Status Comment Santiago kwong Mar 19, 2023 10:30 AM VA-TOBACCO NEVER USED [facility] Tobacco Use History This section includes a history of the smoking, or tobacco-related health factors, that were collected on or before the date of the Encounter. The data comes from the [place] facility where the Encounter took place. Date/Time Smoking Status/Tobacco Use Comment F acility Mar 22, 2022 08:45 AM VA-TOBACCO NEVER USED [facility] May 12, 2021 10:00 AM VA-TOBACCO FORMER USER [facility] May 12, 2021 10:00 AM VA-TOBACCO QUIT 15 YRS OR MORE [facility] Feb 24, 2019 09:35 AM VA-TOBACCO NEVER USED [facility] Feb 18, 2018 01:56 PM FORMER TOBACCO USER 7Y OR GREATE R [facility] Mar 06, 2017 09:31 AM FORMER TOBACCO USER 7Y OR GREATE R [facility] Mar 06, 2016 09:54 AM FORMER TOBACCO USER 7Y OR GREATE R [facility] January 25, 2016 06:31 AM INPT NO TOBACCO USE IN LAST 30 D AYS [facility] January 22, 2015 10:06 AM LIFETIME NON-TOBACCO USER [facility] Apr 15, 2014 10:09 AM FORMER TOBACCO USER 7Y OR GREATE R [facility] February 01, 2011 08:51 AM FORMER TOBACCO USER 7Y OR GREATE R [facility] Advance Directives: All historical and current Section Date Range: From patient's date of to the date document was created. This section includes ALL of a patient's completed or amended [place] Advance and Rescinded Directives. The entries below indicate that a directive exists for the patient, but an actual copy is not included with this document. The data comes from all [facility]. Date Advance Directives Provider Source Oct 13, 2017 ADVANCE DIRECTIVE MARAL DORANTES [facility] Oct 13, 2017 ADVANCE DIRECTIVE DISCUSSION MARAL DORANTES [facility] Radiology Reports: +/- 30 days [...] the Encounter. The data comes from all [place] treatment facilities. 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 Responsible provider name and phone number to notify for critical findings if other than user placing the order and pager listed below: User placing orders pager: Rukhsana Lomax [phone] LAST CREATININE 0.8 (07/03/23) Report Status: Verified Date Reported: SEP 05, 2023 Date Verified: SEP 05, 2023 [employer] E-Sig:/ES/LIDYA GUDINO MD Report: SHOULDER LEFT 2-3 [...] Primary Interpreting Staff: LIDYA GUDINO MD, RADIOLOGIST ([employer]) /[facility] LIDYA GUDINO [facility] Aug 20, 2023 10:16 AM SHOULDER LEFT 4V(A P,Y VIEW, GRASHEY & AXILLARY): BENJAMÍN ROSAENCE [id number] -[id number] M Exm Date: AUG 20, 2023@10:16 Req Phys: MARCUS LOMAX Loc: [facility] ORTHO COORD PHONE (Req'g L Img Loc: MAIN X-RAY Service: Unknown (Case [id number] COMPLETE) SHOULDER LEFT 4V(AP,Y VIEW, GRASH(RAD Detailed) CPT:99908 Proc Modifiers : LEFT Reason for Study: pre-op Clinical History: [facility] IS NOT under investigation for COVID-19 or is COVID-19 negative pre-op Responsible provider name and phone number to notify for critical findings if other than user placing the order and pager listed below: User placing orders pager: LAST CREATININE 0.8 (07/03/23) Report Status: Verified Date Reported: AUG 20, 2023 Date Verified: AUG 20, 2023 [employer] Consultant E-Sig:/ES/PASHA MARIA DO Report: EXAMINATION: SHOULDER LEFT [...] Primary Interpreting Staff: PASHA MARIA DO, RADIOLOGIST ([employer] Consultant) /[facility] PASHA MARIA [facility] Encounter Notes: All associated encounter notes This section contains the clinical notes associated to the Encounter. Date/Time Encounter Note(s) Provider Source Aug 14, 2023 10:55 AM EMERGENCY DEPT EDUCATION NOTE: LOCAL TITLE: EMERGENCY DEPT DISCHARGE INSTRUCTIONS STANDARD TITLE: EMERGENCY DEPT EDUCATION NOTE DATE OF NOTE: AUG 14, 2023@10:55:53 ENTRY DATE: AUG 14, 2023@10:55:53 AUTHOR: DINO MEADE EXP COSIGNER: URGENCY: STATUS: COMPLETED DISCHARGE INSTRUCTIONS IMPORTANT: We examined and treated you today on an emergency basis only. This was not a substitute for, or an effort to provide, comprehensive medical care. In most cases, you must let your healthcare provider check you again. Tell your healthcare provider about any new or lasting problems. We cannot recognize and treat all injuries or illnesses in one Emergency Department visit. After you leave, you should follow the instructions below. You were treated today by ANGELITA Mcbride. Special Information This Information Is About Your Follow Up Care We recommend that you follow up with your Primary Care Team to have an appointment within the next 1 - 2 weeks. Call to arrange this appointment. If you are not feeling better and improving as discussed or if you have any questions please contact your Primary Care Provider. Future Appointments 08/20/2023 at 9:00am [facility] OT PRE-OP 08/20/2023 at 9:45am [facility] ANES 1 PREOP AM 08/20/2023 at 10:30am [facility] PRE-ADMISSION INTERVIEW 08/20/2023 at 11:00am [facility] XRAY GENERAL AM 09/05/2023 at 7:00am [facility] 2T PRE-ADMISSION 09/18/2023 at 9:30am [facility] ORTHO 2WK NURSE PROCEDURE 09/18/2023 at 10:30am [facility] PT DAYANA VASQUEZ 10/31/2023 at 10:00am [facility] XRAY GENERAL AM 10/31/2023 at 10:30am [facility] EMIR LOMAX This Information Is About Your Illness and Diagnosis BRONCHITIS Bronchitis is inflammation within the lungs. The lungs contain air passages called bronchioles. They are the larger tubes that supply oxygen to the rest of the lung. When these bronchioles get inflamed (swell), it is called bronchitis. What causes bronchitis? Bronchitis is usually caused by a virus. It usually occurs as a complication from the common cold or flu. Occasionally, bronchitis is caused by bacteria. There are many different viruses that cause bronchitis. Colds and bronchitis are most common in the fall and winter. In spite of common belief, colds are not caused by cold weather. Colds occur more often in cold weather due to: -an increased number of people being inside and in close contact with each other -pulp drier firer weather - it is easier for viruses to attach to pulp drier firer mucus membranes, such as the lining of the nose or bronchioles Bronchitis is contagious - the virus that causes it can be passed from one person to another. You must come in contact with the affected virus. The virus can be passed through: -the air when a person sneezes or coughs. You can get the infection when you breathe in the affected air, and the virus attaches to the lining of your nose or throat. -direct contact with an infected person or object. This can occur when an infected person touches their nose (or nose secretions), mouth or eyes, then touch other people or objects with their infected hands. Common contaminated objects include toys, keyboards, door knobs, remote controls, or game controllers. Touching your mouth, nose, and eyes without washing your hands is also a way to get a virus. Most people get symptoms 2 to 3 days after being exposed to the virus. You are most contagious the first 3 days of the illness (once you have symptoms). Acute bronchitis can last 1 to 2 weeks. How does my health care provider know that I have bronchitis? Signs and symptoms: -tiredness -cough that may bring up yellow, medrano, or green mucus -mild muscle aches or chest discomfort -low fever How can bronchitis affect my health? What are the complications or risks? The risks of having bronchitis are higher for people who have certain chronic conditions, such as asthma or COPD. Complications are rare, but may include pneumonia. What is the usual treatment? The goal of treatment is to relieve your symptoms and to prevent further complications. Please follow these instructions: -Drink extra liquids such as water, hot tea, or even chicken soup. -Do not smoke. If you need help quitting, talk with your health care provider. -Stay away from second-hand smoke. This further irritates the lining of the nose, throat, and lungs. -To control pain or a fever, take nonsteroidal anti-inflammatory drugs (NSAIDs, such as ibuprofen, Motrin, Advil, or naproxen) or acetaminophen (Tylenol). -Use a cool-mist vaporizer or humidifier in the room. -Use saline spray/rinse in your nose. This may help relieve congestion. -Cough and blow your nose into a tissue. Throw the tissue in the garbage after using it. Use tissues rather than a handkerchief. -Wash your hands with soap and water after touching your nose, eyes, mouth and after blowing your nose. -Be careful if you take an agdo-ajf-mxumewi cough medicine that includes an antihistamine. Antihistamines can make you very drowsy. This can make it dangerous for you to drive or operate heavy machinery. -If cold weather makes you cough, wear a face mask or place a scarf around your mouth and nose when you are outside. Contact your health care provider immediately if you are struggling to breathe. Contact your health care provider as soon as possible if you: -have a fever or pain not relieved by acetaminophen or ibuprofen. -have a cough that lasts more than 3 weeks or keeps you from sleeping. -notice that your cough brings up phlegm that has darkened in color or contains blood. -have any new or bothersome symptoms. IMPORTANT MEDICATION INFORMATION -Your medication list includes any medications that were recently prescribed but not filled by the Pharmacy (PENDING Medicines). -Included are any known ACTIVE Medicines. Please review this list to make sure it is accurate, if this list does not match the current medications you are taking please follow-up with your Primary Care Team to have your Medication List reviewed. Pending Medications AMOXICILLIN 875/CLAV K 125MG TAB \ Sig: TAKE 1 TABLET BY MOUTH TWICE A DAY\Indication: BRONCHITIS CETIRIZINE HCL 10MG TAB \ Sig: TAKE ONE TABLET BY MOUTH EVERY DAY\Indication: FOR ALLERGIES CODEINE 10/GG 100MG/5ML (ALC-F/SF) LIQ \ Sig: TAKE 10 ML BY MOUTH EVERY 6 HOURS NEEDED\Indication: FOR COUGH Active Medications ASPIRIN TAB,EC 81 MG MOUTH 1 X DAY (Non-VA Medication) ATORVASTATIN CALCIUM 80MG TAB TAKE ONE TABLET BY MOUTH EVERY DAY FOR CHOLESTEROL CALCIUM CARBONATE TAB 650MG MOUTH EVERY DAY (Non-VA Medication) CHOLECALCIF 25MCG (D3-1,000UNIT) TAB TAKE ONE TABLET BY MOUTH EVERY DAY FOR VITAMIN D CHOLECALCIFEROL TAB 1000UNIT MOUTH EVERY DAY (Non-VA Medication) HYDROCHLOROTHIAZIDE 25MG TAB TAKE ONE-HALF TABLET BY MOUTH EVERY DAY FOR BLOOD PRESSURE IBUPROFEN TAB 200MG MOUTH EVERY DAY NEEDED (Non-VA Medication) MULTIVITAMINS TAB 1 TABLET MOUTH EVERY DAY (Non-VA Medication) Medications Medications in the last 90 days BENZOYL PEROXIDE 10% (WATER BASED) GEL APPLY THIN LAYER TOPICALLY TWICE A DAY PREVENTION OF INFECTION APPLY TO SURGICAL SHOULDER STARTING TWO DAYS PRIOR TO SURGERY AND MORNING OF SURGERY. PROCEDURE DATE: 09/05/2023 MUPIROCIN 2% OINT APPLY PEA SIZED AMOUNT INSIDE EACH NOSTRIL TOPICALLY TWICE A DAY TO PREVENT INFECTION FOR FIVE DAYS PRIOR TO SURGERY -PROCEDURE DATE: 09/05/2023 YOU ARE THE MOST IMPORTANT FACTOR IN YOUR RECOVERY. Follow the above instructions carefully. Take your medicines as prescribed. If you do not understand any of your medicines, please ask questions. If you have any outstanding tests from the emergency department, please contact your provider to review them in the next 3-5 days. If you have new symptoms, feel worse, or are not getting better as discussed, call to discuss your health questions and arrange for follow-up care, or return to the Emergency Room IF YOU ARE EXPERIENCING A MEDICAL EMERGENCY CALL 911 OR GO TO THE NEAREST EMERGENCY ROOM // ANGELITA MCBRIDE PHYSICIAN ECONOMIC DEVELOPER Signed: 08/14/2023 10:55 DINO MEADE [facility] Aug 14, 2023 10:51 AM PHYSICIAN EMERGENCY DEPT NOTE: LOCAL TITLE: EMERGENCY DEPT NOTE STANDARD TITLE: PHYSICIAN EMERGENCY DEPT NOTE DATE OF NOTE: AUG 14, 2023@10:51 ENTRY DATE: AUG 14, 2023@10:51:20 AUTHOR: DINO MEADE EXP COSIGNER: URGENCY: STATUS: COMPLETED Chief Complaint:cough and sore throat for the last couple of weeks. HPI: 83-year-old came in complaining of sore throat and cough with phlegm for the last couple of weeks after URI symptoms initially. Denies any fever or chills or shortness of breath, denies any chest pain palpitation. Denies any swelling. ROS Head & Neck - no ELDRIDGE,n/v. Eyes - no visual changes, no blurry vision ENT - some nasal congestion, no discharge, no bleeding - No oral lesions or ulcers CV - no chest pain, no palpitations, no dizziness Pulm - no dyspnea, no orthopnea, no PND, no hemoptysis, Neuro - no weakness, no numbness, no tingling PMH: Please see CPRS General - NAD Vitals: Temperature 98 F (36.7 C) Pulse 89 Respirations 16 Blood Pressure 155/98 Pain scale recorded: 1 Pulse Oximetry 98 General: Well-appearing sitting up in bed. Skin: Warm and dry. HEENT: -Nasal mucosa erythematous,no purulent discharge. -White sclerae, -moist oral mucosa. Neck: No cervical lymphadenopathy. Cardiovascular: Normal rate, regular rhythm. S1 and S2 audible . Pulmonary: Unlabored breathing. Bilateral breath sounds.No wheezing but crackles. Extremities: No lower extremity edema, symmetric ankles. Neuro: Alert and oriented x4. A/P:83-year-old came in complaining of sore throat and cough with phlegm for the last couple of weeks after URI symptoms initially. Denies any fever or chills or shortness of breath, denies any chest pain palpitation. Denies any swelling. Acute bronchitis: -Antibiotic course -Cough suppressant -Cetirizine for allergies -Acetaminophen for fever if any A discussion was had with the patient regarding the diagnosis and treatment plan and the patient expressed understanding of the plan and consented to it. Thepatient is alert, oriented and appears capable of making medical decisions. In addition, the patient will return to the emergency department if there is persistence of the symptoms,worsening of the symptoms, if new symptoms develop or if there are any concerns. The patient agreed to follow up with their primary care provider and if unableto do so, will return to the emergency department for reevaluation. All questions were answered. TDAP/TD Immunizations ADMINISTERED Immunization Series Date Facility Reaction Info TDAP 04/15/2014 [place]* <C> CONTRAINDICATED No data available REFUSED ======= No data available <C> See the Detailed Immunizations Health Summary Component[DIM] for Comments * Value is truncated; see the Detailed Immunizations Health Summary Component[DIM] for complete text Covid-19 Immunizations ADMINISTERED Immunization Series Date Facility Reaction Info COVID-19 (PFIZER), MRNA, LNP-S, * 1 10/25/2020 [place] <C> COVID-19 (PFIZER), MRNA, LNP-S, * 2 11/15/2020 [place] <C> COVID-19 (PFIZER), MRNA, LNP-S, * 08/03/2021 [facility] COVID-19 (PFIZER), MRNA, LNP-S, * 4 04/05/2022 [place]* <C> CONTRAINDICATED No data available REFUSED ======= No data available <C> See the Detailed Immunizations Health Summary Component[DIM] for Comments * Value is truncated; see the Detailed Immunizations Health Summary Component[DIM] for complete text Allergies: LISINOPRIL (Mar 08, 2018) Past Medical History: Active problems - Computerized Problem List is the source for the followin. Hyperlipidemia (SNOMED CT 69292266) 2. Sensorineural Hearing Loss, Bilateral 3. Subjective [...] eval/rx 8. Tinnitus 9. Benign essential hypertension Medications: Active Outpatient Medications (excluding Supplies): Outpatient Medications Status 1) AMOXICILLIN 875/CLAV K 125MG TAB TAKE 1 TABLET BY PENDING MOUTH TWICE A DAY 2) ATORVASTATIN CALCIUM 80MG TAB TAKE ONE TABLET BY ACTIVE MOUTH EVERY DAY FOR CHOLESTEROL 3) CETIRIZINE HCL 10MG TAB TAKE ONE TABLET BY MOUTH PENDING EVERY DAY 4) CHOLECALCIF 25MCG (D3-1,000UNIT) TAB TAKE ONE TABLET ACTIVE BY MOUTH EVERY DAY FOR VITAMIN D 5) CODEINE 10/GG 100MG/5ML (ALC-F/SF) LIQ TAKE 10 ML BY PENDING MOUTH EVERY 6 HOURS NEEDED 6) HYDROCHLOROTHIAZIDE 25MG TAB TAKE ONE-HALF TABLET BY ACTIVE MOUTH EVERY DAY FOR BLOOD PRESSURE Non-VA Medications Status 1) Non-VA ASPIRIN 81MG EC TAB 81 MG MOUTH 1 X DAY ACTIVE 2) Non-VA CALCIUM CARBONATE 650MG (CA 260MG) TAB 650MG ACTIVE MOUTH EVERY DAY 3) Non-VA CHOLECALCIF 25MCG (D3-1,000UNIT) TAB 1000UNIT ACTIVE MOUTH EVERY DAY 4) Non-VA IBUPROFEN 200MG TAB 200MG MOUTH EVERY DAY ACTIVE NEEDED 5) Non-VA MULTIVITAMIN CAP/TAB 1 TABLET MOUTH EVERY DAY ACTIVE 11 Total Medications /laura/ ANGELITA MCBRIDE PHYSICIAN ECONOMIC DEVELOPER Signed: 08/14/2023 10:54 DINO MEADE [facility] Aug 14, 2023 10:50 AM NURSING EMERGENCY DEPT NOTE: LOCAL TITLE: EMERGENCY DEPT NURSING NOTE STANDARD TITLE: NURSING EMERGENCY DEPT NOTE DATE OF NOTE: AUG 14, 2023@10:50 ENTRY DATE: AUG 14, 2023@10:50:48 AUTHOR: CODY GUIDO EXP COSIGNER: URGENCY: STATUS: COMPLETED Emergency Department Discharge Education Personal Protective Equipment (PPE): Patient was in mask on arrival, patient remained masked for entire visit, RN used PPE during every encounter with the patient, MD/PA/VACCINATOR used PPE during every encounter with the patient The patient was given education on the following: cough EDUCATION/TEACH BACK: [facility] discharge instructions have been reviewed with Patient AND had an opportunity to ask questions, has verbalized understanding, have received a copy of the [facility] instructions EDUCATIONAL LEVEL OF UNDERSTANDING: Patient was ready and receptive to education. BARRIERS TO LEARNING: No barriers identified Accompanied by: Self Mode of Transportation: Drive self EXIT ADDITIONAL EDUCATION GIVE: Discharged to: Home /laura/ CODY GUIDO RN COMMANDING OFFICER MOTORIZED SQUAD Signed: 08/14/2023 12:47 CODY GUIDO [facility] Aug 14, 2023 10:48 AM NURSING EMERGENCY DEPT NOTE: LOCAL TITLE: EMERGENCY DEPT NURSING NOTE STANDARD TITLE: NURSING EMERGENCY DEPT NOTE DATE OF NOTE: AUG 14, 2023@10:48 ENTRY DATE: AUG 14, 2023@10:48:57 AUTHOR: CODY GUIDO EXP COSIGNER: URGENCY: STATUS: COMPLETED Nursing Focused Assessment: CHIEF COMPLAINT: Cough/sneezing, sorethroat x month. Using OTC meds with minimal relief. Cold and cold day and night medication and benadryl caps. Allergies/ADR: LISINOPRIL (Mar 08, 2018) Additional allergies not listed: Vital Signs * Blood Pressure: 155/98 (08/14/2023 10:29) Heart Rate: 89 (08/14/2023 10:29) Respirations: 16 (08/14/2023 10:29) Temperature: 98 F [36.7 C] (08/14/2023 10:29) Pain: 1 (08/14/2023 10:29) Weight: 185 lb [83.91 kg] (03/19/2023 10:48) O2 Sats: 97% (07/03/2023 10:15) Tobacco use: No Alcohol use: No Any drugs besides what is prescribed or over the counter: No ABUSE/NEGLECT: No evidence of abuse/neglect REVIEW OF SYSTEM-FOCUSED ASSESSMENT Neurological: Alert INTERVENTIONS: Oriented to room and bed controls Call light within reach of patient or family/friend /laura/ CODY GUIDO DESCRIPTIVE CATALOG LIBRARIAN RN Signed: 08/14/2023 10:50 CODY GUIDO [facility] Aug 14, 2023 10:27 AM NURSING EMERGENCY DEPT TRIAGE NOTE: LOCAL TITLE: EMERGENCY DEPARTMENT NURSING TRIAGE NOTE STANDARD TITLE: NURSING EMERGENCY DEPT TRIAGE NOTE DATE OF NOTE: AUG 14, 2023@10:27 ENTRY DATE: AUG 14, 2023@10:27:56 AUTHOR: CRISPIN VILLATORO EXP COSIGNER: URGENCY: STATUS: COMPLETED Emergency Department/Urgent Care Center Triage Patient age:83 Sex: MALE On arrival patient was: AMBULATORY Patient phone number: Allergies: LISINOPRIL (Mar 08, 2018) Subjective/Chief Complaint: covid sx Objective: Pt states sore troat, sneezing and cough for past week without relief The patient is not a fall risk. Vital Signs * Temperature 98 F (36.7 C) Pulse 89 Respirations 16 Blood Pressure 155/98 Pain scale recorded: 1 Pulse Oximetry 98 Emergency Severity Index (MATHIEU) level Level 4 Current Medications: Active Outpatient Medications (including Supplies): Active Outpatient Medications Status 1) ATORVASTATIN CALCIUM 80MG TAB TAKE ONE TABLET BY ACTIVE MOUTH EVERY DAY FOR CHOLESTEROL 2) CHOLECALCIF 25MCG (D3-1,000UNIT) TAB TAKE ONE TABLET ACTIVE BY MOUTH EVERY DAY FOR VITAMIN D 3) HYDROCHLOROTHIAZIDE 25MG TAB TAKE ONE-HALF TABLET BY ACTIVE MOUTH EVERY DAY FOR BLOOD PRESSURE Active Non-VA Medications Status 1) Non-VA ASPIRIN 81MG EC TAB 81 MG MOUTH 1 X DAY ACTIVE 2) Non-VA CALCIUM CARBONATE 650MG (CA 260MG) TAB 650MG ACTIVE MOUTH EVERY DAY 3) Non-VA CHOLECALCIF 25MCG (D3-1,000UNIT) TAB 1000UNIT ACTIVE MOUTH EVERY DAY 4) Non-VA IBUPROFEN 200MG TAB 200MG MOUTH EVERY DAY ACTIVE NEEDED 5) Non-VA MULTIVITAMIN CAP/TAB 1 TABLET MOUTH EVERY DAY ACTIVE 8 Total Medications Current Problems: Hyperlipidemia ([facility] [id number]) Sensorineural Hearing Loss, Bilateral (ICD-9-CM 389.18) Subjective tinnitus (ICD-9-CM 388.31) Elevation, blood pressure (ICD-9-CM 796.2) Personal History of Malignant Neoplasm oOther Specified Counseling (ICD-9-CM V65.49) Pigmented skin lesion ([facility] [id number]) Tinnitus ([facility] [id number]) Benign essential hypertension ([facility] [address] Identification of Seniors at Risk (ISAR):* Perform Screen Total Score: 0 Suicide Screen: [place] Suicide Severity Rating Scale (C-SSRS) screener 1. Over the past month, have you wished you were or wished you could go to sleep and not wake up? No 2. Over the past month, have you had any actual thoughts of killing yourself? No 3. Over the past month, have you been thinking about how you might do this? Response not required due to responses to other questions. 4. Over the past month, have you had these thoughts and had some intention of acting on them? Response not required due to responses to other questions. 5. Over the past month, have you started to work out or worked out the details of how to kill yourself? Response not required due to responses to other questions. 6. If yes, at any time in the past month did you intend to carry out this plan? Response not required due to responses to other questions. 7. In your lifetime, have you ever done anything, started to do anything, or prepared to do anything to end your life (for example, collected pills, obtained a gun, gave away valuables, went to the roof but didn't jump)? No 8. If YES, was this within the past 3 months? Response not required due to responses to other questions. /laura/ CRISPIN VILLATORO RN, BSN REGISTERED NURSE Signed: 08/14/2023 10:31 CRISPIN VILLATORO [facility]
--- OUTSIDE RECORDS SUMMARY | 2024-05-05 10:59 | XMS_ITS | Encounter Summary ---
Author Name [facility] [place] Organization [facility] [place] [facility] [place] Address [address] [place] [address] Care Team Providers Care Stenotype Operator Name Role Phone JAN BRISENO Primary [...] French's Name Patient's Relationship to Policy [facility]) [facility] ADVANTAGE MEDIC ARE OTILIA RAMESH Claire Sep 17, 2018 [id number] [phone] BENJAMÍN ROSA PATIENT MEDICARE (WNR) MEDICARE (M) PART A Mar 17, 2007 PART A [id number] [phone] BENJAMÍN ROSA PATIENT MEDICARE (WNR) MEDICARE (M) PART B Mar 17, 2007 PART B [id number] [phone] BENJAMÍN ROSA PATIENT Selected Encounter This section includes the information on record at [place] for the Encounter. Date/Time Encounter Type Encounter Description Reason Provider Source Aug 20, 2023 09:45 AM OFFICE O/P EST MOD 30-39 MIN ANESTHESIA PRE/POST-OP CONSULT ICD-10-CM Z01.818 Encounter for other preprocedural examination CASEY HUBBARD [facility] Encounter Template Text not used by [place] Assessments - Encounter Diagnoses This section includes the primary and secondary diagnoses documented for the Encounter. Date/Time Primary/Secondary Diagnosis Diagnosis Name Provider Source Aug 20, 2023 04:43 PM PRIMARY Encounter for other preprocedural examination CASEY HUBBARD [facility] Aug 20, 2023 04:43 PM SECONDARY Acute bronchitis, unspecified [facility] Aug 20, 2023 04:43 PM SECONDARY Essential (primary) hypertension CASEY HUBBARD [facility] Aug 20, 2023 04:43 PM SECONDARY Hyperlipidemia, unspecified [facility] Aug 20, 2023 04:43 PM SECONDARY Pain in left shoulder CASEY HUBBARD [facility] Aug 20, 2023 04:43 PM SECONDARY Primary osteoarthritis, [facility] Plan of Treatment: Future Appointments (+ 6 months) and Future Tests (+/- 45 days) The Plan of Treatment section includes future care activities for the [facility] [place] [facility] This section includes future appointments and future orders which are active, pending or scheduled. Future Appointments This section includes appointments that were scheduled to occur 6 months from the date of the Encounter, up to a maximum of 20 appointments. The data comes from all [facility]. Appointment Date/Time Appointment Type Appointme nt Facility Name Sep 05, 2023 12:00 PM AMBULATORY - SURGERY [facility] Sep 05, 2023 12:15 PM AMBULATORY - NONE [facility] Sep 18, 2023 09:30 AM AMBULATORY - SURGERY [facility] Sep 18, 2023 10:30 AM AMBULATORY - REHAB [facility] Sep 27, 2023 03:30 PM AMBULATORY - SURGERY [facility] Oct 16, 2023 08:30 AM AMBULATORY - REHAB MEDICIN [facility] Oct 16, 2023 10:00 AM AMBULATORY - NONE [facility] Oct 23, 2023 09:00 AM AMBULATORY - REHAB MEDICIN [facility] Oct 30, 2023 09:30 AM AMBULATORY - REHAB MEDICIN [facility] Oct 31, 2023 10:30 AM AMBULATORY - SURGERY [facility] Oct 31, 2023 05:10 PM AMBULATORY - REHAB [facility]ICIN [facility] Nov 13, 2023 09:00 AM AMBULATORY - REHAB MEDICIN E [facility] Nov 20, 2023 10:00 AM AMBULATORY - SURGERY [facility] Nov 20, 2023 11:00 AM [facility]ULATORY - [facility]ICINE [facility] Dec 17, 2023 08:40 AM AMBULATORY - SURGERY [facility] January 24, 2024 09:45 AM AMBULATORY - SURGERY [facility] Active, Pending, and Scheduled Orders This section includes a listing of several types of active, pending, and scheduled orders, including clinic medications orders, diagnostic test orders, procedure orders and consult orders; where the start date of the order is 45 days before the date of the Encounter or 45 days after the date of theEncounter. The data comes from all [place] treatment facilities. Test Date/Time Test Type Test Details Facility Name Sep 05, 2023 07:28 PM Laboratory - Blood Bank Order TYPE & SCREEN - LAB BLOOD WC [facility] Lab Results: +/- 30 days of the encounter This section includes the Chemistry and Hematology Lab Results on record with [place] for the patient. Radiology Reports and Pathology Reports are provided separately, in subsequent sections. Lab Results This section contains the Chemistry/Hematology Results that were resulted 30 days before or 30 daysafter the date of the Encounter. Date/Time Source Result Type Result - Unit Interpretation Reference Range Comment Sep 06, 2023 09:11 AM [facility] CBC Specimen Type: BLOOD Comment: Specimen received in Lab at: 0910 Ordering Provider: RAHEEL DELGADILLO Report Released Date/Time: Sep 05, 2023 07:28 PM Reporting Lab: [facility] [id number] Performing Lab: [facility] [phone] WBC 8.69 10*3/uL 4.0-11.0 RBC 3.76 10*6/uL L 4.6-6.2 HGB 11.5 g/dL L 13.5-17.9 HCT 34.7 L 41-54 MCV 92.3 fL 80-100 MCH 30.6 pg 27-33 MCHC 33.1 g/dL 32.0-37.5 PLT 261 10*3/uL 150-400 MPV 11.0 fL H 7.4-10.4 RDW 13.3 11.5-14.5 Sep 06, 2023 09:11 AM [facility] BASIC METABOLIC PANEL+MG Specimen Type: PLASMA Comment: Specimen received in Lab at: 0910 Ordering Provider: RAHEEL DELGADILLO Report Released Date/Time: Sep 05, 2023 07:28 PM Reporting Lab: [facility] [phone] Performing Lab: [facility] [phone] CREATININE 0.9 mg/dL 0.7-1.2 UREA NITROGEN 15 mg/dL 8-26 GLUCOSE 141 mg/dL H 70-100 SODIUM 134 mmol/L L 136-145 POTASSIUM 4.1 mmol/L 3.5-5.1 CHLORIDE 101 mmol/L 98-107 CO2 24 mmol/L 22-29 CALCIUM 8.6 mg/dL 8.4-10.2 MAGNESIUM 1.7 mg/dL 1.6-2.6 ANION GAP 9 mmol/L 5-15 .CREAT EGFR(CKD-EPI) 86 >60 Sep 06, 2023 05:44 AM [facility] FINGERSTICK GLUCOSE Specimen Type: BLOOD Comment: Save Result Ordering Provider: FALLON MUNGUIA Report Released Date/Time: Sep 06, 2023 06:02 AM Reporting Lab: [facility] [phone] Performing Lab: [facility] [phone] FINGERSTICK GLUCOSE 140 mg/dL 70-100 Sep 05, 2023 08:25 PM [facility] PROTHROMBIN TIME/INR Specimen Type: PLASMA No comment entered. Ordering Provider: EMILY REVELES Report Released Date/Time: Sep 05, 2023 07:28 PM Reporting Lab: [facility] [phone] Performing Lab: [facility] Sep 05, 2023 08:25 PM [facility] ACT PART THROMBO TIME Specimen Type: PLASMA Comment: ~Draw on admission. Call IV team to draw on admission. Ordering Provider: EMILY REVELES Report Released Date/Time: Sep 05, 2023 07:28 PM Reporting Lab: [facility] [phone] Performing Lab: [facility] [phone] APTT 30.8 s 25.1-36.5 Sep 05, 2023 08:25 PM [facility] CBC Specimen Type: BLOOD No comment entered. Ordering Provider: EMILY REVELES Report Released Date/Time: Sep 05, 2023 07:28 PM Reporting Lab: [facility] [phone] Performing Lab: [facility] [address] WBC 8.60 10*3/uL 4.0-11.0 RBC 3.66 10*6/uL L 4.6-6.2 HGB 11.3 g/dL L 13.5-17.9 HCT 34.3 L 41-54 MCV 93.7 fL 80-100 MCH 30.9 pg 27-33 MCHC 32.9 g/dL 32.0-37.5 PLT 225 10*3/uL 150-400 MPV 10.9 fL H 7.4-10.4 RDW 13.4 11.5-14.5 Sep 05, 2023 08:25 PM [facility] BASIC METABOLIC PANEL+MG Specimen Type: PLASMA No comment entered. Ordering Provider: EMILY REVELES Report Released Date/Time: Sep 05, 2023 07:28 PM Reporting Lab: [facility] [phone] Performing Lab: [facility] [phone] CREATININE 0.9 mg/dL 0.7-1.2 UREA NITROGEN 17 [...] Height Weight Body Mass Index Source Aug 20, 2023 10:11 AM 98.2 F 77 /min 122/79 mm[Hg] 16 /min 95 % [facility] Social History: Smoking Status (Most [...] 19, 2023 10:30 AM VA-TOBACCO NEVER USED [facility] Tobacco Use History This section includes a history of the smoking, or tobacco-related health factors, that were collected on or before the date of the Encounter. The data comes from the [place] facility where the Encounter took place. Date/Time Smoking Status/Tobacco Use Comment F acility Mar 22, 2022 08:45 AM VA-TOBACCO NEVER USED [facility] May 12, 2021 10:00 AM VA-TOBACCO FORMER USER [facility] May 12, 2021 10:00 AM [place]-TOBACCO QUIT 15 YRS OR MORE [facility] Feb 24, 2019 09:35 AM VA-TOBACCO NEVER USED [facility] Feb 18, 2018 01:56 PM FORMER TOBACCO USER 7Y OR GREATE R [facility] Mar 06, 2017 09:31 AM FORMER TOBACCO USER 7Y OR GREATE R [facility] Mar 06, 2016 09:54 AM FORMER TOBACCO USER 7Y OR GREATE R [facility] January 25, 2016 06:31 AM INPT NO TOBACCO USE IN LAST 30 D AYS [facility] January 22, 2015 10:06 AM LIFETIME NON-TOBACCO USER [facility] Apr 15, 2014 10:09 AM FORMER TOBACCO USER 7Y OR GREATE R [facility] February 01, 2011 08:51 AM FORMER TOBACCO USER 7Y OR GREATE R [facility] Advance Directives: All historical and current [...] comes from all [facility]. Date Advance Directives Provider Source Oct 13, 2017 ADVANCE DIRECTIVE MARAL DORANTES [facility] Oct 13, 2017 ADVANCE DIRECTIVE DISCUSSION MARAL DORANTES [facility] Radiology Reports: +/- 30 days of [...] the Encounter. The data comes from all [place] treatment facilities. Date/Time Radiology Report Provider Source Sep 05, 2023 07:58 AM SHOULDER LEFT 2-3 VIEWS: BENJAMÍN ROSA [id number] -[id number] M Exm Date: SEP 05, 2023@07:58 Req Phys: MARCUS LOMAX Loc: [facility] ADMISSIONS SURGERY (Req'g Img Loc: MAIN X-RAY Service: Unknown (Case [id number] COMPLETE) SHOULDER LEFT 2-3 VIEWS (RAD Detailed) CPT:19574 Proc Modifiers : PORTABLE EXAM, OPERATING ROOM EXAM, LEFT Reason for Study: Left reverse TSA Clinical History: OR 6 Shoulder OA Responsible provider name and phone number to notify for critical findings if other than user placing the order and pager listed below: User placing orders pager: Rukhsana Lomax [phone] LAST CREATININE 0.8 (07/03/23) Report Status: Verified Date Reported: SEP 05, 2023 Date Verified: SEP 05, 2023 Test Architect E-Sig:/ES/LIDYA GUDINO MD Report: SHOULDER LEFT 2-3 [...] Primary Interpreting Staff: LIDYA GUDINO MD, RADIOLOGIST (Test Architect) /[facility] LIDYA GUDINO [facility] Aug 20, 2023 10:16 AM SHOULDER LEFT 4V(A P,Y VIEW, GRASHEY & AXILLARY): BENJAMÍN ROSA [id number] -1940 M Exm Date: AUG 20, 2023@10:16 Req Phys: MARCUS LOMAX Pat Loc: [facility] ORTHO COORD PHONE (Req'g L Img Loc: MAIN X-RAY Service: Unknown (Case [id number] COMPLETE) SHOULDER LEFT 4V(AP,Y VIEW, GRASH(RAD Detailed) CPT:54576 Proc Modifiers : LEFT Reason for Study: pre-op Clinical History: Center IS NOT under investigation for COVID-19 or is COVID-19 negative pre-op Responsible provider name and phone number to notify for critical findings if other than user placing the order and pager listed below: User placing orders pager: LAST CREATININE 0.8 (07/03/23) Report Status: Verified Date Reported: AUG 20, 2023 Date Verified: AUG 20, 2023 Test Architect E-Sig:/ES/PASHA MARIA DO Report: EXAMINATION: SHOULDER LEFT [...] Primary Interpreting Staff: PASHA MARIA DO, RADIOLOGIST (Test Architect) /DDPASHA SOSA [facility] Encounter Notes: All associated encounter notes This section contains the clinical notes associated to the Encounter. Date/Time Encounter Note(s) Provider Source Aug 20, 2023 09:36 AM H & P NOTE: LOCAL TITLE: H&P HISTORY & PHYSICAL STANDARD TITLE: H & P NOTE DATE OF NOTE: AUG 20, 2023@09:36 ENTRY DATE: AUG 20, 2023@09:36:52 AUTHOR: CASEY HUBBARD EXP COSIGNER: URGENCY: STATUS: COMPLETED H&P and Preoperative Anesthesia Assessment Chief Complaint: 83 year old with BMI 29.9 for preoperative evaluation. This is a face to face visit. ----History of present illness Center is a 83 yo who is scheduled for LEFT reverse TSA on 09/05/2023 Other PMH includes: HTN, HLD, prostate CA s/p radiation seed implant ~'15 @[facility], tinnitus and HL URI with cough and sore throat about 2-3 weeks ago. Seen in ED on 08/14/2023 for concern for bronchitis and given course of Augmentin, codeine for cough. He reports symptoms have now fully resolved. He denies any SOB or cough and is able to lay flat without coughing. He will have about 3 weeks prior to surgery and symptoms have already resolved so should be safe to proceed as planned. ----Allergies LISINOPRIL - cough ----VITAL SIGNS - HR: 77 (08/20/2023 10:11) BP: 122/79 (08/20/2023 10:11) RR: 16 (08/20/2023 10:11) O2: 95% (08/20/2023 10:11) Temp: 98.2 F [36.8 C] (08/20/2023 10:11) HT: 66 in [167.6 cm] (03/19/2023 10:48) WT: 185 lb [83.91 kg] (03/19/2023 10:48) BMI: 29.9 ----Past Surgical History No personal or family history of anesthesia complications 09/05/2023 Left reverse TSA REQUESTED 11/15/2018 BULB (COMPLETED) Anesthesia MAC 10/04/2018 CE IOL RIGHT EYE (COMPLETED) 09/02/2018 CE IOL LEFT (COMPLETED) 01/25/2016 Left TKA (COMPLETED) Anesthesia GETA, no masking, DL x1 by DOUG, ETT 8.0, curved-4 blade, grade I view Other: R-reverse TSA 09/26/22 - regional, PNB bilateral breast lumpectomies 12, 14, & 16 ----SOCIAL HISTORY Tobacco: No Alcohol: 2-3 drinks per week Substance use: No ----FAMILY HISTORY Father from [place] in his 80s ----PAST MEDICAL HISTORY Active problems - Computerized Problem List is the source for the followin. Hyperlipidemia 2. Sensorineural Hearing Loss, Bilateral 3. Subjective [...] eval/rx 8. Tinnitus 9. Benign essential hypertension 15-point review of systems completed and negative other than stated above. 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 ----MEDICATIONS Medication list reviewed with patient and/or patient's family Active/Pending/ Outpatient Medications 1) AMOXICILLIN 875/CLAV K 125MG TAB TAKE 1 TABLET BY ACTIVE MOUTH TWICE A DAY BRONCHITIS 2) ATORVASTATIN CALCIUM 80MG TAB TAKE ONE TABLET BY ACTIVE MOUTH EVERY DAY FOR CHOLESTEROL 3) CETIRIZINE HCL 10MG TAB TAKE ONE TABLET BY MOUTH ACTIVE EVERY DAY 4) CHOLECALCIF 25MCG (D3-1,000UNIT) TAB TAKE ONE TABLET ACTIVE BY MOUTH EVERY DAY FOR VITAMIN D 5) CODEINE 10/GG 100MG/5ML (ALC-F/SF) LIQ TAKE 10 ML BY ACTIVE MOUTH EVERY 6 HOURS NEEDED FOR COUGH 6) HYDROCHLOROTHIAZIDE 25MG TAB TAKE ONE-HALF TABLET BY ACTIVE MOUTH EVERY DAY FOR BLOOD PRESSURE 1) BENZOYL PEROXIDE 10% (WATER BASED) GEL APPLY THIN LAYER TOPICALLY TWICE A DAY PREVENTION OF INFECTION APPLY TO SURGICAL SHOULDER STARTING TWO DAYS PRIOR TO SURGERY AND MORNING OF SURGERY. PROCEDURE DATE: 09/05/2023 2) MUPIROCIN 2% OINT APPLY PEA SIZED AMOUNT INSIDE EACH NOSTRIL TOPICALLY TWICE A DAY TO PREVENT INFECTION FOR FIVE DAYS PRIOR TO SURGERY -PROCEDURE DATE: 09/05/2023 1) Non-VA ASPIRIN 81MG EC TAB 81 MG MOUTH 1 X DAY ACTIVE 2) Non-VA CALCIUM CARBONATE 650MG (CA 260MG) TAB 650MG ACTIVE MOUTH EVERY DAY 3) Non-VA CHOLECALCIF 25MCG (D3-1,000UNIT) TAB 1000UNIT ACTIVE MOUTH EVERY DAY 4) Non-VA IBUPROFEN 200MG TAB 200MG MOUTH EVERY DAY ACTIVE NEEDED 5) Non-VA MULTIVITAMIN CAP/TAB 1 TABLET MOUTH EVERY DAY ACTIVE Naltrexone: No Buprenorphine: No Chronic opioid use: none ---LABORATORY STUDIES HGB- HGB 12.7 L (07/03/23) HCT- HCT 37.6 L (07/03/23) WBC- WBC 6.22 (07/03/23) PLT- PLT 291 (07/03/23) INR- INR 1.0 PLASMA (07/03/23 09:08) APTT- APTT____ GLUCOSE- GLUCOSE 108 H (07/03/23) NA- SODIUM 140 (07/03/23) K- POTASSIUM 3.9 (07/03/23) CL- CHLORIDE 107 (07/03/23) CREATINE- CREATININE 0.8 (07/03/23) BILIRUBIN- BILIRUBIN, TOTAL____ AST- Collection DT Specimen Test Name Result Units Ref Range 05/12/2021 08:48 PLASMA AST/SGOT 13 U/L Ref: <=34 ALT- Collection DT Specimen Test Name Result Units Ref Range 05/12/2021 08:48 PLASMA ALT/SGPT 15 U/L Ref: <=55 GFR- EGFR (04/20) 05/12/21 @ 0848 72 CREATININE EGFR (CKD-EPI) 07/03/23 @ 0908 89 A1C- HEMOGLOBIN A1C 5.6 (07/03/23) Troponin- TROPONIN - NONE FOUND Blood Type- SLT - Lab Tests Selected No selection items chosen for this component. ----DIAGNOSTIC STUDIES EK07/03/23 SR w/1st degree AVB, 63 bpm 09/01/22 SR, minimal voltage criteria for LVH, nonspecific ST-T changes, 69 bpm XRAY LEFT SHOULDER 08/20/2023 Impression: No acute fracture, dislocation or AC [...] space. Atherosclerotic calcification of the aortic knob. ----Risk Stratification -- Revised Cardiac Risk Index (RCRI): Class I due to no risk factors CAPRINI score: 8, high risk ---Physical Exam HR: 77 (08/20/2023 10:11) BP: 122/79 (08/20/2023 10:11) RR: 16 (08/20/2023 10:11) O2: 95% (08/20/2023 10:11) Temp: 98.2 F [36.8 C] (08/20/2023 10:11) Airway Exam: Mallampati Class: II Mouth opening: full Neck: full range of motion Thyromental distance: >6cm Dentition: normal Cardiac System: Cardiovascular exam normal: regular rhythm and rate, no murmur Respiratory: Clear to auscultation, normal respiratory rate and effort Mental/Neuro exam: Alert, oriented, calm, cooperative ---EDUCATION Additional anesthetic preparation and risk discussed: Discussed NPO, Med Mgmt, Transportation, Advertising Sales Associate Guidelines, anesthesia team,IV Access, monitoring, pre/post op expectations & GETA vs MAC, Regional (as deemed appropriate), [place], and CVC ----ASSESSMENT/PLAN This is a 83Y.O. undergoing evaluation for LEFT reverse TSA. The final anesthesia plan will be determined by the providers on the day of surgery. Cardiac: HTN, no known CAD. Denies chest pain/pressure, syncope, dyspnea or orthopnea Pulmonary: recent URI/bronchitis starting about 2-3 weeks ago - seen in ED on 08/14/2023 given course of Augmentin and codeine for cough. He reports symptoms have fully resolved, denies SOB or coughing Preoperative Medication Management: Hold all multivitamins, herbal supplements, NSAIDS x 7 days prior to surgery Hold ASA 7 days prior to surgery as taking for primary prevention Ok to take all other daily medications as usual on day of surgery with sip of water /laura/ CASEY HUBBARD NP NURSE PRACTITIONER Signed: 08/20/2023 16:43 CASEY HUBBARD [facility]
--- OUTSIDE RECORDS SUMMARY | 2024-05-05 10:59 | XMS_ITS | Encounter Summary ---
Author Name [facility] [place] [facility] [place] Address [address] [place] [address] Care Team Providers Care Rn Midwife Name Role Phone JAN BRISENO Primary Care [...] Relationship to Policy [facility] ([facility]) MEDICARE ADVANTAGE MEDIC ARE OTILIA RAMESH Claire Sep 17, 2018 [id number] [phone] BENJAMÍN ROSA PATIENT MEDICARE (WNR) MEDICARE (M) PART A Mar 17, 2007 PART A [id number] [phone] BENJAMÍN ROSA PATIENT MEDICARE (WNR) MEDICARE (M) PART B Mar 17, 2007 PART B [id number] [phone] BENJAMÍN ROSA PATIENT Selected Encounter This section includes the information on record at [place] for the Encounter. Date/Time Encounter Type Encounter Description Reason Provider Source Aug 20, 2023 09:00 AM SELF CARE MNGMENT TRAINING OCCUPATIONAL THERAPY ICD-10-CM M25.512 Pain in left shoulder MATILDA GALLEGOS Encounter Template Text not used by [facility] Assessments - Encounter Diagnoses This section includes the primary and secondary diagnoses documented for the Encounter. Date/Time Primary/Secondary Diagnosis Diagnosis Name Provider Source Aug 20, 2023 09:29 AM PRIMARY Pain in left shoulder MATILDA GALLEGOS [facility] Plan of Treatment: Future Appointments (+ 6 months) and Future Tests (+/- 45 days) The Plan of Treatment section includes future care activities for the patient from all [place] [facility]. This section includes future appointments and future orders which are active, pending or scheduled. Future Appointments This section includes appointments that were scheduled to occur 6 months from the date of the Encounter, up to a maximum of 20 appointments. The data comes from all [place] treatment [facility]. Appointment Date/Time Appointment Type Appointme nt Facility Name Sep 05, 2023 12:00 PM AMBULATORY - SURGERY [facility] Sep 05, 2023 12:15 PM AMBULATORY - NONE [facility] Sep 18, 2023 09:30 AM AMBULATORY - SURGERY [facility] Sep 18, 2023 10:30 AM [facility] Sep 27, 2023 03:30 PM AMBULATORY - SURGERY [facility] Oct 16, 2023 08:30 AM [facility] Oct 16, 2023 10:00 AM AMBULATORY - NONE [facility] Oct 23, 2023 09:00 AM [facility] Oct 30, 2023 09:30 AM [facility] Oct 31, 2023 10:30 AM AMBULATORY - SURGERY [facility] Oct 31, 2023 05:10 PM [facility] Nov 13, 2023 09:00 AM [facility] Nov 20, 2023 10:00 AM AMBULATORY - SURGERY [facility] Nov 20, 2023 11:00 AM [facility]ATORY - [facility] Dec 17, 2023 08:40 AM AMBULATORY - SURGERY [facility] January 24, 2024 09:45 AM AMBULATORY - SURGERY [facility] Active, Pending, and Scheduled Orders This section includes a listing of several types of active, pending, and scheduled orders, including clinic medications orders, diagnostic test orders, procedure orders and consult orders; where the start date of the order is 45 days before the date of the Encounter or 45 days after the date of theEncounter. The data comes from all [place] treatment facilities. Test Date/Time Test Type Test Details Facility Name Sep 05, 2023 07:28 PM Laboratory - Blood Bank Order TYPE & SCREEN - LAB BLOOD WC [facility] Lab Results: +/- 30 days of the encounter This section includes the Chemistry and Hematology Lab Results on record with [place] for the patient. Radiology Reports and Pathology Reports are provided separately, in subsequent sections. Lab Results This section contains the Chemistry/Hematology Results that were resulted 30 days before or 30 daysafter the date of the Encounter. Date/Time Source Result Type Result - Unit Interpretation Reference Range Comment Sep 06, 2023 09:11 AM [facility] CBC Specimen Type: BLOOD Comment: Specimen received in Lab at: 0910 Ordering Provider: RAHEEL DELGADILLO Report Released Date/Time: Sep 05, 2023 07:28 PM Reporting Lab: [facility] [id number] Performing Lab: [facility] [id number] WBC 8.69 10*3/uL 4.0-11.0 RBC 3.76 10*6/uL L 4.6-6.2 HGB 11.5 g/dL L 13.5-17.9 HCT 34.7 L 41-54 MCV 92.3 fL 80-100 MCH 30.6 pg 27-33 MCHC 33.1 g/dL 32.0-37.5 PLT 261 10*3/uL 150-400 MPV 11.0 fL H 7.4-10.4 RDW 13.3 11.5-14.5 Sep 06, 2023 09:11 AM [facility] BASIC METABOLIC PANEL+MG Specimen Type: PLASMA Comment: Specimen received in Lab at: 0910 Ordering Provider: RAHEEL DELGADILLO Report Released Date/Time: Sep 05, 2023 07:28 PM Reporting Lab: [facility] [phone] Performing Lab: [facility] [phone] CREATININE 0.9 mg/dL 0.7-1.2 UREA NITROGEN 15 mg/dL 8-26 GLUCOSE 141 mg/dL H 70-100 SODIUM 134 mmol/L L 136-145 POTASSIUM 4.1 mmol/L 3.5-5.1 CHLORIDE 101 mmol/L 98-107 CO2 24 mmol/L 22-29 CALCIUM 8.6 mg/dL 8.4-10.2 MAGNESIUM 1.7 mg/dL 1.6-2.6 ANION GAP 9 mmol/L 5-15 .CREAT EGFR(CKD-EPI) 86 >60 Sep 06, 2023 05:44 AM [facility] FINGERSTICK GLUCOSE Specimen Type: BLOOD Comment: Save Result Ordering Provider: FALLON MUNGUIA Report Released Date/Time: Sep 06, 2023 06:02 AM Reporting Lab: [facility] [phone] Performing Lab: [facility] [phone] FINGERSTICK GLUCOSE 140 mg/dL 70-100 Sep 05, 2023 08:25 PM [facility] PROTHROMBIN TIME/INR Specimen Type: PLASMA No comment entered. Ordering Provider: EMILY REVELES Report Released Date/Time: Sep 05, 2023 07:28 PM Reporting Lab: [facility] [phone] Performing Lab: [facility] Sep 05, 2023 08:25 PM [facility] ACT PART THROMBO TIME Specimen Type: PLASMA Comment: ~Draw on admission. Call IV team to draw on admission. Ordering Provider: EMILY REVELES Report Released Date/Time: Sep 05, 2023 07:28 PM Reporting Lab: [facility] [phone] Performing Lab: [facility] [address] APTT 30.8 s 25.1-36.5 Sep 05, 2023 08:25 PM [facility] CBC Specimen Type: BLOOD No comment entered. Ordering Provider: EMILY REVELES Report Released Date/Time: Sep 05, 2023 07:28 PM Reporting Lab: [facility] [address] Performing Lab: [facility] [address] WBC 8.60 10*3/uL 4.0-11.0 RBC 3.66 10*6/uL L 4.6-6.2 HGB 11.3 g/dL L 13.5-17.9 HCT 34.3 L 41-54 MCV 93.7 fL 80-100 MCH 30.9 pg 27-33 MCHC 32.9 g/dL 32.0-37.5 PLT 225 10*3/uL 150-400 MPV 10.9 fL H 7.4-10.4 RDW 13.4 11.5-14.5 Sep 05, 2023 08:25 PM [facility] BASIC METABOLIC PANEL+MG Specimen Type: PLASMA No comment entered. Ordering Provider: EMILY REVELES Report Released Date/Time: Sep 05, 2023 07:28 PM Reporting Lab: [facility] [phone] Performing Lab: [facility] [address] CREATININE 0.9 mg/dL 0.7-1.2 UREA NITROGEN 17 [...] /min 122/79 mm[Hg] 16 /min 95 % [facility] Social History: Smoking Status (Most [...] Santiago kwong Mar 19, 2023 10:30 AM [place]-TOBACCO NEVER USED [facility] Tobacco Use History This section includes a history of the smoking, or tobacco-related health factors, that were collected on or before the date of the Encounter. The data comes from the [place] facility where the Encounter took place. Date/Time Smoking Status/Tobacco Use Comment F tiago Mar 22, 2022 08:45 AM [place]-TOBACCO NEVER USED [facility] May 12, 2021 10:00 AM [place]-TO[place]AC[place] FORMER USER [facility] May 12, 2021 10:00 AM VA-TOBACCO QUIT 15 YRS OR MORE [facility] Feb 24, 2019 09:35 AM VA-TOBACCO NEVER USED [facility] Feb 18, 2018 01:56 PM FORMER TOBACCO USER 7Y OR GREATE R [facility] Mar 06, 2017 09:31 AM FORMER TOBACCO USER 7Y OR GREATE R [facility] Mar 06, 2016 09:54 AM FORMER TOBACCO USER 7Y OR GREATE R [facility] January 25, 2016 06:31 AM INPT NO TOBACCO USE IN LAST 30 D AYS [facility] January 22, 2015 10:06 AM LIFETIME NON-TOBACCO USER [facility] Apr 15, 2014 10:09 AM FORMER TOBACCO USER 7Y OR GREATE R [facility] February 01, 2011 08:51 AM FORMER TOBACCO USER 7Y OR GREATE R [facility] Advance Directives: All historical and [...] Source Oct 13, 2017 [facility] Oct 13, 2017 ADVANCE DIRECTIVE DISCUSSION MARAL DORANTES [facility] Radiology Reports: +/- 30 days [...] the Encounter. The data comes from all [place] treatment facilities. Date/Time Radiology Report Provider Source Sep 05, 2023 07:58 AM SHOULDER LEFT 2-3 VIEWS: MOEBENJAMÍN [id number] -[id number] M Exm Date: SEP 05, 2023@07:58 Req Phys: MARCUS LOMAX Pat Loc: [facility] ADMISSIONS SURGERY (Req'g Img Loc: MAIN X-RAY Service: Unknown (Case [id number] COMPLETE) SHOULDER LEFT 2-3 VIEWS (RAD Detailed) CPT:84854 Proc Modifiers : PORTABLE EXAM, OPERATING ROOM EXAM, LEFT Reason for Study: Left reverse TSA Clinical History: OR 6 Shoulder OA Responsible provider name and phone number to notify for critical findings if other than user placing the order and pager listed below: User placing orders pager: Rukhsana Lomax [phone] LAST CREATININE 0.8 (07/03/23) Report Status: Verified Date Reported: SEP 05, 2023 Date Verified: SEP 05, 2023 Material Control Clerk E-Sig:/ES/LIDYA GUDINO MD Report: SHOULDER LEFT 2-3 [...] Primary Interpreting Staff: LIDYA GUDINO MD, RADIOLOGIST (Material Control Clerk) /[facility] LIDYA GUDINO [facility] Aug 20, 2023 10:16 AM SHOULDER LEFT 4V(A P,Y VIEW, GRASHEY & AXILLARY): BENJAMÍN ROSA [id number] -1940 M Ex Date: AUG 20, 2023@10:16 Req Phys: MARCUS LOMAX Loc: [facility] ORTHO COORD PHONE (Req'g L Img Loc: MAIN X-RAY Service: Unknown (Case [id number] COMPLETE) SHOULDER LEFT 4V(AP,Y VIEW, GRASH(RAD Detailed) CPT:25519 Proc Modifiers : LEFT Reason for Study: [...] 20, 2023 Date Verified: AUG 20, 2023 Material Control Clerk E-Sig:/ES/PASHA MARIA DO Report: EXAMINATION: SHOULDER LEFT [...] Primary Interpreting Staff: PASHA MARIA DO, RADIOLOGIST (Material Control Clerk) /DDS PASHA MARIA [facility] Encounter Notes: All associated encounter notes This section contains the clinical notes associated to the Encounter. Date/Time Encounter Note(s) Provider Source Aug 20, 2023 07:59 AM OCCUPATIONAL THERA PY CONSULT: LOCAL TITLE: OCCUPATIONAL THERAPY CONSULT STANDARD TITLE: OCCUPATIONAL THERAPY CONSULT DATE OF NOTE: AUG 20, 2023@07:59 ENTRY DATE: AUG 20, 2023@07:59:22 AUTHOR: MATILDA GALLEGOS COSIGNER: URGENCY: STATUS: COMPLETED OCCUPATIONAL THERAPY PRE-OPERATIVE EVALUATION NOTE Referring provider: MARCUS LOMAX Diagnosis for which patient is referred to OT: Pain in left Shoulder(ICD-10-CM M25.512) Planned procedure: left reverse TSA Planned procedure date: Aug Patient seen for 30 minutes OT Evaluation 15 minutes, Low Complexity Self-care management trainin minutes ASSESSMENT: Nya is a R handed 83 year old referred to outpatient OT for pre-operative appointment. At baseline nya lives with his . At baseline nya is ind with all I/ADL's. Nya is ind ambulating at baseline with no AD. Nya recently had his R shoulder done with the same surgeon in the community. participated in OT session addressing AE, DME, and falls prevention education. Education and demonstration provided on anticipated precautions following surgery with ADLs and review of AE completed. Vet verbalized understanding of education provided and was issued items listed below. Vet did not demonstrate need for ongoing outpatient OT. Recommend new inpatient OT consult post-op day 1. PLAN: Vet discharged from outpatient OT. SHORT TERM GOALS TO BE MET AFTER THIS SESSION: 1. Vet will verbalize good understanding of proper care, use, adjustment and installation of all recommended DME for bathroom of residence. 2. Vet will verbalize good understanding of proper use of AE to promote increased independence with ADLs post-procedure. 3. Vet will verbalize good understanding of fall prevention strategies. PATIENT EDUCATION ON TREATMENT PLAN: Patient indicates readiness to learn, verbalizes understanding, agreement and satisfaction with the treatment plan. Denies further questions. CURRENT MEDICAL HISTORY: Hyperlipidemia (SCT [id number]) Sensorineural Hearing Loss, Bilateral (ICD-9-CM 389.18) Subjective tinnitus (ICD-9-CM 388.31) Elevation, blood pressure (ICD-9-CM 796.2) Personal History of Malignant Neoplasm oOther Specified Counseling (ICD-9-CM V65.49) Pigmented skin lesion (SCT [id number]) Tinnitus ([facility] [id number]) Benign essential hypertension ([facility] [address] SUBJECTIVE: Warner identified goal(s): Right one done in September, goal to get his left done and return to ice fishing, vet reports he gets numbness and tingling in his hands after he sleeps with his elbows bent CONTEXT SOCIAL HISTORY/HOME ENVIRONMENT: Lives: Spouse Primary [...] I Driving: I Medication management: sets up pillboz rn pain management: I Sensation: B UEs: Numbness/tingling when bending elbow B LEs: Intact OBJECTIVE: Education on proper care, use, adjustment and installation of the following items: -Shower chair- ordered Bath Seat with Detachable Back Product #: [id number] to fit in their small showerOutitude -Handheld shower head Vet provided with the following: *Bathing, dressing and showering tips Vet instructed to keep items issued on this date for potential use in future ADL: Sleep- Vet administered IMAK elbow brace to prevent compression of nerve at elbow and numbness and tingling when he wakes up, instructed to wear sling post op vs the IMAK Education: * educated that patients are typically mobilized, with staff assist only, post-operatively day 1. *Anticipated LOS is typically overnight with for TSA's with 2 week and 6 week outpatient PT check in's for TSA, ice machine in PACU *Vet educated that post-operative LOS can vary from one day to several days. COGNITION: - Orientation: Oriented to self, place and situation - Attention span: Attended to full session without difficulty - Commands: Able to follow 2 step commands, requires cues - Communication: Able to make needs known - Safety Awareness: Appears intact, pt demonstrates insight to current limitations EMOTIONAL/BEHAVIORAL: Appropriate affect, Eye contact, Acknowledges others, Initiates/engages conversation, Calm/pleasant, Cooperative OCCUPATIONAL THERAPY EVALUATION COMPLEXITY Identifying and reporting [...] to enable completion of evaluation component. /laura/ MATILDA GALLEGOS Occupational Therapist Signed: 08/20/2023 09:37 MATILDA GALLEGOS [facility]
--- OUTSIDE RECORDS SUMMARY | 2024-05-05 10:59 | XMS_ITS | Encounter Summary ---
Author Name [facility] [place] [place] Organization [facility] [place] Address [address] [place] [address] Care Team Providers Care Torch Brazer Name Role Phone JAN BRISENO Primary Care [...] French's Name Patient's Relationship to Policy French [facility] (WNR) MEDICARE ADVANTAGE MEDIC ARE OTILIA RAMESH Claire Sep 17, 2018 [id number] [phone] BENJAMÍN ROSA PATIENT MEDICARE (WNR) MEDICARE (M) PART A Mar 17, 2007 PART A [id number] [phone] BENJAMÍN ROSA PATIENT MEDICARE (WNR) MEDICARE (M) PART B Mar 17, 2007 PART B [id number] [phone] BENJAMÍN ROSA PATIENT Selected Encounter This section includes the information on record at [place] for the Encounter. Date/Time Encounter Type Encounter Description Reason Pro vider Source Aug 14, 2023 11:10 AM Outpatient Encounter CLINICAL PHARMACY [facility] Encounter Template Text not used by [place] Plan of Treatment: Future Appointments (+ 6 months) and Future Tests (+/- 45 days) The Plan of Treatment section includes future care activities for the [facility] [place] [facility] This section includes future appointments and future orders which are active, pending or scheduled. Future Appointments This section includes appointments that were scheduled to occur 6 months from the date of the Encounter, up to a maximum of 20 appointments. The data comes from all [place] treatment facilities. Appointment Date/Time Appointment Type Appointme nt Facility Name Aug 20, 2023 09:00 AM AMBULATORY - REHAB MEDICIN E [facility] Aug 20, 2023 09:45 AM AMBULATORY - SURGERY [facility] Aug 20, 2023 10:30 AM [facility] Aug 20, 2023 11:00 [facility] Sep 05, 2023 12:00 PM AMBULATORY - SURGERY [facility] Sep 05, 2023 12:15 [facility] Sep 18, 2023 09:30 AM AMBULATORY - SURGERY [facility] Sep 18, 2023 10:30 AM AMBULATORY - REHAB MEDICIN E [facility] Sep 27, 2023 03:30 PM AMBULATORY - SURGERY [facility] Oct 16, 2023 08:30 AM AMBULATORY - REHAB MEDICIN E [facility] Oct 16, 2023 10:00 AM AMBULATORY - NONE [facility] Oct 23, 2023 09:00 AM AMBULATORY - REHAB MEDICIN E [facility] Oct 30, 2023 09:30 AM AMBULATORY - REHAB MEDICIN E [facility] Oct 31, 2023 10:30 AM AMBULATORY - SURGERY [facility] Oct 31, 2023 05:10 PM AMBULATORY - REHAB MEDICIN E [facility] Nov 13, 2023 09:00 AM AMBULATORY - REHAB MEDICIN E [facility] Nov 20, 2023 10:00 AM AMBULATORY - SURGERY [facility] Nov 20, 2023 11:00 AM AM[facility]ULATORY - [facility]ICINE [facility] Dec 17, 2023 08:40 AM AMBULATORY - SURGERY [facility] January 24, 2024 09:45 AM AMBULATORY - SURGERY [facility] Active, Pending, and Scheduled Orders This section includes a listing of several types of active, pending, and scheduled orders, including clinic medications orders, diagnostic test orders, procedure orders and consult orders; where the start date of the order is 45 days before the date of the Encounter or 45 days after the date of theEncounter. The data comes from all [place] treatment facilities. Test Date/Time Test Type Test Details Facility Name Sep 05, 2023 07:28 PM Laboratory - Blood Bank Order TYPE & SCREEN - LAB BLOOD WC [facility] Lab Results: +/- 30 days of the encounter This section includes the Chemistry and Hematology Lab Results on record with [place] for the patient. Radiology Reports and Pathology Reports are provided separately, in subsequent sections. Lab Results This section contains the Chemistry/Hematology Results that were resulted 30 days before or 30 daysafter the date of the Encounter. Date/Time Source Result Type Result - Unit Interpretation Reference Range Comment Sep 06, 2023 09:11 AM [facility] CBC Specimen Type: BLOOD Comment: Specimen received in Lab at: 0910 Ordering Provider: RAHEEL DELGADILLO Report Released Date/Time: Sep 05, 2023 07:28 PM Reporting Lab: [facility] [id number] Performing Lab: [facility] [phone] WBC 8.69 10*3/uL 4.0-11.0 RBC 3.76 10*6/uL L 4.6-6.2 HGB 11.5 g/dL L 13.5-17.9 HCT 34.7 L 41-54 MCV 92.3 fL 80-100 MCH 30.6 pg 27-33 MCHC 33.1 g/dL 32.0-37.5 PLT 261 10*3/uL 150-400 MPV 11.0 fL H 7.4-10.4 RDW 13.3 11.5-14.5 Sep 06, 2023 09:11 AM [facility] BASIC METABOLIC PANEL+MG Specimen Type: PLASMA Comment: Specimen received in Lab at: 0910 Ordering Provider: RAHEEL DELGADILLO Report Released Date/Time: Sep 05, 2023 07:28 PM Reporting Lab: [facility] [id number] Performing Lab: [facility] [phone] CREATININE 0.9 mg/dL 0.7-1.2 UREA NITROGEN 15 mg/dL 8-26 GLUCOSE 141 mg/dL H 70-100 SODIUM 134 mmol/L L 136-145 POTASSIUM 4.1 mmol/L 3.5-5.1 CHLORIDE 101 mmol/L 98-107 CO2 24 mmol/L 22-29 CALCIUM 8.6 mg/dL 8.4-10.2 MAGNESIUM 1.7 mg/dL 1.6-2.6 ANION GAP 9 mmol/L 5-15 .CREAT EGFR(CKD-EPI) 86 >60 Sep 06, 2023 05:44 AM [facility] FINGERSTICK GLUCOSE Specimen Type: BLOOD Comment: Save Result Ordering Provider: FALLON MUNGUIA Report Released Date/Time: Sep 06, 2023 06:02 AM Reporting Lab: [facility] [id number] Performing Lab: [facility] [address] FINGERSTICK GLUCOSE 140 mg/dL 70-100 Sep 05, 2023 08:25 PM [facility] PROTHROMBIN TIME/INR Specimen Type: PLASMA No comment entered. Ordering Provider: EMILY REVELES Report Released Date/Time: Sep 05, 2023 07:28 PM Reporting Lab: [facility] [id number] Performing Lab: [facility] Sep 05, 2023 08:25 PM [facility] ACT PART THROMBO TIME Specimen Type: PLASMA Comment: ~Draw on admission. Call IV team to draw on admission. Ordering Provider: EMILY REVELES Report Released Date/Time: Sep 05, 2023 07:28 PM Reporting Lab: [facility] [phone] Performing Lab: [facility] [id number] APTT 30.8 s 25.1-36.5 Sep 05, 2023 08:25 PM [facility] CBC Specimen Type: BLOOD No comment entered. Ordering Provider: EMILY REVELES Report Released Date/Time: Sep 05, 2023 07:28 PM Reporting Lab: [facility] [phone] Performing Lab: [facility] [id number] WBC 8.60 10*3/uL 4.0-11.0 RBC 3.66 10*6/uL L 4.6-6.2 HGB 11.3 g/dL L 13.5-17.9 HCT 34.3 L 41-54 MCV 93.7 fL 80-100 MCH 30.9 pg 27-33 MCHC 32.9 g/dL 32.0-37.5 PLT 225 10*3/uL 150-400 MPV 10.9 fL H 7.4-10.4 RDW 13.4 11.5-14.5 Sep 05, 2023 08:25 PM [facility] BASIC METABOLIC PANEL+MG Specimen Type: PLASMA No comment entered. Ordering Provider: EMILY REVELES Report Released Date/Time: Sep 05, 2023 07:28 PM Reporting Lab: [facility] [id number] Performing Lab: [facility] [phone] CREATININE 0.9 mg/dL 0.7-1.2 UREA NITROGEN 17 [...] 89 /min 155/98 mm[Hg] 16 /min 1 [facility] Social History: Smoking Status (Most current) and Tobacco Use (All prior to encounter date) This section includes the most current, and the historical, smoking and tobacco- related health factors from the [place] facility where the Encounter took place. Current Smoking Status This section includes the most current smoking, or tobacco-related health factor, from the [place] facility where the Encounter took place. Date/Time Current Smoking Status Comment Santiago kwong Mar 19, 2023 10:30 AM [place]-TOBACCO NEVER USED [facility] Tobacco Use History This section includes a history of the smoking, or tobacco-related health factors, that were collected on or before the date of the Encounter. The data comes from the [place] facility where the Encounter took place. Date/Time Smoking Status/Tobacco Use Comment F acility Mar 22, 2022 08:45 AM [place]-TOBAC[place] NEVER USED [facility] May 12, 2021 10:00 AM [place]-TOBACCO FORMER USER [facility] May 12, 2021 10:00 AM VA-TOBACCO QUIT 15 YRS OR MORE [facility] Feb 24, 2019 09:35 AM [place]-TOBACCO NEVER USED [facility] Feb 18, 2018 01:56 PM FORMER TOBACCO USER 7Y OR GREATE R [facility] Mar 06, 2017 09:31 AM FORMER TOBACCO USER 7Y OR GREATE R [facility] Mar 06, 2016 09:54 AM FORMER TOBACCO USER 7Y OR GREATE R [facility] January 25, 2016 06:31 AM INPT NO TOBACCO USE IN LAST 30 D AYS [facility] January 22, 2015 10:06 AM LIFETIME NON-TOBACCO USER [facility] Apr 15, 2014 10:09 AM FORMER TOBACCO USER 7Y OR GREATE R [facility] February 01, 2011 08:51 AM FORMER TOBACCO USER 7Y OR GREATE R [facility] Advance Directives: All historical and current Section Date Range: From patient's date of to the date document was created. This section includes ALL of a patient's completed or amended [place] Advance and Rescinded Directives. The entries below indicate that a directive exists for the patient, but an actual copy is not included with this document. The data comes from all [facility]. Date Advance Directives Provider Source Oct 13, 2017 [facility] Oct 13, 2017 ADVANCE DIRECTIVE DISCUSSION MARAL DORANTES [facility] Radiology Reports: +/- 30 days [...] the Encounter. The data comes from all [place] treatment facilities. 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 Responsible provider name and phone number to notify for critical findings if other than user placing the order and pager listed below: User placing orders pager: Rukhsana Lomax [phone] LAST CREATININE 0.8 (07/03/23) Report Status: Verified Date Reported: SEP 05, 2023 Date Verified: SEP 05, 2023 Interventional Radiology Technologist E-Sig:/ES/LIDYA GUDINO MD Report: SHOULDER LEFT 2-3 [...] Primary Interpreting Staff: LIDYA GUDINO MD, RADIOLOGIST (Interventional Radiology Technologist) /[facility] LIDYA GUDINO [facility] Aug 20, 2023 10:16 AM SHOULDER LEFT 4V(A P,Y VIEW, GRASHEY & AXILLARY): BENJAMÍN ROSA [id number] -[id number] M Ex Date: AUG 20, 2023@10:16 Req Phys: MARCUS LOMAX Loc: [facility] ORTHO COORD PHONE (Req'g L Img Loc: MAIN X-RAY Service: Unknown (Case [id number] COMPLETE) SHOULDER LEFT 4V(AP,Y VIEW, GRASH(RAD Detailed) CPT:01211 Proc Modifiers : LEFT Reason for Study: [...] 20, 2023 Date Verified: AUG 20, 2023 Interventional Radiology Technologist E-Sig:/ES/PASHA MARIA DO Report: EXAMINATION: SHOULDER LEFT [...] Primary Interpreting Staff: PASHA MARIA DO, RADIOLOGIST (Interventional Radiology Technologist) /[facility] PASHA MARIA [facility] Encounter Notes: All associated encounter notes This section contains the clinical notes associated to the Encounter. Date/Time Encounter Note(s) Provider Source Aug 14, 2023 11:10 AM EDUCATION NOTE: LOCAL TITLE: EDUCATION MEDICATION INSTRUCTION STANDARD TITLE: EDUCATION NOTE DATE OF NOTE: AUG 14, 2023@11:10 ENTRY DATE: AUG 14, 2023@11:10:42 AUTHOR: BENJAMÍN WELCH COSIGNER: URGENCY: STATUS: COMPLETED MEDICATION EDUCATION PARTICIPANTS: Patient TEACHING STRATEGY: Face to Face READINESS TO LEARN: No barriers identified LEARNING NEEDS/OBJECTIVES Participant(s) indicates readiness to learn and has been instructed on indications, side effects, and directions for use. Participant(s) will receive medication information sheets for medications filled. Education included discussion of the following: New medication(s): ROBITUSSIN AC, AUGMENTIN, CETIRIZINE PATIENT/FAMILY RESPONSE (OUTCOME): Verbalizes critical information about the topic FOLLOW-UP RECOMMENDED: None needed Active Outpatient Medications (including Supplies): Outpatient Medications Status 1) AMOXICILLIN 875/CLAV [...] MOUTH EVERY DAY ACTIVE 11 Total Medications /es/ BENJAMÍN WELCH PharmD, BCGP, MSCS Outpatient Clinic Pharmacist Signed: 08/14/2023 11:11 BENJAMÍN WELCH [facility]
--- OUTSIDE RECORDS SUMMARY | 2024-05-05 10:59 | XMS_ITS | Encounter Summary ---
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 Date/Time Encounter Type Encounter Description Reason Pro vider Source Sep 05, 2023 07:00 AM Inpatient Visit CLINICAL PHARMACY IHE Encounter Template Text not used by [place] Plan of Treatment: Future Appointments (+ 6 months) and Future Tests (+/- 45 days) The Plan of Treatment section includes future care activities for the [facility] [place] [facility] This section includes future appointments and future orders which are active, pending or scheduled. Future Appointments This section includes appointments that were scheduled to occur 6 months from the date of the Encounter, up to a maximum of 20 appointments. The data comes from all [facility]. Appointment Date/Time Appointment Type Appointme nt Facility Name Sep 18, 2023 09:30 AM AMBULATORY - SURGERY [facility] Sep 18, 2023 10:30 AM [facility]ORY - [facility] Sep 27, 2023 03:30 PM AMBULATORY - SURGERY [facility] Oct 16, 2023 08:30 AM [facility]ORY - [facility] Oct 16, 2023 10:00 AM AMBULATORY - NONE [facility] Oct 23, 2023 09:00 AM [facility] Oct 30, 2023 09:30 AM [facility] Oct 31, 2023 10:30 AM AMBULATORY - SURGERY [facility] Oct 31, 2023 05:10 PM [facility]ORY - [facility] Nov 13, 2023 09:00 AM [facility] Nov 20, 2023 10:00 AM AMBULATORY - SURGERY [facility] Nov 20, 2023 11:00 AM AMBULATORY - MEDICINE [facility] Dec 17, 2023 08:40 AM AMBULATORY - SURGERY [facility] January 24, 2024 09:45 AM AMBULATORY - SURGERY [facility] Active, Pending, and Scheduled Orders This section includes a listing of several types of active, pending, and scheduled orders, including clinic medications orders, diagnostic test orders, procedure orders and consult orders; where the start date of the order is 45 days before the date of the Encounter or 45 days after the date of theEncounter. The data comes from all [facility]. Test Date/Time Test Type Test Details Facility Name Sep 05, 2023 07:28 PM Laboratory - Blood Bank Order TYPE & SCREEN - LAB BLOOD WC [facility] Lab Results: +/- 30 days [...] Range Comment Sep 06, 2023 09:11 AM [facility] CBC Specimen Type: BLOOD Comment: Specimen received in Lab at: 0910 Ordering Provider: RAHEEL DELGADILLO Report Released Date/Time: Sep 05, 2023 07:28 PM Reporting Lab: [facility] [id number] Performing Lab: [facility] [phone] WBC 8.69 10*3/uL 4.0-11.0 RBC 3.76 10*6/uL L 4.6-6.2 HGB 11.5 g/dL L 13.5-17.9 HCT 34.7 L 41-54 MCV 92.3 fL 80-100 MCH 30.6 pg 27-33 MCHC 33.1 g/dL 32.0-37.5 PLT 261 10*3/uL 150-400 MPV 11.0 fL H 7.4-10.4 RDW 13.3 11.5-14.5 Sep 06, 2023 09:11 AM [facility] BASIC METABOLIC PANEL+MG Specimen Type: PLASMA Comment: Specimen received in Lab at: 0910 Ordering Provider: RAHEEL DELGADILLO Report Released Date/Time: Sep 05, 2023 07:28 PM Reporting Lab: [facility] [id number] Performing Lab: [facility] [address] CREATININE 0.9 mg/dL 0.7-1.2 UREA NITROGEN 15 mg/dL 8-26 GLUCOSE 141 mg/dL H 70-100 SODIUM 134 mmol/L L 136-145 POTASSIUM 4.1 mmol/L 3.5-5.1 CHLORIDE 101 mmol/L 98-107 CO2 24 mmol/L 22-29 CALCIUM 8.6 mg/dL 8.4-10.2 MAGNESIUM 1.7 mg/dL 1.6-2.6 ANION GAP 9 mmol/L 5-15 .CREAT EGFR(CKD-EPI) 86 >60 Sep 06, 2023 05:44 AM [facility] FINGERSTICK GLUCOSE Specimen Type: BLOOD Comment: Save Result Ordering Provider: FALLON MUNGUIA Report Released Date/Time: Sep 06, 2023 06:02 AM Reporting Lab: [facility] [phone] Performing Lab: [facility] [phone] FINGERSTICK GLUCOSE 140 mg/dL 70-100 Sep 05, 2023 08:25 PM [facility] PROTHROMBIN TIME/INR Specimen Type: PLASMA No comment entered. Ordering Provider: EMILY REVELES Report Released Date/Time: Sep 05, 2023 07:28 PM Reporting Lab: [facility] [phone] Performing Lab: [facility] Sep 05, 2023 08:25 PM [facility] ACT PART THROMBO TIME Specimen Type: PLASMA Comment: ~Draw on admission. Call IV team to draw on admission. Ordering Provider: EMILY REVELES Report Released Date/Time: Sep 05, 2023 07:28 PM Reporting Lab: [facility] [phone] Performing Lab: [facility] [address] APTT 30.8 s 25.1-36.5 Sep 05, 2023 08:25 PM [facility] CBC Specimen Type: BLOOD No comment entered. Ordering Provider: EMILY REVELES Report Released Date/Time: Sep 05, 2023 07:28 PM Reporting Lab: [facility] [phone] Performing Lab: [facility] [address] WBC 8.60 10*3/uL 4.0-11.0 RBC 3.66 10*6/uL L 4.6-6.2 HGB 11.3 g/dL L 13.5-17.9 HCT 34.3 L 41-54 MCV 93.7 fL 80-100 MCH 30.9 pg 27-33 MCHC 32.9 g/dL 32.0-37.5 PLT 225 10*3/uL 150-400 MPV 10.9 fL H 7.4-10.4 RDW 13.4 11.5-14.5 Sep 05, 2023 08:25 PM [facility] BASIC METABOLIC PANEL+MG Specimen Type: PLASMA No comment entered. Ordering Provider: EMILY REVELES Report Released Date/Time: Sep 05, 2023 07:28 PM Reporting Lab: [facility] [phone] Performing Lab: [facility] [address] [facility] [address] CREATININE 0.9 mg/dL 0.7-1.2 UREA NITROGEN 17 [...] Height Weight Body Mass Index Source Sep 05, 2023 11:52 PM 98.2 F 65 /min 134/72 mm[Hg] 16 /min 95 % 0 [facility] Sep 05, 2023 12:33 PM 97.5 F 60 /min 154/82 mm[Hg] 16 /min 96 % 5 [facility] Social History: Smoking Status (Most [...] 19, 2023 10:30 AM VA-TOBACCO NEVER USED [facility] Tobacco Use History This section includes a history of the smoking, or tobacco-related health factors, that were collected on or before the date of the Encounter. The data comes from the [place] facility where the Encounter took place. Date/Time Smoking Status/Tobacco Use Comment F acility Mar 22, 2022 08:45 AM VA-TOBACCO NEVER USED [facility] May 12, 2021 10:00 AM VA-TOBACCO FORMER USER [facility] May 12, 2021 10:00 AM VA-TOBACCO QUIT 15 YRS OR MORE [facility] Feb 24, 2019 09:35 AM VA-TOBACCO NEVER USED [facility] Feb 18, 2018 01:56 PM FORMER TOBACCO USER 7Y OR GREATE R [facility] Mar 06, 2017 09:31 AM FORMER TOBACCO USER 7Y OR GREATE R [facility] Mar 06, 2016 09:54 AM FORMER TOBACCO USER 7Y OR GREATE R [facility] January 25, 2016 06:31 AM INPT NO TOBACCO USE IN LAST 30 D AYS [facility] January 22, 2015 10:06 AM LIFETIME NON-TOBACCO USER [facility] Apr 15, 2014 10:09 AM FORMER TOBACCO USER 7Y OR GREATE R [facility] February 01, 2011 08:51 AM FORMER TOBACCO USER 7Y OR GREATE R [facility] Advance Directives: All historical and current Section Date Range: From patient's date of to the date document was created. This section includes ALL of a patient's completed or amended [place] Advance and Rescinded Directives. The entries below indicate that a directive exists for the patient, but an actual copy is not included with this document. The data comes from all [facility]. 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 Responsible provider name and phone number to notify for critical findings if other than user placing the order and pager listed below: User placing orders pager: Rukhsana Lomax [phone] LAST CREATININE 0.8 (07/03/23) Report Status: Verified Date Reported: SEP 05, 2023 Date Verified: SEP 05, 2023 Welding Equipment Repairer E-Sig:/ES/LIDYA GUDINO MD Report: SHOULDER LEFT 2-3 [...] Primary Interpreting Staff: LIDYA GUDINO MD, RADIOLOGIST (Welding Equipment Repairer) /[facility] LIDYA GUDINO [facility] Aug 20, 2023 10:16 AM SHOULDER LEFT 4V(A P,Y VIEW, GRASHEY & AXILLARY): BENJAMÍN ROSA [id number] -[id number] M Ex Date: AUG 20, 2023@10:16 Req Phys: MARCUS LOMAX Pat Loc: [facility] ORTHO COORD PHONE (Req'g L Img Loc: MAIN X-RAY Service: Unknown (Case [id number] COMPLETE) SHOULDER LEFT 4V(AP,Y VIEW, GRASH(RAD Detailed) CPT:82013 Proc Modifiers : LEFT Reason for Study: pre-op Clinical History: [place] IS NOT under investigation for COVID-19 or is COVID-19 negative pre-op Responsible provider name and phone number to notify for critical findings if other than user placing the order and pager listed below: User placing orders pager: LAST CREATININE 0.8 (10/17/23) Report Status: Verified Date Reported: AUG 20, 2023 Date Verified: AUG 20, 2023 Welding Equipment Repairer E-Sig:/ES/PASHA MARIA DO Report: EXAMINATION: SHOULDER LEFT [...] Primary Interpreting Staff: PASHA MARIA DO, RADIOLOGIST (Welding Equipment Repairer) /[facility] PASHA MARIA [facility] Encounter Notes: All associated encounter notes This section contains the clinical notes associated to the Encounter. Date/Time Encounter Note(s) Provider Source Sep 05, 2023 08:10 AM ADDENDUM: LOCAL TITLE: Addendum STANDARD TITLE: ADDENDUM DATE OF NOTE: SEP 05, 2023@08:10:40 ENTRY DATE: SEP 05, 2023@08:10:42 AUTHOR: JAKUB YOO EXP COSIGNER: URGENCY: STATUS: COMPLETED Medication list provided to assist in ordering inpatient medications. *No pending/clinic/remote [place] meds /laura/ JAKUB YOO PharmD Signed: 09/05/2023 08:14 Receipt Acknowledged By: 09/06/2023 15:37 /laura/ JUNIOR GARIBAY MD STAFF ORTHOPAEDIC SURGEON for MARCUS Leal LOMAX --- Original Document --- 08/30/23 DRUG RECONCILIATION ON ADMIT: PHARMACY MEDICATION HISTORY NOTE ====== Medication & allergy history was compiled by pharmacy to assist providers ordering inpatient medications. Essential med list includes active local & remote VA rxs, non-VA meds, recently rxs within last 180 days, recently discontinued rxs within last 90 days, clinic med orders, pending med orders, & inpatient med orders. Current active & pending inpatient med orders will be reviewed to complete medication reconciliation. With the exception of allergies, if a category is not listed below, there were no relevant meds for the patient. Seasonal Influenza Immunization: 06/12/2023 MIRYAM:BRANDYN IIS INTERVIEW Patient and/or caregiver has been INTERVIEWED by pharmacy. Allergies: FACILITY ALLERGY/ADR -------- No Remote Allergy/ADR Data available for this patient [facility] LISINOPRIL Tobacco use within the last 30 days No Medications given in clinic: no clinic meds 08/30/2023 07:25 [id number] Source of Info: [facility] Drug Last Refills Qty Filled Remaining ---- --- ------ --------- AMOXICILLIN 875/CLAV K 125MG TAB 10 08/14/2023 (0) 1 BID BRONCHITIS completed ATORVASTATIN CALCIUM 80MG TAB 90 06/09/2023 (2) ONE QDAY FOR CHOLESTEROL (am) CETIRIZINE HCL 10MG TAB 10 08/14/2023 (0) ONE QDAY FOR ALLERGIES no longer using CHOLECALCIF 25MCG (D3-1,000UNIT) TAB 100 06/29/2023 (3) ONE QDAY FOR VITAMIN D(am) on hold CODEINE 10/GG 100MG/5ML (ALC-F/SF) LIQ 236 08/14/2023 (0) 10 ML Q6H PRN FOR COUGH no longer using HYDROCHLOROTHIAZIDE 25MG TAB 45 05/13/2023 (3) ONE-HALF QDAY FOR BLOOD PRESSURE(am) The following prescriptions have BENZOYL PEROXIDE 10% (WATER BASED) GEL 60 07/09/2023 (0) APPLY THIN LAYER TOPICALLY BID PREVENTION OF INFECTION APPLY TO SURGICAL SHOULDER STARTING TWO DAYS PRIOR TO SURGERY AND MORNING OF SURGERY. PROCEDURE DATE: 09/05/2023 Indication: PREVENTION OF INFECTION : 08/07/2023 MUPIROCIN 2% OINT 22 07/09/2023 (0) APPLY PEA SIZED AMOUNT INSIDE EACH NOSTRIL TOPICALLY TWICE A DAY TO PREVENT INFECTION FOR FIVE DAYS PRIOR TO SURGERY -PROCEDURE DATE: 09/05/2023 Indication: TO PREVENT INFECTION : 08/07/2023 starts Sunday The following are Non-VA medications on hold ASPIRIN 81MG EC TAB 81 MG 1 X DAY(am) MULTIVITAMIN CAP/TAB 1 EVERY DAY(am) CHOLECALCIF 25MCG (D3-1,000UNIT) [id number] EVERY DAY(am) CALCIUM CARBONATE 650MG (CA 260MG) [id number] EVERY DAY(am) IBUPROFEN 200MG TAB 200MG QDAY NEEDED a couple times a week PEN DING ORDERS No pending orders for this patient! Recently discontinued prescriptions: Drug Name ACETAMINOPHEN 500MG TAB Issue Date 09/01/2022 SIG TAKE TWO TABLETS BY MOUTH EVERY 6 HOURS NEEDED FOR PAIN. *NOT TO EXCEED 4000MG PER 24 HOURS* Facility: [facility] uses a couple times a week no longer using the following DC'd Drug Name OXYCODONE 5MG TAB Issue Date 09/01/2022 SIG TAKE ONE TABLET BY MOUTH EVERY 6 HOURS NEEDED FOR PAIN Facility: [facility] Drug Name NAPROXEN 500MG TAB Issue Date 09/01/2022 SIG TAKE ONE TABLET BY MOUTH TWICE A DAY FOR PAIN Facility: [facility] Drug Name HYDROXYZINE PAMOATE 25MG CAP Issue Date 09/01/2022 SIG TAKE ONE CAPSULE BY MOUTH EVERY 6 HOURS NEEDED FOR POST-OP CARE Facility: [facility] /laura/ ISSA MG GROOVER OPERATOR Signed: 08/30/2023 12:18 JAKUB YOO [facility] Aug 30, 2023 12:14 PM PHARMACY MEDICATIO N MGT NOTE: LOCAL TITLE: DRUG RECONCILIATION ON ADMIT STANDARD TITLE: PHARMACY MEDICATION MGT NOTE DATE OF NOTE: AUG 30, 2023@12:14 ENTRY DATE: AUG 30, 2023@12:14:30 AUTHOR: ISSA MG EXP COSIGNER: URGENCY: STATUS: COMPLETED DRUG RECONCILIATION ON ADMIT Has ADDENDA PHARMACY MEDICATION HISTORY NOTE ====== Medication & allergy history was compiled by pharmacy to assist providers ordering inpatient medications. Essential med list includes active local & remote VA rxs, non-VA meds, recently rxs within last 180 days, recently discontinued rxs within last 90 days, clinic med orders, pending med orders, & inpatient med orders. Current active & pending inpatient med orders will be reviewed to complete medication reconciliation. With the exception of allergies, if a category is not listed below, there were no relevant meds for the patient. Seasonal Influenza Immunization: 06/12/2023 IZG:BRANDYN IIS INTERVIEW Patient and/or caregiver has been INTERVIEWED by pharmacy. Allergies: FACILITY ALLERGY/ADR -------- No Remote Allergy/ADR Data available for this patient [facility] LISINOPRIL Tobacco use within the last 30 days No Medications given in clinic: no clinic meds 08/30/2023 07:25 [id number] Source of Info: [facility] Drug Last Refills Qty Filled Remaining ---- --- ------ --------- AMOXICILLIN 875/CLAV K 125MG TAB 10 08/14/2023 (0) 1 BID BRONCHITIS completed ATORVASTATIN CALCIUM 80MG TAB 90 06/09/2023 (2) ONE QDAY FOR CHOLESTEROL (am) CETIRIZINE HCL 10MG TAB 10 08/14/2023 (0) ONE QDAY FOR ALLERGIES no longer using CHOLECALCIF 25MCG (D3-1,000UNIT) TAB 100 06/29/2023 (3) ONE QDAY FOR VITAMIN D(am) on hold CODEINE 10/GG 100MG/5ML (ALC-F/SF) LIQ 236 08/14/2023 (0) 10 ML Q6H PRN FOR COUGH no longer using HYDROCHLOROTHIAZIDE 25MG TAB 45 05/13/2023 (3) ONE-HALF QDAY FOR BLOOD PRESSURE(am) The following prescriptions have BENZOYL PEROXIDE 10% (WATER BASED) GEL 60 07/09/2023 (0) APPLY THIN LAYER TOPICALLY BID PREVENTION OF INFECTION APPLY TO SURGICAL SHOULDER STARTING TWO DAYS PRIOR TO SURGERY AND MORNING OF SURGERY. PROCEDURE DATE: 09/05/2023 Indication: PREVENTION OF INFECTION : 08/07/2023 MUPIROCIN 2% OINT 22 07/09/2023 (0) APPLY PEA SIZED AMOUNT INSIDE EACH NOSTRIL TOPICALLY TWICE A DAY TO PREVENT INFECTION FOR FIVE DAYS PRIOR TO SURGERY -PROCEDURE DATE: 09/05/2023 Indication: TO PREVENT INFECTION : 08/07/2023 starts Sunday The following are Non-VA medications on hold ASPIRIN 81MG EC TAB 81 MG 1 X DAY(am) MULTIVITAMIN CAP/TAB 1 EVERY DAY(am) CHOLECALCIF 25MCG (D3-1,000UNIT) [id number] EVERY DAY(am) CALCIUM CARBONATE 650MG (CA 260MG) [id number] EVERY DAY(am) IBUPROFEN 200MG TAB 200MG QDAY NEEDED a couple times a week PEN DING ORDERS No pending orders for this patient! Recently discontinued prescriptions: Drug Name ACETAMINOPHEN 500MG TAB Issue Date 09/01/2022 SIG TAKE TWO TABLETS BY MOUTH EVERY 6 HOURS NEEDED FOR PAIN. *NOT TO EXCEED 4000MG PER 24 HOURS* Facility: [facility] uses a couple times a week no longer using the following DC'd Drug Name OXYCODONE 5MG TAB Issue Date 09/01/2022 SIG TAKE ONE TABLET BY MOUTH EVERY 6 HOURS NEEDED FOR PAIN Facility: [facility] Drug Name NAPROXEN 500MG TAB Issue Date 09/01/2022 SIG TAKE ONE TABLET BY MOUTH TWICE A DAY FOR PAIN Facility: [facility] Drug Name HYDROXYZINE PAMOATE 25MG CAP Issue Date 09/01/2022 SIG TAKE ONE CAPSULE BY MOUTH EVERY 6 HOURS NEEDED FOR POST-OP CARE Facility: [facility] /laura/ ISSA MG GROOVER OPERATOR Signed: 08/30/2023 12:18 09/05/2023 ADDENDUM STATUS: COMPLETED Medication list provided to assist in ordering inpatient medications. *No pending/clinic/remote [place] meds /es/ JAKUB YOO PharmD Signed: 09/05/2023 08:14 Receipt Acknowledged By: * AWAITING SIGNATURE * MARCUS LOMAX STAR F [facility]
--- OUTSIDE RECORDS SUMMARY | 2024-05-05 10:59 | XMS_ITS | Encounter Summary ---
Author Name [facility] [place] Organization [facility] [place] Address [address] [place] [address] Care Team Providers Care Tapper Supervisor Name Role Phone JAN BRISENO Primary Care [...] French's Name Patient's Relationship to Policy [facility]) MEDICARE ADVANTAGE MEDIC ARE OTILIA RAMESH Claire Sep 17, 2018 [id number] [phone] BENJAMNÍ ROSA PATIENT MEDICARE (WNR) MEDICARE (M) PART A Mar 17, 2007 PART A [id number] [phone] BENJAMÍN ROSA PATIENT MEDICARE (WNR) MEDICARE (M) PART B Mar 17, 2007 PART B [id number] [phone] BENJAMÍN ROSA PATIENT Selected Encounter This section includes the information on record at [place] for the Encounter. Date/Time Encounter Type Encounter Description Reason Provider Source Jul 03, 2023 10:15 AM OFFICE O/P EST MOD 30-39 MIN ANESTHESIA PRE/POST-OP CONSULT ICD-10-CM Z01.818 Encounter for other preprocedural examination ANGELITA TORRE [facility] Encounter Template Text not used by [place] Assessments - Encounter Diagnoses This section includes the primary and secondary diagnoses documented for the Encounter. Date/Time Primary/Secondary Diagnosis Diagnosis Name Provider Source Jul 03, 2023 11:28 AM PRIMARY Encounter for other preprocedural examination ANGELITA TORRE [facility] Jul 03, 2023 11:28 AM SECONDARY Essential (primary) hypertension ANGELITA TORRE [facility] Jul 03, 2023 11:28 AM SECONDARY Pain in left shoulder ANGELITA TRORE [facility] Plan of Treatment: Future Appointments (+ 6 months) and Future Tests (+/- 45 days) The Plan of Treatment section includes future care activities for the [facility] [place] [facility] This section includes future appointments and future orders which are active, pending or scheduled. Future Appointments This section includes appointments that were scheduled to occur 6 months from the date of the Encounter, up to a maximum of 20 appointments. The data comes from all [facility]. Appointment Date/Time Appointment Type Appointme nt Facility Name Jul 05, 2023 09:00 AM AMBULATORY - SURGERY [facility] Aug 14, 2023 10:01 AM [facility] Aug 20, 2023 09:00 AM AMBULATORY - REHAB MEDICIN E [facility] Aug 20, 2023 09:45 AM AMBULATORY - SURGERY [facility] Aug 20, 2023 10:30 AM [facility] Aug 20, 2023 11:00 AM [facility] - [facility] Sep 05, 2023 12:00 PM AMBULATORY - SURGERY [facility] Sep 05, 2023 12:15 PM AM[facility] - [facility] Sep 18, 2023 09:30 AM AMBULATORY - SURGERY [facility] Sep 18, 2023 10:30 AM AMBULATORY - REHAB MEDICIN E [facility] Sep 27, 2023 03:30 PM AMBULATORY - SURGERY [facility] Oct 16, 2023 08:30 AM AMBULATORY - REHAB MEDICIN E [facility] Oct 16, 2023 10:00 AM AM[facility]ORY - [facility] Oct 23, 2023 09:00 AM AMBULATORY - REHAB MEDICIN E [facility] Oct 30, 2023 09:30 AM AMBULATORY - REHAB MEDICIN E [facility] Oct 31, 2023 10:30 AM [facility] - SUR[facility] Oct 31, 2023 05:10 PM AMBULATORY - REHAB MEDICIN E [facility] Nov 13, 2023 09:00 AM AMBULATORY - REHAB MEDICIN E [facility] Nov 20, 2023 10:00 AM [facility]UL[facility]ORY - SURGERY [facility] Nov 20, 2023 11:00 AM [facility]ORY - MEDICINE [facility] Active, Pending, and Scheduled Orders This section includes a listing of several types of active, pending, and scheduled orders, including clinic medications orders, diagnostic test orders, procedure orders and consult orders; where the start date of the order is 45 days before the date of the Encounter or 45 days after the date of theEncounter. The data comes from all [place] treatment facilities. Test Date/Time Test Type Test Details Facility Name Jun 27, 2023 12:00 AM Laboratory - Blood Bank Order TYPE & SCREEN - LAB BLOOD SP [facility] Lab Results: +/- 30 days of the encounter This section includes the Chemistry and Hematology Lab Results on record with [place] for the patient. Radiology Reports and Pathology Reports are provided separately, in subsequent sections. Lab Results This section contains the Chemistry/Hematology Results that were resulted 30 days before or 30 daysafter the date of the Encounter. Date/Time Source Result Type Result - Unit Interpretation Reference Range Comment Jul 03, 2023 09:08 AM [facility] PROTHROMBIN TIME/INR Specimen Type: PLASMA No comment entered. Ordering Provider: ALVARO WALTERS W Report Released Date/Time: Jun 27, 2023 10:57 AM Reporting Lab: [facility] [id number] Performing Lab: [facility] [id number] .INR 1.0 0.8-1.1 .PT 11.3 s 9.4-12.5 Jul 03, 2023 09:08 AM [facility] ALBUMIN Specimen Type: PLASMA No comment entered. Ordering Provider: ALVARO WALTERS W Report Released Date/Time: Jun 27, 2023 10:57 AM Reporting Lab: [facility] [id number] Performing Lab: [facility] [id number] ALBUMIN 4.4 g/dL 3.5-5.2 Jul 03, 2023 09:08 AM [facility] HEMOGLOBIN A1C Specimen Type: [...] Jun 27, 2023 10:57 AM Reporting Lab: [facility] [id number] Performing Lab: [facility] [id number] HEMOGLOBIN A1C 5.6 4.0-6.0 Jul 03, 2023 09:08 AM [facility] BASIC METABOLIC PANEL+MG Specimen Type: PLASMA No comment entered. Ordering Provider: ALVARO WALTERS ON W Report Released Date/Time: Jun 27, 2023 10:57 AM Reporting Lab: [facility] [id number] Performing Lab: [facility] [id number] CREATININE 0.8 mg/dL 0.7-1.2 UREA NITROGEN 22 mg/dL 8-26 GLUCOSE 108 mg/dL H 70-100 SODIUM 140 mmol/L 136-145 POTASSIUM 3.9 mmol/L 3.5-5.1 CHLORIDE 107 mmol/L 98-107 CO2 25 mmol/L 22-29 CALCIUM 9.5 mg/dL 8.4-10.2 MAGNESIUM 2.0 mg/dL 1.6-2.6 ANION GAP 8 mmol/L 5-15 .CREAT EGFR(CKD-EPI) 89 >60 Jul 03, 2023 09:08 AM [facility] CBC & DIFF Specimen Type: BLOOD Comment: Automated Differential Performed Ordering Provider: ALVARO WALTERS ON W Report Released Date/Time: Jun 27, 2023 10:57 AM Reporting Lab: [facility] [phone] Performing Lab: [facility] [id number] WBC 6.22 10*3/uL 4.0-11.0 RBC 4.11 10*6/uL [...] 0.2 ABS IMMATURE GRAN 0.01 10*3/uL 0-0.1 Vital Signs: All taken on the encounter date This section contains inpatient and outpatient Vital Signs collected on the date of the Encounter. Date/Time Temperature Pulse Blood Pressure Respiratory Rate SP02 Pain Height Weight Body Mass Index Source Jul 03, 2023 10:15 AM 98.3 F 63 /min 135/81 mm[Hg] 15 /min 97 % [facility] Social History: Smoking Status (Most current) and Tobacco Use (All prior to encounter date) This section includes the most current, and the historical, smoking and tobacco- related health factors from the [place] facility where the Encounter took place. Current Smoking Status This section includes the most current smoking, or tobacco-related health factor, from the [place] facility where the Encounter took place. Date/Time Current Smoking Status Comment Santiago ity Mar 19, 2023 10:30 AM [place]-TOBACCO NEVER USED [facility] Tobacco Use History This section includes a history of the smoking, or tobacco-related health factors, that were collected on or before the date of the Encounter. The data comes from the [place] facility where the Encounter took place. Date/Time Smoking Status/Tobacco Use Comment F acfrank Mar 22, 2022 08:45 AM [place]-TOBAC[place] NEVER USED [facility] May 12, 2021 [...] ALL of a patient's completed or amended [place] Advance and Rescinded Directives. The entries below indicate that a directive exists for the patient, but an actual copy is not included with this document. The data comes from all [place] facilities. Date Advance Directives Provider Source Oct 13, 2017 ADVANCE DIRECTIVE ABNERTena[facility]ADEOMARALEMILI [facility] Oct 13, 2017 ADVANCE DIRECTIVE DISCUSSION MARAL DORANTES [facility] Encounter Notes: All associated encounter notes This section contains the clinical notes associated to the Encounter. Date/Time Encounter Note(s) Provider Source Jul 03, 2023 09:53 AM H & P NOTE: LOCAL TITLE: H&P HISTORY & PHYSICAL STANDARD TITLE: H & P NOTE DATE OF NOTE: JUL 03, 2023@09:53 ENTRY DATE: JUL 03, 2023@09:53:37 AUTHOR: ANGELITA TORRE EXP COSIGNER: URGENCY: STATUS: COMPLETED Preoperative Anesthesia Assessment Chief Complaint: 83 year old with BMI 29.9 for preoperative evaluation. This is a face to face visit. ----History of present illness Mr. Rosa is an 83 y/o male being evaluated preoperatively for L-reverse TSA w/surgical date TBD. His PMHx is sig for HTN, HLD, prostate CA s/p radiation seed implant ~'15 @[facility], tinnitus and HL. Denies COVID + hx in the last 3 months Pt. denies recent cold/cough/flu/fever/COVID sx Pt. instructed to notify surgical team for development of any URI sx prior to surgery ----Allergies -------- LISINOPRIL (Mar 08, 2018) - cough ----VITAL SIGNS HR: 65 (03/19/2023 10:48) BP: 124/76 (03/19/2023 10:48) RR: 18 (03/19/2023 10:48) O2: 95% (03/19/2023 10:48) Temp: 97.9 F [36.6 C] (03/19/2023 10:48) HT: 66 in [167.6 cm] (03/19/2023 10:48) WT: 185 lb [83.91 kg] (03/19/2023 10:48) BMI: 29.9 ----Past Surgical History No personal or family history of anesthesia complications 09/05/2023 Left reverse TSA REQUESTED 11/15/2018 BULB (COMPLETED) - MAC 10/04/2018 CE IOL RIGHT EYE (COMPLETED) 09/02/2018 CE IOL LEFT (COMPLETED) 01/25/2016 Left TKA (COMPLETED) Anesthesia GETA, no masking, DL x1 by UNDERWATER HUNTER, ETT 8.0, curved-4 blade, grade I view Other: R-reverse TSA 1/10/23 - regional, PNB bilateral breast lumpectomies ', 14, & 16 ----SOCIAL HISTORY Tobacco: No, remote smoking 40-50 yrs ago Alcohol: Yes 2-3 drinks/week Substance use: No ----FAMILY HISTORY Father from [place] in his 80s ----PAST MEDICAL HISTORY 1. Hyperlipidemia (SNOMED CT [id number]) 2. Sensorineural Hearing Loss, Bilateral 3. Subjective tinnitus 4. Elevation, blood pressure - no recent elevated bp readings at non [place] pcp or here 2013 5. Personal History of Malignant Neoplasm of Prostate 6. Other Specified Counseling - nl cscope 5 years ago at non [facility] provider, managed by non [facility] 7. 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 Tinnitus 9. 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 ----MEDICATIONS ------- Medication list reviewed with patient and/or patient's family 1) ATORVASTATIN CALCIUM 80MG TAB TAKE ONE TABLET BY ACTIVE MOUTH EVERY DAY FOR CHOLESTEROL 2) CHOLECALCIF 25MCG (D3-1,000UNIT) TAB TAKE ONE TABLET ACTIVE BY MOUTH EVERY DAY FOR VITAMIN D 3) HYDROCHLOROTHIAZIDE 25MG TAB TAKE ONE-HALF TABLET BY ACTIVE MOUTH EVERY DAY FOR BLOOD PRESSURE 1) Non-VA ASPIRIN 81MG EC TAB 81 MG MOUTH 1 X DAY ACTIVE 2) Non-VA CALCIUM CARBONATE 650MG (CA 260MG) TAB 650MG ACTIVE MOUTH EVERY DAY - no longer taking 3) Non-VA CHOLECALCIF 25MCG (D3-1,000UNIT) TAB 1000UNIT ACTIVE MOUTH EVERY DAY 4) Non-VA IBUPROFEN 200MG TAB 200MG MOUTH EVERY DAY ACTIVE NEEDED 5) Non-VA MULTIVITAMIN CAP/TAB 1 TABLET MOUTH EVERY DAY ACTIVE Naltrexone: No Buprenorphine: No ---LABORATORY STUDIES 07/03/2023 09:08 BLOOD !! WBC 6.22 K/cmm 4.0 - 11.0 07/03/2023 09:08 BLOOD !! RBC 4.11 L M/cmm 4.6 - 6.2 07/03/2023 09:08 BLOOD !! HGB 12.7 L g/dL 13.5 - 17.9 07/03/2023 09:08 BLOOD !! HCT 37.6 L % 41 - 54 07/03/2023 09:08 BLOOD !! MCV 91.5 fL 80 - 100 07/03/2023 09:08 BLOOD !! MCH 30.9 pg 27 - 33 07/03/2023 09:08 BLOOD !! MCHC 33.8 g/dL 32.0 - 37.5 07/03/2023 09:08 BLOOD !! PLT 291 K/cmm 150 - 400 07/03/2023 09:08 BLOOD !! MPV 10.7 H fL 7.4 - 10.4 07/03/2023 09:08 BLOOD !! RDW 13.4 % 11.5 - 14.5 07/03/2023 09:08 PLASMA .INR 1.0 0.8 - 1.1 07/03/2023 09:08 PLASMA GLUCOSE 108 H mg/dL 70 - 100 07/03/2023 09:08 PLASMA SODIUM 140 mmol/L 136 - 145 07/03/2023 09:08 PLASMA POTASSIUM 3.9 mmol/L 3.5 - 5.1 07/03/2023 09:08 PLASMA CHLORIDE 107 mmol/L 98 - 107 07/03/2023 09:08 PLASMA CO2 25 mmol/L 22 - 29 07/03/2023 09:08 PLASMA ANION GAP 8 mmol/L 5 - 15 07/03/2023 09:08 PLASMA UREA NITROGEN 22 mg/dL 8 - 07/03/2023 09:08 PLASMA CREATININE 0.8 mg/dL 0.7 - 1.2 07/03/2023 09:08 PLASMA ALBUMIN 4.4 g/dL 3.5 - 5.2 07/03/2023 09:08 PLASMA CALCIUM 9.5 mg/dL 8.4 - 10.2 EGFR (04/20) 05/12/21 @ 0848 72 CREATININE EGFR (CKD-EPI) 07/03/23 @ 0908 89 07/03/2023 09:08 BLOOD !! HEMOGLOBIN A1C 5.6 % 4.0 - 6.0 ----DIAGNOSTIC STUDIES EK07/03/23 SR w/1st degree AVB, 63 bpm 09/01/22 SR, minimal voltage criteria for LVH, nonspecific ST-T changes, 69 bpm L-shoulder X-ray: 11/23/22 Impression: No acute fracture. No dislocation. No AC [...] likely secondary to insertional rotator cuff pathology. ----Risk Stratification Revised Cardiac Risk Index (RCRI): 0 risk factors or class I CAPRINI score: 8 or high risk ---Physical Exam Weight: 185 lb [83.91 kg] (03/19/2023 10:48) Height: 66 in [167.6 cm] (03/19/2023 10:48) BMI: 29.9 Blood Pressure: 135/81 (07/03/2023 10:15) Pulse: 63 (07/03/2023 10:15) Pulse Oximetry: 97% (07/03/2023 10:15) Respiration: 15 (07/03/2023 10:15) Temperature: 98.3 F [36.8 C] (07/03/2023 10:15) Airway Exam: Mallampati Class: II Mouth opening: full Neck: full range of motion Thyromental distance: >6cm Dentition: normal Cardiac System: Cardiovascular exam normal: regular rhythm and rate, no murmur Respiratory: Clear to auscultation, normal respiratory rate and effort Mental/Neuro exam: Alert, oriented, calm, cooperative ----ASSESSMENT/PLAN ------- This is a 83Y.O. undergoing evaluation for L-reverse TSA. The final anesthesia plan will be determined by the providers on the day of surgery. Cardiopulmonary: No known cardiopulmonary disease. Denies chest pain/palpitations/presyncope/syn cope/orthopnea/SOB/PND. Surgical Team: Pt. inquiring about sling post-op. SC notified. Anesthesia Plan: Final plan TBD by anesthesia and surgical teams on DOS. ----Patient Education Discussed NPO, Med Mgmt, Transportation, Seo Intern Guidelines, Regional (as deemed appropriate), [place], CVC, anesthesia team, IV Access, monitoring, pre/post op expectations & GETA vs MAC Preoperative Medication Management: Hold all multivitamins, herbal supplements, NSAIDS x 7 days prior to surgery Hold asa x1 week preoperatively per Ortho Hold HCTZ on DOS /es/ ANGELITA TORRE, PARESH, AGNP-C ADULT NASH NURSE PRACTITIONER Signed: 07/06/2023 14:28 ANGELITA TORRE [facility]
--- OUTSIDE RECORDS SUMMARY | 2024-05-05 11:00 | XMS_ITS | Encounter Summary ---
Author Name [facility] Organization [facility] Address [address] [place] [address] Care Team Providers Care Nurse Administrator Name Role Phone JAN BRISENO Primary Care [...] French's Name Patient's Relationship to Policy French [facility] (WNR) MEDICARE ADVANTAGE MEDIC ARE OTILIA RAMESH Claire Sep 17, 2018 [id number] [phone] BENJAMÍN ROSA PATIENT MEDICARE (WNR) MEDICARE (M) PART A Mar 17, 2007 PART A [id number] [phone] BENJAMÍN ROSA PATIENT MEDICARE (WNR) MEDICARE (M) PART B Mar 17, 2007 PART B [id number] [phone] BENJAMÍN ROSA PATIENT Selected Encounter This section includes the information on record at ME for the Encounter. Date/Time Encounter Type Encounter Description Reason Provider Source Sep 05, 2023 12:42 PM Outpatient Encounter AMBULATORY JOCELIN COLEMAN Encounter Template Text not used by ME Plan of Treatment: Future Appointments (+ 6 months) and Future Tests (+/- 45 days) The Plan of Treatment section includes future care activities for the patient [facility] This section includes future appointments and future orders which are active, pending or scheduled. Future Appointments This section includes appointments that were scheduled to occur 6 months from the date of the Encounter, up to a maximum of 20 appointments. The data comes from all [facility]. Appointment Date/Time Appointment Type Appointme nt Facility Name Sep 18, 2023 09:30 AM AMBULATORY - SURGERY [facility] Sep 18, 2023 10:30 AM AMBULATORY - REHAB MEDICIN E [facility] Sep 27, 2023 03:30 PM AMBULATORY - SURGERY [facility] Oct 16, 2023 08:30 AM AMBULATORY - REHAB MEDICIN [facility] Oct 16, 2023 10:00 AM AMBULATORY - NONE [facility] Oct 23, 2023 09:00 AM AMBULATORY - REHAB MEDICIN E [facility] Oct 30, 2023 09:30 AM AMBULATORY - REHAB MEDICIN E [facility] Oct 31, 2023 10:30 AM AMBULATORY - SURGERY [facility] Oct 31, 2023 05:10 PM AMBULATORY - REHAB MEDICIN E [facility] Nov 13, 2023 09:00 AM AMBULATORY - REHAB MEDICIN [facility] Nov 20, 2023 10:00 AM AMBULATORY - SURGERY [facility] Nov 20, 2023 11:00 AM AMBULATORY - MEDICINE [facility] Dec 17, 2023 08:40 AM AMBULATORY - SURGERY [facility] January 24, 2024 09:45 AM AMBULATORY - SURGERY [facility] Active, Pending, and Scheduled Orders This section includes a listing of several types of active, pending, and scheduled orders, including clinic medications orders, diagnostic test orders, procedure orders and consult orders; where the start date of the order is 45 days before the date of the Encounter or 45 days after the date of theEncounter. The data comes from all [facility]. Test Date/Time Test Type Test Details Facility Name Sep 05, 2023 07:28 PM Laboratory - Blood Bank Order TYPE & SCREEN - LAB BLOOD WC [facility] Lab Results: +/- 30 days of the encounter This section includes the Chemistry and Hematology Lab Results on record with [place] for the patient. Radiology Reports and Pathology Reports are provided separately, in subsequent sections. Lab Results This section contains the Chemistry/Hematology Results that were resulted 30 days before or 30 daysafter the date of the Encounter. Date/Time Source Result Type Result - Unit Interpretation Reference Range Comment Sep 06, 2023 09:11 AM [facility] CBC Specimen Type: BLOOD Comment: Specimen received in Lab at: 0910 Ordering Provider: RAHEEL DELGADILLO Report Released Date/Time: Sep 05, 2023 07:28 PM Reporting Lab: [facility] [id number] Performing Lab: [facility] [id number] WBC 8.69 10*3/uL 4.0-11.0 RBC 3.76 10*6/uL L 4.6-6.2 HGB 11.5 g/dL L 13.5-17.9 HCT 34.7 L 41-54 MCV 92.3 fL 80-100 MCH 30.6 pg 27-33 MCHC 33.1 g/dL 32.0-37.5 PLT 261 10*3/uL 150-400 MPV 11.0 fL H 7.4-10.4 RDW 13.3 11.5-14.5 Sep 06, 2023 09:11 AM [facility] BASIC METABOLIC PANEL+MG Specimen Type: PLASMA Comment: Specimen received in Lab at: 0910 Ordering Provider: RAHEEL DELGADILLO Report Released Date/Time: Sep 05, 2023 07:28 PM Reporting Lab: [facility] [id number] Performing Lab: [facility] [address] CREATININE 0.9 mg/dL 0.7-1.2 UREA NITROGEN 15 mg/dL 8-26 GLUCOSE 141 mg/dL H 70-100 SODIUM 134 mmol/L L 136-145 POTASSIUM 4.1 mmol/L 3.5-5.1 CHLORIDE 101 mmol/L 98-107 CO2 24 mmol/L 22-29 CALCIUM 8.6 mg/dL 8.4-10.2 MAGNESIUM 1.7 mg/dL 1.6-2.6 ANION GAP 9 mmol/L 5-15 .CREAT EGFR(CKD-EPI) 86 >60 Sep 06, 2023 05:44 AM [facility] FINGERSTICK GLUCOSE Specimen Type: BLOOD Comment: Save Result Ordering Provider: FALLON MUNGUIA Report Released Date/Time: Sep 06, 2023 06:02 AM Reporting Lab: [facility] [id number] Performing Lab: [facility] [address] FINGERSTICK GLUCOSE 140 mg/dL 70-100 Sep 05, 2023 08:25 PM [facility] PROTHROMBIN TIME/INR Specimen Type: PLASMA No comment entered. Ordering Provider: EMILY REVELES Report Released Date/Time: Sep 05, 2023 07:28 PM Reporting Lab: [facility] [id number] Performing Lab: [facility] Sep 05, 2023 08:25 PM [facility] ACT PART THROMBO TIME Specimen Type: PLASMA Comment: ~Draw on admission. Call IV team to draw on admission. Ordering Provider: EMILY REVELES Report Released Date/Time: Sep 05, 2023 07:28 PM Reporting Lab: [facility] [phone] Performing Lab: [facility] [address] APTT 30.8 s 25.1-36.5 Sep 05, 2023 08:25 PM [facility] CBC Specimen Type: BLOOD No comment entered. Ordering Provider: EMILY REVELES Report Released Date/Time: Sep 05, 2023 07:28 PM Reporting Lab: [facility] [phone] Performing Lab: [facility] [address] WBC 8.60 10*3/uL 4.0-11.0 RBC 3.66 10*6/uL L 4.6-6.2 HGB 11.3 g/dL L 13.5-17.9 HCT 34.3 L 41-54 MCV 93.7 fL 80-100 MCH 30.9 pg 27-33 MCHC 32.9 g/dL 32.0-37.5 PLT 225 10*3/uL 150-400 MPV 10.9 fL H 7.4-10.4 RDW 13.4 11.5-14.5 Sep 05, 2023 08:25 PM [facility] BASIC METABOLIC PANEL+MG Specimen Type: PLASMA No comment entered. Ordering Provider: EMILY REVELES Report Released Date/Time: Sep 05, 2023 07:28 PM Reporting Lab: [facility] [phone] Performing Lab: [facility] [address] [facility] [address] CREATININE 0.9 mg/dL 0.7-1.2 UREA NITROGEN 17 [...] 134/72 mm[Hg] 16 /min 95 % 0 [facility] Sep 05, 2023 12:33 PM 97.5 F 60 /min 154/82 mm[Hg] 16 /min 96 % 5 [facility] Social History: Smoking Status (Most current) and Tobacco Use (All prior to encounter date) This section includes the most current, and the historical, smoking and tobacco- related health factors from the [place] facility where the Encounter took place. Current Smoking Status This section includes the most current smoking, or tobacco-related health factor, from the [place] facility where the Encounter took place. Date/Time Current Smoking Status Comment Facil ity Mar 19, 2023 10:30 AM ME-TOBACCO NEVER USED [facility] Tobacco Use History This section includes a history of the smoking, or tobacco-related health factors, that were collected on or before the date of the Encounter. The data comes from the [place] facility where the Encounter took place. Date/Time Smoking Status/Tobacco Use Comment F acility Mar 22, 2022 08:45 AM VA-TOBACCO NEVER USED [facility] May 12, 2021 10:00 AM VA-TOBACCO FORMER USER [facility] May 12, 2021 10:00 AM VA-TOBACCO QUIT 15 YRS OR MORE [facility] Feb 24, 2019 09:35 AM VA-TOBACCO NEVER USED [facility] Feb 18, 2018 01:56 PM FORMER TOBACCO USER 7Y OR GREATE R [facility] Mar 06, 2017 09:31 AM FORMER TOBACCO USER 7Y OR GREATE R [facility] Mar 06, 2016 09:54 AM FORMER TOBACCO USER 7Y OR YOLANDAE R [facility] January 25, 2016 06:31 AM INPT NO TOBACCO USE IN LAST 30 D AYS [facility] January 22, 2015 10:06 AM LIFETIME NON-TOBACCO USER [facility] Apr 15, 2014 10:09 AM FORMER TOBACCO USER 7Y OR YOLANDAE R [facility] February 01, 2011 08:51 AM FORMER TOBACCO USER 7Y OR YOLANDAE R [facility] Advance Directives: All historical and current Section Date Range: From patient's date of to the date document was created. This section includes ALL of a patient's completed or amended [place] Advance and Rescinded Directives. The entries below indicate that a directive exists for the patient, but an actual copy is not included with this document. The data comes from all [facility]. Date Advance Directives Provider Source Oct 13, 2017 ADVANCE DIRECTIVE MARAL DORANTES [facility] Oct 13, 2017 ADVANCE DIRECTIVE DISCUSSION ABNERTenaMARAL [facility] Radiology Reports: +/- 30 days of [...] the Encounter. The data comes from all [place] treatment facilities. Date/Time Radiology Report Provider Source Sep 05, 2023 07:58 AM SHOULDER LEFT 2-3 VIEWS: BENJAMÍN ROSA LINSEY [id number] -[id number] M Exm Date: SEP 05, 2023@07:58 Req Phys: MARCUS LOMAX Loc: [facility] ADMISSIONS SURGERY (Req'g Img Loc: MAIN X-RAY Service: Unknown (Case [id number] COMPLETE) SHOULDER LEFT 2-3 VIEWS (RAD Detailed) CPT:82029 Proc Modifiers : PORTABLE EXAM, OPERATING ROOM EXAM, LEFT Reason for Study: Left reverse TSA Clinical History: OR 6 Shoulder OA Responsible provider name and phone number to notify for critical findings if other than user placing the order and pager listed below: User placing orders pager: Rukhsana Lomax [phone] LAST CREATININE 0.8 (07/03/23) Report Status: Verified Date Reported: SEP 05, 2023 Date Verified: SEP 05, 2023 [employer] E-Sig:/ES/LIDYA GUDINO MD Report: SHOULDER LEFT 2-3 [...] Primary Interpreting Staff: LIDYA GUDINO MD, RADIOLOGIST (Oil Transport Driver) /[facility] LIDYA GUDINO [facility] Aug 20, 2023 10:16 AM SHOULDER LEFT 4V(A P,Y VIEW, GRASHEY & AXILLARY): BENJAMÍN ROSA [id number] -[id number] M Ex Date: AUG 20, 2023@10:16 Req Phys: DAMIMARCUS Elvis Pat Loc: [facility] PHONE (Req'g L Img Loc: MAIN X-RAY Service: Unknown (Case [id number] COMPLETE) SHOULDER LEFT 4V(AP,Y VIEW, GRASH(RAD Detailed) CPT:16029 Proc Modifiers : LEFT Reason for Study: [...] 20, 2023 Date Verified: AUG 20, 2023 [employer] Driver E-Sig:/ES/PASHA MARIA DO Report: EXAMINATION: SHOULDER LEFT [...] Primary Interpreting Staff: PASHA MARIA DO, RADIOLOGIST (Oil Transport Driver) /DDS PASHA MARIA [facility]
--- OUTSIDE RECORDS SUMMARY | 2024-05-05 11:00 | XMS_ITS | Encounter Summary ---
Author Name [facility] [place] [facility] [place] Address [address] [place] [address] Care Team Providers Care Scrap Charger Name Role Phone JAN BRISENO Primary Care [...] French's Name Patient's Relationship to Policy French BCBS [facility] (WNR) MEDICARE ADVANTAGE MEDIC ARE OTILIA Rangel Sep 17, 2018 [id number] [phone] BENJAMÍN ROSA PATIENT MEDICARE (WNR) MEDICARE (M) PART A Mar 17, 2007 PART A [id number] [phone] BENJAMÍN ROSA PATIENT MEDICARE (WNR) MEDICARE (M) PART B Mar 17, 2007 PART B [id number] [phone] BENJAMÍN ROSA PATIENT Selected Encounter This section includes the information on record at [place] for the Encounter. Date/Time Encounter Type Encounter Description Reason Pro vider Source Sep 05, 2023 12:15 PM Inpatient Visit ADMIN PAT ACTIVTIES (MASNONCT) MARCUS LOMAX Encounter Template Text not used by [place] Plan of Treatment: Future Appointments (+ 6 months) and Future Tests (+/- 45 days) The Plan of Treatment section includes future care activities for the patient from all [facility]. This section includes future appointments and future orders which are active, pending or scheduled. Future Appointments This section includes appointments that were scheduled to occur 6 months from the date of the Encounter, up to a maximum of 20 appointments. The data comes from all [facility]. Appointment Date/Time Appointment Type Appointme nt Facility Name Sep 18, 2023 09:30 AM AMBULATORY - SURGERY [facility] Sep 18, 2023 10:30 AM AMBULATORY - REHAB MEDICIN E [facility] Sep 27, 2023 03:30 PM AMBULATORY - SURGERY [facility] Oct 16, 2023 08:30 AM AMBULATORY - REHAB MEDICIN [facility] Oct 16, 2023 10:00 AM AMBULATORY - NONE [facility] Oct 23, 2023 09:00 AM AMBULATORY - REHAB MEDICIN [facility] Oct 30, 2023 09:30 AM AMBULATORY - REHAB MEDICIN [facility] Oct 31, 2023 10:30 AM AMBULATORY - SURGERY [facility] Oct 31, 2023 05:10 PM AMBULATORY - REHAB MEDICIN [facility] Nov 13, 2023 09:00 AM AMBULATORY - REHAB MEDICIN [facility] Nov 20, 2023 10:00 AM AMBULATORY - SURGERY [facility] Nov 20, 2023 11:00 AM AMBULATORY - MEDICINE [facility] Dec 17, 2023 08:40 AM AMBULATORY - SURGERY [facility] January 24, 2024 09:45 AM AMBULATORY - SURGERY [facility] Active, Pending, and Scheduled Orders This section includes a listing of several types of active, pending, and scheduled orders, including clinic medications orders, diagnostic test orders, procedure orders and consult orders; where the start date of the order is 45 days before the date of the Encounter or 45 days after the date of theEncounter. The data comes from all [facility]. Test Date/Time Test Type Test Details Facility Name Sep 05, 2023 07:28 PM Laboratory - Blood Bank Order TYPE & SCREEN - LAB BLOOD WC [facility] Lab Results: +/- 30 days of the encounter This section includes the Chemistry and Hematology Lab Results on record with [place] for the patient. Radiology Reports and Pathology Reports are provided separately, in subsequent sections. Lab Results This section contains the Chemistry/Hematology Results that were resulted 30 days before or 30 daysafter the date of the Encounter. Date/Time Source Result Type Result - Unit Interpretation Reference Range Comment Sep 06, 2023 09:11 AM [facility] CBC Specimen Type: BLOOD Comment: Specimen received in Lab at: 0910 Ordering Provider: FARRUKH MANUEL Report Released Date/Time: Sep 05, 2023 07:28 PM Reporting Lab: [facility] [id number] Performing Lab: [facility] [phone] WBC 8.69 10*3/uL 4.0-11.0 RBC 3.76 10*6/uL L 4.6-6.2 HGB 11.5 g/dL L 13.5-17.9 HCT 34.7 L 41-54 MCV 92.3 fL 80-100 MCH 30.6 pg 27-33 MCHC 33.1 g/dL 32.0-37.5 PLT 261 10*3/uL 150-400 MPV 11.0 fL H 7.4-10.4 RDW 13.3 11.5-14.5 Sep 06, 2023 09:11 AM [facility] BASIC METABOLIC PANEL+MG Specimen Type: PLASMA Comment: Specimen received in Lab at: 0910 Ordering Provider: FARRUKH MANUEL Report Released Date/Time: Sep 05, 2023 07:28 PM Reporting Lab: [facility] [id number] Performing Lab: [facility] [address] CREATININE 0.9 mg/dL 0.7-1.2 UREA NITROGEN 15 mg/dL 8-26 GLUCOSE 141 mg/dL H 70-100 SODIUM 134 mmol/L L 136-145 POTASSIUM 4.1 mmol/L 3.5-5.1 CHLORIDE 101 mmol/L 98-107 CO2 24 mmol/L 22-29 CALCIUM 8.6 mg/dL 8.4-10.2 MAGNESIUM 1.7 mg/dL 1.6-2.6 ANION GAP 9 mmol/L 5-15 .CREAT EGFR(CKD-EPI) 86 >60 Sep 06, 2023 05:44 AM [facility] FINGERSTICK GLUCOSE Specimen Type: BLOOD Comment: Save Result Ordering Provider: FALLON MUNGUIA J Report Released Date/Time: Sep 06, 2023 06:02 AM Reporting Lab: [facility] [id number] Performing Lab: [facility] [address] FINGERSTICK GLUCOSE 140 mg/dL 70-100 Sep 05, 2023 08:25 PM [facility] PROTHROMBIN TIME/INR Specimen Type: PLASMA No comment entered. Ordering Provider: EMILY REVELES Report Released Date/Time: Sep 05, 2023 07:28 PM Reporting Lab: [facility] [address] Performing Lab: [facility] Sep 05, 2023 08:25 PM [facility] CBC Specimen Type: BLOOD No comment entered. Ordering Provider: EMILY REVELES Report Released Date/Time: Sep 05, 2023 07:28 PM Reporting Lab: [facility] [address] Performing Lab: [facility] [address] WBC 8.60 10*3/uL 4.0-11.0 RBC 3.66 10*6/uL L 4.6-6.2 HGB 11.3 g/dL L 13.5-17.9 HCT 34.3 L 41-54 MCV 93.7 fL 80-100 MCH 30.9 pg 27-33 MCHC 32.9 g/dL 32.0-37.5 PLT 225 10*3/uL 150-400 MPV 10.9 fL H 7.4-10.4 RDW 13.4 11.5-14.5 Sep 05, 2023 08:25 PM [facility] BASIC METABOLIC PANEL+MG Specimen Type: PLASMA No comment entered. Ordering Provider: EMILY REVELES Report Released Date/Time: Sep 05, 2023 07:28 PM Reporting Lab: [facility] [address] Performing Lab: [facility] [address] CREATININE 0.9 mg/dL 0.7-1.2 UREA NITROGEN 17 mg/dL 8-26 GLUCOSE 148 mg/dL H 70-100 SODIUM 140 mmol/L 136-145 POTASSIUM 3.8 mmol/L 3.5-5.1 CHLORIDE 107 mmol/L 98-107 CO2 26 mmol/L 22-29 CALCIUM 8.7 mg/dL 8.4-10.2 MAGNESIUM 1.9 mg/dL 1.6-2.6 ANION GAP 7 mmol/L 5-15 .CREAT EGFR(CKD-EPI) 86 >60 Sep 05, 2023 08:25 PM [facility] ACT PART THROMBO TIME Specimen Type: PLASMA Comment: ~Draw on admission. Call IV team to draw on admission. Ordering Provider: EMILY REVELES Report Released Date/Time: Sep 05, 2023 07:28 PM Reporting Lab: [facility] [address] Performing Lab: [facility] [address] APTT 30.8 s 25.1-36.5 Vital Signs: All taken on the encounter date This section contains inpatient and outpatient Vital Signs collected on the date of the Encounter. Date/Time Temperature Pulse Blood Pressure Respiratory Rate SP02 Pain Height Weight Body Mass Index Source Sep 05, 2023 11:52 PM 98.2 F 65 /min 134/72 mm[Hg] 16 /min 95 % 0 [facility] Sep 05, 2023 12:33 PM 97.5 F 60 /min 154/82 mm[Hg] 16 /min 96 % 5 [facility] Social History: Smoking Status (Most current) and Tobacco Use (All prior to encounter date) This section includes the most current, and the historical, smoking and tobacco- related health factors from the [place] facility where the Encounter took place. Current Smoking Status This section includes the most current smoking, or tobacco-related health factor, from the [place] facility where the Encounter took place. Date/Time Current Smoking Status Comment Santiago kwong Mar 19, 2023 10:30 AM VA-TOBACCO NEVER USED [facility] Tobacco Use History This section includes a history of the smoking, or tobacco-related health factors, that were collected on or before the date of the Encounter. The data comes from the [place] facility where the Encounter took place. Date/Time Smoking Status/Tobacco Use Comment Elvis ordoñez Mar 22, 2022 08:45 AM VA-TOBACCO NEVER USED [facility] May 12, 2021 10:00 AM VA-TOBACCO FORMER USER [facility] May 12, 2021 10:00 AM [place]-TOBACCO QUIT 15 YRS OR MORE [facility] Feb 24, 2019 09:35 AM VA-TOBACCO NEVER USED [facility] Feb 18, 2018 01:56 PM FORMER TOBACCO USER 7Y OR GREATE R [facility] Mar 06, 2017 09:31 AM FORMER TOBACCO USER 7Y OR GREATE R [facility] Mar 06, 2016 09:54 AM FORMER TOBACCO USER 7Y OR GREATE R [facility] January 25, 2016 06:31 AM INPT NO TOBACCO USE IN LAST 30 D AYS [facility] January 22, 2015 10:06 AM LIFETIME NON-TOBACCO USER [facility] Apr 15, 2014 10:09 AM FORMER TOBACCO USER 7Y OR GREATE R [facility] February 01, 2011 08:51 AM FORMER TOBACCO USER 7Y OR GREATE R [facility] Advance Directives: All historical and current Section Date Range: From patient's date of to the date document was created. This section includes ALL of a patient's completed or amended [place] Advance and Rescinded Directives. The entries below indicate that a directive exists for the patient, but an actual copy is not included with this document. The data comes from all [facility]. Date Advance Directives Provider Source Oct 13, 2017 ADVANCE DIRECTIVE MARAL DORANTES [facility] Oct 13, 2017 ADVANCE DIRECTIVE DISCUSSION JOSE EMARAL [facility] Radiology Reports: +/- 30 days of the [...] the Encounter. The data comes from all [place] treatment facilities. Date/Time Radiology Report Provider Source Sep 05, 2023 07:58 AM SHOULDER LEFT 2-3 VIEWS: BENJAMÍN ROSAENCE [id number] M Exm Date: SEP 05, 2023@07:58 Req Phys: MARCUS LOMAX Pat Loc: [facility] ADMISSIONS SURGERY (Req'g Img Loc: MAIN X-RAY Service: Unknown (Case [id number] COMPLETE) SHOULDER LEFT 2-3 VIEWS (RAD Detailed) CPT:21118 Proc Modifiers : PORTABLE EXAM, OPERATING ROOM EXAM, LEFT Reason for Study: Left reverse TSA Clinical History: OR 6 Shoulder OA Responsible provider name and phone number to notify for critical findings if other than user placing the order and pager listed below: User placing orders pager: Rukhsana Lomax [phone] LAST CREATININE 0.8 (07/03/23) Report Status: Verified Date Reported: SEP 05, 2023 Date Verified: SEP 05, 2023 Top Loader E-Sig:/ES/LIDYA GUDINO MD Report: SHOULDER LEFT 2-3 [...] Primary Interpreting Staff: LIDYA GUDINO MD, RADIOLOGIST (Top Loader) /[facility] LIDYA GUDINO [facility] Aug 20, 2023 10:16 AM SHOULDER LEFT 4V(A P,Y VIEW, GRASHEY & AXILLARY): BENJAMÍN ROSA LINSEY [id number] -[id number] Ex Date: AUG 20, 2023@10:16 Req Phys: MARCUS LOMAX Pat Loc: [facility] ORTHO COORD PHONE (Req'g L Img Loc: MAIN X-RAY Service: Unknown (Case [id number] COMPLETE) SHOULDER LEFT 4V(AP,Y VIEW, GRASH(RAD Detailed) CPT:15346 Proc Modifiers : LEFT Reason for Study: pre-op Clinical History: [place] IS NOT under investigation for COVID-19 or is COVID-19 negative pre-op Responsible provider name and phone number to notify for critical findings if other than user placing the order and pager listed below: User placing orders pager: LAST CREATININE 0.8 (07/03/23) Report Status: Verified Date Reported: AUG 20, 2023 Date Verified: AUG 20, 2023 Top Loader E-Sig:/ES/PASHA MARIA DO Report: EXAMINATION: SHOULDER LEFT [...] Primary Interpreting Staff: PASHA MARIA DO, RADIOLOGIST (Top Loader) /DDS PASHA MARIA [facility] Encounter Notes: All associated encounter notes This section contains the clinical notes associated to the Encounter. Date/Time Encounter Note(s) Provider Source Sep 05, 2023 05:00 PM SURGERY NOTE: LOCAL TITLE: SURGERY OR NOTE STANDARD TITLE: SURGERY NOTE DATE OF NOTE: SEP 05, 2023@17:00 ENTRY DATE: SEP 05, 2023@17:01:09 AUTHOR: FARRUKH MANUEL EXP COSIGNER: URGENCY: STATUS: COMPLETED PREOPERATIVE DIAGNOSIS: Left rotator cuff tear arthropathy POSTOPERATIVE DIAGNOSIS: Left rotator cuff tear arthropathy OPERATION PERFORMED: Left reverse total shoulder arthroplasty. STAFF SURGEON: Marcus Lomax M.D. RESIDENT SURGEON: Farrukh Manuel MD - PGY5 ANESTHESIA: MAC and Interscalene block ESTIMATED BLOOD LOSS: 100 mL. COMPLICATIONS: No complications. SPECIMENS: None. IMPLANTS: 1. Universe reverse modular glenoid system, glenosphere, 39, +3 lateralized 2. Universe reverse modular glenoid system, central post, modular, 30 mm 3. Universe reverse modular glenoid system baseplate, 28 mm, 4. Universe reverse modular glenoid system peripheral screw, nonlocking 4.5 x 36 mm; 4.5 x 36 mm; 4.5 x 32 mm; 4.5 x 32 mm 5. Universe reverse humeral insert, medium, 39, +3 6. Universe reverse [place] humeral stem size 13 7. 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 Patient trialed extensive conservative therapy in the form of activity modification, physical therapy, subacromial injections with mild fleeting relief. Patient with ongoing pain impacting his overall quality of life. After discussion of the risks, benefits, and alternatives to treatment he elected to proceed with a right reverse total shoulder arthroplasty. DESCRIPTION OF PROCEDURE: The patient was met in the preoperative holding area and the signed consent was reviewed and the left side was marked. He was brought into the operating room theater where general anesthesia was induced He was placed in a beach chair position and the head was placed in a overhead door technician with the neck in neutral position. The left upper extremity was prepped and draped in a standard sterile fashion. A timeout was performed identifying the correct patient, site and procedure. All in the room agreed. An incision was made from the coracoid down to the mid humerus, approximately 10 cm in length. The cephalic vein was identified, mobilized, and retracted laterally, allowing visualization of the deltopectoral interval. The deltopectoral interval was mobilized bluntly. The subdeltoid adhesions were freed and the clavipectoral fascia was identified. The clavipectoral fascia was freed up allowing identification of the superior border of the pectoralis major tendon. At its bony insertion, the long head of the biceps tendon was palpable. The overlying fascia/soft tissue was released with electrocautery and the biceps tendon was delivered into the wound with the use of a 90 degree clamp. It was noted at this time that there was no appreciable rotator cuff and near complete obliteration of the long head of the biceps tendon. A biceps tenotomy was performed. and the proximal humerus was dislocated. An intramedullary guide isabela was reamed at the anatomic neck in line with the humeral intramedullary canal. Sequential hand reaming was performed until a size 7 was placed. 135 degree cutting jig and 30 degrees of retroversion was applied and the humeral head cut was performed followed by a humeral protector. Attention was then turned towards the glenoid. A Fukuda retractor was placed about the posterior aspect of the glenoid to retract the humerus out of the way. A Batman retractor was placed anterosuperiorly. The remaining labrum and capsule interposed between our exposure and glenoid was removed with electrocautery. The center of the glenoid was identified and a center guide pin was placed slightly inferiorly. The pin was advanced, drilled, and tapped. The glenoid was then reamed for a 28 mm modular baseplate with a 30 mm central screw. Superior, inferior, anterior, posterior bicortical screws were then placed within the glenoid baseplate and a 39, +3 lateralized glenosphere was placed. Attention was turned back to the humerus. The humerus was sequentially broached until a size 13. This was implanted deep and reamed with a circular reamer. An offset trial neck/cup were placed and the humerus was reduced. An examination under anesthesia assessing the patient's stability to anterior/posterior shaft and full range of motion with forward elevation, abduction/internal rotation, abduction, and external rotation were performed with great stability. The shoulder was dislocated. The trial components were removed and the final implants were placed. The shoulder again demonstrated excellent ROM with forward flexion, external rotation, and internal rotation to the contralateral shoulder without impingement and stability. The wound was irrigated thoroughly with sterile saline. Given the lack of rotator cuff there was no tissue to repair with fiberwire. Vancomycin powder was placed and a layered closure was performed with the deltopectoral interval approximated with # 2 fiberwire followed by an 0 Stratafix suture. The deep dermal layer was closed with a 2-0 Stratafix and the subcuticular layer was closed with a 3-0 running Monocryl. Prineo dressing was placed. Post-op xrays within the OR revealed a well reduced reverse tsa with no evidence of fracture or dislocation. The patient was extubated and awoken in standard fashion. He was transported to the recovery room in stable condition. All counts were correct at the end of the case. Dr. Lomax was present for the entirety of the procedure. POSTOPERATIVE PLAN: Non-weightbearing right upper extremity. Abduction sling to right shoulder. To start PT according to reverse total shoulder arthroplasty PT protocol. Aspirin x6 weeks for deep venous thrombosis prophylaxis. PT and OT prior to discharge. Follow-up at two weeks and then six weeks with x-rays. /laura/ FARRUKH MANUEL MD ORTHOPEDIC RESIDENT Signed: 09/06/2023 11:58 FARRKUH MANUEL [facility] Sep 05, 2023 04:37 PM NURSING TRANSFER SUMMARIZATION NOTE: LOCAL TITLE: DARR[facility] PACU TRANSFER NOTE STANDARD TITLE: NURSING TRANSFER SUMMARIZATION NOTE DATE OF NOTE: SEP 05, 2023@16:37 ENTRY DATE: SEP 05, 2023@16:37:28 AUTHOR: MYRTLE PEREZ EXP COSIGNER: URGENCY: STATUS: COMPLETED [facility] PACU TRANSFER NOTE Has ADDENDA PACU Transfer Note Status Post: Left reverse total shoulder arthroplasty Code Status: Full Code Patient's Infection Control Status: Standard Pertinent History: HTN, Prostate cancer with radiation. Anesthesia Type: Monitored Anesthesia Care (MAC) Regional Nerve Block: Left Interscalene block-Bupivacaine + exparel Estimated Blood Loss: 100 Crystalloid (OR/PACU): 1000 Medications Given in OR: Zofran 4 mg, Propofol gtt, Precedex 20mcg Medications Given in PACU:None Discharging Anesthesiologist: VIR[place]IA YOUSSEF Current Vital Signs: Temperature: 35.8 C BP: 124/75, HR: 55 Respiratory Rate: 18 Room Air Oxygen Saturation: 99% Heart Rhythm: SB Pain: discomfort,2/10 left shoulder Neuro: A&Ox4 CV: VSS Respiratory: WNL 97RA RR16 GI: Denies nausea. TOlerates ice water : No urge to void. Bladder scan @ 1650 140cc Dressings: None Drains:None Integrative Therapies: Ice pack to left shoulder, immobilzer in place to LUE Skin: Surgical incision to left shoulder closexd with sutures and glue Area C/D/I Pertinent labs: n/a Transfer to: [facility] Condition: Stable Other pertinent information: 20# RW SL /laura/ MYRTLE PEREZ REGISTERED NURSE Signed: 09/05/2023 16:59 09/05/2023 ADDENDUM STATUS: COMPLETED 1700: Spoke with Suad Taylor. Notified of template in . /paula PEREZ REGISTERED NURSE Signed: 09/05/2023 17:09 MYRTLE PEREZ [facility] Sep 05, 2023 04:37 PM SURGERY OPERATIVE NOTE: LOCAL TITLE: POST-OPERATIVE NOTE STANDARD TITLE: SURGERY OPERATIVE NOTE DATE OF NOTE: SEP 05, 2023@16:37 ENTRY DATE: SEP 05, 2023@16:37:17 AUTHOR: FARRUKH MANUEL EXP COSIGNER: URGENCY: STATUS: COMPLETED Date of Procedure: Aug Time Procedure Ended: Aug@16:05 Pre-operative Diagnosis: Left rotator cuff arthropathy Post-Operative Diagnosis: Same Procedure: left reverse total shoulder arthroplasty Anesthesia: Local MAC Resident Surgeon(s): Farrukh Manuel MD - PGY5 [employer] Surgeon(s): Staff Surgeon:Marcus Lomax MD Significant Findings: No appreciable rotator cuff or subscapularis tendon. End stage glenohumeral arthritis Estimated Blood Loss: 100 ml. Specimens: No specimens removed Drains or Tubes: None Complications: None Disposition: Pacu to Floor Post-op plan: Admit to floor ADAT Pain meds as prescribed Keep sling on at all times No left shoulder ROM Non weight bearing on the LUE Keep dressings clean and dry PT/OT- reverse total shoulder arthroplasty protocol ASA 162 daily x 6 weeks d/c when cleared by PT/OT, pain is well controlled with oral medications, and medically stable /es/ FARRUKH MANUEL MD ORTHOPEDIC RESIDENT Signed: 09/05/2023 16:40 FARRUKH MANUEL [facility] Sep 05, 2023 02:25 PM NURSING OPERATIVE NOTE: LOCAL TITLE: INTRAOPERATIVE NURSING NOTE STANDARD TITLE: NURSING OPERATIVE NOTE DATE OF NOTE: SEP 05, 2023@14:25 ENTRY DATE: SEP 05, 2023@14:25:48 AUTHOR: MURRAY LE EXP COSIGNER: URGENCY: STATUS: COMPLETED Intraoperative Nursing Note Part (A) Pre-op Check: Code Status: Full Code Location Pre-operative interview [facility] Nursing Note in CPRS Part (B) Preoperative Assessment: Patient stated full name: * Yes Patient stated full social security number and/or date: * Yes Patient stated procedure as: left shouder replacement Correct site(s) marked with provider's initials: * Yes; with provider's initials Patient was NPO since midnight: Yes Allergies: LISINOPRIL (Mar 08, 2018) Code Status: Full Code Implantable electronic devices: (i.e. pacemaker, ICD, DCS, etc.) No Metal, implants, artificial joints or shrapnel in body? Yes: left knee, right shoulder Does patient have any valuables or belongings in OR? No Skin intact: Yes Tattoos identified: No: none present Patient's physical limitations were indentified pertinent to procedural positioning or patient care demands: No physical limitation identified. Tubes/drains/vacuum dressings/appliances were present preoperatively: No Patient accompanied today by: Yes: at bedside Part (C) Intraoperative Assessment: Intraoperative positioning Type of position: beach chair Type & location of positioning equipment: foam pad under head, garcia bag under body, abd's between ears and garcia bag, right arm wrapped with foam pad and secured with sheet, pillow under knees and safety strap over thighs Time & date patient was positioned for surgical procedure: 1344, 09/05/23 Personnel & title of those who positioned the patient: see [facility] for personnel A fire risk assessment was performed utilizing the Association of periOperative Registered Nurses (AORN) Fire Risk Assessment Tool. The [facility] Operating Room Perioperative Plan of Care for fire safety was implemented. Yes: An alcohol-based skin antiseptic or other flammable solution was used intraoperatively. The actions taken were: Nonflammable packaging with unit dosed applicators utilized. Towels used to absorb excess solution to prevent pooling of skin prep solutions on or around patient. Excessive solution removed by sterile towel including any pooling that may have occurred. Solution-soaked material removed from the sterile field prior to draping and use of electrosurgery, cautery, or a laser. Solutions allowed to dry completely per nipping machine operator guidelines and fumes to dissipate prior to draping and use of surgical equipment. The procedure is above the xiphoid process or in the oropharynx. The actions taken were: Adhesive incise drape used between surgical site and oxygen source. Laryngeal mask airway or endotracheal tube used because patient required supplemental oxygen greater than 30%. Accumulated anesthetic gas evacuated before an ignition source is used in or near the oxygen-enriched environment. Surgical smoke evacuated when using electrosurgery or a laser near the endotracheal tube. An electrosurgical unit (ESU) or high temperature cautery was used: Cord inspected prior to use; free of stress, kinks, knots, or bends. (Do NOT use if there are breaks, nicks, or crackes in the insulated coating. Do NOT coil or kink cord during use.) ESU activated only by the person controlling the active electrode. Power setting used was the lowest possible to achieve desired results. Safety holster used for the active electrode when not in use. Surgical drape/linen kept away from the activated ESU. Flammable agents allowed to dry completely per nipping machine operator guidelines and fumes to dissipate prior to use of ESU. Active electrode kept clean and used per nipping machine operator's recommendations. Patient is undergoing a cardiothoracic procedure: No: /laura/ MURRAY LE RN OR Nurse Signed: 09/05/2023 14:30 MURRAY LE [facility] Sep 05, 2023 01:55 PM SURGERY NURSING NOTE: LOCAL TITLE: SURGERY CENTER NURSING NOTE STANDARD TITLE: SURGERY NURSING NOTE DATE OF NOTE: SEP 05, 2023@13:55 ENTRY DATE: SEP 05, 2023@12:50:45 AUTHOR: LILLIE WARNER COSIGNER: URGENCY: STATUS: COMPLETED Surgery Center Nursing Note Pre-Op Date/time in: Aug@11:45 Patient Identification: verbal, ID band on, Allergies verified The patient reports no COVID-19 diagnosis. The patient reports not waiting for the results of a COVID-19 lab test. The patient reports no fever. The patient reports no new or worsening cough or shortness of breath. The patient reports no cold or flu-like symptoms. The patient reports no new onset of diarrhea, nausea or vomiting. The patient reports no new onset of headache, loss of taste or loss of smell. The patient reports no exposure to someone with COVID-19 within the past 2 weeks. Result: Screen is negative. COVID-19 Immunization Status The patient has had a vaccination for COVID-19. Does patient consent to having their name included in the hospital directory? (So that hospital staff may acknowledge that the patient is in the hospital and give relatives/friends general information regarding their status) Participant(s) statement of procedure: reverse shoulder on the left Responsible person with patient today: Name and Cellphone: Nery, NA: Patient being admitted: Allergies: LISINOPRIL (Mar 08, 2018) Vital Signs Pain: 5 (09/05/2023 12:33) Pain location: left shoulder Temperature: 97.5 F [36.4 C] (09/05/2023 12:33) Blood Pressure: 154/82 (09/05/2023 12:33) Pulse: 60 (09/05/2023 12:33) Respirations: 16 (09/05/2023 12:33) O2 Saturation: 96% (09/05/2023 12:33) Cardiac Rhythm: SR Patient instructed on use of pain scale: Yes Verbalizes understanding: Yes Does patient have chronic pain: Yes left shoulder Code Status: Full Code Surgical consent signed within 60 days: Yes Correct Surgical Site Marked or ID band labeled with surgical procedure: Yes Staff Note Within 24 Hours: Yes History and Physical Within 30 Days: Yes History and Physical updated within 24hrs of surgery: Yes Participant(s) instructed on perioperative plan of care: Yes Verbalizes understanding: Yes Relevant preoperative emotional, spiritual, safety and psychological needs met: Yes Finger Stick Blood Glucose: PT/INR: Neuro assessment: alert, oriented Detail specific neuro deficits in comment box: Pre-procedure skin prep done by patient?: Yes SKIN INTEGRITY: Intact PRE-EXISTING IV: No pre-existing Annemarie-Cath, Blake or Picc. Obtained information below from: Patient, Family/significant other NPO since midnight: No, describe: black coffee [id number] Pre-Procedure medications: Did patient take preordered oral antibiotic prior to arrival: Not applicable DVT Prophylaxis Pneumatic compression Nursing action on preordered medication prior to surgery: Pre-Op IV Antibiotic Sent with patient to OR Does the patient have an active order for a beta sandra, (e.g., metoprolol, atenolol, etc): No Is patient taking any anticoagulation, any antiplatelet agent, any thrombin inhibitor or thrombolytic agent? (This includes ASA, Heparin drip, or SQ injection): Yes, What drug and when last dose was taken: ASA 7 days ago Does the patient have on any medication patches: No Does the patient have any implantable device (e.g. pacemaker, infusion pump, nerve stimulator, etc...) No Location of patients personal items: All personal belongings locked in surgery center locker room. Valuables: glasses and hearing aids to Medication reconciliation completed by nurse: Yes IV insertion: Site: right hand Gauge: 20 Site was cleansed and prepared with Cloraprep. Sterile tegaderm dressing applied and dated. Blood products available: None ordered Surgery specific assessment: /laura/ LILLIE WARNER RN Signed: 09/05/2023 13:55 LILLIE WARNER [facility] Sep 05, 2023 01:44 PM NURSING INPATIENT NOTE: LOCAL TITLE: ADRRYL NURSING PROGRESS NOTE STANDARD TITLE: NURSING INPATIENT NOTE DATE OF NOTE: SEP 05, 2023@13:44 ENTRY DATE: SEP 05, 2023@13:44:28 AUTHOR: DANY HERRERA COSIGNER: URGENCY: STATUS: COMPLETED Surgery Relationship Executive Patient Transport Note Identified patient using 2 personal identifiers comparing chart, Patient ID band, and Patients verbal response: Full name & SSN Full SSN & Patients Personal Items: All personal items left on olmos/unit Patient is NPO after midnight: Yes Patient was offered opportunity to use the restroom prior to transport to Surgery Center? Yes Patient hooked up to cardiac monitors (EKG continuous monitoring leads attached)? Yes Patient transported to preop/surgery center via ambulated Preoperative hair removal with clippers performed: Yes Left shoulder Post hair removal skin integrity Skin intact Preoperative skin preparation cleanse with chlorhexidine wipes performed? Yes Concentrating on incision sites moving from clean to dirty areas Vigorously scrubbed skin back & forth for 3 minutes /laura/ DANY Rangel EA DIRECTOR OF ENROLLMENT Signed: 09/05/2023 13:46 DANY HERRERA [facility] Sep 05, 2023 01:04 PM SURGERY NURSING NOTE: LOCAL TITLE: SURGERY CENTER NURSING NOTE STANDARD TITLE: SURGERY NURSING NOTE DATE OF NOTE: SEP 05, 2023@13:04 ENTRY DATE: SEP 05, 2023@13:04:49 AUTHOR: LILLIE WARNER EXP COSIGNER: URGENCY: STATUS: COMPLETED Surgery Center Nursing Note Regional BRIANNA Nelson CRNA Pre-procedure assessment completed Patient prepped for procedure, placed on broadcast chief engineer with EKG rhythm strip printed, O2 saturation with blood pressure checks q5 min throughout block, and patent IV. O2 Nasal Cannula Flow Liters: 2 Procedure timeout per hospital policy number [id number]: Aug@13:01 Modified David Score (Expanded option) Oxygentation 2 points - Saturation >92% Consciousness: 2 points - Fully awake Circulation: 2 points - BP within 20 mm Hg of preoperative level Breathin points - Able to breathe deeply and cough freely Activity Level: 2 points - Moves all extremities voluntarily/on command Total David Score: 10 Vital signs Pre-procedure: Blood Pressure: 154/82 Heart Rate/Rhythm: 60 SR Respirations: 16 Pulse Oximetry: 96 Vital Signs Time: 1303 Blood Pressure: 167/81 Heart Rate/Rhythm: 60 SR Respirations: 16 Pulse Oximetry: 96 Vital Signs Time: 1306 Blood Pressure: 162/86 Heart Rate/Rhythm: 60 SR Respirations: 18 Pulse Oximetry: 97 Vital Signs Time: 1309 Blood Pressure: 162/91 Heart Rate/Rhythm: 60 Respirations: 16 Pulse Oximetry: 96 Procedure end time: Modified David Score (Expanded option) Oxygentation 1 point - Needs supplemental oxygen to maintain saturation >90% Consciousness: 2 points - Fully awake Circulation: 2 points - BP within 20 mm Hg of preoperative level Breathin points - Able to breathe deeply and cough freely Activity Level: 2 points - Moves all extremities voluntarily/on command Total David Score: 9 Laterality: Left Type of block: Interscalene Expected duration of block: 72 hours. Nursing note: no sedation given Yellow socks applied for lower extremity block (falls risk) Peripheral Nerve Block discharge instruction sheet sent with patient. Patient tolerated procedure well with no evidence of lidocaine toxicity. /laura/ LILLIE WARNER RN Signed: 09/05/2023 13:13 LILLIE WARNER [facility] Sep 05, 2023 12:35 PM SURGERY H & P NOTE: LOCAL TITLE: H&P SURGICAL UPDATE STANDARD TITLE: SURGERY H & P NOTE DATE OF NOTE: SEP 05, 2023@12:35 ENTRY DATE: SEP 05, 2023@12:35:14 AUTHOR: FREDRICK PENNINGTON EXP COSIGNER: URGENCY: STATUS: COMPLETED The patient was assessed prior to anesthesia induction on the day of surgery and no change in patient condition was noted. Exam: Left upper extremity: -No skin issues noted over shoulder -Sensation intact to light touch over ulnar/radial/median/axillary distribution -Fires FPL, EPL, interossei muscles, deltoid -Palpable radial pulse Written consent was obtained. Patient understood risks and benefits of surgery and wished to proceed. Correct site was verified with patient to be the left shoulder. Site marked. /laura/ BIB PENNINGTON MD, PhD RESIDENT, ORTHO Signed: 09/05/2023 12:37 Claire PENNINGTON [facility] Sep 05, 2023 06:55 AM SURGERY H & P NOTE: LOCAL TITLE: H&P SURGICAL UPDATE STANDARD TITLE: SURGERY H & P NOTE DATE OF NOTE: SEP 05, 2023@06:55 ENTRY DATE: SEP 05, 2023@06:55:14 AUTHOR: MARCUS LOMAX EXP COSIGNER: URGENCY: STATUS: COMPLETED The patient was assessed prior to anesthesia induction on the day of surgery and no change in patient condition was noted. /laura/ MARCUS LOMAX MD STAFF ORTHOPAEDIC SURGEON Signed: 09/05/2023 06:55 DAMIMARCUS [facility] Sep 05, 2023 06:53 AM SURGERY ATTENDING PRE OPERATIVE E & M NOTE: LOCAL TITLE: PRE-OP SURGERY STAFF NOTE STANDARD TITLE: SURGERY ATTENDING PRE OPERATIVE E & M NOTE DATE OF NOTE: SEP 05, 2023@06:53 ENTRY DATE: SEP 05, 2023@06:53:29 AUTHOR: MARCUS LOMAX EXP COSIGNER: URGENCY: STATUS: COMPLETED Pre-Operative Staff Note Diagnosis/findings: left shoulder rotator cuff tear arthropathy Planned Procedure: left reverse total shoulder arthroplasty Case discussed with resident, patient seen and examined. Pertinent history, imaging and pathology reports reviewed. Patient informed of alternatives, risks and benefits. Agree with diagnosis, findings, preoperative assessment and planned procedure or treatment plan. No data available for: LIFE-SUSTAINING TREATMENT Life Sustaining Treatment Orders /paula LOMAX MD STAFF ORTHOPAEDIC SURGEON Signed: 09/05/2023 06:54 DAMIMARCUS F [facility] Sep 05, 2023 06:52 AM ATTENDING ADMISSION EVALUATION NOTE: LOCAL TITLE: SURGERY STAFF ADMISSION NOTE STANDARD TITLE: ATTENDING ADMISSION EVALUATION NOTE DATE OF NOTE: SEP 05, 2023@06:52 ENTRY DATE: SEP 05, 2023@06:52:38 AUTHOR: MARCUS LOMAX EXP COSIGNER: URGENCY: STATUS: COMPLETED SURGERY STAFF ADMISSION NOTE Has ADDENDA Attending Note for Inpatient Surgery Admission. The patient has been seen and examined and the history, physical exam, radiographic and laboratory studies have been reviewed by me. Options for treatment have been discussed and there is agreement with the present plan for right reverse total shoulder arthroplasty for rotator cuff tear arthropathy The risks, benefits and alternatives of this plan have also been reviewed with the patient and have been accepted as outlined. /paula LOMAX MD STAFF ORTHOPAEDIC SURGEON Signed: 09/05/2023 06:53 09/05/2023 ADDENDUM STATUS: COMPLETED Should be left reverse TSA /es/ MARCUS LOMAX MD STAFF ORTHOPAEDIC SURGEON Signed: 09/05/2023 06:55 MARCUS LOMAX [facility]
--- OUTSIDE RECORDS SUMMARY | 2024-05-05 11:00 | XMS_ITS | Encounter Summary ---
Author Name [facility] [place] [facility] [place] Address [address] [place] [address] Care Team Providers Care Oncology Patient Navigator Name Role Phone JAN BRISENO Primary Care [...] Name Patient's Relationship to Policy French [facility] (WNR) MEDICARE ADVANTAGE MEDIC ARE OTILIA RAMESH Claire Sep 17, 2018 [id number] [phone] BENJAMÍN ROSA PATIENT MEDICARE (WNR) MEDICARE (M) PART A Mar 17, 2007 PART A [id number] BENJAMÍN ROSA PATIENT MEDICARE (WNR) MEDICARE (M) PART B Mar 17, 2007 PART B [id number] BENJAMÍN ROSA PATIENT Selected Encounter This section includes the information on record at [place] for the Encounter. Date/Time Encounter Type Encounter Description Reason Pro vider Source Sep 05, 2023 12:00 PM Outpatient Encounter GENERAL SURGERY IHE Encounter Template Text not used by [place] Plan of Treatment: Future Appointments (+ 6 months) and Future Tests (+/- 45 days) The Plan of Treatment section includes future care activities for the [facility] [place] [facility] This section includes future appointments and future orders which are active, pending or scheduled. Future Appointments This section includes appointments that were scheduled to occur 6 months from the date of the Encounter, up to a maximum of 20 appointments. The data comes from all [facility]. Appointment Date/Time Appointment Type Appointme nt Facility Name Sep 18, 2023 09:30 AM AMBULATORY - SURGERY [facility] Sep 18, 2023 10:30 AM AMBULATORY - [facility] Sep 27, 2023 03:30 PM AMBULATORY - SURGERY [facility] Oct 16, 2023 08:30 AM AMBULATORY - [facility] Oct 16, 2023 10:00 AM AMBULATORY - NONE [facility] Oct 23, 2023 09:00 AM AMBULATORY - [facility] Oct 30, 2023 09:30 AM AMBULATORY - [facility] Oct 31, 2023 10:30 AM AMBULATORY - SURGERY [facility] Oct 31, 2023 05:10 PM AMBULATORY - [facility] Nov 13, 2023 09:00 AM AMBULATORY - [facility] Nov 20, 2023 10:00 AM AMBULATORY - SURGERY [facility] Nov 20, 2023 11:00 AM AMBULATORY - MEDICINE [facility] Dec 17, 2023 08:40 AM AMBULATORY - SURGERY [facility] January 24, 2024 09:45 AM AMBULATORY - SURGERY [facility] Active, Pending, and Scheduled Orders This section includes a listing of several types of active, pending, and scheduled orders, including clinic medications orders, diagnostic test orders, procedure orders and consult orders; where the start date of the order is 45 days before the date of the Encounter or 45 days after the date of theEncounter. The data comes from all [facility]. Test Date/Time Test Type Test Details Facility Name Sep 05, 2023 07:28 PM Laboratory - Blood Bank Order TYPE & SCREEN - LAB BLOOD WC [facility] Lab Results: +/- 30 days of [...] Range Comment Sep 06, 2023 09:11 AM [facility] CBC Specimen Type: BLOOD Comment: Specimen received in Lab at: 0910 Ordering Provider: RAHEEL MANUEL Report Released Date/Time: Sep 05, 2023 07:28 PM Reporting Lab: [facility] [id number] Performing Lab: [facility] [phone] WBC 8.69 10*3/uL 4.0-11.0 RBC 3.76 10*6/uL L 4.6-6.2 HGB 11.5 g/dL L 13.5-17.9 HCT 34.7 L 41-54 MCV 92.3 fL 80-100 MCH 30.6 pg 27-33 MCHC 33.1 g/dL 32.0-37.5 PLT 261 10*3/uL 150-400 MPV 11.0 fL H 7.4-10.4 RDW 13.3 11.5-14.5 Sep 06, 2023 09:11 AM [facility] BASIC METABOLIC PANEL+MG Specimen Type: PLASMA Comment: Specimen received in Lab at: 0910 Ordering Provider: RAHEEL MANUEL Report Released Date/Time: Sep 05, 2023 07:28 PM Reporting Lab: [facility] [id number] Performing Lab: [facility] [phone] CREATININE 0.9 mg/dL 0.7-1.2 UREA NITROGEN 15 mg/dL 8-26 GLUCOSE 141 mg/dL H 70-100 SODIUM 134 mmol/L L 136-145 POTASSIUM 4.1 mmol/L 3.5-5.1 CHLORIDE 101 mmol/L 98-107 CO2 24 mmol/L 22-29 CALCIUM 8.6 mg/dL 8.4-10.2 MAGNESIUM 1.7 mg/dL 1.6-2.6 ANION GAP 9 mmol/L 5-15 .CREAT EGFR(CKD-EPI) 86 >60 Sep 06, 2023 05:44 AM [facility] FINGERSTICK GLUCOSE Specimen Type: BLOOD Comment: Save Result Ordering Provider: FALLON MUNGUIA Report Released Date/Time: Sep 06, 2023 06:02 AM Reporting Lab: [facility] [phone] Performing Lab: [facility] [phone] FINGERSTICK GLUCOSE 140 mg/dL 70-100 Sep 05, 2023 08:25 PM [facility] PROTHROMBIN TIME/INR Specimen Type: PLASMA No comment entered. Ordering Provider: EMILY REVELES Report Released Date/Time: Sep 05, 2023 07:28 PM Reporting Lab: [facility] [phone] Performing Lab: [facility] Sep 05, 2023 08:25 PM [facility] CBC Specimen Type: BLOOD No comment entered. Ordering Provider: EMILY REVELES Report Released Date/Time: Sep 05, 2023 07:28 PM Reporting Lab: [facility] [phone] Performing Lab: [facility] [phone] WBC 8.60 10*3/uL 4.0-11.0 RBC 3.66 10*6/uL L 4.6-6.2 HGB 11.3 g/dL L 13.5-17.9 HCT 34.3 L 41-54 MCV 93.7 fL 80-100 MCH 30.9 pg 27-33 MCHC 32.9 g/dL 32.0-37.5 PLT 225 10*3/uL 150-400 MPV 10.9 fL H 7.4-10.4 RDW 13.4 11.5-14.5 Sep 05, 2023 08:25 PM [facility] BASIC METABOLIC PANEL+MG Specimen Type: PLASMA No comment entered. Ordering Provider: EMILY REVELES Report Released Date/Time: Sep 05, 2023 07:28 PM Reporting Lab: [facility] [phone] Performing Lab: [facility] [phone] CREATININE 0.9 mg/dL 0.7-1.2 UREA NITROGEN 17 mg/dL 8-26 GLUCOSE 148 mg/dL H 70-100 SODIUM 140 mmol/L 136-145 POTASSIUM 3.8 mmol/L 3.5-5.1 CHLORIDE 107 mmol/L 98-107 CO2 26 mmol/L 22-29 CALCIUM 8.7 mg/dL 8.4-10.2 MAGNESIUM 1.9 mg/dL 1.6-2.6 ANION GAP 7 mmol/L 5-15 .CREAT EGFR(CKD-EPI) 86 >60 Sep 05, 2023 08:25 PM [facility] ACT PART THROMBO TIME Specimen Type: PLASMA Comment: ~Draw on admission. Call IV team to draw on admission. Ordering Provider: EMILY REVELES Report Released Date/Time: Sep 05, 2023 07:28 PM Reporting Lab: [facility] [phone] Performing Lab: [facility] [phone] APTT 30.8 s 25.1-36.5 Vital Signs: All taken on the encounter date This section contains inpatient and outpatient Vital Signs collected on the date of the Encounter. Date/Time Temperature Pulse Blood Pressure Respiratory Rate SP02 Pain Height Weight Body Mass Index Source Sep 05, 2023 11:52 PM 98.2 F 65 /min 134/72 mm[Hg] 16 /min 95 % 0 [facility] Sep 05, 2023 12:33 PM 97.5 F 60 /min 154/82 mm[Hg] 16 /min 96 % 5 [facility] Social History: Smoking Status (Most current) [...] 19, 2023 10:30 AM [place]-TOBACCO NEVER USED [facility] Tobacco Use History This section includes a history of the smoking, or tobacco-related health factors, that were collected on or before the date of the Encounter. The data comes from the [place] facility where the Encounter took place. Date/Time Smoking Status/Tobacco Use Comment F acility Mar 22, 2022 08:45 AM [place]-TOBACCO NEVER USED [facility] May 12, 2021 10:00 AM VA-TOBACCO FORMER USER [facility] May 12, 2021 10:00 AM VA-TOBACCO QUIT 15 YRS OR MORE [facility] Feb 24, 2019 09:35 AM [place]-TOBACCO NEVER USED [facility] Feb 18, 2018 01:56 PM FORMER TOBACCO USER 7Y OR GREATE R [facility] Mar 06, 2017 09:31 AM FORMER TOBACCO USER 7Y OR GREATE R [facility] Mar 06, 2016 09:54 AM FORMER TOBACCO USER 7Y OR GREATE R [facility] January 25, 2016 06:31 AM INPT NO TOBACCO USE IN LAST 30 D AYS [facility] January 22, 2015 10:06 AM LIFETIME NON-TOBACCO USER [facility] Apr 15, 2014 10:09 AM FORMER TOBACCO USER 7Y OR GREATE R [facility] February 01, 2011 08:51 AM FORMER TOBACCO USER 7Y OR GREATE R [facility] Advance Directives: All historical and current Section Date Range: From patient's date of to the date document was created. This section includes ALL of a patient's completed or amended [place] Advance and Rescinded Directives. The entries below indicate that a directive exists for the patient, but an actual copy is not included with this document. The data comes from all [facility]. Date Advance Directives Provider Source Oct 13, 2017 ADVANCE DIRECTIVE MARAL DORANTESSUTTER [facility] Oct 13, 2017 ADVANCE DIRECTIVE DISCUSSION ABNERTenaAMRAL [facility] Radiology Reports: +/- 30 days of [...] AM SHOULDER LEFT 2-3 VIEWS: BENJAMÍN ROSA [id number] -[id number] M Ex Date: SEP 05, 2023@07:58 Req Phys: MARCUS LOMAX Loc: [facility] ADMISSIONS SURGERY (Req'g Img Loc: MAIN X-RAY Service: Unknown (Case [id number] COMPLETE) SHOULDER LEFT 2-3 VIEWS (RAD Detailed) CPT:26933 Proc Modifiers : PORTABLE EXAM, OPERATING ROOM EXAM, LEFT Reason for Study: Left reverse TSA Clinical History: OR 6 Shoulder OA Responsible provider name and phone number to notify for critical findings if other than user placing the order and pager listed below: User placing orders pager: Rukhsana Lomax [phone] LAST CREATININE 0.8 (07/03/23) Report Status: Verified Date Reported: SEP 05, 2023 Date Verified: SEP 05, 2023 Research Professor E-Sig:/ES/LIDYA GUDINO MD Report: SHOULDER LEFT 2-3 [...] Primary Interpreting Staff: LIDYA GUDINO MD, RADIOLOGIST (Research Professor) /[facility] LIDYA GUDINO [facility] Aug 20, 2023 10:16 AM SHOULDER LEFT 4V(A P,Y VIEW, GRASHEY & AXILLARY): BENJAMÍN ROSA [id number] -1940 M Ex Date: AUG 20, 2023@10:16 Req Phys: MARCUS LOMAX Pat Loc: [facility] ORTHO COORD PHONE (Req'g L Img Loc: MAIN X-RAY Service: Unknown (Case [id number] COMPLETE) SHOULDER LEFT 4V(AP,Y VIEW, GRASH(RAD Detailed) CPT:01788 Proc Modifiers : LEFT Reason for Study: [...] 20, 2023 Date Verified: AUG 20, 2023 Research Professor E-Sig:/ES/PASHA MARIA DO Report: EXAMINATION: SHOULDER LEFT [...] Primary Interpreting Staff: PASHA MARIA DO, RADIOLOGIST (Research Professor) /DDS PASHA MARIA [facility] Encounter Notes: All associated encounter notes This section contains the clinical notes associated to the Encounter. Date/Time Encounter Note(s) Provider Source Sep 05, 2023 03:41 PM NURSING OPERATIVE NOTE: LOCAL TITLE: INTRAOPERATIVE NURSING NOTE STANDARD TITLE: NURSING OPERATIVE NOTE DATE OF NOTE: SEP 05, 2023@15:41 ENTRY DATE: SEP 05, 2023@15:41:59 AUTHOR: BRITTON BARTHOLOMEW EXP COSIGNER: URGENCY: STATUS: COMPLETED Intraoperative Nursing Note Part (D) Postoperative Assessment: Post-Op Skin Assessment Inspected patients skin post procedure Yes Any (abnormalities) ie:reddened areas, abrasions, bruises: No abnormalities observed The [facility] Perioperative plan of care was implemented with intraoperative goals and objectives met: Yes A debriefing procedure was perfomred by Dr. Lomax Verifying the following: Procedure, Wound Classification, EBL A local anesthetic was used intraoperatively: Yes, See medications in [facility] charting. An Intraoperative x-ray was taken per hospital policy. Verification that there were no retained items was by: Dr. Manuel /laura/ BRITTON BARTHOLOMEW [employer] OPERATOR NURSE Signed: 09/05/2023 15:58 BRITTON BARTHOLOMEW [facility]
--- OUTSIDE RECORDS SUMMARY | 2024-05-05 11:00 | XMS_ITS | Encounter Summary ---
Author Name [facility] [place] [facility] [place] [facility] [place] Address [address] [place] [id number] Care Team Providers Care Data Modeling Architect Name Role Phone FINN KIRAASHLEY Primary Care Provider Unavailabl e Insurance Providers: [...] French's Name Patient's Relationship to Policy French [facility] (W[facility] MEDICARE ADVANTAGE MEDIC ARE OTILIA Rangel Sep 17, 2018 [id number] [phone] MOEBENJAMÍN PATIENT MEDICARE (WNR) MEDICARE (M) PART B Mar 17, 2007 PART B [id number] [phone] BENJAMÍN ROSA PATIENT MEDICARE (WNR) MEDICARE (M) PART A Mar 17, 2007 PART A [id number] [phone] BENJAMÍN ROSA PATIENT Selected Encounter This section includes the information on record at [place] for the Encounter. Date/Time Encounter Type Encounter Description Reason Pro vider Source IHE Encounter Template Text not used by [place] Advance Directives: All historical and current Section Date Range: From patient's date of to the date document was created. This section includes ALL of a patient's completed or amended [place] Advance and Rescinded Directives. The entries below indicate that a directive exists for the patient, but an actual copy is not included with this document. The data comes from all [place] facilities. Date Advance Directives Provider Source Oct 13, 2017 ADVANCE DIRECTIVE MARAL DORANTES [facility] Oct 13, 2017 ADVANCE DIRECTIVE DISCUSSION MARAL DORANTES [facility]
--- OUTSIDE RECORDS SUMMARY | 2024-05-05 11:00 | XMS_ITS | Encounter Summary ---
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 Date/Time Encounter Type Encounter Description Reason Provider Source Sep 05, 2023 11:56 AM Outpatient Encounter ADMIN PAT ACTIVTIES (MASNONCT) SYSTEM,[facility] Encounter Template Text not used by [place] Plan of Treatment: Future Appointments (+ 6 months) and Future Tests (+/- 45 days) The Plan of Treatment section includes future care activities for the [facility] [place] [facility] This section includes future appointments and future orders which are active, pending or scheduled. Future Appointments This section includes appointments that were scheduled to occur 6 months from the date of the Encounter, up to a maximum of 20 appointments. The data comes from all [facility]. Appointment Date/Time Appointment Type Appointme nt Facility Name Sep 18, 2023 09:30 AM AMBULATORY - SURGERY [facility] Sep 18, 2023 10:30 AM AMBULATORY - RE[facility]AB [facility] Sep 27, 2023 03:30 PM AMBULATORY - SURGERY [facility] Oct 16, 2023 08:30 AM AMBULATORY - RE[facility] Oct 16, 2023 10:00 AM AMBULATORY - NONE [facility] Oct 23, 2023 09:00 AM AMBULATORY - RE[facility] Oct 30, 2023 09:30 AM AMBULATORY - RE[facility] Oct 31, 2023 10:30 AM AMBULATORY - SURGERY [facility] Oct 31, 2023 05:10 PM AMBULATORY - RE[facility] Nov 13, 2023 09:00 AM AMBULATORY - RE[facility] Nov 20, 2023 10:00 AM AMBULATORY - SURGERY [facility] Nov 20, 2023 11:00 AM AMBULATORY - MEDICINE [facility] Dec 17, 2023 08:40 AM AMBULATORY - SURGERY [facility] January 24, 2024 09:45 AM AMBULATORY - SURGERY [facility] Active, Pending, and Scheduled Orders This section includes a listing of several types of active, pending, and scheduled orders, including clinic medications orders, diagnostic test orders, procedure orders and consult orders; where the start date of the order is 45 days before the date of the Encounter or 45 days after the date of theEncounter. The data comes from all [facility]. Test Date/Time Test Type Test Details Facility Name Sep 05, 2023 07:28 PM Laboratory - Blood Bank Order TYPE & SCREEN - LAB BLOOD WC [facility] Lab Results: +/- 30 days of the encounter This section includes the Chemistry and Hematology Lab Results on record with [place] for the patient. Radiology Reports and Pathology Reports are provided separately, in subsequent sections. Lab Results This section contains the Chemistry/Hematology Results that were resulted 30 days before or 30 daysafter the date of the Encounter. Date/Time Source Result Type Result - Unit Interpretation Reference Range Comment Sep 06, 2023 09:11 AM [facility] CBC Specimen Type: BLOOD Comment: Specimen received in Lab at: 0910 Ordering Provider: RAHEEL DELGADILLO Report Released Date/Time: Sep 05, 2023 07:28 PM Reporting Lab: [facility] [phone] Performing Lab: [facility] [phone] WBC 8.69 10*3/uL 4.0-11.0 RBC 3.76 10*6/uL L 4.6-6.2 HGB 11.5 g/dL L 13.5-17.9 HCT 34.7 L 41-54 MCV 92.3 fL 80-100 MCH 30.6 pg 27-33 MCHC 33.1 g/dL 32.0-37.5 PLT 261 10*3/uL 150-400 MPV 11.0 fL H 7.4-10.4 RDW 13.3 11.5-14.5 Sep 06, 2023 09:11 AM [facility] BASIC METABOLIC PANEL+MG Specimen Type: PLASMA Comment: Specimen received in Lab at: 0910 Ordering Provider: RAHEEL DELGADILLO Report Released Date/Time: Sep 05, 2023 07:28 PM Reporting Lab: [facility] [phone] Performing Lab: [facility] [phone] CREATININE 0.9 mg/dL 0.7-1.2 UREA NITROGEN 15 mg/dL 8-26 GLUCOSE 141 mg/dL H 70-100 SODIUM 134 mmol/L L 136-145 POTASSIUM 4.1 mmol/L 3.5-5.1 CHLORIDE 101 mmol/L 98-107 CO2 24 mmol/L 22-29 CALCIUM 8.6 mg/dL 8.4-10.2 MAGNESIUM 1.7 mg/dL 1.6-2.6 ANION GAP 9 mmol/L 5-15 .CREAT EGFR(CKD-EPI) 86 >60 Sep 06, 2023 05:44 AM [facility] FINGERSTICK GLUCOSE Specimen Type: BLOOD Comment: Save Result Ordering Provider: FALLON MUNGUIA Report Released Date/Time: Sep 06, 2023 06:02 AM Reporting Lab: [facility] [phone] Performing Lab: [facility] [phone] FINGERSTICK GLUCOSE 140 mg/dL 70-100 Sep 05, 2023 08:25 PM [facility] ACT PART THROMBO TIME Specimen Type: PLASMA Comment: ~Draw on admission. Call IV team to draw on admission. Ordering Provider: EMILY REVELES Report Released Date/Time: Sep 05, 2023 07:28 PM Reporting Lab: [facility] [phone] Performing Lab: [facility] [phone] APTT 30.8 s 25.1-36.5 Sep 05, 2023 08:25 PM [facility] CBC Specimen Type: BLOOD No comment entered. Ordering Provider: EMILY REVELES Report Released Date/Time: Sep 05, 2023 07:28 PM Reporting Lab: [facility] [phone] Performing Lab: [facility] [phone] WBC 8.60 10*3/uL 4.0-11.0 RBC 3.66 10*6/uL L 4.6-6.2 HGB 11.3 g/dL L 13.5-17.9 HCT 34.3 L 41-54 MCV 93.7 fL 80-100 MCH 30.9 pg 27-33 MCHC 32.9 g/dL 32.0-37.5 PLT 225 10*3/uL 150-400 MPV 10.9 fL H 7.4-10.4 RDW 13.4 11.5-14.5 Sep 05, 2023 08:25 PM [facility] PROTHROMBIN TIME/INR Specimen Type: PLASMA No comment entered. Ordering Provider: EMILY REVELES Report Released Date/Time: Sep 05, 2023 07:28 PM Reporting Lab: [facility] [phone] Performing Lab: [facility] Sep 05, 2023 08:25 PM [facility] BASIC METABOLIC PANEL+MG Specimen Type: PLASMA No comment entered. Ordering Provider: EMILY REVELES Report Released Date/Time: Sep 05, 2023 07:28 PM Reporting Lab: [facility] [address] Performing Lab: [facility] [address] CREATININE 0.9 mg/dL 0.7-1.2 UREA NITROGEN 17 [...] 134/72 mm[Hg] 16 /min 95 % 0 [facility] Sep 05, 2023 12:33 PM 97.5 F 60 /min 154/82 mm[Hg] 16 /min 96 % 5 [facility] Social History: Smoking Status (Most current) and Tobacco Use (All prior to encounter date) This section includes the most current, and the historical, smoking and tobacco- related health factors from the [place] facility where the Encounter took place. Current Smoking Status This section includes the most current smoking, or tobacco-related health factor, from the [place] facility where the Encounter took place. Date/Time Current Smoking Status Comment Santiago kwong Mar 19, 2023 10:30 AM [place]-TOBACCO NEVER USED [facility] Tobacco Use History This section includes a history of the smoking, or tobacco-related health factors, that were collected on or before the date of the Encounter. The data comes from the [place] facility where the Encounter took place. Date/Time Smoking Status/Tobacco Use Comment Elvis [email or web address] Mar 22, 2022 08:45 AM VA-TOBACCO NEVER USED [facility] May 12, 2021 10:00 AM VA-TOBACCO FORMER USER [facility] May 12, 2021 10:00 AM [place]AC[place] QUIT 15 YRS OR MORE [facility] Feb 24, 2019 09:35 AM VA-TOBACCO NEVER USED [facility] Feb 18, 2018 01:56 PM FORMER TOBACCO USER 7Y OR GREATE R [facility] Mar 06, 2017 09:31 AM FORMER TOBACCO USER 7Y OR GREATE R [facility] Mar 06, 2016 09:54 AM FORMER TOBACCO USER 7Y OR GREATE R [facility] January 25, 2016 06:31 AM INPT NO TOBACCO USE IN LAST 30 D AYS [facility] January 22, 2015 10:06 AM LIFETIME NON-TOBACCO USER [facility] Apr 15, 2014 10:09 AM FORMER TOBACCO USER 7Y OR GREATE R [facility] February 01, 2011 08:51 AM FORMER TOBACCO USER 7Y OR GREATE R [facility] Advance Directives: All historical and current Section Date Range: From patient's date of to the date document was created. This section includes ALL of a patient's completed or amended [place] Advance and Rescinded Directives. The entries below indicate that a directive exists for the patient, but an actual copy is not included with this document. The data comes from all [facility]. Date Advance Directives Provider Source Oct 13, 2017 ADVANCE DIRECTIVE MARAL DORANTES [facility] Oct 13, 2017 ADVANCE DIRECTIVE DISCUSSION JOSE EMARAL [facility] Radiology Reports: +/- 30 days of the [...] the Encounter. The data comes from all [place] treatment facilities. 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 Responsible provider name and phone number to notify for critical findings if other than user placing the order and pager listed below: User placing orders pager: Rukhsana Lomax [phone] LAST CREATININE 0.8 (07/03/23) Report Status: Verified Date Reported: SEP 05, 2023 Date Verified: SEP 05, 2023 Jailkeeper E-Sig:/ES/LIDYA GUDINO MD Report: SHOULDER LEFT 2-3 [...] Primary Interpreting Staff: LIDYA GUDINO MD, RADIOLOGIST (Jailkeeper) /[facility] LIDYA GUIDNO [facility] Aug 20, 2023 10:16 AM SHOULDER LEFT 4V(A P,Y VIEW, GRASHEY & AXILLARY): BENJAMÍN ROSA [id number] -1940 [facility] Date: AUG 20, 2023@10:16 Req Phys: MARCUS LOMAX Pat Loc: [facility] ORTHO COORD PHONE (Req'g L Img Loc: MAIN X-RAY Service: Unknown (Case [id number] COMPLETE) SHOULDER LEFT 4V(AP,Y VIEW, GRASH(RAD Detailed) CPT:22528 Proc Modifiers : LEFT Reason for Study: [...] 20, 2023 Date Verified: AUG 20, 2023 Jailkeeper E-Sig:/SUSHMA/PASHA MARIA DO Report: EXAMINATION: SHOULDER LEFT 4V(AP,Y [...] Primary Interpreting Staff: PASHA MARIA DO, RADIOLOGIST (Jailkeeper) /DDS PASHA MARIA [facility] Encounter Notes: All associated encounter notes This section contains the clinical notes associated to the Encounter. Date/Time Encounter Note(s) Provider Source Sep 05, 2023 11:56 AM CRITICAL CARE UNIT NOTE: LOCAL TITLE: [facility] PACU FLOWSHEET STANDARD TITLE: CRITICAL CARE UNIT NOTE DATE OF NOTE: SEP 05, 2023@11:56 ENTRY DATE: SEP 05, 2023@19:31:19 AUTHOR: JASON,[employer]ARK EXP COSIGNER: URGENCY: STATUS: COMPLETED This is a place french only. Please see [email or web address] to view document. /es/ [facility] ICU DOCUMENT IMPORT Signed: 09/05/2023 19:31 SYSTEM,[employer]ARK [facility]
--- OUTSIDE RECORDS SUMMARY | 2024-05-05 11:00 | XMS_ITS ---
[facility] Encounter Summary Created on: May 05, 2024 MOE BENJAMÍN LINSEY : 1940 Sex: Male Author Name [facility] [facility] [place] [facility] [place] Address [address] [place] [address] Care Team Providers Care School Principal Name Role Phone JAN BRISENO Primary Care [...] French's Name Patient's Relationship to Policy French [facility] (WNR) MEDICARE ADVANTAGE MEDIC ARE OTILIA RAMESH Claire Sep 17, 2018 [id number] [phone] BENJAMÍN CHAO PATIENT MEDICARE (WNR) MEDICARE (M) PART A Mar 17, 2007 PART A [id number] [phone] BENJAMÍN CHAO PATIENT MEDICARE (WNR) MEDICARE (M) PART B Mar 17, 2007 PART B [id number] [phone] BENJAMÍN CHAO PATIENT Selected Encounter This section includes the information on record at [place] for the Encounter. Date/Time Encounter Type Encounter Description Reason Provider Source Sep 05, 2023 07:27 PM Inpatient Visit HOSPITALIZATION ICD-10-CM Z96.612 Presence of left artificial shoulder joint [facility],[place] Quick IHE Encounter Template Text not used by [facility] Assessments - Encounter Diagnoses This section includes the primary and secondary diagnoses documented for the Encounter. Date/Time Primary/Secondary Diagnosis Diagnosis Name Provider Source Sep 06, 2023 03:36 PM Diagnosis for Length of Stay Primary osteoarthritis, left shoulder [facility] Sep 06, 2023 03:36 PM SECONDARY Personal history of other diseases of the circulatory system [facility] Sep 06, 2023 03:36 PM SECONDARY Postprocedural hypotension [facility] Sep 06, 2023 03:36 PM SECONDARY Presence of left artificial shoulder joint [facility] Sep 06, 2023 03:36 PM SECONDARY Unsp rotatr-cuff tear/ruptr of left shoulder, not trauma [facility] Plan of Treatment: Future Appointments (+ 6 months) and Future Tests (+/- 45 days) The Plan of Treatment section includes future care activities for the [facility] [place] [facility] This section includes future appointments and future orders which are active, pending or scheduled. Future Appointments This section includes appointments that were scheduled to occur 6 months from the date of the Encounter, up to a maximum of 20 appointments. The data comes from all [facility] facilities. Appointment Date/Time Appointment Type Appointme nt Facility Name Sep 18, 2023 09:30 AM AMBULATORY - SURGERY [facility] Sep 18, 2023 10:30 AM AMBULATORY - REHAB MEDICIN E [facility] Sep 27, 2023 03:30 PM AMBULATORY - SURGERY [facility] Oct 16, 2023 08:30 AM AMBULATORY - REHAB MEDICIN [facility] Oct 16, 2023 10:00 AM AMBULATORY - NONE [facility] Oct 23, 2023 09:00 AM AMBULATORY - REHAB MEDICIN E [facility] Oct 30, 2023 09:30 AM AMBULATORY - REHAB MEDICIN E [facility] Oct 31, 2023 10:30 AM AMBULATORY - SURGERY [facility] Oct 31, 2023 05:10 PM AMBULATORY - REHAB MEDICIN E [facility] Nov 13, 2023 09:00 AM AMBULATORY - REHAB MEDICIN E [facility] Nov 20, 2023 10:00 AM AMBULATORY - SURGERY [facility] Nov 20, 2023 11:00 AM AMBULATORY - MEDICINE MAP[facility]ENDO[facility] Dec 17, 2023 08:40 AM AMBULATORY - SURGERY [facility] January 24, 2024 09:45 AM AMBULATORY - SURGERY [facility] Active, Pending, and Scheduled Orders This section [...] TYPE & SCREEN - LAB BLOOD WC [facility] Lab Results: +/- 30 days [...] Range Comment Sep 06, 2023 09:11 AM [facility] CBC Specimen Type: BLOOD Comment: Specimen received in Lab at: 0910 Ordering Provider: RAHEEL DELGADILLO Report Released Date/Time: Sep 05, 2023 07:28 PM Reporting Lab: [facility] [id number] Performing Lab: [facility] [address] WBC 8.69 10*3/uL 4.0-11.0 RBC 3.76 10*6/uL L 4.6-6.2 HGB 11.5 g/dL L 13.5-17.9 HCT 34.7 L 41-54 MCV 92.3 fL 80-100 MCH 30.6 pg 27-33 MCHC 33.1 g/dL 32.0-37.5 PLT 261 10*3/uL 150-400 MPV 11.0 fL H 7.4-10.4 RDW 13.3 11.5-14.5 Sep 06, 2023 09:11 AM [facility] BASIC METABOLIC PANEL+MG Specimen Type: PLASMA Comment: Specimen received in Lab at: 0910 Ordering Provider: RAHEEL DELGADILLO Report Released Date/Time: Sep 05, 2023 07:28 PM Reporting Lab: [facility] [address] Performing Lab: [facility] [address] CREATININE 0.9 mg/dL 0.7-1.2 UREA NITROGEN 15 mg/dL 8-26 GLUCOSE 141 mg/dL H 70-100 SODIUM 134 mmol/L L 136-145 POTASSIUM 4.1 mmol/L 3.5-5.1 CHLORIDE 101 mmol/L 98-107 CO2 24 mmol/L 22-29 CALCIUM 8.6 mg/dL 8.4-10.2 MAGNESIUM 1.7 mg/dL 1.6-2.6 ANION GAP 9 mmol/L 5-15 .CREAT EGFR(CKD-EPI) 86 >60 Sep 06, 2023 05:44 AM [facility] FINGERSTICK GLUCOSE Specimen Type: BLOOD Comment: Save Result Ordering Provider: FALLON MUNGUIA Report Released Date/Time: Sep 06, 2023 06:02 AM Reporting Lab: [facility] [address] Performing Lab: [facility] [address] FINGERSTICK GLUCOSE 140 mg/dL 70-100 Sep 05, 2023 08:25 PM [facility] PROTHROMBIN TIME/INR Specimen Type: PLASMA No comment entered. Ordering Provider: EMILY REVELES Report Released Date/Time: Sep 05, 2023 07:28 PM Reporting Lab: [facility] [address] Performing Lab: [facility] Sep 05, 2023 08:25 PM [facility] ACT PART THROMBO TIME Specimen Type: PLASMA Comment: ~Draw on admission. Call IV team to draw on admission. Ordering Provider: EMILY REVELES Report Released Date/Time: Sep 05, 2023 07:28 PM Reporting Lab: [facility] [address] Performing Lab: [facility] [address] APTT 30.8 s 25.1-36.5 Sep 05, 2023 08:25 PM [facility] CBC Specimen Type: BLOOD No comment entered. Ordering Provider: EMILY REVELES Report Released Date/Time: Sep 05, 2023 07:28 PM Reporting Lab: [facility] [address] Performing Lab: [facility] [address] WBC 8.60 10*3/uL 4.0-11.0 RBC 3.66 10*6/uL L 4.6-6.2 HGB 11.3 g/dL L 13.5-17.9 HCT 34.3 L 41-54 MCV 93.7 fL 80-100 MCH 30.9 pg 27-33 MCHC 32.9 g/dL 32.0-37.5 PLT 225 10*3/uL 150-400 MPV 10.9 fL H 7.4-10.4 RDW 13.4 11.5-14.5 Sep 05, 2023 08:25 PM [facility] BASIC METABOLIC PANEL+MG Specimen Type: PLASMA No comment entered. Ordering Provider: EMILY REVELES Report Released Date/Time: Sep 05, 2023 07:28 PM Reporting Lab: [facility] [address] Performing Lab: [facility] [address] CREATININE 0.9 mg/dL 0.7-1.2 UREA NITROGEN 17 [...] 134/72 mm[Hg] 16 /min 95 % 0 [facility] Sep 05, 2023 12:33 PM 97.5 F 60 /min 154/82 mm[Hg] 16 /min 96 % 5 [facility] Social History: Smoking Status (Most current) and Tobacco Use (All prior to encounter date) This section includes the most current, and the historical, smoking and tobacco- related health factors from the [facility] where the Encounter took place. Current Smoking Status This section includes the most current smoking, or tobacco-related health factor, from the [place] facility where the Encounter took place. Date/Time Current Smoking Status Comment Facil [facility] Mar 19, 2023 10:30 AM VA-TOBACCO NEVER USED [facility] Tobacco Use History This section includes a history of the smoking, or tobacco-related health factors, that were collected on or before the date of the Encounter. The data comes from the [place] facility where the Encounter took place. Date/Time Smoking Status/Tobacco Use Comment F acility Mar 22, 2022 08:45 AM VA-TOBACCO NEVER USED [facility] May 12, 2021 10:00 AM VA-TOBACCO FORMER USER [facility] May 12, 2021 10:00 AM [place]-TOBACCO QUIT 15 YRS OR MORE [facility] Feb 24, 2019 09:35 AM VA-TOBACCO NEVER USED [facility] Feb 18, 2018 01:56 PM FORMER TOBACCO USER 7Y OR GREATE R [facility] Mar 06, 2017 09:31 AM FORMER TOBACCO USER 7Y OR GREATE R [facility] Mar 06, 2016 09:54 AM FORMER TOBACCO USER 7Y OR GREATE R [facility] January 25, 2016 06:31 AM INPT NO TOBACCO USE IN LAST 30 D AYS [facility] January 22, 2015 10:06 AM LIFETIME NON-TOBACCO USER [facility] Apr 15, 2014 10:09 AM FORMER TOBACCO USER 7Y OR GREATE R [facility] February 01, 2011 08:51 AM FORMER TOBACCO USER 7Y OR GREATE R [facility] Advance Directives: All historical and current Section Date Range: From patient's date of to the date document was created. This section includes ALL of a patient's completed or amended [place] Advance and Rescinded Directives. The entries below indicate that a directive exists for the patient, but an actual copy is not included with this document. The data comes from [facility]. Date Advance Directives Provider Source Oct 13, 2017 ADVANCE DIRECTIVE MARAL DORANTES [facility] Oct 13, 2017 ADVANCE DIRECTIVE DISCUSSION MARAL DORANTES [facility] Radiology Reports: +/- 30 days [...] 07:58 AM SHOULDER LEFT 2-3 VIEWS: BENJAMÍN CHAO [id number] -1940 M Exm Date: SEP 05, 2023@07:58 Req Phys: MARCUS LOMAX Loc: [facility] ADMISSIONS SURGERY (Req'g Img Loc: MAIN X-RAY Service: Unknown (Case [id number] COMPLETE) SHOULDER LEFT 2-3 VIEWS (RAD Detailed) CPT:66446 Proc Modifiers : PORTABLE EXAM, OPERATING ROOM EXAM, LEFT Reason for Study: Left reverse TSA Clinical History: OR 6 Shoulder OA Responsible provider name and phone number to notify for critical findings if other than user placing the order and pager listed below: User placing orders pager: Rukhsana Lomax [phone] LAST CREATININE 0.8 (07/03/23) Report Status: Verified Date Reported: SEP 05, 2023 Date Verified: SEP 05, 2023 Launch Manager E-Sig:/ES/LIDYA GUDINO MD Report: SHOULDER LEFT [...] Primary Interpreting Staff: LIDYA GUDINO MD, RADIOLOGIST (Launch Manager) /[facility] LIDYA GUDINO [facility] Aug 20, 2023 10:16 AM SHOULDER LEFT 4V(A P,Y VIEW, GRASHEY & AXILLARY): MOEBENJAMÍN Ochoa [id number] -1940 M Exm Date: AUG 20, 2023@10:16 Req Phys: MARCUS LOMAX Pat Loc: [facility] ORTHO COORD PHONE (Req'g L Img Loc: MAIN X-RAY Service: Unknown (Case [id number] COMPLETE) SHOULDER LEFT 4V(AP,Y VIEW, GRASH(RAD Detailed) CPT:10772 Proc Modifiers : LEFT Reason for Study: [...] 20, 2023 Date Verified: AUG 20, 2023 Launch Manager E-Sig:/ES/PASHA MARIA DO Report: EXAMINATION: SHOULDER [...] Primary Interpreting Staff: PASHA MARIA DO, RADIOLOGIST (Launch Manager) /DDS PASHA MARIA [facility] Encounter Notes: All associated encounter notes This section contains the clinical notes associated to the Encounter. Date/Time Encounter Note(s) Provider Source Sep 06, 2023 03:36 PM DISCHARGE SUMMARY: LOCAL TITLE: Discharge Summary STANDARD TITLE: DISCHARGE SUMMARY DICT DATE: SEP 06, 2023@14:14 ENTRY DATE: SEP 06, 2023@14:15:03 DICTATED BY: DIRK HUITRON ATTENDING: MARCUS LOMAX URGENCY: routine STATUS: COMPLETED Orthopedic Discharge Summaries DRAFT UNTIL SIGNED BY ATTENDING Orthopedic Discharge Summary - Total Shoulder Arthroplasty (TSA) Admit Date: SEP 05, 2023@19:27:02 Redd: 2KS DX: S/P TSA Discharge Date: Aug Present on Admission(POA) Y - Yes, present at the time of inpatient admission. N - No, not present at the time of inpatient admission. W - Clinically undetermined, provider is unable to clinically determine whether condition was present on admission or not. Admission Diagnosis: S/P TSA POA: Y Principal Discharge Diagnoses: 1. Left reverse total shoulder arthroplasty POA: Y Procedure: 1. Left Reverse Total Shoulder Arthtoplasty on Aug Past Medical History: Active problems - Computerized Problem List is the source for the followin. Hyperlipidemia (SNOMED CT [id number]) 2. Sensorineural Hearing Loss, Bilateral 3. Subjective tinnitus 4. Elevation, blood pressure - no recent elevated bp readings at non de pcp or here 2013 5. Personal History of Malignant Neoplasm of Prostate 6. Other Specified Counseling - nl cscope 5 years ago at non de provider, managed by non [place] 7. 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 Tinnitus 9. Benign essential hypertension Brief History: Mr. Chao is an 83y male with a history of left rotator cuff tear athropathy, here for a left reverse total shoulder arthroplasty Hospital Course: The patient was admitted for the above stated procedure and for pain control and rehabilitation. The patient: did well post-operatively. The patient: completed a 24 hour course of prophylactic antibiotics DVT prophylaxis was initiated Post-op (POD) #1. Physical therapy was initiated on POD #1. The patient's hemoglobin stabilized at HGB 11.5 L (09/06/23). At the time of discharge the patient was: tolerating a pre-procedure diet and had good pain control with oral pain medications voiding +Flatus, No BM Physical therapy deemed the patient appropriate for discharge to: Home with and son Vital signs: Stable: T 98.7 HR 84 BP 130/68(92) RR 14 Sats 93% on RA Patient reports he is drinking water and voiding without difficulty. Unable to completely review I/O as not consistently charted. In: 2100mL Out: 550mL Labs stable post-operatively: Na 134 K 4.1 BUN 15 Cr 0.9 Mg 1.6 WBC 8.7 Hgb 11.5 Plt 267 Alert and orientated x 3 Respiratory: Regular and non-labored Physical Exam: Constitutional: No acute distress. Pale appearance. Cardiovascular: S1,S2, No m/r/g. Cap refill <3 seconds. Good CMS throughout all extremities Pulmonary: Lung sounds clear bilateral throughout all bianchi. Musculoskeletal: No edema around left shoulder, minimal swelling. Prineo dressing CDI. Left Fires Deltoid Left Radial Pulses 2+ Left Sensation intact to light touch axillary, ulnar, and medican nerve. Diminished sensation to radial nerve in thumb and slightly in thenar Skin: Warm and dry and pale Incision is covered with a Prineo The incision was: Dressing clean, dry, and intact. Discharge Instructions: Non weight-bearing, no range of motion on operative arm Pre-procedure diet Ice and elevate extremity as needed DVT prophylaxis of Aspirin 162 mg daily x 6 weeks. Discussed the importance of taking aspirin following orthopedic surgery to prevent blood clots Keep incision clean and dry No soaking incision for 4 weeks, which includes bath, pool, or hot tubs. Ok to shower. Instructed to pat dry after shower and avoid excessively long showers. Gave ed an incentive spirometer and instructed him to use it 10 times/d, 10 times each time. Continue to use for 2 weeks after surgery. Explained the importance of IS after surgery to prevent infection and pneumonia. No driving while taking narcotic pain medications. Went through multimodal pain instructions; use ice, support shoulder by placing arm on pillows, alternate rest and walking (on safe even ground). Explained the differences in pain medications of tylenol, methocarbamol, oxycodone, and ibuprofen. Patient reported he is sensitive to opioids. We are sending him home with 2.5-5mg of oxy per dose and nasal narcan. Pharmacy told me they will do Narcan teaching with ed and his family. On aspirin and takes ibuprofen at home. We discussed the risks of stomach upset, bleeding, and kidney injury when using too many NSAIDs at once, he may use ibuprofen when needed for pain, but we want him to know the risks and to use only when needed. Aspirin must be taken daily. Follow-Up: The patient will return in 2 weeks to the orthopaedic clinic for a wound check. The patient should call or return sooner for fever > 101.5F, incisional drainage or redness, or any other new concerns. /es/ Dirk Huitron DNP, DIRECTOR OF RESPIRATORY THERAPY, ACNP-BC DNP, Ortho Signed: 09/06/2023 14:48 /laura/ JUNIOR GARIBAY MD STAFF ORTHOPAEDIC SURGEON Cosigned: 09/06/2023 15:24 for MARCUS LOMAX MD STAFF ORTHOPAEDIC SURGEON DIRK HUITRON [facility] Sep 06, 2023 03:35 PM NURSING DISCHARGE NOTE: LOCAL TITLE: DARRYL NURSING DISCHARGE SUMMARY STANDARD TITLE: NURSING DISCHARGE NOTE DATE OF NOTE: SEP 06, 2023@15:35 ENTRY DATE: SEP 06, 2023@15:35:31 AUTHOR: YE ASTORGA EXP COSIGNER: URGENCY: STATUS: COMPLETED Nursing Discharge Summary Home Discharge date and time: Aug@15:35 Accompanied by: Self Wheelchair Transportation: Other (specify): Verify that the Contact Name and Phone Number are correct: BENJAMÍN CHAO Condition: Alert Skin Condition: Intact Incision: Yes, describe: Left shlder incision cdi, open to air Education/Teach Back Patient and/or Caregiver was given parks information in discharge instruction and able to teach back verbally or by return demonstration. Yes, demonstrated understanding Does patient have vascular access? Yes Peripheral IV Removed Does patient require assistance with outpatient visits due to cognitive limitations, mobility limitations, or has need for nursing assistance throughout the clinic day? Patient DOES NOT have an active ERNESTINA flag assigned. No /laura/ YE ASTORGA RN Signed: 09/06/2023 15:36 YE ASTORGA [facility] Sep 06, 2023 01:30 PM EDUCATION DISCHARGE NOTE: LOCAL TITLE: EDUCATION NURSING DISCHARGE INSTRUCTIONS STANDARD TITLE: EDUCATION DISCHARGE NOTE DATE OF NOTE: SEP 06, 2023@13:30 ENTRY DATE: SEP 06, 2023@13:31:03 AUTHOR: YE ASTORGA EXP COSIGNER: URGENCY: STATUS: COMPLETED Copy of PROVIDERS DISCHARGE ORDERS While in the hospital you were treated for: Total shoulder Discharge Order Discharge Date: Aug Discharge To Home Discharge Type: Hospital Discharge Resident Physician: Federico Pennington Attending Physician: Alirio Lomax Discharge Diagnosis: LeftOther: reverse total shoulder arthroplasty Discharge Condition: Good Discharge Order Home nurse/home health follow up required? No Discharge Order Tobacco use in last 30 days: No Discharge Order Restrictions/Instructions Activity: Weightbearing: other: Non weight bearing Range of Motion: other: No range of motion Lifting restriction: No lifting greater then lbs until cleared by Ortho MD Working restriction: None until cleared by Ortho MD Stairs restriction: Follow the OT & PT outlined instructions Driving restriction: None until Ortho MD clears and NOT while taking narcotic pain medications Sexual activity restriction: No Restriction Bathing restriction: May shower. Pat incision dry right after showering. No bathing or soaking DVT prophylaxis at discharge: Aspirin 162 mg daily NSAID or Asprin restriction: No restrictions Discharge Order Prineo: Your incision is closed with surgical glue and mesh tape which completely sealed and waterproof. It will fall of on it own in 3-4 weeks after the incision is healed. You do not need to cover it with another dressing. - You may shower with the dressing uncovered and allow water to run over it (it is waterproof) - Gently pat the dressing dry after showering, do not scrub. - Do not peel, scratch, or pick at the tape or glue. - Do not apply lotion, ointment, or other substance on the dressing as this may cause it to loosen. - Do not soak or immerse wound in water or bathtub for at least 4 weeks. Discharge Order Additional Instructions: When to call: Please call the Orthopedic nurse triage line right away at [phone] if you have any of the below symptoms: - Unusual redness, heat, or drainage at the incision site. - A temperature of 101 degrees F(38.3 C) or higher. - Pain or swelling in your calf or leg that does not decrease with elevation. - A sudden or dramatic increase in knee pain CALL 911 if you experience chest pain or difficulty breathing. Any other questions or concerns regarding your surgery may also be directed to the [facility] Orthopedic Nurse Triage line at [phone]. You may also reach the [facility] Call Center (nurse triage line) 24 hours per day, 7 days per week at [phone] or [phone]. IMPORTANT PHONE NUMBERS: IF YOU HAVE A LIFE THREATENING EMERGENCY CALL 911 If you have questions about anything related to your inpatient care at the [facility] or your future care in the [facility], call the Call Center or After Hour numbers listed below. If you receive care at another [place] facility or with a community provider, you will need to call them for questions about your future care. -Call Center Sunday-Sunday, 7:30-4:30 at [phone] or Toll Free -After Hours- toll-free -Outpatient Pharmacy - -Verification of Appointments for the following month - *'S CRISIS LINE NUMBER IS (TALK)* Discharge from ICU, Acute Care, Acute Rehab, or CLC Written education reviewed and given on: Other diagnosis/instructions: DC education Patient and/or other caregiver has had an opportunity to participate in the development of the discharge plan. The patient had an opportunity to ask questions. Primary Care Team: Primary Care Team: YOUSIF GRANT Primary Care Provider: JAN BRISENO No Associate Provider Assigned. Attending Physician: MARCUS LOMAX You are being discharged to: Home Phone number you can be contacted at for the next 2 weeks: Your diet is Regular Continuing care needs: If you receive care at [place] you will need to call the Primary Care Call Center number at [phone]. If you receive care at another [place] facility or community provider, you will need to call them to arrange your follow up care. Future appointments: 09/18/2023 09:30 YOUSIF FIELD 2WK NURSE PROCE INPATIENT APPOINTMENT 09/18/2023 10:30 [facility] PT DAYANA VASQUEZ INPATIENT APPOINTMENT 09/27/2023 15:30 [facility] LAURA ARIAS 2S INPATIENT APPOINTMENT 10/31/2023 10:00 [facility] OBIE WILEY AM INPATIENT APPOINTMENT 10/31/2023 10:30 [facility] EMIR LOMAX INPATIENT APPOINTMENT A copy of these instructions has been given to: Patient IM - Immunizations ADMINISTERED Immunization Series Date Facility Reaction Info COVID-19 (PFIZER), MRNA, LNP-S, * 08/03/2021 [facility] [facility] COVID-19 (PFIZER), MRNA, LNP-S, * 2 11/15/2020 [place] <C> COVID-19 (PFIZER), MRNA, LNP-S, * 1 10/25/2020 [place] <C> COVID-19 (PFIZER), MRNA, LNP-S, * 4 04/05/2022 [place] <C> INFLUENZA VACCINE, QUADRIVALENT,* 08/03/2022 [place] INFLUENZA, HIGH DOSE SEASONAL 07/12/2017 [place] INFLUENZA, HIGH DOSE SEASONAL 06/12/2016 [place] INFLUENZA, HIGH-DOSE, QUADRIVALE* 06/12/2023 [facility] [facility] INFLU[place], HIGH-DOSE, QUADRIVALE* 08/03/2021 [facility] [facility] IN[place]UEN[place], INJECTABLE, MDCK, PRE* 07/23/2019 [facility]* <C> INFLUENZA, INJECTABLE, QUADRIVAL* 06/10/2020 [place] INFLUENZA, SEASONAL, INJECTABLE,* 08/06/2018 [place] INFLUENZA, UNSPECIFIED FORMULATI* 05/26/2021 [facility] INFLUENZA, UNSPECIFIED FORMULATI* 06/16/2014 [place] INFLUENZA, UNSPECIFIED FORMULATI* Local INFLUENZA, UNSPECIFIED FORMULATI* [place]* INFLUENZA, UNSPECIFIED FORMULATI* 08/24/2011 [facility]* INFLUENZA, UNSPECIFIED FORMULATI* Outside PNEUMOCOCCAL CONJUGATE PCV 13 03/06/2016 [place]* PNEUMOCOCCAL CONJUGATE PCV 13 04/16/2015 [facility] [facility] PNEUMOCOCCAL CONJUGATE PCV20, PO* 06/12/2023 [facility] [facility] PNEUMOCOCCAL POLYSACCHARIDE PPV23 04/15/2014 [place]* PNEUMOCOCCAL, UNSPECIFIED FORMUL* 04/15/2014 [place]* TD(ADULT) UNSPECIFIED FORMULATION [place]* TDAP 04/15/2014 [place]* ZOSTER LIVE 02/01/2012 [place]* ZOSTER RECOMBINANT 2 07/21/2020 [place]* ZOSTER RECOMBINANT 1 05/03/2020 [place]* CONTRAINDICATED No data available REFUSED ======= No data available See the Detailed Immunizations Health Summary Component[DIM] for Comments * Value is truncated; see the Detailed Immunizations Health Summary Component[DIM] for complete text /laura/ YE ASTORGA RN Signed: 09/06/2023 14:59 YE ASTORGA [facility] Sep 06, 2023 07:27 AM ORTHOPEDIC SURGERY ATTENDING NOTE: LOCAL TITLE: ORTHOPEDIC INPT PROGRESS NOTE STANDARD TITLE: ORTHOPEDIC SURGERY ATTENDING NOTE DATE OF NOTE: SEP 06, 2023@07:27 ENTRY DATE: SEP 06, 2023@07:28:34 AUTHOR: FREDRICK PENNINGTON EXP COSIGNER: URGENCY: STATUS: COMPLETED ORTHOPEDIC INPT PROGRESS NOTE Has ADDENDA Orthopedic Inpatient Progress Note Aug 83 year old MALE with past medical history notable only for hypertension and recent left reverse total shoulder arthroplasty in September who was able to discharge postop day 1 who is now postop day 1 following a right reverse total shoulder arthroplasty with Dr. Lomax. S: Overnight, he had a hypotensive episode to 83/52 1 hour following being given methocarbamol and oxycodone 5 mg. Rapid called. 500 mL bolus given by orthopedics. Symptoms mostly resolved. Pain well controlled, 4 out of 10, approximately the pain that he had preoperative. O: Temperature 98.2 F [36.8 C] (09/05/2023 23:52) HR 65 (09/05/2023 23:52) Respirations 16 (09/05/2023 23:52) BP 134/72 (09/05/2023 23:52) POX% 95% (09/05/2023 23:52) Pain Scale 4 (09/06/2023 03:35) Exam: General: Resting comfortably Respiratory: Non-labored breathing on room air Cardiovascular: skin warm and well perfused Right Upper Extremity: -Dressings clean, dry, intact -Fires EPL, FPL, interossei muscles, sets deltoid -SILT radial, ulnar, median distributions. Light sensation intact over axillary distribution -Palpable 1+ dorsalis pedis and posterior tibialis pulses Labs: - Complete Blood Count White count: WBC 8.60 (09/05/23) Hemoglobin: HGB 11.3 L (09/05/23) Hematocrit: HCT 34.3 L (09/05/23) Platelets: PLT 225 (09/05/23) - Complete Metabolic Panel SODIUM 140 (09/05/23) POTASSIUM 3.8 (09/05/23) CHLORIDE 107 (09/05/23) CO2 26 (09/05/23) UREA NITROGEN 17 (09/05/23) CREATININE 0.9 (09/05/23) GLUCOSE 148 H (09/05/23) CALCIUM 8.7 (09/05/23) MAGNESIUM 1.9 (09/05/23) EGFR (04/20) 05/12/21 @ 0848 72 CREATININE EGFR (CKD-EPI) 09/05/23 @ 2024 86 ALBUMIN 4.4 (07/03/23) A: 83 year old MALE with past medical history notable only for hypertension and recent left reverse total shoulder arthroplasty in September who was able to discharge postop day 1 who is now postop day 1 following a right reverse total shoulder arthroplasty with Dr. Lomax. Despite the hypotension, patient is very motivated to discharge home with his . He was able to discharge postop day 1 earlier in the year when he had his contralateral side done. We will decrease his oxycodone to 2.5 mg given that his hypertension happened following that episode. He feels that his pain is at a point where he would need any pain meds except perhaps to sleep. We will continue to follow his progress with physical therapy. P: Primary Team: Orthopedic Surgery Reverse total shoulder pathway Consults: Physical Therapy, Social Work. Post-op plan: Admit to floor ADAT Pain meds as prescribed Keep sling on at all times No left shoulder ROM Non weight bearing on the LUE Keep dressings clean and dry PT/OT- reverse total shoulder arthroplasty protocol ASA 162 daily x 6 weeks Disposition: Pending pain control, medical stability, mobilization with PT, likely Follow Up: 2 week with orthopedic nurse, 6 weeks orthopedic clinic with XR Staff: Dr. Parviz Pennington MD, PhD /es/ BIB PENNINGTON MD, PhD RESIDENT, ORTHO Signed: 09/06/2023 07:36 09/06/2023 ADDENDUM STATUS: COMPLETED 83 year old MALE with past medical history notable only for hypertension and recent right reverse total shoulder arthroplasty in September who was able to discharge postop day 1 who is now postop day 1 following a left reverse total shoulder arthroplasty with Dr. Lomax. S: Overnight, he had a hypotensive episode to 83/52 1 hour following being given methocarbamol and oxycodone 5 mg. Rapid called. 500 mL bolus given by orthopedics. Symptoms mostly resolved. Pain well controlled, 4 out of 10, approximately the pain that he had preoperative. O: Temperature 98.2 F [36.8 C] (09/05/2023 23:52) HR 65 (09/05/2023 23:52) Respirations 16 (09/05/2023 23:52) BP 134/72 (09/05/2023 23:52) POX% 95% (09/05/2023 23:52) Pain Scale 4 (09/06/2023 03:35) Exam: General: Resting comfortably Respiratory: Non-labored breathing on room air Cardiovascular: skin warm and well perfused Left Upper Extremity: -Dressings clean, dry, intact -Fires EPL, FPL, interossei muscles, sets deltoid -SILT radial, ulnar, median distributions. Light sensation intact over axillary distribution -Palpable 1+ dorsalis pedis and posterior tibialis pulses Labs: - Complete Blood Count White count: WBC 8.60 (09/05/23) Hemoglobin: HGB 11.3 L (09/05/23) Hematocrit: HCT 34.3 L (09/05/23) Platelets: PLT 225 (09/05/23) - Complete Metabolic Panel SODIUM 140 (09/05/23) POTASSIUM 3.8 (09/05/23) CHLORIDE 107 (09/05/23) CO2 26 (09/05/23) UREA NITROGEN 17 (09/05/23) CREATININE 0.9 (09/05/23) GLUCOSE 148 H (09/05/23) CALCIUM 8.7 (09/05/23) MAGNESIUM 1.9 (09/05/23) EGFR (04/20) 05/12/21 @ 0848 72 CREATININE EGFR (CKD-EPI) 09/05/23 @ 2024 86 ALBUMIN 4.4 (07/03/23) A: 83 year old MALE with past medical history notable only for hypertension and recent right reverse total shoulder arthroplasty in September who was able to discharge postop day 1 who is now postop day 1 following a left reverse total shoulder arthroplasty with Dr. Lomax. Despite the hypotension, patient is very motivated to discharge home with his . He was able to discharge postop day 1 earlier in the year when he had his contralateral side done. We will decrease his oxycodone to 2.5 mg given that his hypertension happened following that episode. He feels that his pain is at a point where he would need any pain meds except perhaps to sleep. We will continue to follow his progress with physical therapy. P: Primary Team: Orthopedic Surgery Reverse total shoulder pathway Consults: Physical Therapy, Social Work. Post-op plan: Admit to floor ADAT Pain meds as prescribed Keep sling on at all times No left shoulder ROM Non weight bearing on the LUE Keep dressings clean and dry PT/OT- reverse total shoulder arthroplasty protocol ASA 162 daily x 6 weeks Disposition: Pending pain control, medical stability, mobilization with PT, likely Follow Up: 2 week with orthopedic nurse, 6 weeks orthopedic clinic with XR Staff: Dr. Parviz Pennington MD, PhD /es/ BIB PENNINGTON MD, PhD RESIDENT, ORTHO Signed: 09/06/2023 15:45 Claire PENNINGTON [facility] Sep 06, 2023 05:32 AM TEAM NOTE: LOCAL TITLE: RAPID RESPONSE TEAM NOTE STANDARD TITLE: TEAM NOTE DATE OF NOTE: SEP 06, 2023@05:32 ENTRY DATE: SEP 06, 2023@05:33:12 AUTHOR: SWETA WELCH EXP COSIGNER: URGENCY: STATUS: COMPLETED RAPID RESPONSE TEAM NOTE 83 y.o. MALE Admitting Dx:S/P TSA Date: Aug Time Started: 219 Time Ended: 229 Total Time: 10minutes Redd: 2K Reason for SUPERVISOR BEATER ROOM call: Systolic Blood Pressure < 90. Exam: Pt had gotten up to side of bed to void, became diaphoretic, dizzy and nauseated. BP 83/52 with HR 70s. Earlier BP 130s/70s. BP remained in the 80s/50s supine in bed but reported was feeling better. Denies chest pain, no fever, chills or SOB. Blood Pressure: 83/52 with Map 62 Pulse: 67 Temperature: 98.2 F Respiratory Rate: 16 Oxygen Saturation: 95% Delivery of Oxygen: 2L Interventions: 500ml bolus Disposition: 2K BP 120s-130s/60s after bolus. /laura/ SWETA WELCH RN,BSN,CCRN [employer]PER[employer] ROOM RN Signed: 09/06/2023 05:41 SWETA WELCH [facility] Sep 06, 2023 05:17 AM NURSING INPATIENT NOTE: LOCAL TITLE: [facility] NURSING PROGRESS NOTE STANDARD TITLE: NURSING INPATIENT NOTE DATE OF NOTE: SEP 06, 2023@05:17 ENTRY DATE: SEP 06, 2023@05:17:53 AUTHOR: WALE HURLEY EXP COSIGNER: URGENCY: STATUS: COMPLETED Nursing Shift Note Nursing care provided from [id number] Highlights from shift: FULL CODE; A&Ox4; Pt recieved pain medication around 0100 (5 mg oxycodone and 500 mg methocarbamol).Around 0200 after voiding in urinal, pt became diaphoretic and expressed dizziness and nausea, SBP taken to be 80s-90s, pt repositioned in bed, provider notified, new order recieved for 500 mL LR fluid bolus. After bolus, SBP 120s-130s. 2L NC applied during diaphoretic episode, effective at maintaining SPO2 >90. Pt did not report numbness/tingling during tour. LUE in immobilizer during tour. Radial pulse 2+ palpable, Abx admin during tour. L shoulder incision closed with pirino, bruising present, soft/tender to palpation polar pack on intermittently during tour Able to make needs known, call light within reach See ICCA for detailed assessment, Education provided on medication/cares this shift as needed Skin Interventions performed this shift: Patient turned [id number] or as appropriate while in bed. Patient's heels elevated with pressure relief boots or pillows under calves. Head of Bed kept below 30 degrees unless otherwise ordered. /laura/ WALE HURLEY RN REGISTERED NURSE Signed: 09/06/2023 08:34 WALE HURLEY [facility] Sep 05, 2023 11:53 PM NURSING ADMISSION EVALUATION NOTE: LOCAL TITLE: [facility] ACUTE INPATIENT NSG ADMISSION SCREEN STANDARD TITLE: NURSING ADMISSION EVALUATION NOTE DATE OF NOTE: SEP 05, 2023@23:53 ENTRY DATE: SEP 05, 2023@23:53:38 AUTHOR: ADRIANA FAUST COSIGNER: URGENCY: STATUS: COMPLETED ===== ALLERGY/ADVERSE DRUG REACTION (ADR) REVIEW (MRT5) ===== FACILITY ALLERGY/ADR -------- No Remote Allergy/ADR Data available for this patient [facility] Allergy/Adverse Drug Reaction Review to be conducted by: Nurse: Results of Allergy/ADR Review: Allergy/Adverse Drug Reaction list confirmed. ==== MEDICATION REVIEW (MRR1) ==== Did patient bring medication(s) from home? No Medication Review to be conducted by pharmacy ==== GENERAL INFORMATION ==== Admission information given by: Patient Is there a legal guardian/conservator? No Preferred language for discussing healthcare: Yakut Preferred mode of communication: Verbal Items at Bedside: None ===== INFECTIOUS DISEASE RISK SCREEN ===== Travel Screen: Have you traveled within the [place] within the last 21 days? No Have you traveled outside the [place] within the last 21 days? No Within the last 14 days, have you had: No known exposure Other Exposure to Infectious Disease: No known exposure Patient reported the following symptoms: No Symptoms Present History of Multiple Drug Resistant Organism (MDRO): No ===== NUTRITION SCREENING ===== Malnutrition Screening Lost weight recently without trying: No (0 points) Have you been eating poorly because of decreased appetite? No (0 points) Total Score: 0 Other Nutrition Screening Questions: The patient does not report any concerns with their teeth that would make it difficult to eat. The patient does not report overeating to the point of feeling sick or making themselves vomit. The patient denies gaining 10 lbs.(4.5 kgs) or more in the past 3 months without trying. The patient denies having any food allergies, intolerance, special dietary needs, or ethnic, cultural or uatsdin preferences that would affect their dietary needs. Food Insecurity Screening Within the past 12 months, you worried whether your food would run out before you got money to buy more. Never true Within the past 12 months, the food you bought just did not last you and you did not have the money to get more. Never true Food Insecurity Disposition: Patient declined additional assistance/consults ==== RISK SCREENINGS ==== Alcohol Screen: Screen to be completed by: Nurse: SCREEN FOR ALCOHOL (AUDIT-C) An alcohol screening test (AUDIT-C) was negative (score=0). 1. How often did you have a drink containing alcohol in the past year? Never 2. How many drinks containing alcohol did you have on a typical day when you were drinking in the past year? Response not required due to responses to other questions. 3. How often did you have six or more drinks on one occasion in the past year? Response not required due to responses to other questions. *Does the patient consume alcohol? No Tobacco Use: Never - tobacco user Do you currently or have you ever used alternative nicotine products? No Substance Use Assessment: *Do you use any recreational drugs or narcotics (prescription or non-prescription)? No ===== RISK OF WANDERING ===== The patient does not have a history of wandering. The patient does not have a history of elopement. The patient is not expressing a desire to leave. === SUICIDE SCREEN === [place] Suicide Severity Rating Scale (C-SSRS) 1. Over the past month, have you [...] required due to responses to other questions. C-SSRS Screen is Negative ==== EXPOSURE TO VIOLENCE AND ABUSE PRE-SCREEN ==== Are you worried for your safety, that you will be hurt or harmed? No Has anyone tried to force you to sign papers or use your money against your will? No ==== POST TRAUMATIC STRESS DISORDER CARE CONSIDERATIONS ==== To minimize a startle response, what is your preference on how best to awaken you? No preference ===== REPRODUCTIVE & SEXUAL HEALTH ===== Do you have any sexual or reproductive concerns you would like your healthcare team to be aware of? No ==== ADVANCE DIRECTIVE ==== Notification of Rights Related to Advance Directives: Written notification provided. *The patient wishes to receive information about or assistance with Advance Care Planning and/or Advance Directive: No === SPIRITUALITY === Are there uatsdin practices or spiritual concerns you want the experience specialist, your provider, and other health care team members to know? No ==== ANTICIPATED DISCHARGE NEEDS ==== Where do you live? Housing owned/rented by [place]: Method of transportation upon discharge: Private Vehicle: Are there any anticipated barriers to discharge? No === EDUCATIONAL NEEDS/LEARNING STYLE === Barriers to learning: None evident Patient learning style preferences: None ==== VISITOR INFORMATION ==== Will you have a primary support person while in the hospital? No Patient's Visitor Restriction preferences: No Privacy Review: No passcode provided due to opt out ====== DURANT FALL SCALE & TIPS PROGRAM ====== Durant Fall Scale: The Dur[place] Fall scale was performed and score was 25. This is indicative of moderate risk for falls. History of falling: immediate or within 3 months? No Secondary diagnosis: No Ambulatory aid: Crutches/cane(s)/walker Intravenous therapy/Heparin lock: No Gait/Transferring: Weakness Mental Status: Oriented to own ability/knows own limitations ===== ASPIRATION RISK ASSESSMENT AND SWALLOW SCREEN ===== Aspiration Risk(s): Screening complete. No aspiration risk identified. Bedside Swallow Screen not indicated. ====== PAIN ASSESSMENT ====== Patient's acceptable pain goal: Are you currently experiencing pain? No: /laura/ ADRIANA FAUST RN REGISTERED NURSE Signed: 09/05/2023 23:57 ADRIANA FAUST [facility] Sep 05, 2023 11:52 PM TREATMENT PLAN INTERDISCIPLINARY NOTE: LOCAL TITLE: ITP INTERDISCIPLINARY TREATMENT PLAN STANDARD TITLE: TREATMENT PLAN INTERDISCIPLINARY NOTE DATE OF NOTE: SEP 05, 2023@23:52 ENTRY DATE: SEP 05, 2023@23:52:53 AUTHOR: ADRIANA FAUST EXP COSIGNER: URGENCY: STATUS: COMPLETED ITP INTERDISCIPLINARY TREATMENT PLAN Has ADDENDA Interdisciplinary Treatment Plan (ITP) Date of current Admission: Aug 1. Total shoulder Arthroplasty 2. At risk indicators at time of admission: Support services in community: Current living situation: Comments: Patient/Family input to care: Patient Goals: 1.Patient will exhibit decreased behavioral and physical signs of pain. 2.Patient will remain absent of S/S of infection 3.Patient will achieve optimal mobility within capabilities 4.Circulation will be maintained, and movement will be WNL for patient. Treatment plan/Interventions: 1.teach pt. pain scale rating, assess pain level with VS, offer pain meds PRN pain, educate pt. about pain medications being administered, monitor and document effectiveness of pain medications, follow-up with MDs if pain management is ineffective 2.staff will use proper hand washing technique, administer ordered ABX, use sterile technique for dressing changes, teach and encourage use of IS, monitor for adequate nutrition, monitor and report changes in lab results, monitor and chart description of incisional area 3.Staff will provide teaching to patient regarding limitations after surgery, general home safety, discuss using sling, and how to transfer, and exercises, and will plan and encourage patient to participate in activities that return client to maximum level of mobility. 4. Staff will assess affected extremity for pulses, CMS, and temperature, maintain correct alignment of extremity, change position Q2H, and apply ice to affected joint. Measurable Outcomes: 1.pt. VS are stable and WNL, pt. is able to verbalize a decreased level or absence of pain, pt. verbalizes effective methods of pain management 2.pt. is free of s/s of infection ? afebrile, no yellowish or greenish foul- smelling drainage from wound, wound margins are pink and non-tender, pain level not increasing; pt. is able to verbalize s/s of infection for home care, describe antibiotics might be needed. 3. Patient will be able to describe home safety precautions, describe bathing restrictions, move to and from the toilet/shower/bathtub, dress themselves, describe exercise program, describe why an identification card is needed, and describe plan for follow up care. Expected length of stay: 3 days Discharge Plan: Patient will be discharged to [facility] for further treatment and therapy Anticipated resources needed for discharge: PHN, Sling, dressing supplies Anticipated educational needs: Incision care, S/S of infection, discharge instructions, home safety. Participants: Patient, Nurse, Doctors, Physical therapy, Occupational therapy Transportation needs: Plan of care printed and shared with patient/family. VAT [phone]) 06/2001 /laura/ ADRIANA FAUST RN REGISTERED NURSE Signed: 09/05/2023 23:53 09/06/2023 ADDENDUM STATUS: COMPLETED all goals met /laura/ YE ASTORGA RN Signed: 09/06/2023 15:37 ADRIANA FAUST [facility] Sep 05, 2023 10:17 PM NURSING INPATIENT NOTE: LOCAL TITLE: [facility] NURSING PROGRESS NOTE STANDARD TITLE: NURSING INPATIENT NOTE DATE OF NOTE: SEP 05, 2023@22:17 ENTRY DATE: SEP 05, 2023@22:17:42 AUTHOR: ADRIANA FAUST EXP COSIGNER: URGENCY: STATUS: COMPLETED Nursing Shift Note Nursing care provided from [id number] Highlights from shift: Patient A&Ox4. Ambulates assist x1. Voids per urinal, output this tour 275cc. Last BM pre op. Bowel sounds active. Lung sounds clear. VSS, on RA. Incision to L shoulder closed per glue, JOSEPH, c/d/i. Immobilizer in place. CMS intact. Polar pack applied to L shoulder. Denies pain. No c/o nausea or vomiting. LR infusing at 75ml/hr per order. Patient able to make needs known. Will continue to monitor. See ICCA for detailed assessment Skin Interventions performed this shift: Patient turned [id number] or as appropriate while in bed. Patient's heels elevated with pressure relief boots or pillows under calves. Patient kept clean and dry with barrier cream applied as ordered. Device(s) removed and skin underneath was inspected. /laura/ ADRIANA FAUST RN REGISTERED NURSE Signed: 09/05/2023 23:33 ADRIANA FAUST [facility]
--- OUTSIDE RECORDS SUMMARY | 2024-05-05 11:01 | XMS_ITS | Clinical Summary ---
Author Organization [employer] [facility] [employer] Address [place], [place] [address] Care Team Providers Care Marketing Operations Analyst Name Role Phone Yoni Rogers MD Primary Care Provider [phone] Allergies No known active allergies Medications Medication Sig Dispensed Refills Start Date End Date Status MULTI-VITAMIN ORAL TAB one tablet daily ? 0 09/12/2002 Active (u) ACETAMENOPHEN as needed ? 0 09/12/2002 Active atorvastatin (LIPITOR) 20 mg tablet Take 1 tablet by mouth once daily. 0 03/14/2013 Active aspirin enteric coated 81 mg tablet Take 1 tablet by mouth once daily with a meal. 0 03/14/2013 Active Active Problems Problem Noted Date Diagnosed Date Screen for colon cancer 11/17/2009 Overview: Colonoscopy 11/2009 normal repeat in 10 years Pure hypercholesterolemia Family history of other cardiovascular diseases Other ill-defined and unknow n causes of morbidity and mortality Immunizations Name Administration Dates Next Due Influenza,CCIIV4 PRESERV FREE 07/23/2019 Pneumococcal conj 13-Valent (Prevnar 13) 015 Family History Medical History Relation Name Comments Genetic Other 1 Mother at age 40 from breast cancer. Father at age 85 with a history of coronary bypass surgery. He has two brothers. Genetic Other 2 Mother at age 40 from breast cancer. Father at age 85 with a history of coronary bypass surgery around age 60. He has two brothers without known heart disease. Relation Name Status Comments Other 1 Other 2 Social History Tobacco Use Types Packs/Day Years Used Date Smoking Tobacco: Never Smokeless Tobacco: Never Alcohol Use Standard Drinks/Week Comments Not Asked 0 (1 standard drink = 0.6 oz pur e alcohol) Alcoholic Drinks/day: 2/week Social Connections Answer Date Recorded Frequency of Communication with Friends and Fami ly Not on file 09/17/2021 Financial Resource Strain Answer Date R ecorded Difficulty of Paying Living Expenses Not on file 09/17/2021 Difficulty of Paying Living Expenses Not on file 09/17/2021 Sex and Gender Information Value Date Recorded Sex Assigned at Not on file Gender Identity Not on file Sexual Orientation Not on file Obstetrics History Last Filed Vital Signs Vital Sign Reading Time Taken Comments Blood Pressure 140/78 03/01/2021 3:25 PM CDT Pulse 85 03/01/2021 3:25 PM CDT Temperature - - Respiratory Rate - - Oxygen Saturation 95% 03/01/2021 3:25 PM CDT Inhaled Oxygen Concentration - - Weight 80.7 kg (178 lb) 03/01/2021 3:25 PM CDT Height 177.8 cm (5' 10) 03/01/2021 3:25 PM CDT Body Mass Index 25.54 03/01/2021 3:25 PM CDT Plan of Treatment Health Maintenance Due Date Last Done Comments Tdap 1953 Depression screening for age 12+ 1954 Tetanus booster 1962 Zoster (shingles) series for age 50+ (1 of 2) 04/08/19 92 Medicare Wellness for age 65+ 2007 Pneumococcal series for age 65+ (2 of 2 - PPSV23 or PCV20) 04/16/2016 04/16/2015 BMI (ht and wt on same day) for age 18+ 03/01/2022 0 03/01/2021 COVID-19 vaccine series (2022- season) 3 Influenza for age 65+ 05/18/2024 07/23/2019 Care Teams Marketing Operations Analyst Relationship Specialty Start Date End Date Yoni Rogers MD PCP - General 11/17/09
--- OUTSIDE RECORDS SUMMARY | 2024-05-05 11:01 | XMS_ITS | Referral Summary ---
Author Organization [facility] Address [address] [place] [id number] Care Team Providers Care Civil Process Server Name Role Phone [facility] Primary Care Prov ider Allergies Active Allergy Reactions Criticality Noted Date Comments Lisinopril 03/08/2018 Medications Medication Sig Dispensed Refills Start Date End Date Status MULTIPLE VITAMIN PO Take 1 tablet by mouth daily. Active hydrochlorothiazide (HYDRODIURIL) 25 MG tablet Take 12.5 mg by mouth daily (0.5 x 25 mg = 12.5 mg) Active atorvastatin (LIPITOR) 80 MG tablet Take 40 mg by mouth daily (0.5 x 40 mg = 20 mg) Active aspirin 81 MG EC tablet Take 1 tablet (81 mg) by mouth daily Resume usual dose of aspirin after finishing increased dose prescribed after surgery 09/27/2022 Active acetaminophen (TYLENOL) 325 MG tabletIndications:P ost-operative state Take 2 tablets (650 mg) by mouth every 4 hours as needed for other (mild pain) 100 tablet 09/27/2022 Active aspirin 81 MG EC tabletIndications:P ost-operative state Take 2 tablets (162 mg) by mouth daily 120 tablet 09/27/2022 Active celecoxib (CELEBREX) 200 MG capsuleIndications: Post-operative state Take 1 capsule (200 mg) by mouth daily Do not take within 6 hours of ibuprofen (MOTRIN, ADVIL) or ketorolac (TORADOL) if prescribed. 30 capsule 09/27/2022 Active oxyCODONE (ROXICODONE) 5 MG tabletIndications:P ost-operative state Take 1 tablet (5 mg) by mouth every 4 hours as needed for moderate to severe pain 30 tablet 09/27/2022 Active senna-docusate (SENOKOT-S/PERICOLA CE) 8.6-50 MG tabletIndications:P ost-operative state Take 1-2 tablets by mouth 2 times daily Take while on oral narcotics to prevent or treat constipation. 100 tablet 09/27/2022 Active Active Problems Problem Noted Date Diagnosed Date HLD (hyperlipidemia) 09/25/2022 Social History Tobacco Use Types Packs/Day Years Used Date Smoking Tobacco: Former Passive Smoke Exposure: Never Smokeless Tobacco: Never Tobacco Cessation:Counseling Given: Not Answered Alcohol Use Standard Drinks/Week Comments Yes 0 (1 standard drink = 0.6 oz pur e alcohol) 3-4 drinks wk Adolescent Education Answer Date Record ed Getting School Help Needed Not on file 06/16 Sex and Gender Information Value Date Recorded Sex Assigned at Not on file Gender Identity Not on file Sexual Orientation Not on file Last Filed Vital Signs Vital Sign Reading Time Taken Comments Blood Pressure 135/79 09/27/2022 7:49 AM CHILDCARE CENTER ADMINISTRATOR Pulse 73 09/27/2022 7:49 AM CHILDCARE CENTER ADMINISTRATOR Temperature 36.6 ??C (97.8 ??F) 09/27/2022 7:49 AM CS T Respiratory Rate 18 09/27/2022 7:49 AM CHILDCARE CENTER ADMINISTRATOR Oxygen Saturation 94% 09/27/2022 7:49 AM CHILDCARE CENTER ADMINISTRATOR Inhaled Oxygen Concentration - - Weight 82.5 kg (181 lb 14.4 oz) 023 12:00 PM CHILDCARE CENTER ADMINISTRATOR Height 179.1 cm (5' 10.5) 09/26/2022 1 2:00 PM CHILDCARE CENTER ADMINISTRATOR Body Mass Index 25.73 09/26/2022 12:00 PM CHILDCARE CENTER ADMINISTRATOR Plan of Treatment Not on file Goals Goal Patient Goal Type Associated Problems Recent Progress Patient-Stated? Author Total Joint Replacement Shoulder Pathway Care Plan Total Joint Replacement Shoulder Pathway [employer] Devices Implanted Type Area Physical Education Specialist Device Identifier Shelf Expiration Date Model / Serial / Lot Imp Scr Fixation 4.5x26mm Aqls [id number] - [id number] Implanted:Qt y: 1 on 09/26/2022 by Arley Jj MD at [facility] Metallic Hardware/An chor Right: Shoulder [employer] [id number] / / 4104 Imp Scr Fixation 4.5x18mm Aqls Anm498 - [id number] Implanted:Qt y: 1 on 09/26/2022 by Arley Jj MD at [facility] Metallic Hardware/An chor Right: Shoulder [employer] [id number] / / 4104 Imp Scr Locking 4.5x35mm Aqls Dzl240 - [id number] Implanted:Qt y: 1 on 09/26/2022 by Arley Jj MD at [facility] Metallic Hardware/An chor Right: Shoulder [employer] [id number] / / 4104 Imp Scr Locking 4.5x32mm Aqls Blq453 - [id number] Implanted:Qt y: 1 on 09/26/2022 by Arley Jj MD at [facility] Metallic Hardware/An chor Right: Shoulder [employer] [id number] / / 4104 Imp Baseplate Shldr 15mm Aqls Bjp252 - [id number] Implanted:Qt y: 1 on 09/26/2022 by Arley Jj MD at [facility] Total Joint Component/I nsert Right: Shoulder [employer] [id number] 07/06/2027 [id number] / [id number] / Glenoid Sphere For Baseplate 29mm - [id number] Implanted:Qt y: 1 on 09/26/2022 by Arley Jj MD at [facility] Total Joint Component/I nsert Right: Shoulder [employer] [id number] 02/21/2027 [id number] / [id number] / Stem Humeral Anatomic Std Ptc 7b - [id number] Implanted:Qt y: 1 on 09/26/2022 by Arley Jj MD at [facility] Total Joint Component/I nsert Right: Shoulder [employer] [id number] 06/26/2024 [id number] / [id number] / Insert Hum Revision Reverse +6 42mm 12.5d [id number] - [id number] Implanted:Qt y: 1 on 09/26/2022 by Arley Jj MD at [facility] Total Joint Component/I nsert Right: Shoulder [employer] [id number] 11/10/2026 [id number] / [id number] / Tray Reverse Centered +0 - [id number] Implanted:Qt y: 1 on 09/26/2022 by Alrey Jj MD at [facility] Total Joint Component/I nsert Right: Shoulder [employer] [id number] 06/08/2027 [id number] / [id number] / Additional Health Concerns Active Problems Noted Date Diagnosed Date Total Joint Replacement Shoulder Pathway 023 Advance Directives For more information, please contact: [phone] Documents on File Type Date Recorded 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 Advance Directives and Living Will 09/11/2012 4:33 PM HEALTH CARE DIRECTIV E - 12/27/2010 Advance Directives and Living Will 09/11/2012 4:30 PM VALIDATION OF ADVANC E DIRECTIVE 12/27/10 Advance Directives and Living Will 04/29/2007 * Full Code (Latest Code Status on File) Date Activated Date Inactivated Comments 09/26/2022 5:23 PM 09/27/2022 2:01 PM All basic an d advanced life-sustaining interventions are performed as appropriate Question Answer Comments Code status determined by: Unable to det ermine; FULL CODE until documents or legal decision maker available Care Teams Civil Process Server Relationship Specialty Start Date End Date [place], [place] [id number] PCP - General 09/01/22
--- OUTSIDE RECORDS SUMMARY | 2024-05-05 11:01 | XMS_ITS | Clinical Summary ---
Author Organization [facility] Address [address] [place] [id number] Care Team Providers Care Service Specialist Name Role Phone [facility] Primary Care Prov ider Allergies Active Allergy [...] Noted Date Diagnosed Date HLD (hyperlipidemia) 09/25/2022 Family History Medical History Relation Comments Myocardial Infarction Father Breast Cancer Mother Relation Status Comments Father Mother Social History Tobacco Use Types Packs/Day Years [...] Comments Blood Pressure 135/79 09/27/2022 7:49 AM WOUND CARE TECHNICIAN Pulse 73 09/27/2022 7:49 AM WOUND CARE TECHNICIAN Temperature 36.6 ??C (97.8 ??F) 09/27/2022 7:49 AM CS T Respiratory Rate 18 09/27/2022 7:49 AM WOUND CARE TECHNICIAN Oxygen Saturation 94% 09/27/2022 7:49 AM WOUND CARE TECHNICIAN Inhaled Oxygen Concentration - - Weight 82.5 kg (181 lb 14.4 oz) 023 12:00 PM WOUND CARE TECHNICIAN Height 179.1 cm (5' 10.5) 09/26/2022 1 2:00 PM WOUND CARE TECHNICIAN Body Mass Index 25.73 09/26/2022 12:00 PM WOUND CARE TECHNICIAN Plan of Treatment Health Maintenance Due Date Last Done Comments ADVANCE CARE PLANNING 1942 ANNUAL REVIEW OF HM ORDERS 1942 LIPID 1942 RSV VACCINE ( & 60+) (1 - 1-dose 60+ series) 2002 FALL RISK ASSESSMENT 2007 MEDICARE ANNUAL WELLNESS VISIT 2007 COVID-19 Vaccine ( season) 2023 04/05/2022, 08/03/2021, 11/15/2020, Additional history exists PHQ-2 (once per calendar year) 2023 DTAP/TDAP/TD IMMUNIZATION (3 - Td or Tdap) 04/15/2024 04/15/2014, 01/15/2011 INFLUENZA VACCINE (#1) 2024 2, 08/03/2021, 05/26/2021, Additional history exists Pneumococcal Vaccine: 65+ Years Completed 03/06/2016, 04/16/2015, 04/15/2014, Additional history exists ZOSTER IMMUNIZATION Completed 07/21/2020, 05/03/2020, 02/01/2012 HPV IMMUNIZATION Aged Out No longer e ligible based on patient's age to complete this topic IPV IMMUNIZATION Aged Out No longer e ligible based on patient's age to complete this topic MENINGITIS IMMUNIZATION Aged Out No l onger eligible based on patient's age to complete this topic RSV MONOCLONAL ANTIBODY Aged Out No l onger eligible based on patient's age to complete this topic Goals Goal Patient Goal Type Associated Problems Recent Progress Patient-Stated? Author Total Joint Replacement Shoulder Pathway Care Plan Total Joint Replacement Shoulder Pathway No [employer] Implanted Type Area Diamond Finishing Supervisor Device Identifier Shelf Expiration Date Model / Serial / Lot Imp Scr Fixation 4.5x26mm Aqls [id number] - [id number] Implanted:Qt y: 1 on 09/26/2022 by Arley Jj MD at [facility] Metallic Hardware/An chor Right: Shoulder [employer] [id number] / / 4104 Imp Scr Fixation 4.5x18mm Aqls [id number] - [id number] Implanted:Qt y: 1 on 09/26/2022 by Arley Jj MD at [facility] Metallic Hardware/An chor Right: Shoulder [employer] PTP413 / / 4104 Imp Scr Locking 4.5x35mm Aqls Bjd669 - [id number] Implanted:Qt y: 1 on 09/26/2022 by Arley Jj MD at [facility] Metallic Hardware/An chor Right: Shoulder [employer] UQA088 / / 4104 Imp Scr Locking 4.5x32mm Aqls Enw309 - [id number] Implanted:Qt y: 1 on 09/26/2022 by Arley Jj MD at [facility] Metallic Hardware/An chor Right: Shoulder [employer] [id number] / / 4104 Imp Baseplate Shldr 15mm Aqls Deu058 - [id number] Implanted:Qt y: 1 on 09/26/2022 by Arley Jj MD at [facility] Total Joint Component/I nsert Right: Shoulder [employer] [id number] 07/06/2027 [id number] / [id number] / Glenoid Sphere For Baseplate 29mm - [id number] Implanted:Qt y: 1 on 09/26/2022 by Arley Jj MD at [facility] Total Joint Component/I nsert Right: Shoulder [employer] [id number] 02/21/2027 [id number] / [id number] / Stem Humeral Anatomic Std Ptc 7b - [id number] Implanted:Qt y: 1 on 09/26/2022 by Arley Jj MD at [facility] Total Joint Component/I nsert Right: Shoulder [employer] [id number] 06/26/2024 [id number] / [id number] / Insert Hum Revision Reverse +6 42mm 12.5d [id number] - [id number] Implanted:Qt y: 1 on 09/26/2022 by Arley Jj MD at [facility] Total Joint Component/I nsert Right: Shoulder [employer] [id number] 11/10/2026 [id number] / [id number] / Tray Reverse Centered +0 - [id number] Implanted:Qt y: 1 on 09/26/2022 by Arley Jj MD at [facility] Total Joint Component/I nsert Right: Shoulder [employer] [id number] 06/08/2027 [id number] / [id number] / Additional Health Concerns Active Problems Noted Date Diagnosed Date Total Joint Replacement Shoulder Pathway 023 Advance Directives For more information, please contact: [phone] Documents on File Type Date Recorded 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
--- OUTSIDE RECORDS SUMMARY | 2024-05-05 11:01 | XMS_ITS | Encounter Summary ---
Author Organization [facility] Address [address] [place] [address] Care Team Providers Care Coil Maker Name Role Phone [facility] Primary Care Prov ider Encounter Details Date Type Department Care Team (Late st Contact Info) Description 06/29/2022 Documentation Only INTERFACED REPORT Unknown, Provider Social History Tobacco Use Types Packs/Day Years Used Date Smoking Tobacco: Former Smokeless Tobacco: Never Alcohol Use Standard Drinks/Week Comments Yes 0 (1 standard drink = 0.6 oz pur e alcohol) occas Sex and Gender Information Value Date Recorded Sex Assigned at Not on file Gender Identity Not on file Sexual Orientation Not on file documented as of this encounter Plan of Treatment Not on file documented as of this encounter Visit Diagnoses Not on filedocumented in this encounter Care Teams Coil Maker Relationship Specialty Start Date End Date [facility] [address] [place], [place] [id number] PCP - General 09/01/22 documented as of this encounter
--- NOTE | 2024-05-05 11:23 | ED_ITS ---
HPI - General Adult General Date Seen: 05/05/24 Chief complaint: Laceration/Wound Stated complaint: laceration Time Seen by Provider: 05/05/24 10:11 Source: patient and EMS Mode of arrival: EMS Limitations: no limitations History of Present Illness HPI narrative: Patient is an 84-year-old male who presents with laceration of his left forearm sustained while he was using a engraver hand hard metals. 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 He denies any loss of function or numbness, he has a little bit of tingling he says in his thumb. His tetanus is up-to-date. He says immediately after the glaze grinder jumped off of a piece of metal he was working on and cut his arm he noted a lot of bleeding and therefore called 911. Arrived via EMS, bleeding is controlled. Related Data Home Medications ?Medication ?Instructions ?Recorded ?Confirmed aspirin 81 mg tablet,delayed 81 mg PO DAILY 05/05/24 05/05/24 release atorvastatin 80 mg tablet 80 mg PO DAILY 05/05/24 05/05/24 hydrochlorothiazide 12.5 mg capsule 12.5 mg PO DAILY 05/05/24 05/05/24 vitamin d 05/05/24 Allergies Allergy/AdvReac Type Severity Reaction Status Date / Time No Known Drug Allergies Allergy Verified 05/05/24 10:14 Exam Narrative: Exam Narrative: Vital signs reviewed In general, alert, well-appearing elderly male. Extremities: Examination of the left arm shows an approximately 6 cm laceration of the forearm. This extends deep into the fatty tissue but I do not see any extension into muscle or tendon. He has full function of the hand, sensation is intact. Bleeding controlled. Radial pulse 2 +. Skin: Warm dry will well perfused otherwise intact. Const: Vital Signs, click to edit/add: Vital Signs - 24 hr 05/05/24 10:11 Temperature 96.4 F L Pulse Rate [Pulse Oximeter] 78 Respiratory Rate 18 Blood Pressure [Ri ght Upper Arm] 145/82 H Pulse Oximetry 94 Oxygen Delivery Me thod Room Air Documenting provider has reviewed patient's vital signs: yes Course Course ED Course: Procedure note: Wound was anesthetized using lidocaine with epinephrine and then irrigated with saline by the nurse. Explored without evidence of injury to deeper structures or foreign body. I closed using 4-0 nylon, I placed 2 horizontal mattress sutures and 7 simple interrupted sutures to close the wound. He tolerated this well without immediate complication. Dressing applied by the nurse. Discussed restrictions, avoidance of swimming and heavy strenuous activity for the next few days. Suture removal in about 10 days. Return for any signs of infection. He and his were comfortable with the plan. Vital Signs Vital signs: Initial Vital Signs Temperature 96.4 F L 05/05/24 10:11 Temperature Source Temporal Artery Scan 05/05/24 10:11 Pulse Rate 78 05/05/24 10:11 Respiratory Rate 18 05/05/24 10:11 Blood Pressure 145/82 H 05/05/24 10:11 Blood Pressure Mean 103 05/05/24 10:11 Blood Pressure Position Supine 05/05/24 10:11 Pulse Oximetry 94 05/05/24 10:11 Oxygen Delivery Method Room Air 05/05/24 10:11 Vital Signs Temperature 96.4 F L 05/05/24 10:11 Pulse Rate 78 05/05/24 10:11 Respiratory Rate 18 05/05/24 10:11 Blood Pressure 145/82 H 05/05/24 10:11 Pulse Oximetry 94 05/05/24 10:11 Oxygen Delivery Method Room Air 05/05/24 10:11 Temperature 96.4 F L 05/05/24 10:11 Pulse Rate 78 05/05/24 10:11 Respiratory Rate 18 05/05/24 10:11 Blood Pressure 145/82 H 05/05/24 10:11 Pulse Oximetry 94 05/05/24 10:11 Oxygen Delivery Method Room Air 05/05/24 10:11 Medications Administered Medications: Discontinued Medications Generic Name Dose Route Start Last Admin Trade Name Freq PRN Reason Stop Dose Admin Lidocaine/Epinephrine 20 ml 05/05/24 10:21 05/05/24 10:28 Lidocaine 1%-Epi 1:100,000 10 Ml INFILTRATI 05/05/24 10:22 20 ml ONCE ONE Administration Discharge Plan Discharge Clinical Impression: Laceration of arm Patient Disposition: Home, Self-Care Condition: Improved Instructions: Laceration (DC) Additional Instructions: Keep wound clean dry and protected while healing. I recommended an ointment such as Vaseline or Aquaphor a few times a day while healing. Suture removal in about 10 days. Return for any signs of infection. Prescriptions: No Action atorvastatin 80 mg tablet 80 mg PO DAILY aspirin 81 mg tablet,delayed release (DR/EC) 81 mg PO DAILY hydrochlorothiazide 12.5 mg capsule 12.5 mg PO DAILY vitamin d Follow Up/Referrals: Provider,Not a Local [Primary Care Provider] - Stand Alone Forms: [facility] Info Instructions
== END 2024-05-05 11:33 | disposition home or self-care (01) ==
PROVIDERS: Emergency Provider Emergency Medicine
DX: S51.812A Laceration without foreign body of left forearm, initial encounter (principal); W31.1XXA Contact with metalworking machines, initial encounter
CPT/HCPCS: 12002; 99283

== ENCOUNTER 2024-09-29 11:31 | Outpatient (CLI) | payer OTHER, SELFPAY | END 2024-09-29 11:32 | disposition home or self-care (01) | LOC: AMB 10-14 03:01 | PROVIDERS: Visit Provider Student in an Organized Health Care Education/Training Program | DX: R10.9 Unspecified abdominal pain (principal) | CPT/HCPCS: A0425; A0427 ==

== ENCOUNTER 2024-09-29 12:09 | Emergency (ER) | payer OTHER, BC, SELFPAY ==
[2024-09-29 12:12] VITALS: BP 155/80; PULSE 65; RESP 18; TEMP 36.6; O2SAT 94; BMI 26.3
--- NOTE | 2024-09-29 12:22 | CRLHL7_ITS ---
For Patients: As a result of the Century Cures Act, medical imaging exams and procedure reports are released immediately into your electronic medical record. You may view this report before your referring provider. If you have questions, please contact your health care provider. INDICATION: Right flank pain. History of stones. Technique: CT abdomen and pelvis without contrast Comparison: CT abdomen and pelvis November 01, 2013. Findings: Lung bases: Advanced coronary artery calcifications. Liver: Normal in caliber and attenuation. No masses. Gallbladder and bile ducts: Layering echogenic debris or tiny stones. No wall thickening. No biliary dilation. Pancreas: Unremarkable. Spleen: Normal in caliber. No masses. Adrenal glands: Unremarkable. No masses. Kidneys: At least 4 nonobstructing renal calculi measuring up to 4 millimeters. Mild right pelvicaliectasis and perinephric stranding. The ureter is not dilated. A dependent 2 millimeter stone is present within the bladder. Left kidney at least 3 nonobstructing renal calculi measuring less than 2 millimeters. No dilation of the left collecting system. GI tract: Normal in caliber and appearance. No sign of mass or inflammation. Appendix: No acute appendicitis. Lymph nodes: No lymphadenopathy. Aorta and vessels: No aneurysm or severe stenosis. Omentum/peritoneum/retroperitoneum: No masses or infiltration. No free air or significant free fluid. 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 Bones: Left convex lumbar scoliosis with advanced multilevel spondylosis. No fractures. Soft Tissues: No mass lesions or significant hernias. Impression: 1. On the right at least 4 nonobstructing renal calculi are present measuring up to 4 millimeters. Mild right pelvicaliectasis and periureteral stranding without ureteral dilation. A dependent 2 millimeter stone is present within the bladder. Findings suggest a recently passed stone. 2. Left kidney at least 3 nonobstructing renal calculi measuring 2 millimeters or less. No dilation of the left collecting system. 3. Otherwise stable chronic findings as above. Please note that all CT scans at this facility use dose modulation, iterative reconstruction, and/or weight-based dosing when appropriate to reduce radiation dose to as low as reasonably achievable. Dictated by Gonzalo Whitten MD @ 09/29/2024 1:14:42 PM (Electronically Signed)
--- NOTE | 2024-09-29 12:25 | ED_ITS ---
HPI - Abdominal Pain General Chief Complaint: Abdominal Pain Stated Complaint: Abdominal Pain Time Seen by Provider: 09/29/24 12:17 History of Present Illness HPI narrative: This 84-year-old male comes in with right lower quadrant abdominal pain that began about 4 hours prior to arrival. He states this came on after eating breakfast. He did have some nausea but no vomiting. 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 He did receive morphine EN route here by EMS. He is feeling much better now. He states that he does have a history of kidney stones. He does not report any fevers. Related Data Home Medications ?Medication ?Instructions ?Recorded ?Confirmed aspirin 81 mg tablet,delayed 81 mg PO DAILY 05/05/24 05/05/24 release atorvastatin 80 mg tablet 80 mg PO DAILY 05/05/24 05/05/24 hydrochlorothiazide 12.5 mg capsule 12.5 mg PO DAILY 05/05/24 05/05/24 vitamin d 05/05/24 Previous Rx's ?Medication ?Instructions ?Recorded ketorolac 10 mg tablet 10 mg PO Q8H 5 days #15 tabs 09/29/24 Allergies Allergy/AdvReac Type Severity Reaction Status Date / Time No Known Drug Allergies Allergy Verified 05/05/24 10:14 Review of Systems Status of ROS Reports: 10 or more systems reviewed and unremarkable except as noted in History and below Narrative Constitutional: No fevers, no weight gain or loss. Eyes: No discharge. No vision changes. HENT: No congestion, no sore throat, no ear pain. Cardiovascular: No chest pain, no palpitations. Respiratory: No shortness of breath, no wheezes, no cough. Gastrointestinal: No vomiting, no diarrhea. Right-sided abdominal pain. Genitourinary: No dysuria, no hematuria. Musculoskeletal: Normal range of motion. Skin: No rashes, no pruritis. Neurological: No dizziness, weakness, sensory change, speech change. Endo/Heme/Allergies: No bruising or bleeding. No polydipsia. Pysch: no suicidality, no anxiety, no insomnia. All other systems reviewed and are negative. PFSH PFSH Social History Smoking Status: Never smoker Do you use any of these nicotine containing products: None How often do you have a drink containing alcohol: never How often do you have six or more drinks on one occasion: Never AUDIT-C Alcohol total score: 0 Non-prescribed substance use: denies use Exam Narrative: Exam Narrative: Constitutional: Well-developed, well-nourished, no acute distress. HEENT: Normocephalic, atraumatic. Neck: Normal range of motion. Nontender. Supple. Heart: Regular. No murmurs. Normal rate. Intact distal pulses. Lungs: Clear to auscultation. No chest discomfort. No wheezes, rhonchi, or rales. Abdomen: Normal bowel sounds. No rebound tenderness. Rovsing sign is negative. I am able to palpate deeply over McBurney's point without any sign of pain. Genitalia: Deferred. Back: No midline tenderness. Normal range of motion. Extremities: Normal range of motion. No injury. Skin: Intact. No rash. Warm. No erythema or pallor. Neurologic: No altered sensation. No weakness. Alert and oriented. Psychiatric: No suicidality. No anxiety or depression. No insomnia. Nursing notes and vitals signs are reviewed. Const: Vital Signs, click to edit/add: Vital Signs - 24 hr 09/29/24 12:12 Temperature 97.9 F Pulse Rate [Pulse Oximeter] 65 Respiratory Rate 18 Blood Pressure [Le ft Upper Arm] 155/80 H Pulse Oximetry 94 Oxygen Delivery Me thod Room Air Course Vital Signs Vital signs: Initial Vital Signs Temperature 97.9 F 09/29/24 12:12 Temperature Source Temporal Artery Scan 09/29/24 12:12 Pulse Rate 65 09/29/24 12:12 Respiratory Rate 18 09/29/24 12:12 Blood Pressure 155/80 H 09/29/24 12:12 Blood Pressure Mean 105 09/29/24 12:12 Blood Pressure Position Sitting 09/29/24 12:12 Pulse Oximetry 94 09/29/24 12:12 Oxygen Delivery Method Room Air 09/29/24 12:12 Vital Signs Temperature 97.9 F 09/29/24 12:12 Pulse Rate 65 09/29/24 12:12 Respiratory Rate 18 09/29/24 12:12 Blood Pressure 155/80 H 09/29/24 12:12 Pulse Oximetry 94 09/29/24 12:12 Oxygen Delivery Method Room Air 09/29/24 12:12 Temperature 97.9 F 09/29/24 12:12 Pulse Rate 65 09/29/24 12:12 Respiratory Rate 18 09/29/24 12:12 Blood Pressure 155/80 H 09/29/24 12:12 Pulse Oximetry 94 09/29/24 12:12 Oxygen Delivery Method Room Air 09/29/24 12:12 MDM - Abdominal Pain MDM Narrative Medical decision making narrative: This patient comes in with right-sided abdominal pain as described above. He does have history of kidney stones and his symptoms today are suspicious for recurrence. He did receive morphine prior to arrival as he came by ambulance. At the time I visited him he was doing much better. A CT scan of his abdomen and pelvis was obtained and does show multiple stones in both kidneys with no current obstructing stone however there is a 2 mm stone in the patient's bladder. Urinalysis shows no sign of infection but there is microscopic hematuria. It seems that this patient has passed the stone into his bladder and currently he is asymptomatic. He is okay to be discharged home. I did provide a prescription for Toradol. Lab Data Labs: Lab Results 09/29/24 Range/Units 13:07 Urine Color Yellow (Yellow) Urine Appearance Clear (Clear) Urine pH 6.5 (5.0-8.5) Ur Specific [place] 1.025 (1.000-1.030) Urine Protein Negative (Negative) Urine Glucose (UA) Trace A (Negative) Urine Ketones Negative (Negative) Urine Blood Trace-intact A (Negative) Urine Nitrite Negative (Negative) Urine Bilirubin Negative (Negative) Urine Urobilinogen 0.2 (0.2-1.0) Ur Leukocyte Esterase Negative (Negative) Urine RBC 2-5 A (0-2) Urine WBC 0-2 (0-5) Ur Squamous Epith Cells None (None-Few) Urine Bacteria None (None) Imaging Data CT scan - abdomen: Radiologist's impression: 1. On the right at least 4 nonobstructing renal calculi are present measuring up to 4 millimeters. Mild right pelvicaliectasis and periureteral stranding without ureteral dilation. A dependent 2 millimeter stone is present within the bladder. Findings suggest a recently passed stone. 2. Left kidney at least 3 nonobstructing renal calculi measuring 2 millimeters or less. No dilation of the left collecting system. 3. Otherwise stable chronic findings as above. Discharge Plan Discharge Clinical Impression: Calculus, ureteral Patient Disposition: Home, Self-Care Condition: Improved Additional Instructions: Take medication as prescribed and needed. Follow up with MD return if worsening. Prescriptions: New ketorolac 10 mg tablet 10 mg PO Q8H 5 Days Qty: 15 0RF No Action atorvastatin 80 mg tablet 80 mg PO DAILY aspirin 81 mg tablet,delayed release (DR/EC) 81 mg PO DAILY hydrochlorothiazide 12.5 mg capsule 12.5 mg PO DAILY vitamin d Follow Up/Referrals: Provider,Not a Local [Primary Care Provider] - Stand Alone Forms: [employer] Info Instructions
[2024-09-29 13:14] LABS: Appearance Urine Clear (Clear); Bilirubin Urine Negative (Negative); Blood Urine Trace-intact (Negative); Color Urine Yellow (Yellow); Glucose Urine Trace (Negative); Ketones Urine Negative (Negative); Leukocyte Esterase Urine Negative (Negative); Nitrite Urine Negative (Negative); Protein Urine Negative (Negative); Specific Gravity Urine 1.025 (1.000-1.030); Urobilinogen Urine 0.2 (0.2-1.0); pH Urine 6.5 (5.0-8.5)
[2024-09-29 13:46] LABS: WBC Urine 0-2 (0-5)
[2024-09-29 14:22] VITALS: BP 121/78; PULSE 68; RESP 18; TEMP 37.1; O2SAT 95
== END 2024-09-29 14:28 | disposition home or self-care (01) ==
PROVIDERS: Emergency Provider Emergency Medicine Emergency Medical Services
DX: N20.1 Calculus of ureter (principal)
CPT/HCPCS: 74176; 81001; 99284